=== PATIENT | male | born 1960 | race Caucasian/White ===

== ENCOUNTER → 2016-06-24 | Outpatient (CLI) | payer BC | LOC: MW.CHIM 09:55 | PROVIDERS: ATTEND Internal Medicine | DX: E10.9 Type 1 diabetes mellitus without complications (principal); I10 Essential (primary) hypertension; E78.00 Pure hypercholesterolemia, unspecified | CPT/HCPCS: 36415; 84439; 84443 ==

== ENCOUNTER 2017-06-14 04:27 | Emergency (ER) | payer BC ==
[2017-06-14] MEDS ORDERED: Sodium Chloride 0.9% 1,000 ML IV ONE (05:00)
[2017-06-14] MEDS ORDERED: Ondansetron 4 MG/2 ML SDV IVPUSH ONE (05:00)
--- NOTE | 2017-06-14 05:08 | EDM.PDOC ---
ED HPI GENERAL MEDICAL PROBLEM - General Chief Complaint: Gastrointestinal Problem Stated Complaint: FEELING SICK Time Seen by Provider: 06/14/17 04:59 - History of Present Illness INITIAL COMMENTS - FREE TEXT/NARRATIVE: HISTORY AND PHYSICAL: History of present illness: Patient 57-year-old white male who presents with a concern of nausea and vomiting this occurred last week resolved significantly over the weekend and then has recurred he denies chest pain abdominal pain shortness of breath diarrhea or other concern Review of systems: As per history of present illness and below otherwise all systems reviewed and negative. Past medical history: As per history of present illness and as reviewed below otherwise noncontributory. Surgical history: As per history of present illness and as reviewed below otherwise noncontributory. Social history: No reported history of drug or alcohol abuse. Family history: As per history of present illness and as reviewed below otherwise noncontributory. Physical exam: HEENT: Atraumatic, normocephalic, pupils reactive, negative for conjunctival pallor or scleral icterus, mucous membranes dry, throat clear, neck supple, nontender, trachea midline. Lungs: Clear to auscultation, breath sounds equal bilaterally, chest nontender. Heart: S1S2, regular, negative for clicks, rubs, or JVD. Abdomen: Soft, nondistended, nontender. Negative for masses or hepatosplenomegaly. Negative for costovertebral tenderness. Pelvis: Stable nontender. Genitourinary: Deferred. Rectal: Deferred. Extremities: Atraumatic, negative for cords or calf pain. Neurovascular unremarkable. Neuro: Awake, alert, oriented. Cranial nerves II through XII unremarkable. Cerebellum unremarkable. Motor and sensory unremarkable throughout. Exam nonfocal. Diagnostics: CBC CMP troponin lipase chest x-ray EKG influenza screen Therapeutics: Saline 1 L bolus Zofran 4 mg IV Impression: #1 vomiting with dehydration #2 history diabetes Definitive disposition and diagnosis as appropriate pending reevaluation and review of above. Head Pain Score (Numeric/FACES): 7 Upper back Pain Score (Numeric/FACES): 7 - Related Data Allergies Allergy/AdvReac Type Severity Reaction Status Date / Time aspirin Allergy Hives Verified 06/14/17 04:40 ibuprofen Allergy Hives Verified 06/14/17 04:40 pioglitazone HCl [From Actos] Allergy Hives Verified 06/14/17 04:40 prasugrel HCl [From Effient] Allergy Rash Verified 06/14/17 04:40 Aihljpk-Xbu-Goj Reductase Allergy Body Aches Verified 06/14/17 04:40 Inhibitor Home Meds: Home Meds Insulin Glarg,Human.Rec.Analog [Lantus] 18 units SQ BID 04/20/14 [History] Multivitamin [Multi-Day Vitamins] 1 tab PO DAILY 12/25/14 [History] Ticagrelor [Brilinta] 90 mg PO BID 12/25/14 [History] traMADol [Ultram] 100 mg PO BEDTIME PRN 12/25/14 [History] Nitroglycerin [IJP: Nitroglycerin] 0.4 mg SL Q5M PRN #30 tablet, sublingual 06/09 [Rx] DULoxetine [Cymbalta] 30 mg PO DAILY 05/16/16 [History] Losartan/Hydrochlorothiazide [Losartan-HCTZ 100-25 MG] 1 tab PO DAILY 05/16/16 [ History] Pantoprazole [ProTONIX] 40 mg PO BIDAC PRN 05/16/16 [History] Doxazosin [Cardura] 8 mg PO BEDTIME tablet 05/17/16 [Rx] Metaxalone [Skelaxin] 0 mg PO Q8H PRN 06/14/17 [History] Past Medical History - Past Health History Medical/Surgical History: Denies Medical/Surgical History HEENT History: Reports: Macular Degeneration, Otitis Media Other HEENT History: Constant ringing in ears, affects my hearing Cardiovascular History: Reports: Angina, Hypertension, [place], SOB on Exertion, Stents, Syncope Other Cardiovascular History: Diastolic dysfunction Respiratory History: Reports: None Gastrointestinal History: Reports: GERD Other Gastrointestinal History: Abdominal pain post meals, Water dark, smelling stools Genitourinary History: Reports: None Musculoskeletal History: Reports: Back Pain, Chronic, Neck Pain, Chronic Other Musculoskeletal History: Upper back pain history Neurological History: Reports: None Other Neuro History: 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 Psychiatric History: Reports: Anxiety, Depression Other Psychiatric History: "Not sure I would know if I were depressed 'how would I know?" Endocrine/Metabolic History: Reports: Diabetes, Type I Hematologic History: Reports: None Other Hematologic History: Chronic anti-coagulant therapy Immunologic History: Reports: None Oncologic (Cancer) History: Reports: None Dermatologic History: Reports: None - Infectious Disease History Infectious Disease History: Reports: Chicken Pox, Hepatitis A - Past Surgical History Head Surgeries/Procedures: Reports: None Cardiovascular Surgical History: Reports: Coronary Artery Stent Musculoskeletal Surgical History: Reports: Other (See Below) Social & Family History - Family History Family Medical History: Noncontributory Cardiac: Reports: Angina, [place] Other Cardiac Family History: states both parents young from cardiac disease, also extensive cardiac HX with uncles, cousins, nephews - Tobacco Use Smoking Status *Q: Never Smoker Second Hand Smoke Exposure: No - Caffeine Use Caffeine Use: Reports: Coffee - Alcohol Use Days Per Week of Alcohol Use: 1 Number of Drinks Per Day: 1 Total Drinks Per Week: 1 - Recreational Drug Use Recreational Drug Use: No Drug Use in Last 12 Months: No Recreational Drug Type: Reports: Marijuana/Hashish ED ROS GENERAL - Review of Systems Review Of Systems: ROS reveals no pertinent complaints other than HPI. ED EXAM, GENERAL - Physical Exam Exam: See Below (See dictation) Course - Vital Signs Last Recorded V/S: Last Vital Signs Temp 36.5 C 06/14/17 04:27 Pulse 71 06/14/17 05:41 Resp 18 06/14/17 05:41 BP 143/80 H 06/14/17 05:41 Pulse Ox 96 06/14/17 05:41 - Orders/Labs/Meds Orders: Active Orders 24 hr Category Date Time Status EKG Documentation Completion [RC] STAT Care 06/14/17 05:06 Active Chest 1V Frontal [CR] Stat Exams 06/14/17 05:07 Taken Labs: Laboratory Tests 06/14/17 06/14/17 06/14/17 Range/Units 04:37 04:40 04:40 WBC 4.97 (4.0-11.0) K/uL RBC 4.30 L (4.50-5.90) M/uL Hgb 14.2 (13.0-17.0) g/dL Hct 38.4 (38.0-50.0) % MCV 89.3 (80.0-98.0) fL MCH 33.0 H (27.0-32.0) pg MCHC 37.0 (31.0-37.0) g/dL RDW Std Deviation 39.8 (28.0-62.0) fl RDW Coeff of Ji 13 (11.0-15.0) % Plt Count 220 (150-400) K/uL MPV 10.50 (7.40-12.00) fL Neut % (Auto) 56.1 (48.0-80.0) % Lymph % (Auto) 32.2 (16.0-40.0) % Spencer % (Auto) 8.5 (0.0-15.0) % Eos % (Auto) 2.6 (0.0-7.0) % Baso % (Auto) 0.6 (0.0-1.5) % Neut # (Auto) 2.8 (1.4-5.7) K/uL Lymph # (Auto) 1.6 (0.6-2.4) K/uL Spencer # (Auto) 0.4 (0.0-0.8) K/uL Eos # (Auto) 0.1 (0.0-0.7) K/uL Baso # (Auto) 0.0 (0.0-0.1) K/uL Nucleated RBC % 0.0 /100WBC Nucleated RBCs # 0 K/uL Sodium 139 (136-148) mmol/L Potassium 3.3 L (3.5-5.1) mmol/L Chloride 100 (98-107) mmol/L Carbon Dioxide 32.7 H (21.0-32.0) mmol/L BUN 9 (7.0-18.0) mg/dL Creatinine 0.9 (0.8-1.3) mg/dL Est Cr Clr Drug Dosing 81.72 mL/min Estimated GFR (MDRD) > 60.0 ml/min Glucose 261 H (74-106) mg/dL POC Glucose 250 H (60-110) mg/dL Calcium 9.0 (8.5-10.1) mg/dL Total Bilirubin 0.6 (0.2-1.0) mg/dL AST 19 (15-37) IU/L ALT 29 (14-63) IU/L Alkaline Phosphatase 69 (46-116) U/L Troponin I < 0.050 (0.000-0.056) ng/mL Total Protein 6.8 (6.4-8.2) g/dL Albumin 3.6 (3.4-5.0) g/dL Globulin 3.2 (2.0-3.5) g/dL Albumin/Globulin Ratio 1.1 L (1.3-2.8) Lipase (73-393) U/L Urine Color Urine Appearance Urine pH (5.0-8.0) Ur Specific Redby (1.001-1.035) Urine Protein (NEGATIVE) mg/dL Urine Glucose (UA) (NEGATIVE) mg/dL Urine Ketones (NEGATIVE) mg/dL Urine Occult Blood (NEGATIVE) Urine Nitrite (NEGATIVE) Urine Bilirubin (NEGATIVE) Urine Urobilinogen (<2.0) EU/dL Ur Leukocyte Esterase (NEGATIVE) Urine RBC (0-2/HPF) Urine WBC (0-5/HPF) Ur Epithelial Cells (NONE-FEW) Urine Bacteria (NEGATIVE) Urine Mucus (NONE-MOD) 06/14/17 06/14/17 Range/Units 04:40 05:40 WBC (4.0-11.0) K/uL RBC (4.50-5.90) M/uL Hgb (13.0-17.0) g/dL Hct (38.0-50.0) % MCV (80.0-98.0) fL MCH (27.0-32.0) pg MCHC (31.0-37.0) g/dL RDW Std Deviation (28.0-62.0) fl RDW Coeff of Ji (11.0-15.0) % Plt Count (150-400) K/uL MPV (7.40-12.00) fL Neut % (Auto) (48.0-80.0) % Lymph % (Auto) (16.0-40.0) % Spencer % (Auto) (0.0-15.0) % Eos % (Auto) (0.0-7.0) % Baso % (Auto) (0.0-1.5) % Neut # (Auto) (1.4-5.7) K/uL Lymph # (Auto) (0.6-2.4) K/uL Spencer # (Auto) (0.0-0.8) K/uL Eos # (Auto) (0.0-0.7) K/uL Baso # (Auto) (0.0-0.1) K/uL Nucleated RBC % /100WBC Nucleated RBCs # K/uL Sodium (136-148) mmol/L Potassium (3.5-5.1) mmol/L Chloride (98-107) mmol/L Carbon Dioxide (21.0-32.0) mmol/L BUN (7.0-18.0) mg/dL Creatinine (0.8-1.3) mg/dL Est Cr Clr Drug Dosing mL/min Estimated GFR (MDRD) ml/min Glucose (74-106) mg/dL POC Glucose (60-110) mg/dL Calcium (8.5-10.1) mg/dL Total Bilirubin (0.2-1.0) mg/dL AST (15-37) IU/L ALT (14-63) IU/L Alkaline Phosphatase (46-116) U/L Troponin I (0.000-0.056) ng/mL Total Protein (6.4-8.2) g/dL Albumin (3.4-5.0) g/dL Globulin (2.0-3.5) g/dL Albumin/Globulin Ratio (1.3-2.8) Lipase 107 (73-393) U/L Urine Color YELLOW Urine Appearance CLEAR Urine pH 7.0 (5.0-8.0) Ur Specific Redby 1.015 (1.001-1.035) Urine Protein TRACE (NEGATIVE) mg/dL Urine Glucose (UA) 500 H (NEGATIVE) mg/dL Urine Ketones TRACE H (NEGATIVE) mg/dL Urine Occult Blood NEGATIVE (NEGATIVE) Urine Nitrite NEGATIVE (NEGATIVE) Urine Bilirubin NEGATIVE (NEGATIVE) Urine Urobilinogen 2.0 H (<2.0) EU/dL Ur Leukocyte Esterase NEGATIVE (NEGATIVE) Urine RBC 1-2 (0-2/HPF) Urine WBC 0-2 (0-5/HPF) Ur Epithelial Cells RARE (NONE-FEW) Urine Bacteria FEW (NEGATIVE) Urine Mucus LIGHT (NONE-MOD) Meds: Medications Discontinued Medications Generic Name Dose Route Start Last Admin Trade Name Freq PRN Reason Stop Dose Admin Sodium Chloride 1,000 mls @ 999 mls/hr 06/14/17 05:00 06/14/17 05:00 Normal Saline IV 06/14/17 06:00 999 mls/hr STAT ONE Administration Ondansetron HCl 4 mg 06/14/17 05:00 06/14/17 05:05 Zofran IVPUSH 06/14/17 05:01 4 mg ONETIME ONE Administration Departure - Departure Time of Disposition: 06:24 Disposition: Home, Self-Care 01 Condition: Good Clinical Impression: Vomiting, Dehydration - Discharge Information Referrals: Jay Butcher MD [Primary Care Provider] - Forms: ED Department Discharge Additional Instructions: The following information is given to patients seen in the emergency department who are being discharged to home. This information is to outline your options for follow-up care. We provide all patients seen in our emergency department with a follow-up referral. The need for follow-up, as well as the timing and circumstances, are variable depending upon the specifics of your emergency department visit. If you don't have a primary care physician on staff, we will provide you with a referral. We always advise you to contact your personal physician following an emergency department visit to inform them of the circumstance of the visit and for follow-up with them and/or the need for any referrals to a consulting specialist. The emergency department will also refer you to a specialist when appropriate. This referral assures that you have the opportunity for followup care with a specialist. All of these measure are taken in an effort to provide you with optimal care, which includes your followup. Under all circumstances we always encourage you to contact your private physician who remains a resource for coordinating your care. When calling for followup care, please make the office aware that this follow-up is from your recent emergency room visit. If for any reason you are refused follow-up, please contact the [facility] emergency department at and asked to speak to the emergency department charge nurse. Push fluids clear liquids as directed avoid dairy products for 72 hours Zofran as prescribed follow-up primary medical doctor call to schedule appointment return as needed as discussed - My Orders Last 24 Hours: My Active Orders 06/14/17 05:06 EKG Documentation Completion [RC] STAT 06/14/17 05:07 Chest 1V Frontal [CR] Stat - Assessment/Plan Last 24 Hours: My Active Orders 06/14/17 05:06 EKG Documentation Completion [RC] STAT 06/14/17 05:07 Chest 1V Frontal [CR] Stat
[2017-06-14 06:03] LABS: CHLORIDE,CL 100 mmol/L (98-107); SODIUM,NA 139 mmol/L (136-148)
[2017-06-14 06:31] VITALS: BP 139/103
--- NOTE | 2017-06-14 10:53 | CR ---
EXAM DATE: 06/14/17 PATIENT'S AGE: 57 Patient: ALEXA COOPER Facility: [place], [place] Site . Site : 1960 Study: XRay Chest [id number]/21/2018 5:42:19 AM Ordering Physician: Donavan Oswald Final Report: INDICATION: Chest pain, shortness of breath history of several heart surgeries, stents TECHNIQUE: Chest radiograph 1 view COMPARISON: 05/16/16 FINDINGS: Mediastinum: The heart silhouette is normal in size and morphology. The mediastinum is normal in appearance. Lungs: Both lungs are unremarkable in appearance. No sign of pleural effusion seen. No pneumothorax is identified. Bones and soft tissue: Unremarkable for age. IMPRESSION: 1. No acute cardiopulmonary disease is seen. Dictated by: Alonzo Canchola MD @ 06/14/2017 05:43:49 (Electronic Signature) Report Signed by Proxy. [facility]
== END 2017-06-14 06:33 | disposition home or self-care (01) ==
LOC: MW.ED 04:27
DX: E86.0 Dehydration (principal); R11.2 Nausea with vomiting, unspecified; I10 Essential (primary) hypertension; I25.2 Old myocardial infarction; E10.9 Type 1 diabetes mellitus without complications; Z88.6 Allergy status to analgesic agent; Z79.899 Other long term (current) drug therapy
CPT/HCPCS: 71045; 80053; 81001; 82962; 83690; 84484; 85025; 87804; 93005; 96361; 96374; 99284; J2405; J7040; 99283

== ENCOUNTER 2017-12-24 13:14 | Emergency (ER) | payer BC ==
[2017-12-24] MEDS ORDERED: Sodium Chloride 0.9% 1,000 ML IV ONE (13:28)
--- NOTE | 2017-12-24 13:41 | EDM.PDOC ---
ED HPI GENERAL MEDICAL PROBLEM - General Chief Complaint: Cardiovascular Problem Stated Complaint: HEART ISSUES Time Seen by Provider: 12/24/17 13:37 Source of Information: Reports: Patient History Limitations: Reports: No Limitations - History of Present Illness INITIAL COMMENTS - FREE TEXT/NARRATIVE: HISTORY AND PHYSICAL: History of present illness: Patient is a 57-year-old male here with complaint of left hand tingling. He states that it started this morning. He reports last night around 2am he was feeling jittery, chest pain, and nauseous. He states he took a nitro and this resolved. He currently denies any chest pain/pressure, shortness of breath, diaphoresis, nausea, left arm or jaw pain, fevers, chills, cough. He has a history of ACS with stents. Patient also complains of left eye blurriness. Head CT shows bilateral ethmoidal and sphenoid sinusitis, patient does not that he has had pain in his forehead and nasal congestion. Troponin negative, no chest pain for 12 hours prior to arrival to the ED. Review of systems: As per history of present illness and below otherwise all systems reviewed and negative. Past medical history: As per history of present illness and as reviewed below otherwise noncontributory. Surgical history: As per history of present illness and as reviewed below otherwise noncontributory. Social history: No reported history of drug or alcohol abuse. Family history: As per history of present illness and as reviewed below otherwise noncontributory. Physical exam: General: Patient sitting comfortably in no acute distress and nontoxic appearing HEENT: Atraumatic, normocephalic, pupils reactive, negative for conjunctival pallor or scleral icterus, mucous membranes moist, throat clear, neck supple, nontender, trachea midline. No meningeal signs. Lungs: Clear to auscultation, breath sounds equal bilaterally, chest nontender. Heart: S1S2, regular, negative for clicks, rubs, or overt murmur. Abdomen: Soft, nondistended, nontender. Negative for masses or hepatosplenomegaly. Negative for costovertebral tenderness. Pelvis: Stable nontender. Genitourinary: Deferred. Rectal: Deferred. Extremities: Positive tinels sign at the ulnar tunnel. Craft Worker strength is 4/5 on the left. No lower extremity weakness noted. Atraumatic, negative for cords or calf pain. Neurovascular unremarkable. Neuro: Awake, alert, oriented. Cranial nerves II through XII unremarkable. Cerebellum unremarkable. Motor and sensory unremarkable throughout. Exam nonfocal. Notes: Diagnostics: CBC, CMP, Troponin, PT/INR, EKG, CXR, Head CT Therapeutics: None Prescriptions: Augmentin Impression: Left arm parasthesias, acute sinusitis Plan: 1. Take antibiotic as directed. 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 2. Follow up with primary care provider 3. Return to ED as needed as discussed Definitive disposition and diagnosis as appropriate pending reevaluation and review of above. Chest Pain Score (Numeric/FACES): 2 - Related Data Allergies Allergy/AdvReac Type Severity Reaction Status Date / Time aspirin Allergy Hives Verified 12/24/17 13:24 ibuprofen Allergy Hives Verified 12/24/17 13:24 pioglitazone HCl [From Actos] Allergy Hives Verified 12/24/17 13:24 prasugrel HCl [From Effient] Allergy Rash Verified 12/24/17 13:24 [id number]-[id number] Reductase Allergy Body Aches Verified 12/24/17 13:24 Inhibitor Home Meds: Home Meds RX: Insulin Glarg,Human.Rec.Analog [Lantus] 23 units SQ BID 04/20/14 [History] RX: Multivitamin [Multi-Day Vitamins] 1 tab PO DAILY 12/25/14 [History] RX: Ticagrelor [Brilinta] 90 mg PO BID 12/25/14 [History] RX: traMADol [Ultram] 50 - 100 mg PO BEDTIME PRN 12/25/14 [History] Gabapentin [Neurontin] 300 mg PO BEDTIME 11/01/17 [History] Insulin Aspart [Novolog] 6 unit SQ TIDMEALS 11/01/17 [History] RX: Carvedilol 25 mg PO BID 11/01/17 [History] RX: Doxazosin [Cardura] 4 mg PO BEDTIME 11/01/17 [History] RX: Omeprazole 20 mg PO ACBREAKFAST 11/01/17 [History] amLODIPine Besylate [Amlodipine Besylate] 10 mg PO DAILY 11/01/17 [History] Amoxicillin/Potassium Clav [Augmentin 875-125 Tablet] 1 each PO BID 7 Days #14 tablet 12/24/17 [Rx] RX: Losartan [Cozaar] 100 mg PO DAILY 12/24/17 [History] Past Medical History - Past Health History Medical/Surgical History: Denies Medical/Surgical History HEENT History: Reports: Otitis Media, Other (See Below) Other HEENT History: Constant ringing in ears, affects my hearing, macular edema Cardiovascular History: Reports: Angina, High Cholesterol, Hypertension, SD, SOB on Exertion, Stents, Syncope, Other (See Below) Other Cardiovascular History: Diastolic dysfunction Respiratory History: Reports: None Gastrointestinal History: Reports: GERD Other Gastrointestinal History: Abdominal pain post meals, Water dark, smelling stools Genitourinary History: Reports: None Musculoskeletal History: Reports: Back Pain, Chronic, Neck Pain, Chronic Other Musculoskeletal History: Upper back pain history Neurological History: Reports: None Other Neuro History: 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 Psychiatric History: Reports: Anxiety, Depression Other Psychiatric History: "Not sure I would know if I were depressed 'how would I know?" Endocrine/Metabolic History: Reports: Diabetes, Type I Hematologic History: Reports: None Other Hematologic History: Chronic anti-coagulant therapy Immunologic History: Reports: None Oncologic (Cancer) History: Reports: None Dermatologic History: Reports: None - Infectious Disease History Infectious Disease History: Reports: Chicken Pox, Hepatitis A - Past Surgical History Head Surgeries/Procedures: Reports: None Cardiovascular Surgical History: Reports: Coronary Artery Stent Musculoskeletal Surgical History: Reports: Other (See Below) Social & Family History - Family History Family Medical History: Noncontributory Cardiac: Reports: Angina, SD Other Cardiac Family History: states both parents young from cardiac disease, also extensive cardiac HX with uncles, cousins, nephews - Tobacco Use Smoking Status *Q: Never Smoker - Caffeine Use Caffeine Use: Reports: Coffee - Recreational Drug Use Recreational Drug Use: No ED ROS GENERAL - Review of Systems Review Of Systems: ROS reveals no pertinent complaints other than HPI. ED EXAM, GENERAL - Physical Exam Exam: See Below (see dictation) Course - Vital Signs Last Recorded V/S: Last Vital Signs Temp 36.3 C 12/24/17 13:21 Pulse 73 12/24/17 14:19 Resp 18 12/24/17 13:21 BP 143/96 H 12/24/17 14:19 Pulse Ox 98 12/24/17 14:19 - Orders/Labs/Meds Orders: Active Orders 24 hr Category Date Time Status EKG Documentation Completion [RC] STAT Care 12/24/17 13:28 Active Chest 1V Frontal [CR] Stat Exams 12/24/17 13:28 Taken Head wo Cont [CT] Stat Exams 12/24/17 14:20 Taken Labs: Laboratory Tests 12/24/17 12/24/17 12/24/17 Range/Units 13:28 13:49 13:49 WBC 4.50 (4.0-11.0) K/uL RBC 4.51 (4.50-5.90) M/uL Hgb 15.0 (13.0-17.0) g/dL Hct 40.4 (38.0-50.0) % MCV 89.6 (80.0-98.0) fL MCH 33.3 H (27.0-32.0) pg MCHC 37.1 H (31.0-37.0) g/dL RDW Std Deviation 40.9 (28.0-62.0) fl RDW Coeff of Ji 13 (11.0-15.0) % Plt Count 156 (150-400) K/uL MPV 10.10 (7.40-12.00) fL Neut % (Auto) 63.8 (48.0-80.0) % Lymph % (Auto) 22.7 (16.0-40.0) % Bell % (Auto) 8.9 (0.0-15.0) % Eos % (Auto) 4.2 (0.0-7.0) % Baso % (Auto) 0.4 (0.0-1.5) % Neut # (Auto) 2.9 (1.4-5.7) K/uL Lymph # (Auto) 1.0 (0.6-2.4) K/uL Bell # (Auto) 0.4 (0.0-0.8) K/uL Eos # (Auto) 0.2 (0.0-0.7) K/uL Baso # (Auto) 0.0 (0.0-0.1) K/uL Nucleated RBC % 0.0 /100WBC Nucleated RBCs # 0 K/uL Sodium 136 (136-148) mmol/L Potassium 3.8 (3.5-5.1) mmol/L Chloride 102 (98-107) mmol/L Carbon Dioxide 28.7 (21.0-32.0) mmol/L BUN 22 H (7.0-18.0) mg/dL Creatinine 1.1 (0.8-1.3) mg/dL Est Cr Clr Drug Dosing 76.50 mL/min Estimated GFR (MDRD) > 60.0 ml/min Glucose 346 H (74-106) mg/dL Calcium 9.0 (8.5-10.1) mg/dL Total Bilirubin 0.8 (0.2-1.0) mg/dL AST 16 (15-37) IU/L ALT 27 (14-63) IU/L Alkaline Phosphatase 82 (46-116) U/L Troponin I < 0.050 (0.000-0.056) ng/mL Total Protein 7.1 (6.4-8.2) g/dL Albumin 3.6 (3.4-5.0) g/dL Globulin 3.5 (2.0-3.5) g/dL Albumin/Globulin Ratio 1.0 L (1.3-2.8) Urine Color YELLOW Urine Appearance CLEAR Urine pH 5.5 (5.0-8.0) Ur Specific [place] 1.025 (1.001-1.035) Urine Protein NEGATIVE (NEGATIVE) mg/dL Urine Glucose (UA) >=1000 (NEGATIVE) mg/dL Urine Ketones NEGATIVE (NEGATIVE) mg/dL Urine Occult Blood NEGATIVE (NEGATIVE) Urine Nitrite NEGATIVE (NEGATIVE) Urine Bilirubin NEGATIVE (NEGATIVE) Urine Urobilinogen 0.2 (<2.0) EU/dL Ur Leukocyte Esterase NEGATIVE (NEGATIVE) Urine RBC 0-1 (0-2/HPF) Urine WBC 0-1 (0-5/HPF) Ur Epithelial Cells RARE (NONE-FEW) Urine Bacteria RARE (NEGATIVE) Urine Mucus LIGHT (NONE-MOD) Meds: Medications Discontinued Medications Generic Name Dose Route Start Last Admin Trade Name Freq PRN Reason Stop Dose Admin Sodium Chloride 1,000 mls @ 999 mls/hr 12/24/17 13:28 12/24/17 13:49 Normal Saline IV 12/24/17 14:28 999 mls/hr STAT ONE Administration Departure - Departure Time of Disposition: 15:30 Disposition: Home, Self-Care 01 Condition: Good Clinical Impression: Arm paresthesia, left, Acute sinusitis Prescriptions: Amoxicillin/Potassium Clav [Augmentin 875-125 Tablet] 1 each PO BID 7 Days #14 tablet Referrals: PCP,None [Primary Care Provider] - Forms: ED Department Discharge Additional Instructions: The following information is given to patients seen in the emergency department who are being discharged to home. This information is to outline your options for follow-up care. We provide all patients seen in our emergency department with a follow-up referral. The need for follow-up, as well as the timing and circumstances, are variable depending upon the specifics of your emergency department visit. If you don't have a primary care physician on staff, we will provide you with a referral. We always advise you to contact your personal physician following an emergency department visit to inform them of the circumstance of the visit and for follow-up with them and/or the need for any referrals to a consulting specialist. The emergency department will also refer you to a specialist when appropriate. This referral assures that you have the opportunity for follow-up care with a specialist. All of these measure are taken in an effort to provide you with optimal care, which includes your follow-up. Under all circumstances we always encourage you to contact your private physician who remains a resource for coordinating your care. When calling for follow-up care, please make the office aware that this follow-up is from your recent emergency room visit. If for any reason you are refused follow-up, please contact the [facility] at and asked to speak to the emergency department charge nurse. [facility] [address] [place] [id number] 1. Take antibiotic as directed. 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 2. Follow up with primary care provider 3. Return to ED as needed as discussed - My Orders Last 24 Hours: My Active Orders 12/24/17 14:20 Head wo Cont [CT] Stat - Assessment/Plan Last 24 Hours: My Active Orders 12/24/17 14:20 Head wo Cont [CT] Stat
[2017-12-24 14:24] LABS: CHLORIDE,CL 102 mmol/L (98-107); SODIUM,NA 136 mmol/L (136-148)
[2017-12-24 15:51] VITALS: BP 131/89
--- NOTE | 2017-12-25 18:57 | CR ---
EXAM DATE: 12/24/17 PATIENT'S AGE: 57 Patient: ALEXA COOPER Facility: [place], [place] Site . Site : 1960 Study: XRay Chest [id number] 2:15:55 PM Ordering Physician: Doctor Washington Final Report: HISTORY: Chest pain. FINDINGS: Single AP view of the chest is provided. There is elevation of the right hemidiaphragm. The lungs are clear and there is no evidence for pleural effusion or pneumothorax. Cardiac silhouette size is mildly enlarged but this could be due to AP portable technique. Mild aortic ectasia is noted. IMPRESSION: Clear lungs. Dictated by Niles Mann MD @ Dec 24 2017 2:38PM (Electronic Signature) Report Signed by Proxy. DONTA
--- NOTE | 2017-12-25 18:59 | CT ---
EXAM DATE: 12/24/17 PATIENT'S AGE: 57 Patient: ALEXA COOPER Facility: [place], [place] Site . Site : 1960 Study: CT Head WO CONT [id number] 2:49:33 PM Ordering Physician: Doctor Washington Final Report: INDICATION: Pain. Left-sided hand numbness and left eye blurriness. TECHNIQUE: CT head without IV contrast. COMPARISON: CT head 11/01/2017. FINDINGS: Moderate amount of fluid in the sphenoid sinus with mucosal thickening similar to prior exam. Small to moderate amounts of fluid and mucosal thickening in the ethmoidal sinuses more prominent. Findings consistent with sinusitis. No intracranial hemorrhage, edema, or mass-effect. Minimal cerebral atrophy. Tiny old lacunar infarcts in the left basal ganglia. Remainder negative. IMPRESSION: 1. No acute intracranial disease. 2. Bilateral ethmoidal and sphenoid sinusitis. Please note that all CT scans at this facility use dose modulation, iterative reconstruction, and/or weight-based dosing when appropriate to reduce radiation dose to as low as reasonably achievable. Dictated by Paulino Gutierrez MD @ Dec 24 2017 3:00PM (Electronic Signature) Report Signed by Proxy. DONTA
== END 2017-12-24 15:50 | disposition home or self-care (01) ==
LOC: MW.ED 13:14
DX: J01.80 Other acute sinusitis (principal); R20.2 Paresthesia of skin; E10.9 Type 1 diabetes mellitus without complications; I10 Essential (primary) hypertension; E78.00 Pure hypercholesterolemia, unspecified; Z88.6 Allergy status to analgesic agent; Z88.8 Allergy status to other drugs, medicaments and biological substances
CPT/HCPCS: 36415; 70450; 71045; 80053; 81001; 84484; 85025; 93005; 96360; 99285; J7040; 99284

== ENCOUNTER 2018-07-23 07:48 | Emergency (ER) | payer BC ==
[2018-07-23] MEDS ORDERED: Sodium Chloride 0.9% 2.5 ML Syringe FLUSH PRN (08:01)
[2018-07-23] MEDS ORDERED: Nitroglycerin 2% Oint 1 GM UD Packet TOP ONE (08:01)
[2018-07-23] MEDS ORDERED: Sodium Chloride 0.9% 10 ML Syringe FLUSH PRN (08:01)
[2018-07-23] MEDS ORDERED: Sodium Chloride 0.9% 10 ML SDV IV PRN (08:01)
[2018-07-23] MEDS ORDERED: LORazepam 2 MG/ML SDV IVPUSH ONE (08:03)
[2018-07-23] MEDS ORDERED: Sodium Chloride 0.9% 1,000 ML IV ONE (08:03)
[2018-07-23] MEDS ORDERED: Morphine 2 MG/ML Syringe IVPUSH ONE (08:06)
[2018-07-23] MEDS ORDERED: Ondansetron 4 MG/2 ML SDV IVPUSH ONE (08:06)
--- NOTE | 2018-07-23 08:08 | EDM.PDOC ---
ED HPI GENERAL MEDICAL PROBLEM - General Chief Complaint: Chest Pain Stated Complaint: CHEST PAIN Time Seen by Provider: 07/23/18 07:57 - History of Present Illness INITIAL COMMENTS - FREE TEXT/NARRATIVE: HISTORY AND PHYSICAL: History of present illness: Patient is 58-year-old white male who presents with concern of left-sided chest pain he describes as sharp and intermittent with associated nausea and emesis 1 yesterday he denies diaphoresis palpitations or shortness of breath he is quite anxious. He's been seen by cardiology both at [facility] as well as locally with Dr. Boyer Review of systems: As per history of present illness and below otherwise all systems reviewed and negative. Past medical history: As per history of present illness and as reviewed below otherwise noncontributory. Surgical history: As per history of present illness and as reviewed below otherwise noncontributory. Social history: No reported history of drug or alcohol abuse. Family history: As per history of present illness and as reviewed below otherwise noncontributory. Physical exam: HEENT: Atraumatic, normocephalic, pupils reactive, negative for conjunctival pallor or scleral icterus, mucous membranes moist, throat clear, neck supple, nontender, trachea midline. Lungs: Clear to auscultation, breath sounds equal bilaterally, chest nontender. Heart: S1S2, regular, negative for clicks, rubs, or JVD. Abdomen: Soft, nondistended, nontender. Negative for masses or hepatosplenomegaly. Negative for costovertebral tenderness. Pelvis: Stable nontender. Genitourinary: Deferred. Rectal: Deferred. Extremities: Atraumatic, negative for cords or calf pain. Neurovascular unremarkable. Neuro: Awake, alert, oriented. Cranial nerves II through XII unremarkable. Cerebellum unremarkable. Motor and sensory unremarkable throughout. Exam nonfocal. Diagnostics: CBC CMP troponin PT/INR chest x-ray EKG Therapeutics: IV O2 monitor Nitropaste 1 inch to chest wall Ativan 1 mg IV morphine sulfate 2 mg IV Impression: #1 chest pain Definitive disposition and diagnosis as appropriate pending reevaluation and review of above. Chest Pain Score (Numeric/FACES): 7 - Related Data Allergies Allergy/AdvReac Type Severity Reaction Status Date / Time aspirin Allergy Hives Verified 07/23/18 07:57 ibuprofen Allergy Hives Verified 07/23/18 07:57 pioglitazone HCl [From Actos] Allergy Hives Verified 07/23/18 07:57 prasugrel HCl [From Effient] Allergy Rash Verified 07/23/18 07:57 [id number]-[id number] Reductase Allergy Body Aches Verified 07/23/18 07:57 Inhibitor Home Meds: Home Meds Insulin Glarg,Human.Rec.Analog [Lantus] 23 units SQ BID 04/20/14 [History] Multivitamin [Multi-Day Vitamins] 1 tab PO DAILY 12/25/14 [History] Ticagrelor [Brilinta] 90 mg PO BID 12/25/14 [History] traMADol [Ultram] 50 - 100 mg PO BEDTIME PRN 12/25/14 [History] Carvedilol 25 mg PO BID 11/01/17 [History] Doxazosin [Cardura] 4 mg PO BEDTIME 11/01/17 [History] Insulin Aspart [Novolog Flexpen] 6 unit SQ TIDMEALS 11/01/17 [History] Omeprazole 20 mg PO ACBREAKFAST 11/01/17 [History] amLODIPine Besylate [Amlodipine Besylate] 10 mg PO DAILY 11/01/17 [History] Losartan [Cozaar] 100 mg PO DAILY 12/24/17 [History] Ezetimibe [Zetia] 10 mg PO DAILY 02/07/18 [History] Isosorbide Dinitrate 10 mg PO BID 30 Days #60 tablet 02/08/18 [Rx] Past Medical History - Past Health History Medical/Surgical History: Denies Medical/Surgical History HEENT History: Reports: Otitis Media, Other (See Below) Other HEENT History: Constant ringing in ears, affects my hearing, macular edema Cardiovascular History: Reports: Angina, High Cholesterol, Hypertension, CT, SOB on Exertion, Stents, Syncope, Other (See Below) Other Cardiovascular History: Diastolic dysfunction Respiratory History: Reports: None Gastrointestinal History: Reports: GERD Other Gastrointestinal History: Abdominal pain post meals, Water dark, smelling stools Genitourinary History: Reports: None Musculoskeletal History: Reports: Back Pain, Chronic, Neck Pain, Chronic Other Musculoskeletal History: Upper back pain history Neurological History: Reports: None Other Neuro History: 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 Psychiatric History: Reports: Anxiety, Depression Other Psychiatric History: "Not sure I would know if I were depressed 'how would I know?" Endocrine/Metabolic History: Reports: Diabetes, Type I Hematologic History: Reports: None Other Hematologic History: Chronic anti-coagulant therapy Immunologic History: Reports: None Oncologic (Cancer) History: Reports: None Dermatologic History: Reports: None - Infectious Disease History Infectious Disease History: Reports: Hepatitis A - Past Surgical History Head Surgeries/Procedures: Reports: None Cardiovascular Surgical History: Reports: Coronary Artery Stent Musculoskeletal Surgical History: Reports: Other (See Below) Social & Family History - Family History Family Medical History: Noncontributory Cardiac: Reports: Angina, [place] Other Cardiac Family History: states both parents young from cardiac disease, also extensive cardiac HX with uncles, cousins, nephews - Tobacco Use Smoking Status *Q: Never Smoker - Caffeine Use Caffeine Use: Reports: Coffee Caffeine Use Comment: diet soda - Recreational Drug Use Recreational Drug Use: No ED ROS GENERAL - Review of Systems Review Of Systems: ROS reveals no pertinent complaints other than HPI. ED EXAM, GENERAL - Physical Exam Exam: See Below (See dictation) Course - Vital Signs Text/Narrative:: I discussed diagnostics with patient and I did also discuss admission for observation and further diagnostics at this time they both declined and requested discharge with expedited outpatient follow-up he was recently seen by his condenser setter and will revisit this episode with him he is pain-free at this time with no other complaints I did discuss with him risk and benefits he understands. Last Recorded V/S: Last Vital Signs Temp 36.6 C 07/23/18 09:18 Pulse 71 07/23/18 09:18 Resp 18 07/23/18 09:18 BP 167/102 H 07/23/18 09:18 Pulse Ox 98 07/23/18 09:18 - Orders/Labs/Meds Orders: Active Orders 24 hr Category Date Time Status Cardiac Monitoring [RC] . DIRECTED Care 07/23/18 08:01 Active EKG Documentation Completion [RC] STAT Care 07/23/18 08:01 Active UA RFX SARY AND CULT IF INDIC [URIN] Stat Lab 07/23/18 09:15 Received Sodium Chloride 0.9% [Normal Saline] Med 07/23/18 08:01 Active 10 ml IV ASDIRECTED PRN Sodium Chloride 0.9% [Saline Flush] Med 07/23/18 08:01 Active 10 ml FLUSH ASDIRECTED PRN Sodium Chloride 0.9% [Saline Flush] Med 07/23/18 08:01 Active 2.5 ml FLUSH ASDIRECTED PRN Peripheral IV Insertion Adult [OM.PC] Stat Oth 07/23/18 08:01 Ordered Medication Orders Sodium Chloride (Saline Flush) 10 ml FLUSH ASDIRECTED PRN PRN Reason: Keep Vein Open Last Admin: 07/23/18 08:14 Dose: 10 ml Sodium Chloride (Saline Flush) 2.5 ml FLUSH ASDIRECTED PRN PRN Reason: Keep Vein Open Last Admin: 07/23/18 08:14 Dose: 2.5 ml Sodium Chloride (Normal Saline) 10 ml IV ASDIRECTED PRN PRN Reason: IV Use Last Admin: 07/23/18 08:15 Dose: 10 ml Labs: Laboratory Tests 07/23/18 07/23/18 07/23/18 Range/Units 07:55 07:55 07:55 WBC 5.99 (4.0-11.0) K/uL RBC 4.55 (4.50-5.90) M/uL Hgb 14.9 (13.0-17.0) g/dL Hct 42.0 (38.0-50.0) % MCV 92.3 (80.0-98.0) fL MCH 32.7 H (27.0-32.0) pg MCHC 35.5 (31.0-37.0) g/dL RDW Std Deviation 42.9 (28.0-62.0) fl RDW Coeff of Ji 13 (11.0-15.0) % Plt Count 154 (150-400) K/uL MPV 10.80 (7.40-12.00) fL Neut % (Auto) 70.0 (48.0-80.0) % Lymph % (Auto) 19.9 (16.0-40.0) % [place] % (Auto) 6.5 (0.0-15.0) % Eos % (Auto) 3.3 (0.0-7.0) % Baso % (Auto) 0.3 (0.0-1.5) % Neut # (Auto) 4.2 (1.4-5.7) K/uL Lymph # (Auto) 1.2 (0.6-2.4) K/uL [place] # (Auto) 0.4 (0.0-0.8) K/uL Eos # (Auto) 0.2 (0.0-0.7) K/uL Baso # (Auto) 0.0 (0.0-0.1) K/uL Nucleated RBC % 0.0 /100WBC Nucleated RBCs # 0 K/uL INR 0.90 Sodium 137 (136-148) mmol/L Potassium 4.2 (3.5-5.1) mmol/L Chloride 102 (98-107) mmol/L Carbon Dioxide 28.1 (21.0-32.0) mmol/L BUN 19 H (7.0-18.0) mg/dL Creatinine 1.1 (0.8-1.3) mg/dL Est Cr Clr Drug Dosing 75.58 mL/min Estimated GFR (MDRD) > 60.0 ml/min Glucose 425 H (74-106) mg/dL Calcium 9.3 (8.5-10.1) mg/dL Total Bilirubin 0.7 (0.2-1.0) mg/dL AST 17 (15-37) IU/L ALT 19 (14-63) IU/L Alkaline Phosphatase 81 (46-116) U/L Creatine Kinase 76 (26-308) U/L Troponin I < 0.050 (0.000-0.056) ng/mL Total Protein 7.1 (6.4-8.2) g/dL Albumin 3.8 (3.4-5.0) g/dL Globulin 3.3 (2.6-4.0) g/dL Albumin/Globulin Ratio 1.2 (0.9-1.6) Amylase 32 (25-115) U/L Lipase 79 (73-393) U/L Meds: Medications Generic Name Dose Route Start Last Admin Trade Name Freq PRN Reason Stop Dose Admin Sodium Chloride 10 ml 07/23/18 08:01 07/23/18 08:14 Saline Flush FLUSH 10 ml ASDIRECTED PRN Administration Keep Vein Open Sodium Chloride 2.5 ml 07/23/18 08:01 07/23/18 08:14 Saline Flush FLUSH 2.5 ml ASDIRECTED PRN Administration Keep Vein Open Sodium Chloride 10 ml 07/23/18 08:01 07/23/18 08:15 Normal Saline IV 10 ml ASDIRECTED PRN Administration IV Use Discontinued Medications Generic Name Dose Route Start Last Admin Trade Name You PRN Reason Stop Dose Admin Sodium Chloride 1,000 mls @ 999 mls/hr 07/23/18 08:03 07/23/18 08:15 Normal Saline IV 07/23/18 09:03 999 mls/hr STAT ONE Administration Lorazepam 1 mg 07/23/18 08:03 07/23/18 08:14 Ativan IVPUSH 07/23/18 08:04 1 mg ONETIME ONE Administration Morphine Sulfate 2 mg 07/23/18 08:06 07/23/18 08:14 Morphine IVPUSH 07/23/18 08:07 2 mg ONETIME ONE Administration Nitroglycerin 0 gm 07/23/18 08:01 07/23/18 08:13 Nitro-Bid 2% TOP 07/23/18 08:02 1 gm ONETIME ONE Administration Ondansetron HCl 4 mg 07/23/18 08:06 07/23/18 08:14 Zofran IVPUSH 07/23/18 08:07 4 mg ONETIME ONE Administration Departure - Departure Time of Disposition: 09:37 Disposition: Home, Self-Care 01 Condition: Good Clinical Impression: Chest pain Qualifiers: Chest pain type: unspecified Qualified Code(s): R07.9 - Chest pain, unspecified - Discharge Information Referrals: PCP,None [Primary Care Provider] - Forms: ED Department Discharge Additional Instructions: The following information is given to patients seen in the emergency department who are being discharged to home. This information is to outline your options for follow-up care. We provide all patients seen in our emergency department with a follow-up referral. The need for follow-up, as well as the timing and circumstances, are variable depending upon the specifics of your emergency department visit. If you don't have a primary care physician on staff, we will provide you with a referral. We always advise you to contact your personal physician following an emergency department visit to inform them of the circumstance of the visit and for follow-up with them and/or the need for any referrals to a consulting specialist. The emergency department will also refer you to a specialist when appropriate. This referral assures that you have the opportunity for followup care with a specialist. All of these measure are taken in an effort to provide you with optimal care, which includes your followup. Under all circumstances we always encourage you to contact your private physician who remains a resource for coordinating your care. When calling for followup care, please make the office aware that this follow-up is from your recent emergency room visit. If for any reason you are refused follow-up, please contact the [facility] emergency department at and asked to speak to the emergency department charge nurse. Follow-up primary medical doctor/condenser setter as discussed continue current medications return as needed as discussed[] - My Orders Last 24 Hours: My Active Orders 07/23/18 08:01 Cardiac Monitoring [RC] . DIRECTED EKG Documentation Completion [RC] STAT Sodium Chloride 0.9% [Normal Saline] 10 ml IV ASDIRECTED PRN Sodium Chloride 0.9% [Saline Flush] 10 ml FLUSH ASDIRECTED PRN Sodium Chloride 0.9% [Saline Flush] 2.5 ml FLUSH ASDIRECTED PRN Peripheral IV Insertion Adult [OM.PC] Stat 07/23/18 09:15 UA RFX SARY AND CULT IF INDIC [URIN] Stat - Assessment/Plan Last 24 Hours: My Active Orders 07/23/18 08:01 Cardiac Monitoring [RC] . DIRECTED EKG Documentation Completion [RC] STAT Sodium Chloride 0.9% [Normal Saline] 10 ml IV ASDIRECTED PRN Sodium Chloride 0.9% [Saline Flush] 10 ml FLUSH ASDIRECTED PRN Sodium Chloride 0.9% [Saline Flush] 2.5 ml FLUSH ASDIRECTED PRN Peripheral IV Insertion Adult [OM.PC] Stat 07/23/18 09:15 UA RFX SARY AND CULT IF INDIC [URIN] Stat
[2018-07-23 08:47] LABS: CHLORIDE,CL 102 mmol/L (98-107); SODIUM,NA 137 mmol/L (136-148)
--- NOTE | 2018-07-23 09:24 | CR ---
INDICATION: Chest pain. Shortness of breath. FINDINGS: A single portable chest x-ray shows a normal cardiac silhouette. Mildly tortuous aorta. The lungs show minimal left basilar atelectasis. No other focal pulmonary opacities. Sharp pleural margins. No pneumothorax. IMPRESSION: Minimal left basilar atelectasis. No other focal pulmonary opacities. Dictated by Greg Freitas MD @ 07/23/2018 9:21:50 AM Dictated by: Greg Freitas MD @ 07/23/2018 09:22:04 (Electronically Signed)
[2018-07-23 09:54] VITALS: BP 167/105
== END 2018-07-23 09:51 | disposition home or self-care (01) ==
LOC: MW.ED 07:48
DX: R07.9 Chest pain, unspecified (principal); E10.9 Type 1 diabetes mellitus without complications; I10 Essential (primary) hypertension; Z88.8 Allergy status to other drugs, medicaments and biological substances
CPT/HCPCS: 36415; 71045; 80053; 81003; 82150; 82550; 83690; 84484; 85025; 85610; 93005; 96360; 96374; 96375; 99285; A9270; J2060; J2270; J2405; J7040; J7050; 99283

== ENCOUNTER 2018-10-19 08:30 | Observation (INO) | payer BC ==
[2018-10-19] MEDS ORDERED: Sodium Chloride 0.9% 2.5 ML Syringe FLUSH PRN (08:32)
[2018-10-19] MEDS ORDERED: Sodium Chloride 0.9% 10 ML Syringe FLUSH PRN (08:32)
--- NOTE | 2018-10-19 08:43 | EDM.PDOC ---
ED HPI GENERAL MEDICAL PROBLEM - General Stated Complaint: CHEST PAIN AND BLACKING OUT Time Seen by Provider: 10/19/18 09:00 - History of Present Illness INITIAL COMMENTS - FREE TEXT/NARRATIVE: 58 y/o male with history of CAD s/p stent placements, type 1 diabetes, dyslipidemia who presented to the ER after feeling lightheaded and complaining of chest pain. States he has been having on and off chest pain for the past 1 week. States his blood pressure has been elevated and took isosorbide this morning. States he started feeling dizzy, lightheaded afterwards. Rechecked BP and it was 80'/50's. No radiation to neck or left arm. Has chronic neck pain. In the ER, complaining of chest pain. BP in 130's/80's. allergic to aspirin, statins. Left Chest Pain Score (Numeric/FACES): 8 - Related Data Allergies Allergy/AdvReac Type Severity Reaction Status Date / Time aspirin Allergy Hives Verified 10/19/18 08:46 ibuprofen Allergy Hives Verified 10/19/18 08:46 pioglitazone HCl [From Actos] Allergy Hives Verified 10/19/18 08:46 prasugrel HCl [From Effient] Allergy Rash Verified 10/19/18 08:46 Irrxixz-Qkj-Fiz Reductase Allergy Body Aches Verified 10/19/18 08:46 Inhibitor Home Meds: Home Meds Insulin Glarg,Human.Rec.Analog [Lantus] 23 units SQ BID 04/20/14 [History] Multivitamin [Multi-Day Vitamins] 1 tab PO DAILY 12/25/14 [History] Ticagrelor [Brilinta] 90 mg PO BID 12/25/14 [History] traMADol [Ultram] 50 - 100 mg PO BEDTIME PRN 12/25/14 [History] Carvedilol 25 mg PO BID 11/01/17 [History] Doxazosin [Cardura] 4 mg PO BEDTIME 11/01/17 [History] Insulin Aspart [Novolog Flexpen] 6 unit SQ TIDMEALS 11/01/17 [History] Omeprazole 20 mg PO ACBREAKFAST 11/01/17 [History] amLODIPine Besylate [Amlodipine Besylate] 10 mg PO DAILY 11/01/17 [History] Losartan [Cozaar] 100 mg PO DAILY 12/24/17 [History] Ezetimibe [Zetia] 10 mg PO DAILY 02/07/18 [History] Isosorbide Dinitrate 10 mg PO BID 30 Days #60 tablet 02/08/18 [Rx] Past Medical History - Past Health History Medical/Surgical History: Denies Medical/Surgical History HEENT History: Reports: Otitis Media, Other (See Below) Other HEENT History: Constant ringing in ears, affects my hearing, macular edema Cardiovascular History: Reports: Angina, High Cholesterol, Hypertension, [place], SOB on Exertion, Stents, Syncope, Other (See Below) Other Cardiovascular History: Diastolic dysfunction Respiratory History: Reports: None Gastrointestinal History: Reports: GERD Other Gastrointestinal History: Abdominal pain post meals, Water dark, smelling stools Genitourinary History: Reports: None Musculoskeletal History: Reports: Back Pain, Chronic, Neck Pain, Chronic Other Musculoskeletal History: Upper back pain history Neurological History: Reports: None Other Neuro History: 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 Psychiatric History: Reports: Anxiety, Depression Other Psychiatric History: "Not sure I would know if I were depressed 'how would I know?" Endocrine/Metabolic History: Reports: Diabetes, Type I Hematologic History: Reports: None Other Hematologic History: Chronic anti-coagulant therapy Immunologic History: Reports: None Oncologic (Cancer) History: Reports: None Dermatologic History: Reports: None - Infectious Disease History Infectious Disease History: Reports: Hepatitis A - Past Surgical History Head Surgeries/Procedures: Reports: None Cardiovascular Surgical History: Reports: Coronary Artery Stent Musculoskeletal Surgical History: Reports: Other (See Below) Social & Family History - Family History Family Medical History: Noncontributory Cardiac: Reports: Angina, [place] Other Cardiac Family History: states both parents young from cardiac disease, also extensive cardiac HX with uncles, cousins, nephews - Caffeine Use Caffeine Use: Reports: Coffee Caffeine Use Comment: diet soda ED ROS GENERAL - Review of Systems Review Of Systems: ROS reveals no pertinent complaints other than HPI. ED EXAM, GENERAL - Physical Exam Exam: See Below Neck: Normal Inspection Respiratory/Chest: No Respiratory Distress, Lungs Clear Cardiovascular: Regular Rate, Rhythm, No Edema, No JVD, No Murmur GI/Abdominal: Normal Bowel Sounds, Soft, Non-Tender, No Distention Extremities: Normal Inspection, No Pedal Edema Neurological: Alert, Oriented Course - Vital Signs Text/Narrative:: troponin, CBC, CMP, TSH, chest xray, EKG. No aspirin since patient states he is allergic to aspirin and statins. Troponin negative. Discussed case with Dr. Urbano who has accepted the patient as observation. Last Recorded V/S: Last Vital Signs Temp 36.1 C 10/19/18 08:42 Pulse 78 10/19/18 08:42 Resp 18 10/19/18 08:42 BP 131/95 H 10/19/18 08:42 Pulse Ox 99 10/19/18 08:42 - Orders/Labs/Meds Orders: Active Orders 24 hr Category Date Time Status Admission Status [Patient Status] [ADT] Stat ADT 10/19/18 09:46 Active Cardiac Monitoring [RC] . DIRECTED Care 10/19/18 09:46 Active EKG Documentation Completion [RC] STAT Care 10/19/18 08:32 Active Sodium Chloride 0.9% [Saline Flush] Med 10/19/18 08:32 Active 10 ml FLUSH ASDIRECTED PRN Sodium Chloride 0.9% [Saline Flush] Med 10/19/18 08:32 Active 2.5 ml FLUSH ASDIRECTED PRN Saline Lock Insert [OM.PC] Stat Oth 10/19/18 08:32 Ordered Medication Orders Sodium Chloride (Saline Flush) 10 ml FLUSH ASDIRECTED PRN PRN Reason: Keep Vein Open Sodium Chloride (Saline Flush) 2.5 ml FLUSH ASDIRECTED PRN PRN Reason: Keep Vein Open Labs: Laboratory Tests 10/19/18 10/19/18 10/19/18 Range/Units 08:36 08:36 08:36 WBC 6.23 (4.0-11.0) K/uL RBC 4.69 (4.50-5.90) M/uL Hgb 15.4 (13.0-17.0) g/dL Hct 42.0 (38.0-50.0) % MCV 89.6 (80.0-98.0) fL MCH 32.8 H (27.0-32.0) pg MCHC 36.7 (31.0-37.0) g/dL RDW Std Deviation 40.3 (28.0-62.0) fl RDW Coeff of Ji 13 (11.0-15.0) % Plt Count 164 (150-400) K/uL MPV 10.00 (7.40-12.00) fL Neut % (Auto) 61.5 (48.0-80.0) % Lymph % (Auto) 24.4 (16.0-40.0) % [place] % (Auto) 10.6 (0.0-15.0) % Eos % (Auto) 3.0 (0.0-7.0) % Baso % (Auto) 0.5 (0.0-1.5) % Neut # (Auto) 3.8 (1.4-5.7) K/uL Lymph # (Auto) 1.5 (0.6-2.4) K/uL [place] # (Auto) 0.7 (0.0-0.8) K/uL Eos # (Auto) 0.2 (0.0-0.7) K/uL Baso # (Auto) 0.0 (0.0-0.1) K/uL Nucleated RBC % 0.0 /100WBC Nucleated RBCs # 0 K/uL Sodium 138 (136-148) mmol/L Potassium 3.7 (3.5-5.1) mmol/L Chloride 100 (98-107) mmol/L Carbon Dioxide 30.7 (21.0-32.0) mmol/L BUN 19 H (7.0-18.0) mg/dL Creatinine 1.2 (0.8-1.3) mg/dL Est Cr Clr Drug Dosing 69.28 mL/min Estimated GFR (MDRD) > 60.0 ml/min Glucose 229 H (74-106) mg/dL Hemoglobin A1c 9.3 H (4.5-6.2) % Calcium 9.6 (8.5-10.1) mg/dL Total Bilirubin 1.2 H (0.2-1.0) mg/dL AST 15 (15-37) IU/L ALT 22 (14-63) IU/L Alkaline Phosphatase 99 (46-116) U/L Troponin I < 0.050 (0.000-0.056) ng/mL Total Protein 7.5 (6.4-8.2) g/dL Albumin 3.9 (3.4-5.0) g/dL Globulin 3.6 (2.6-4.0) g/dL Albumin/Globulin Ratio 1.1 (0.9-1.6) [facility] 3rd Generation 1.59 (0.36-3.74) uIU/mL Meds: Medications Generic Name Dose Route Start Last Admin Trade Name You PRN Reason Stop Dose Admin Sodium Chloride 10 ml 10/19/18 08:32 Saline Flush FLUSH ASDIRECTED PRN Keep Vein Open Sodium Chloride 2.5 ml 10/19/18 08:32 Saline Flush FLUSH ASDIRECTED PRN Keep Vein Open Discontinued Medications Generic Name Dose Route Start Last Admin Trade Name You PRN Reason Stop Dose Admin Al Hydroxide/Mg Hydroxide 15 0 ml 10/19/18 09:41 10/19/18 09:47 ml/ Metoclopramide HCl 5 mg/ PO 10/19/18 09:42 1 each Lidocaine HCl 5 ml ONETIME ONE Administration Nitroglycerin 1 gm 10/19/18 08:47 10/19/18 08:57 Nitro-Bid 2% TOP 10/19/18 08:48 1 gm ONETIME ONE Administration Departure - Departure Time of Disposition: 09:50 Disposition: Refer to Observation Clinical Impression: Chest pain Qualifiers: Chest pain type: unspecified Qualified Code(s): R07.9 - Chest pain, unspecified Referrals: PCP,None [Primary Care Provider] - - My Orders Last 24 Hours: My Active Orders 10/19/18 08:32 EKG Documentation Completion [RC] STAT Sodium Chloride 0.9% [Saline Flush] 10 ml FLUSH ASDIRECTED PRN Sodium Chloride 0.9% [Saline Flush] 2.5 ml FLUSH ASDIRECTED PRN Saline Lock Insert [OM.PC] Stat 10/19/18 09:46 Admission Status [Patient Status] [ADT] Stat Cardiac Monitoring [RC] . DIRECTED - Assessment/Plan Last 24 Hours: My Active Orders 10/19/18 08:32 EKG Documentation Completion [RC] STAT Sodium Chloride 0.9% [Saline Flush] 10 ml FLUSH ASDIRECTED PRN Sodium Chloride 0.9% [Saline Flush] 2.5 ml FLUSH ASDIRECTED PRN Saline Lock Insert [OM.PC] Stat 10/19/18 09:46 Admission Status [Patient Status] [ADT] Stat Cardiac Monitoring [RC] . DIRECTED
[2018-10-19] MEDS ORDERED: Nitroglycerin 2% Oint 1 GM UD Packet TOP ONE (08:47)
[2018-10-19 09:15] LABS: HEMOGLOBIN A1C 9.3 % (4.5-6.2)
[2018-10-19 09:26] LABS: CHLORIDE,CL 100 mmol/L (98-107); SODIUM,NA 138 mmol/L (136-148)
--- NOTE | 2018-10-19 09:40 | CR ---
INDICATION: Chest pain and shortness of breath TECHNIQUE: Chest 1 views COMPARISON: 07/23/2018 FINDINGS: Cardiovascular and mediastinum: Heart size and vasculature are normal in caliber and appearance. Lungs and pleural spaces: Lungs are clear. No sign of infiltrate or mass. No sign of pleural effusion. No pneumothorax. Bones and soft tissues: No significant findings. IMPRESSION: No acute findings and no significant changes from the prior exam. Dictated by Dionicio Blake MD @ Oct 19 2018 9:37AM Signed by Dr. Dionicio Blake @ Oct 19 2018 9:38AM
[2018-10-19] MEDS ORDERED: Alum Hydrox/Mag Hydrox/Simeth 15 ML, Metoclopramide 5 MG, Lidocaine 2% 5 ML PO ONE ×3 (09:41)
[2018-10-19] MEDS ORDERED: oxyCODONE 5 MG Tab PO PRN (10:28)
[2018-10-19] MEDS ORDERED: Non-Formulary Medication 1 Each (Evolocumab [Repatha Sureclick] 140 MG) SQ SCH (10:30)
--- NOTE | 2018-10-19 11:18 | PCM.HP ---
H&P History of Present Illness - General Date of Service: 10/19/18 Admit Problem/Dx: Admission Diagnosis/Problem Admission Diagnosis/Problem Chest pain Source of Information: Patient History Limitations: Reports: No Limitations - History of Present Illness Initial Comments - Free Text/Narative: The patient is a 58-year-old gentleman with a history of coronary artery disease with stent placements, type 1 diabetes had presented to the emergency department after taking his blood pressure medication feeling dizzy, near syncope and started to develop chest pain after his blood pressure drop. Patient has noted that his blood pressure will plummet after taking isosorbide at the lowest possible dose. Initially the patient's blood pressure was 80/50 mmHg. He did not have any radiation of the pain. The patient does have chronic neck pain though. The patient says he has some dizziness and lightheadedness associated with this. This is been somewhat chronic for him. The patient also has been compliant with his medications and he has been taking anticoagulants secondary to his stenting. Onset of Symptoms: Reports: Gradual Duration of Symptoms: Reports: Day(s):, Getting Worse Location: Reports: Generalized Quality: Reports: Ache, Stabbing Severity: Moderate Improves with: Reports: Rest Worsens with: Reports: Medication Context: Reports: Other (Coronary artery disease) Associated Symptoms: Reports: Diaphoresis, Headaches, Syncope Left Chest Pain Score (Numeric/FACES): 8 - Related Data Allergies/Adverse Reactions: Allergies Allergy/AdvReac Type Severity Reaction Status Date / Time aspirin Allergy Hives Verified 10/19/18 10:26 ibuprofen Allergy Hives Verified 10/19/18 10:26 pioglitazone HCl [From Actos] Allergy Hives Verified 10/19/18 10:26 prasugrel HCl [From Effient] Allergy Rash Verified 10/19/18 10:26 [id number]-[id number] Reductase Allergy Body Aches Verified 10/19/18 10:26 Inhibitor Home Medications: Home Meds Insulin Glarg,Human.Rec.Analog [Lantus] 23 units SQ BID 04/20/14 [History] Multivitamin [Multi-Day Vitamins] 1 tab PO DAILY 12/25/14 [History] Ticagrelor [Brilinta] 90 mg PO BID 12/25/14 [History] traMADol [Ultram] 50 mg PO BEDTIME PRN 12/25/14 [History] Carvedilol 25 mg PO BID 11/01/17 [History] Doxazosin [Cardura] 4 mg PO DAILY 11/01/17 [History] Insulin Aspart [Novolog Flexpen] 6 unit SQ TIDMEALS 11/01/17 [History] Omeprazole 20 mg PO ACBREAKFAST 11/01/17 [History] Losartan [Cozaar] 100 mg PO DAILY 12/24/17 [History] Ezetimibe [Zetia] 10 mg PO DAILY 02/07/18 [History] Isosorbide Dinitrate 10 mg PO BID 30 Days #60 tablet 02/08/18 [Rx] DULoxetine [Cymbalta] 60 mg PO DAILY 10/19/18 [History] Evolocumab [Repatha Sureclick] 140 mg SQ .EVERY 2 WEEKS 10/19/18 [History] Gabapentin [Neurontin] 300 mg PO BEDTIME 10/19/18 [History] Insulin Degludec [Tresiba] 30 - 36 unit SQ BEDTIME 10/19/18 [History] Nitroglycerin 0.4 mg SL .EVERY 5 MINUTES PRN MDD 3 tablets 10/19/18 [History] Past Medical History - Past Health History Medical/Surgical History: Denies Medical/Surgical History HEENT History: Reports: Otitis Media, Other (See Below) Other HEENT History: Constant ringing in ears, affects my hearing, macular edema Cardiovascular History: Reports: Angina, High Cholesterol, Hypertension, ND, SOB on Exertion, Stents, Syncope, Other (See Below) Other Cardiovascular History: Diastolic dysfunction Respiratory History: Reports: None Gastrointestinal History: Reports: GERD Other Gastrointestinal History: Abdominal pain post meals, Water dark, smelling stools Genitourinary History: Reports: None Musculoskeletal History: Reports: Back Pain, Chronic, Neck Pain, Chronic Other Musculoskeletal History: Upper back pain history Neurological History: Reports: Neuropathy, Peripheral Other Neuro History: 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 Psychiatric History: Reports: Anxiety, Depression Other Psychiatric History: "Not sure I would know if I were depressed 'how would I know?" Endocrine/Metabolic History: Reports: Diabetes, Type I Hematologic History: Reports: None Other Hematologic History: Chronic anti-coagulant therapy Immunologic History: Reports: None Oncologic (Cancer) History: Reports: None Dermatologic History: Reports: None - Infectious Disease History Infectious Disease History: Reports: Chicken Pox, Hepatitis A - Past Surgical History Head Surgeries/Procedures: Reports: None Cardiovascular Surgical History: Reports: Coronary Artery Stent Musculoskeletal Surgical History: Reports: Other (See Below) Social & Family History - Family History Family Medical History: Noncontributory Cardiac: Reports: Angina, ND Other Cardiac Family History: states both parents young from cardiac disease, also extensive cardiac HX with uncles, cousins, nephews - Tobacco Use Smoking Status *Q: Never Smoker Second Hand Smoke Exposure: Yes - Caffeine Use Caffeine Use: Reports: Coffee, Soda Caffeine Use Comment: diet soda - Recreational Drug Use Recreational Drug Use: No - Living Situation & Occupation Living situation: Reports: , with Family Occupation: Employed H&P Review of Systems - Review of Systems: Review Of Systems: See Below General: Reports: Weakness, Diaphoresis HEENT: Reports: No Symptoms Pulmonary: Reports: Shortness of Breath Cardiovascular: Reports: Chest Pain, Lightheadedness, Blood Pressure Problem Gastrointestinal: Reports: No Symptoms Genitourinary: Reports: No Symptoms Musculoskeletal: Reports: No Symptoms Skin: Reports: No Symptoms Psychiatric: Reports: No Symptoms Neurological: Reports: No Symptoms Hematologic/Lymphatic: Reports: No Symptoms Immunologic: Reports: No Symptoms Exam - Exam Exam: See Below - Vital Signs Vital Signs: Last Vital Signs Temp 36.4 C 10/19/18 10:23 Pulse 69 10/19/18 10:23 Resp 16 10/19/18 10:23 BP 138/86 10/19/18 10:23 Pulse Ox 94 L 10/19/18 10:23 Weight: 90.718 kg - Exam Quality Assessment: No: Supplemental Oxygen General: Alert, Oriented, Cooperative HEENT: Conjunctiva Clear, EACs Clear, EOMI, Mucosa Moist & [place], Nares Patent, Pupils Equal, PERRLA Neck: Supple, Trachea Midline Lungs: Clear to Auscultation, Normal Respiratory Effort Cardiovascular: Regular Rate, Regular Rhythm GI/Abdominal Exam: Normal Bowel Sounds, Soft, Non-Tender, No Distention Back Exam: Normal Inspection, Full Range of Motion Extremities: Normal Inspection, No Pedal Edema Skin: Warm, Dry, Intact Neurological: Cranial Nerves Intact Psychiatric: Alert, Normal Affect, Normal Mood - Patient Data Lab Results Last 24 hrs: Laboratory Results - last 24 hr 10/19/18 10/19/18 10/19/18 Range/Units 08:36 08:36 08:36 WBC 6.23 (4.0-11.0) K/uL RBC 4.69 (4.50-5.90) M/uL Hgb 15.4 (13.0-17.0) g/dL Hct 42.0 (38.0-50.0) % MCV 89.6 (80.0-98.0) fL MCH 32.8 H (27.0-32.0) pg MCHC 36.7 (31.0-37.0) g/dL RDW Std Deviation 40.3 (28.0-62.0) fl RDW Coeff of Ji 13 (11.0-15.0) % Plt Count 164 (150-400) K/uL MPV 10.00 (7.40-12.00) fL Neut % (Auto) 61.5 (48.0-80.0) % Lymph % (Auto) 24.4 (16.0-40.0) % [place] % (Auto) 10.6 (0.0-15.0) % Eos % (Auto) 3.0 (0.0-7.0) % Baso % (Auto) 0.5 (0.0-1.5) % Neut # (Auto) 3.8 (1.4-5.7) K/uL Lymph # (Auto) 1.5 (0.6-2.4) K/uL [place] # (Auto) 0.7 (0.0-0.8) K/uL Eos # (Auto) 0.2 (0.0-0.7) K/uL Baso # (Auto) 0.0 (0.0-0.1) K/uL Nucleated RBC % 0.0 /100WBC Nucleated RBCs # 0 K/uL Sodium 138 (136-148) mmol/L Potassium 3.7 (3.5-5.1) mmol/L Chloride 100 (98-107) mmol/L Carbon Dioxide 30.7 (21.0-32.0) mmol/L BUN 19 H (7.0-18.0) mg/dL Creatinine 1.2 (0.8-1.3) mg/dL Est Cr Clr Drug Dosing 69.28 mL/min Estimated GFR (MDRD) > 60.0 ml/min Glucose 229 H (74-106) mg/dL Hemoglobin A1c 9.3 H (4.5-6.2) % Calcium 9.6 (8.5-10.1) mg/dL Magnesium (1.8-2.4) mg/dL Total Bilirubin 1.2 H (0.2-1.0) mg/dL AST 15 (15-37) IU/L ALT 22 (14-63) IU/L Alkaline Phosphatase 99 (46-116) U/L Troponin I < 0.050 (0.000-0.056) ng/mL Total Protein 7.5 (6.4-8.2) g/dL Albumin 3.9 (3.4-5.0) g/dL Globulin 3.6 (2.6-4.0) g/dL Albumin/Globulin Ratio 1.1 (0.9-1.6) TSH 3rd Generation 1.59 (0.36-3.74) uIU/mL 10/19/18 10/19/18 Range/Units 08:36 08:36 WBC (4.0-11.0) K/uL RBC (4.50-5.90) M/uL Hgb (13.0-17.0) g/dL Hct (38.0-50.0) % MCV (80.0-98.0) fL MCH (27.0-32.0) pg MCHC (31.0-37.0) g/dL RDW Std Deviation (28.0-62.0) fl RDW Coeff of Ji (11.0-15.0) % Plt Count (150-400) K/uL MPV (7.40-12.00) fL Neut % (Auto) (48.0-80.0) % Lymph % (Auto) (16.0-40.0) % [place] % (Auto) (0.0-15.0) % Eos % (Auto) (0.0-7.0) % Baso % (Auto) (0.0-1.5) % Neut # (Auto) (1.4-5.7) K/uL Lymph # (Auto) (0.6-2.4) K/uL [place] # (Auto) (0.0-0.8) K/uL Eos # (Auto) (0.0-0.7) K/uL Baso # (Auto) (0.0-0.1) K/uL Nucleated RBC % /100WBC Nucleated RBCs # K/uL Sodium (136-148) mmol/L Potassium (3.5-5.1) mmol/L Chloride (98-107) mmol/L Carbon Dioxide (21.0-32.0) mmol/L BUN (7.0-18.0) mg/dL Creatinine (0.8-1.3) mg/dL Est Cr Clr Drug Dosing mL/min Estimated GFR (MDRD) ml/min Glucose (74-106) mg/dL Hemoglobin A1c 9.0 H (4.5-6.2) % Calcium (8.5-10.1) mg/dL Magnesium 2.0 (1.8-2.4) mg/dL Total Bilirubin (0.2-1.0) mg/dL AST (15-37) IU/L ALT (14-63) IU/L Alkaline Phosphatase (46-116) U/L Troponin I (0.000-0.056) ng/mL Total Protein (6.4-8.2) g/dL Albumin (3.4-5.0) g/dL Globulin (2.6-4.0) g/dL Albumin/Globulin Ratio (0.9-1.6) TSH 3rd Generation (0.36-3.74) uIU/mL Result Diagrams: 10/19/18 08:36 10/19/18 08:36 - Problem List (1) Chest pain SNOMED Code(s): 68899591 ICD Code: R07.9 - CHEST PAIN, UNSPECIFIED Status: Acute Priority: High Current Visit: Yes Qualifiers: Chest pain type: unspecified Qualified Code(s): R07.9 - Chest pain, unspecified (2) Hypotension due to medication Status: Acute Priority: High Current Visit: Yes (3) Coronary artery disease SNOMED Code(s): 67443962 ICD Code: I25.10 - ATHSCL HEART DISEASE OF [place] CORONARY ARTERY W/O ANG PCTRS Status: Chronic Priority: High Current Visit: Yes Qualifiers: Coronary Disease-Associated Artery/Lesion type: unspecified vessel or lesion type [place] vs. transplanted heart: [place] heart Associated angina: with other forms of angina Qualified Code(s): I25.118 - Atherosclerotic heart disease of [place] coronary artery with other forms of angina pectoris (4) Near syncope SNOMED Code(s): 275039618 ICD Code: R55 - SYNCOPE AND COLLAPSE Status: Acute Priority: High Current Visit: Yes (5) Recurrent syncope SNOMED Code(s): 266293512, 832313574, 030854353 ICD Code: R55 - SYNCOPE AND COLLAPSE Status: Acute Priority: High Current Visit: Yes Problem List Initiated/Reviewed/Updated: No Orders Last 24hrs: Active Orders 24 hr Category Date Time Status Admission Status [Patient Status] [ADT] Stat ADT 10/19/18 09:46 Active Antiembolic Devices [RC] PER UNIT ROUTINE Care 10/19/18 10:29 Active Cardiac Monitoring [RC] . DIRECTED Care 10/19/18 09:46 Active Cardiac Monitoring [RC] CONTINUOUS Care 10/19/18 10:29 Active EKG Documentation Completion [RC] AM Care 10/20/18 08:00 Active EKG Documentation Completion [RC] STAT Care 10/19/18 08:32 Active Oxygen Therapy [RC] PRN Care 10/19/18 10:28 Active Telemetry Monitoring [Cardiac Monitoring] [RC] . Care 10/19/18 10:17 Active DIRECTED Up ad [place]lyn [RC] ASDIRECTED Care 10/19/18 10:28 Active VTE/DVT Education [RC] PER UNIT ROUTINE Care 10/19/18 10:28 Active Vital Signs [RC] Q4H Care 10/19/18 10:28 Active Heart Healthy Diet [DIET] Diet 10/19/18 Lunch Active CBC WITH AUTO DIFF [HEME] AM Lab 10/20/18 05:11 Ordered COMPREHENSIVE METABOLIC PN,CMP [CHEM] AM Lab 10/20/18 05:11 Ordered TROPONIN I [CHEM] Q6H Lab 10/19/18 15:00 Ordered TROPONIN I [CHEM] Q6H Lab 10/19/18 21:00 Ordered Carvedilol [Coreg] Med 10/19/18 21:00 Active 25 mg PO BID DULoxetine [Cymbalta] Med 10/20/18 09:00 Active 60 mg PO DAILY Doxazosin [Cardura] Med 10/20/18 09:00 Active 4 mg PO DAILY Evolocumab [Repatha Sureclick] Med 10/19/18 10:30 Pending 140 mg SQ .EVERY 2 WEEKS Ezetimibe [Zetia] Med 10/20/18 09:00 Active 10 mg PO DAILY Gabapentin [Neurontin] Med 10/19/18 21:00 Active 300 mg PO BEDTIME Isosorbide Dinitrate [Isordil] Med 10/19/18 16:00 Active 10 mg PO 0800,1600 Losartan [Cozaar] Med 10/20/18 09:00 Active 100 mg PO DAILY Omeprazole Med 10/20/18 07:30 Active 20 mg PO ACBREAKFAST Patient's Own Medication [Ptom] Med 10/19/18 21:00 Active 1 each PO BID Sodium Chloride 0.9% [Saline Flush] Med 10/19/18 08:32 Active 10 ml FLUSH ASDIRECTED PRN Sodium Chloride 0.9% [Saline Flush] Med 10/19/18 08:32 Active 2.5 ml FLUSH ASDIRECTED PRN oxyCODONE Med 10/19/18 10:28 Active 5 mg PO Q4H PRN Saline Lock Insert [OM.PC] Stat Oth 10/19/18 08:32 Ordered Sequential Compression Device [OM.PC] Per Unit Routine Oth 10/19/18 10:29 Ordered Resuscitation Status Routine Resus Stat 10/19/18 10:28 Ordered Medication Orders Carvedilol (Coreg) 25 mg PO BID NILA Doxazosin Mesylate (Cardura) 4 mg PO DAILY NILA Duloxetine HCl (Cymbalta) 60 mg PO DAILY NILA Ezetimibe (Zetia) 10 mg PO DAILY NILA Gabapentin (Neurontin) 300 mg PO BEDTIME NILA Isosorbide Dinitrate (Isordil) 10 mg PO 0800,1600 NILA Losartan Potassium (Cozaar) 100 mg PO DAILY NILA Non-Formulary Medication (Evolocumab [Repatha Sureclick]) 140 mg SQ .EVERY 2 WEEKS NILA Omeprazole (Omeprazole) 20 mg PO ACBREAKFAST NILA Oxycodone HCl (Oxycodone) 5 mg PO Q4H PRN PRN Reason: Pain (moderate 4-6) Non-Formulary Medication 1 Each ( Ticagrelor 90 Mg) 1 each PO BID NILA Sodium Chloride (Saline Flush) 10 ml FLUSH ASDIRECTED PRN PRN Reason: Keep Vein Open Sodium Chloride (Saline Flush) 2.5 ml FLUSH ASDIRECTED PRN PRN Reason: Keep Vein Open Assessment/Plan Comment:: The patient is a 58-year-old gentleman with significant history of coronary artery disease to include myocardial infarction and stenting was admitted secondary to chest pain. The patient reports that he has had multiple episodes although he cannot predict of syncope after taking isosorbide. The patient says that he has had near-syncope today. The patient will be tested for elevations in his troponins 2 and I have advised the patient that if he has elevations in troponins he will likely be sent out to tertiary care center. The patient will be kept on telemetry secondary to his heart disease. He also has been anticoagulated with the use of SCDs as he has been taking Brilinta and is at risk of bleeding. EKG is also been ordered for the morning. If the patient does have no abnormalities he will be appropriate for discharge in the morning. Repeat laboratory studies been ordered.
[2018-10-19] MEDS ORDERED: Acetaminophen 325 MG Tab PO PRN (12:38)
[2018-10-19] MEDS: Isosorbide Dinitrate 10 MG Tab PO SCH (15:34)
[2018-10-19] MEDS: Carvedilol 25 MG Tab PO SCH (20:59)
[2018-10-19] MEDS ORDERED: Gabapentin 300 MG Cap PO SCH (21:00)
[2018-10-19] MEDS ORDERED: DULoxetine 60 MG Cap PO SCH (21:30)
[2018-10-19] MEDS ORDERED: Doxazosin 4 MG Tab PO SCH (21:30)
[2018-10-19] MEDS: Insulin Aspart 100 Units/ML 3 ML Pen SUBCUT SCH (21:59)
--- NOTE | 2018-10-20 05:48 | PCM.DCSUM1 ---
Discharge Summary - Hospital Course HPI Initial Comments: Admitted for hypotension, syncope and chest pain. Diagnosis: Stroke: No - Discharge Data Discharge Date: 10/20/18 Discharge Disposition: Home, Self-Care 01 Condition: Fair - Discharge Diagnosis/Problem(s) (1) Chest pain SNOMED Code(s): 17408874 ICD Code: R07.9 - CHEST PAIN, UNSPECIFIED Status: Chronic Priority: High Qualifiers: Chest pain type: unspecified Qualified Code(s): R07.9 - Chest pain, unspecified (2) Hypotension due to medication Status: Chronic Priority: High (3) Coronary artery disease SNOMED Code(s): 82680810 ICD Code: I25.10 - ATHSCL HEART DISEASE OF [place] CORONARY ARTERY W/O ANG PCTRS Status: Chronic Priority: High Qualifiers: Coronary Disease-Associated Artery/Lesion type: unspecified vessel or lesion type [place] vs. transplanted heart: [place] heart Associated angina: with other forms of angina Qualified Code(s): I25.118 - Atherosclerotic heart disease of [place] coronary artery with other forms of angina pectoris (4) Near syncope SNOMED Code(s): 612357609 ICD Code: R55 - SYNCOPE AND COLLAPSE Status: Chronic Priority: High (5) Recurrent syncope SNOMED Code(s): 753480288, 714230596, 135042729 ICD Code: R55 - SYNCOPE AND COLLAPSE Status: Acute Priority: High - Patient Summary/Data Hospital Course: The patient is a 58-year-old gentleman with a history of coronary artery disease with stent placements. He had presented to the emergency department after taking his blood pressure medication that had made him feel dizzy and had a near syncopal episode. Interestingly he had also developed chest pain after his blood pressure drop. The patient was admitted for the chest pain as well as near-syncope. Patient reported that he will have syncopal episodes after seemingly random times after taking his isosorbide. The patient has been taking his blood pressure home and it's ranging in the 80s/50s millimeters of mercury. As a part of the chest pain workup the patient had troponins taken 3 which were all essentially undetectable. He does have type 1 diabetes which complicates his overall cardiac picture and he was noted to have a hemoglobin A1c of 9%. The patient had been on telemetry overnight without any significant events. EKG was unchanged. The patient's short hospital course was uneventful. At time of discharge the patient's blood pressure had been elevated but he was tolerating it well at 160/91 mmHg. The patient has been recommended to continue with his medications as prescribed. He is to follow-up with his primary care physician. Patient is also to continue with his appropriate heart healthy/ADA diet as tolerated. The patient is also to have activity as tolerated. He has been hemodynamically stable and he feels well enough to go home and he has been discharged from acute hospitalization with the recommendations listed above. - Patient Instructions Diet: Heart Healthy Diet, Diabetic Diet Activity: As Tolerated - Discharge Plan *PRESCRIPTION DRUG MONITORING PROGRAM REVIEWED*: No *COPY OF PRESCRIPTION DRUG MONITORING REPORT IN PATIENT PREETI: No Home Medications: Home Meds Multivitamin [Multi-Day Vitamins] 1 tab PO DAILY 12/25/14 [History] Ticagrelor [Brilinta] 90 mg PO BID 12/25/14 [History] traMADol [Ultram] 50 mg PO BEDTIME PRN 12/25/14 [History] Carvedilol 25 mg PO BID 11/01/17 [History] Doxazosin [Cardura] 4 mg PO DAILY 11/01/17 [History] Insulin Aspart [Novolog Flexpen] 6 unit SQ TIDMEALS 11/01/17 [History] Omeprazole 20 mg PO BID 11/01/17 [History] Losartan [Cozaar] 100 mg PO DAILY 12/24/17 [History] Isosorbide Dinitrate 10 mg PO BID 30 Days #60 tablet 02/08/18 [Rx] DULoxetine [Cymbalta] 60 mg PO DAILY 10/19/18 [History] Insulin Degludec [Tresiba] 23 - 28 unit SQ BID 10/19/18 [History] Nitroglycerin 0.4 mg SL .EVERY 5 MINUTES PRN MDD 3 tablets 10/19/18 [History] Evolocumab [Repatha Sureclick] 140 mg SQ .EVERY 2 WEEKS 10/20/18 [Rx] Ezetimibe [Zetia] 10 mg PO DAILY tablet 10/20/18 [Rx] Gabapentin [Neurontin] 300 mg PO BEDTIME cap 10/20/18 [Rx] Insulin Aspart [NovoLOG] 6 unit SUBCUT TIDAC pen 10/20/18 [Rx] Oxygen Therapy Mode: Room Air Patient Handouts: Coronary Artery Disease, Male, Near-Syncope, [id number], Nonspecific Chest Pain, [id number], Angina Pectoris - Discharge Summary/Plan Comment DC Time >30 min.: Yes - General Info Date of Service: 10/20/18 Admission Dx/Problem (Free Text: Admission Diagnosis/Problem Admission Diagnosis/Problem Chest pain, medication mediated syncope Subjective Update: The patient originally was admitted for chest pain. He feels better today. The patient says that he is problem is resolved and he feels like he can go home. Functional Status: Reports: Pain Controlled - Review of Systems General: Reports: No Symptoms HEENT: Reports: No Symptoms Pulmonary: Reports: No Symptoms Cardiovascular: Reports: No Symptoms Gastrointestinal: Reports: No Symptoms Genitourinary: Reports: No Symptoms Musculoskeletal: Reports: No Symptoms Skin: Reports: No Symptoms Neurological: Reports: No Symptoms Psychiatric: Reports: No Symptoms - Patient Data Vitals - Most Recent: Last Vital Signs Temp 36.4 C 10/20/18 04:00 Pulse 68 10/20/18 04:00 Resp 16 10/20/18 04:00 BP 122/75 10/20/18 04:00 Pulse Ox 95 10/20/18 04:00 Weight - Most Recent: 90.718 kg I&O - Last 24 hours: Intake & Output 10/19/18 10/19/18 10/20/18 14:59 22:59 06:59 Intake Total 480 240 Output Total 500 300 Balance -20 -60 Lab Results - Last 24 hrs: Laboratory Results - last 24 hr 10/19/18 10/19/18 10/19/18 Range/Units 08:36 08:36 08:36 WBC 6.23 (4.0-11.0) K/uL RBC 4.69 (4.50-5.90) M/uL Hgb 15.4 (13.0-17.0) g/dL Hct 42.0 (38.0-50.0) % MCV 89.6 (80.0-98.0) fL MCH 32.8 H (27.0-32.0) pg MCHC 36.7 (31.0-37.0) g/dL RDW Std Deviation 40.3 (28.0-62.0) fl RDW Coeff of Ji 13 (11.0-15.0) % Plt Count 164 (150-400) K/uL MPV 10.00 (7.40-12.00) fL Neut % (Auto) 61.5 (48.0-80.0) % Lymph % (Auto) 24.4 (16.0-40.0) % Bartholomew % (Auto) 10.6 (0.0-15.0) % Eos % (Auto) 3.0 (0.0-7.0) % Baso % (Auto) 0.5 (0.0-1.5) % Neut # (Auto) 3.8 (1.4-5.7) K/uL Lymph # (Auto) 1.5 (0.6-2.4) K/uL Bartholomew # (Auto) 0.7 (0.0-0.8) K/uL Eos # (Auto) 0.2 (0.0-0.7) K/uL Baso # (Auto) 0.0 (0.0-0.1) K/uL Nucleated RBC % 0.0 /100WBC Nucleated RBCs # 0 K/uL Sodium 138 (136-148) mmol/L Potassium 3.7 (3.5-5.1) mmol/L Chloride 100 (98-107) mmol/L Carbon Dioxide 30.7 (21.0-32.0) mmol/L BUN 19 H (7.0-18.0) mg/dL Creatinine 1.2 (0.8-1.3) mg/dL Est Cr Clr Drug Dosing 69.28 mL/min Estimated GFR (MDRD) > 60.0 ml/min Glucose 229 H (74-106) mg/dL POC Glucose (60-110) mg/dL Hemoglobin A1c 9.3 H (4.5-6.2) % Calcium 9.6 (8.5-10.1) mg/dL Magnesium (1.8-2.4) mg/dL Total Bilirubin 1.2 H (0.2-1.0) mg/dL AST 15 (15-37) IU/L ALT 22 (14-63) IU/L Alkaline Phosphatase 99 (46-116) U/L Troponin I < 0.050 (0.000-0.056) ng/mL Total Protein 7.5 (6.4-8.2) g/dL Albumin 3.9 (3.4-5.0) g/dL Globulin 3.6 (2.6-4.0) g/dL Albumin/Globulin Ratio 1.1 (0.9-1.6) TSH 3rd Generation 1.59 (0.36-3.74) uIU/mL 10/19/18 10/19/18 10/19/18 Range/Units 08:36 08:36 12:06 WBC (4.0-11.0) K/uL RBC (4.50-5.90) M/uL Hgb (13.0-17.0) g/dL Hct (38.0-50.0) % MCV (80.0-98.0) fL MCH (27.0-32.0) pg MCHC (31.0-37.0) g/dL RDW Std Deviation (28.0-62.0) fl RDW Coeff of Ji (11.0-15.0) % Plt Count (150-400) K/uL MPV (7.40-12.00) fL Neut % (Auto) (48.0-80.0) % Lymph % (Auto) (16.0-40.0) % Bartholomew % (Auto) (0.0-15.0) % Eos % (Auto) (0.0-7.0) % Baso % (Auto) (0.0-1.5) % Neut # (Auto) (1.4-5.7) K/uL Lymph # (Auto) (0.6-2.4) K/uL Bartholomew # (Auto) (0.0-0.8) K/uL Eos # (Auto) (0.0-0.7) K/uL Baso # (Auto) (0.0-0.1) K/uL Nucleated RBC % /100WBC Nucleated RBCs # K/uL Sodium (136-148) mmol/L Potassium (3.5-5.1) mmol/L Chloride (98-107) mmol/L Carbon Dioxide (21.0-32.0) mmol/L BUN (7.0-18.0) mg/dL Creatinine (0.8-1.3) mg/dL Est Cr Clr Drug Dosing mL/min Estimated GFR (MDRD) ml/min Glucose (74-106) mg/dL POC Glucose 485 H (60-110) mg/dL Hemoglobin A1c 9.0 H (4.5-6.2) % Calcium (8.5-10.1) mg/dL Magnesium 2.0 (1.8-2.4) mg/dL Total Bilirubin (0.2-1.0) mg/dL AST (15-37) IU/L ALT (14-63) IU/L Alkaline Phosphatase (46-116) U/L Troponin I (0.000-0.056) ng/mL Total Protein (6.4-8.2) g/dL Albumin (3.4-5.0) g/dL Globulin (2.6-4.0) g/dL Albumin/Globulin Ratio (0.9-1.6) TSH 3rd Generation (0.36-3.74) uIU/mL 10/19/18 10/19/18 10/19/18 Range/Units 15:20 21:07 21:41 WBC (4.0-11.0) K/uL RBC (4.50-5.90) M/uL Hgb (13.0-17.0) g/dL Hct (38.0-50.0) % MCV (80.0-98.0) fL MCH (27.0-32.0) pg MCHC (31.0-37.0) g/dL RDW Std Deviation (28.0-62.0) fl RDW Coeff of Ji (11.0-15.0) % Plt Count (150-400) K/uL MPV (7.40-12.00) fL Neut % (Auto) (48.0-80.0) % Lymph % (Auto) (16.0-40.0) % [place]th[place]omew % (Auto) (0.0-15.0) % Eos % (Auto) (0.0-7.0) % Baso % (Auto) (0.0-1.5) % Neut # (Auto) (1.4-5.7) K/uL Lymph # (Auto) (0.6-2.4) K/uL [place]th[place]omew # (Auto) (0.0-0.8) K/uL Eos # (Auto) (0.0-0.7) K/uL Baso # (Auto) (0.0-0.1) K/uL Nucleated RBC % /100WBC Nucleated RBCs # K/uL Sodium (136-148) mmol/L Potassium (3.5-5.1) mmol/L Chloride (98-107) mmol/L Carbon Dioxide (21.0-32.0) mmol/L BUN (7.0-18.0) mg/dL Creatinine (0.8-1.3) mg/dL Est Cr Clr Drug Dosing mL/min Estimated GFR (MDRD) ml/min Glucose (74-106) mg/dL POC Glucose 451 H (60-110) mg/dL Hemoglobin A1c (4.5-6.2) % Calcium (8.5-10.1) mg/dL Magnesium (1.8-2.4) mg/dL Total Bilirubin (0.2-1.0) mg/dL AST (15-37) IU/L ALT (14-63) IU/L Alkaline Phosphatase (46-116) U/L Troponin I < 0.050 < 0.050 (0.000-0.056) ng/mL Total Protein (6.4-8.2) g/dL Albumin (3.4-5.0) g/dL Globulin (2.6-4.0) g/dL Albumin/Globulin Ratio (0.9-1.6) TSH 3rd Generation (0.36-3.74) uIU/mL Med Orders - Current: Current Medications Acetaminophen (Tylenol) 650 mg PO Q6H PRN PRN Reason: Pain Last Admin: 10/19/18 15:50 Dose: 650 mg Carvedilol (Coreg) 25 mg PO BID [facility] Last Admin: 10/19/18 20:59 Dose: 25 mg Doxazosin Mesylate (Cardura) 4 mg PO BEDTIME [facility] Last Admin: 10/19/18 21:30 Dose: 4 mg Duloxetine HCl (Cymbalta) 60 mg PO BEDTIME [facility] Last Admin: 10/19/18 21:30 Dose: 60 mg Ezetimibe (Zetia) 10 mg PO DAILY [facility] Gabapentin (Neurontin) 300 mg PO BEDTIME [facility] Last Admin: 10/19/18 21:01 Dose: Not Given Insulin Aspart (Novolog) 6 unit SUBCUT TIDAC [facility] Last Admin: 10/19/18 21:59 Dose: 6 units Isosorbide Dinitrate (Isordil) 10 mg PO 0800,1600 [facility] Last Admin: 10/19/18 15:34 Dose: 10 mg Losartan Potassium (Cozaar) 100 mg PO DAILY [facility] Non-Formulary Medication (Evolocumab [Repatha Sureclick]) 140 mg SQ .EVERY 2 WEEKS [facility] Non-Formulary Medication (Insulin Degludec [Tresiba]) 23 - 28 unit SQ BID [facility] Omeprazole (Omeprazole) 20 mg PO BID [facility] Oxycodone HCl (Oxycodone) 5 mg PO Q4H PRN PRN Reason: Pain (moderate 4-6) Non-Formulary Medication 1 Each ( Ticagrelor 90 Mg) 1 each PO BID [facility] Last Admin: 10/19/18 21:30 Dose: 1 each Sodium Chloride (Saline Flush) 10 ml FLUSH ASDIRECTED PRN PRN Reason: Keep Vein Open Sodium Chloride (Saline Flush) 2.5 ml FLUSH ASDIRECTED PRN PRN Reason: Keep Vein Open Discontinued Medications Al Hydroxide/Mg Hydroxide 15 ml/ Metoclopramide HCl 5 mg/Lidocaine HCl 5 ml 0 ml PO ONETIME ONE Stop: 10/19/18 09:42 Last Admin: 10/19/18 09:47 Dose: 1 each Doxazosin Mesylate (Cardura) 4 mg PO DAILY [facility] Duloxetine HCl (Cymbalta) 60 mg PO DAILY [facility] Nitroglycerin (Nitro-Bid 2%) 1 gm TOP ONETIME ONE Stop: 10/19/18 08:48 Last Admin: 10/19/18 08:57 Dose: 1 gm Omeprazole (Omeprazole) 20 mg PO ACBREAKFAST [facility] - Exam Quality Assessment: Reports: Supplemental Oxygen General: Reports: Alert, Oriented, Cooperative, No Acute Distress HEENT: Reports: Pupils Equal, Pupils Reactive, EOMI, Mucous Membr. Moist/[place] Neck: Reports: Supple, Trachea Midline Lungs: Reports: Clear to Auscultation, Normal Respiratory Effort Cardiovascular: Reports: Regular Rate, Regular Rhythm GI/Abdominal Exam: Normal Bowel Sounds, Soft, Non-Tender, No Distention Back Exam: Reports: Normal Inspection, Full Range of Motion Extremities: Normal Inspection, No Pedal Edema Skin: Reports: Warm, Dry, Intact Neurological: Reports: No New Focal Deficit Psy/Mental Status: Reports: Alert, Normal Affect, Normal Mood
[2018-10-20 06:49] LABS: CHLORIDE,CL 104 mmol/L (98-107); SODIUM,NA 143 mmol/L (136-148)
[2018-10-20] MEDS: Insulin Aspart 100 Units/ML 3 ML Pen SUBCUT SCH (07:05)
[2018-10-20] MEDS ORDERED: Omeprazole 20 MG Cap.CR PO SCH ×2 (07:30→09:00)
[2018-10-20 07:31] VITALS: BP 160/91
[2018-10-20] MEDS: Isosorbide Dinitrate 10 MG Tab PO SCH (07:34)
[2018-10-20] MEDS: Carvedilol 25 MG Tab PO SCH (08:18)
[2018-10-20] MEDS ORDERED: Losartan 50 MG Tab PO SCH (09:00)
[2018-10-20] MEDS ORDERED: DULoxetine 60 MG Cap PO SCH (09:00)
[2018-10-20] MEDS ORDERED: Doxazosin 4 MG Tab PO SCH (09:00)
[2018-10-20] MEDS ORDERED: Ezetimibe 10 MG Tab PO SCH (09:00)
== END 2018-10-20 10:05 | disposition home or self-care (01) ==
LOC: MW.ED 08:30 → MW.MS 10:01
PROVIDERS: ADMIT Internal Medicine; ATTEND Internal Medicine
DX: R07.9 Chest pain, unspecified (principal); I95.2 Hypotension due to drugs; T46.3X5A Adverse effect of coronary vasodilators, initial encounter; I25.118 Atherosclerotic heart disease of native coronary artery with other forms of angina pectoris; I10 Essential (primary) hypertension; I25.2 Old myocardial infarction; E10.9 Type 1 diabetes mellitus without complications; E78.00 Pure hypercholesterolemia, unspecified; Z88.6 Allergy status to analgesic agent; Z88.8 Allergy status to other drugs, medicaments and biological substances; Z95.5 Presence of coronary angioplasty implant and graft; Z82.49 Family history of ischemic heart disease and other diseases of the circulatory system; Z79.899 Other long term (current) drug therapy
CPT/HCPCS: 36415; 71045; 80053; 82962; 83036; 83735; 84443; 84484; 85025; 93005; 93306; 99285; A9270; J1815; G0378

== ENCOUNTER 2019-02-11 19:04 | Emergency (ER) | payer BC ==
[2019-02-11 19:09] VITALS: BP 106/73; PULSE 73
[2019-02-11] MEDS ORDERED: Sodium Chloride 0.9% 10 ML Syringe FLUSH PRN (19:15)
[2019-02-11] MEDS ORDERED: Sodium Chloride 0.9% 2.5 ML Syringe FLUSH PRN (19:15)
[2019-02-11] MEDS ORDERED: Sodium Chloride 0.9% 1,000 ML IV ONE (19:16)
[2019-02-11] MEDS ORDERED: Ondansetron 4 MG/2 ML SDV IVPUSH ONE (19:16)
[2019-02-11] MEDS ORDERED: Aspirin 81 MG Tab.Chew PO ONE (19:16)
--- NOTE | 2019-02-11 19:19 | EDM.PDOC ---
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 He has never had a fever nor cough and has no focal weakness but it's an overall feeling of weakness and feeling like he might pass out. This all started on Monday, 2 days ago, and seems to have progressed. According to family and patient he was started on amlodipine by the welding machine operator resistance on Monday but they did not fill the prescription and start the medication until Monday and they're not sure if that is triggering some of these symptoms. He has been out in the past and it caused him to have low blood pressure but it was restarted at a much lower dose. The patient is very vague about all of his symptomatology and it initially started as generalized weakness and lightheadedness and feeling like he might pass out and has progressed all of the other symptoms. He has not connected with his provider about these complaints. His chest pain is very vagueand he points to his entire chest wall as the area of discomfort as well as the right side of his abdomen. He says he does have some acid reflux history. He's also had a history of a cholecystectomy but no bowel issues or appendectomy.the patient says almost all of these symptoms have been ongoing since Monday. He is on Brillinta Review of systems: As per history of present illness and below otherwise all systems reviewed and negative. Past medical history: As per history of present illness and as reviewed below otherwise noncontributory. Surgical history: As per history of present illness and as reviewed below otherwise noncontributory. Social history: No reported history of drug or alcohol abuse. Family history: As per history of present illness and as reviewed below otherwise noncontributory. Physical exam: general: Well-developed well-nourished man who is nontoxic and vital signs are noted by me. He speaking clearly in the ED without breathlessness HEENT: Atraumatic, normocephalic, pupils reactive, negative for conjunctival pallor or scleral icterus, mucous membranes moist, throat clear, neck supple, nontender, trachea midline. Lungs: Clear to auscultation, breath sounds equal bilaterally, chest nontender.poor effort and diminished breath sounds in the bases but no wheezing or stridor Heart: S1S2, regular, negative for clicks, rubs, or JVD. Abdomen: Soft, nondistended, bowel sounds are slightly hypoactive and there is no tympany on percussion. There is tenderness in the right upper and right mid abdomen on palpation without rebound or guarding Negative for masses or hepatosplenomegaly. Negative for costovertebral tenderness. Pelvis: Stable nontender. Genitourinary: Deferred. Rectal: Deferred. Extremities: Atraumatic, negative for cords or calf pain. Neurovascular unremarkable. no pedal edema Neuro: Awake, alert, oriented. Cranial nerves II through XII unremarkable. Cerebellum unremarkable. Motoris 4/5 throughout with a very poor effort on my exam and sensory unremarkable throughout. Exam nonfocal. Diagnostics: EKG orthostatic vitals CBC CMP amylase lipase lactic acid INR troponin UA with reflex chest x-ray CT scan of the head abdomen and pelvis serum ketones Therapeutics: IV O2 monitor IV fluids Protonix and aspirinZofran patient refused ASA and protonix patient says he is feeling much improved after the hydration and he and family at bedside are aware of all testing results.He is agreeable to do a treatment for the sinusitis and he says he has had some pressure and congestion along with this lightheaded feeling. I stressed the need to follow-up with his provider in the clinic and reasons to return Impression: generalized weakness and lightheadedness, sinusitis, multiple medical problems and start new medication Definitive disposition and diagnosis as appropriate pending reevaluation and review of above. chest Pain Score (Numeric/FACES): 3 - Related Data Allergies Allergy/AdvReac Type Severity Reaction Status Date / Time aspirin Allergy Hives Verified 02/11/19 19:21 ibuprofen Allergy Hives Verified 02/11/19 19:21 pioglitazone HCl [From Actos] Allergy Hives Verified 02/11/19 19:21 prasugrel HCl [From Effient] Allergy Rash Verified 02/11/19 19:21 [id number] Reductase Allergy Body Aches Verified 02/11/19 19:21 Inhibitor Home Meds: Home Meds Multivitamin [Multi-Day Vitamins] 1 tab PO DAILY 12/25/14 [History] Ticagrelor [Brilinta] 90 mg PO BID 12/25/14 [History] traMADol [Ultram] 50 mg PO BEDTIME PRN 12/25/14 [History] Carvedilol 25 mg PO BID 11/01/17 [History] Doxazosin [Cardura] 4 mg PO DAILY 11/01/17 [History] Insulin Aspart [Novolog Flexpen] 6 unit SQ TIDMEALS 11/01/17 [History] Omeprazole 20 mg PO BID 11/01/17 [History] Losartan [Cozaar] 100 mg PO DAILY 12/24/17 [History] Isosorbide Dinitrate 10 mg PO BID 30 Days #60 tablet 02/08/18 [Rx] DULoxetine [Cymbalta] 60 mg PO DAILY 10/19/18 [History] Insulin Degludec [Tresiba] 23 - 28 unit SQ BID 10/19/18 [History] Nitroglycerin 0.4 mg SL .EVERY 5 MINUTES PRN MDD 3 tablets 10/19/18 [History] Evolocumab [Repatha Sureclick] 140 mg SQ .EVERY 2 WEEKS 10/20/18 [Rx] Insulin Aspart [NovoLOG] 6 unit SUBCUT TIDAC pen 10/20/18 [Rx] Past Medical History - Past Health History Medical/Surgical History: Denies Medical/Surgical History HEENT History: Reports: Otitis Media, Other (See Below) Other HEENT History: Constant ringing in ears, affects my hearing, macular edema Cardiovascular History: Reports: Angina, High Cholesterol, Hypertension, VA, SOB on Exertion, Stents, Syncope, Other (See Below) Other Cardiovascular History: Diastolic dysfunction Respiratory History: Reports: None Gastrointestinal History: Reports: GERD Other Gastrointestinal History: Abdominal pain post meals, Water dark, smelling stools Genitourinary History: Reports: None Musculoskeletal History: Reports: Back Pain, Chronic, Neck Pain, Chronic Other Musculoskeletal History: Upper back pain history Neurological History: Reports: Neuropathy, Peripheral Other Neuro History: 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 Psychiatric History: Reports: Anxiety, Depression Other Psychiatric History: "Not sure I would know if I were depressed 'how would I know?" Endocrine/Metabolic History: Reports: Diabetes, Type I Hematologic History: Reports: None Other Hematologic History: Chronic anti-coagulant therapy Immunologic History: Reports: None Oncologic (Cancer) History: Reports: None Dermatologic History: Reports: None - Infectious Disease History Infectious Disease History: Reports: Chicken Pox, Hepatitis A, MRSA - Past Surgical History Head Surgeries/Procedures: Reports: None Cardiovascular Surgical History: Reports: Coronary Artery Stent Musculoskeletal Surgical History: Reports: Other (See Below) Social & Family History - Family History Family Medical History: Noncontributory Cardiac: Reports: Angina, VA Other Cardiac Family History: states both parents young from cardiac disease, also extensive cardiac HX with uncles, cousins, nephews - Caffeine Use Caffeine Use: Reports: Coffee, Soda Caffeine Use Comment: diet soda - Recreational Drug Use Recreational Drug Use: No - Living Situation & Occupation Living situation: Reports: , with Family Occupation: Employed ED ROS GENERAL - Review of Systems Review Of Systems: Comprehensive ROS is negative, except as noted in HPI. ED EXAM, GENERAL - Physical Exam Exam: See Below (see dictation) Course - Vital Signs Last Recorded V/S: Last Vital Signs Temp 35.8 C 02/11/19 19:06 Pulse 73 02/11/19 19:06 Resp 18 02/11/19 19:06 BP 106/73 02/11/19 19:06 Pulse Ox 98 02/11/19 19:06 Orthostatic Blood Pressure [ 130/82 Standing] Orthostatic Blood Pressure [ 133/87 Sitting] Orthostatic Blood Pressure [ 132/80 Supine] - Orders/Labs/Meds Orders: Active Orders 24 hr Category Date Time Status Cardiac Monitoring [RC] . DIRECTED Care 02/11/19 19:15 Active EKG Documentation Completion [RC] STAT Care 02/11/19 19:11 Active Orthostatic Vital Signs [RC] ASDIRECTED Care 02/11/19 19:15 Active Oxygen Therapy, ED [RC] ASDIRECTED Care 02/11/19 19:15 Active Pulse Oximetry [RC] ASDIRECTED Care 02/11/19 19:15 Active UA RFX SARY AND CULT IF INDIC [URIN] Stat Lab 02/11/19 19:15 Ordered Sodium Chloride 0.9% [Saline Flush] Med 02/11/19 19:15 Active 10 ml FLUSH ASDIRECTED PRN Sodium Chloride 0.9% [Saline Flush] Med 02/11/19 19:15 Active 2.5 ml FLUSH ASDIRECTED PRN Saline Lock Insert [OM.PC] Stat Oth 02/11/19 19:14 Ordered Medication Orders Sodium Chloride (Saline Flush) 10 ml FLUSH ASDIRECTED PRN PRN Reason: Keep Vein Open Last Admin: 02/11/19 19:34 Dose: 10 ml Sodium Chloride (Saline Flush) 2.5 ml FLUSH ASDIRECTED PRN PRN Reason: Keep Vein Open Last Admin: 02/11/19 19:34 Dose: 2.5 ml Labs: Laboratory Tests 02/11/19 02/11/19 02/11/19 Range/Units 19:30 19:30 19:30 WBC 5.59 (4.0-11.0) K/uL RBC 4.43 L (4.50-5.90) M/uL Hgb 14.8 (13.0-17.0) g/dL Hct 40.4 (38.0-50.0) % MCV 91.2 (80.0-98.0) fL MCH 33.4 H (27.0-32.0) pg MCHC 36.6 (31.0-37.0) g/dL RDW Std Deviation 42.3 (28.0-62.0) fl RDW Coeff of Ji 13 (11.0-15.0) % Plt Count 184 (150-400) K/uL MPV 10.50 (7.40-12.00) fL Neut % (Auto) 63.5 (48.0-80.0) % Lymph % (Auto) 24.5 (16.0-40.0) % [place] % (Auto) 8.4 (0.0-15.0) % Eos % (Auto) 2.9 (0.0-7.0) % Baso % (Auto) 0.7 (0.0-1.5) % Neut # (Auto) 3.6 (1.4-5.7) K/uL Lymph # (Auto) 1.4 (0.6-2.4) K/uL [place] # (Auto) 0.5 (0.0-0.8) K/uL Eos # (Auto) 0.2 (0.0-0.7) K/uL Baso # (Auto) 0.0 (0.0-0.1) K/uL Nucleated RBC % 0.0 /100WBC Nucleated RBCs # 0 K/uL INR 0.96 Lactate 1.4 (0.20-2.00) mmol/L Sodium (136-148) mmol/L Potassium (3.5-5.1) mmol/L Chloride (98-107) mmol/L Carbon Dioxide (21.0-32.0) mmol/L BUN (7.0-18.0) mg/dL Creatinine (0.8-1.3) mg/dL Est Cr Clr Drug Dosing mL/min Estimated GFR (MDRD) ml/min Glucose (74-106) mg/dL Calcium (8.5-10.1) mg/dL Total Bilirubin (0.2-1.0) mg/dL AST (15-37) IU/L ALT (14-63) IU/L Alkaline Phosphatase (46-116) U/L Troponin I (0.000-0.056) ng/mL Total Protein (6.4-8.2) g/dL Albumin (3.4-5.0) g/dL Globulin (2.6-4.0) g/dL Albumin/Globulin Ratio (0.9-1.6) Amylase (25-115) U/L Lipase (73-393) U/L Ketones (NEG) 02/11/19 02/11/19 Range/Units 19:30 19:30 WBC (4.0-11.0) K/uL RBC (4.50-5.90) M/uL Hgb (13.0-17.0) g/dL Hct (38.0-50.0) % MCV (80.0-98.0) fL MCH (27.0-32.0) pg MCHC (31.0-37.0) g/dL RDW Std Deviation (28.0-62.0) fl RDW Coeff of Ji (11.0-15.0) % Plt Count (150-400) K/uL MPV (7.40-12.00) fL Neut % (Auto) (48.0-80.0) % Lymph % (Auto) (16.0-40.0) % [place] % (Auto) (0.0-15.0) % Eos % (Auto) (0.0-7.0) % Baso % (Auto) (0.0-1.5) % Neut # (Auto) (1.4-5.7) K/uL Lymph # (Auto) (0.6-2.4) K/uL [place] # (Auto) (0.0-0.8) K/uL Eos # (Auto) (0.0-0.7) K/uL Baso # (Auto) (0.0-0.1) K/uL Nucleated RBC % /100WBC Nucleated RBCs # K/uL INR Lactate (0.20-2.00) mmol/L Sodium 143 (136-148) mmol/L Potassium 3.9 (3.5-5.1) mmol/L Chloride 106 (98-107) mmol/L Carbon Dioxide 28.4 (21.0-32.0) mmol/L BUN 17 (7.0-18.0) mg/dL Creatinine 1.2 (0.8-1.3) mg/dL Est Cr Clr Drug Dosing 69.28 mL/min Estimated GFR (MDRD) > 60.0 ml/min Glucose 118 H (74-106) mg/dL Calcium 8.7 (8.5-10.1) mg/dL Total Bilirubin 0.6 (0.2-1.0) mg/dL AST 16 (15-37) IU/L ALT 25 (14-63) IU/L Alkaline Phosphatase 73 (46-116) U/L Troponin I < 0.050 (0.000-0.056) ng/mL Total Protein 7.0 (6.4-8.2) g/dL Albumin 3.6 (3.4-5.0) g/dL Globulin 3.4 (2.6-4.0) g/dL Albumin/Globulin Ratio 1.1 (0.9-1.6) Amylase 30 (25-115) U/L Lipase 61 L (73-393) U/L Ketones NEGATIVE (NEG) Meds: Medications Generic Name Dose Route Start Last Admin Trade Name Freq PRN Reason Stop Dose Admin Sodium Chloride 10 ml 02/11/19 19:15 02/11/19 19:34 Saline Flush FLUSH 10 ml ASDIRECTED PRN Administration Keep Vein Open Sodium Chloride 2.5 ml 02/11/19 19:15 02/11/19 19:34 Saline Flush FLUSH 2.5 ml ASDIRECTED PRN Administration Keep Vein Open Discontinued Medications Generic Name Dose Route Start Last Admin Trade Name You PRN Reason Stop Dose Admin Aspirin 324 mg 02/11/19 19:16 02/11/19 19:32 Aspirin PO 02/11/19 19:17 Not Given ONETIME ONE Sodium Chloride 1,000 mls @ 999 mls/hr 02/11/19 19:16 02/11/19 19:32 Normal Saline IV 02/11/19 20:16 999 mls/hr STAT ONE Administration Sodium Chloride Confirm 02/11/19 19:24 02/11/19 19:40 Normal Saline Administered 02/11/19 19:25 Not Given Dose 20 mls @ as directed .ROUTE .STK-MED ONE Ondansetron HCl 4 mg 02/11/19 19:16 02/11/19 19:35 Zofran IVPUSH 02/11/19 19:17 4 mg ONETIME ONE Administration Pantoprazole Sodium 80 mg 02/11/19 19:16 02/11/19 19:40 Protonix Iv IVPUSH 02/11/19 19:17 Not Given .BOLUS ONE Departure - Departure Time of Disposition: 21:39 Disposition: Home, Self-Care 01 Condition: Good Clinical Impression: Generalized weakness, Lightheadedness Sinusitis Qualifiers: Sinusitis location: unspecified location Chronicity: unspecified Qualified Code (s): J32.9 - Chronic sinusitis, unspecified - Discharge Information Referrals: PCP,Unobtain [Primary Care Provider] - Forms: ED Department Discharge Additional Instructions: The following information is given to patients seen in the emergency department who are being discharged to home. This information is to outline your options for follow-up care. We provide all patients seen in our emergency department with a follow-up referral. The need for follow-up, as well as the timing and circumstances, are variable depending upon the specifics of your emergency department visit. If you don't have a primary care physician on staff, we will provide you with a referral. We always advise you to contact your personal physician following an emergency department visit to inform them of the circumstance of the visit and for follow-up with them and/or the need for any referrals to a consulting specialist. The emergency department will also refer you to a specialist when appropriate. This referral assures that you have the opportunity for followup care with a specialist. All of these measure are taken in an effort to provide you with optimal care, which includes your followup. Under all circumstances we always encourage you to contact your private physician who remains a resource for coordinating your care. When calling for followup care, please make the office aware that this follow-up is from your recent emergency room visit. If for any reason you are refused follow-up, please contact the [facility] emergency department at and ask to speak to the emergency department charge nurse. [facility] Primary care- [place] [address] Please connect with your providers regarding your new medications and tonight's visit. Push hydration and add antibiotics as prescribed to you for the sinusitis. Return to ER as needed and as discussed - My Orders Last 24 Hours: My Active Orders 02/11/19 19:11 EKG Documentation Completion [RC] STAT 02/11/19 19:14 Saline Lock Insert [OM.PC] Stat 02/11/19 19:15 Cardiac Monitoring [RC] . DIRECTED Orthostatic Vital Signs [RC] ASDIRECTED Oxygen Therapy, ED [RC] ASDIRECTED Pulse Oximetry [RC] ASDIRECTED UA RFX SARY AND CULT IF INDIC [URIN] Stat Sodium Chloride 0.9% [Saline Flush] 10 ml FLUSH ASDIRECTED PRN Sodium Chloride 0.9% [Saline Flush] 2.5 ml FLUSH ASDIRECTED PRN - Assessment/Plan Last 24 Hours: My Active Orders 02/11/19 19:11 EKG Documentation Completion [RC] STAT 02/11/19 19:14 Saline Lock Insert [OM.PC] Stat 02/11/19 19:15 Cardiac Monitoring [RC] . DIRECTED Orthostatic Vital Signs [RC] ASDIRECTED Oxygen Therapy, ED [RC] ASDIRECTED Pulse Oximetry [RC] ASDIRECTED UA RFX SARY AND CULT IF INDIC [URIN] Stat Sodium Chloride 0.9% [Saline Flush] 10 ml FLUSH ASDIRECTED PRN Sodium Chloride 0.9% [Saline Flush] 2.5 ml FLUSH ASDIRECTED PRN
[2019-02-11] MEDS ORDERED: Sodium Chloride 0.9% 20 ML ONE (19:24)
[2019-02-11] MEDS: Pantoprazole 40 MG Vial IVPUSH ONE ×2 (19:38→19:40)
[2019-02-11 20:01] LABS: BLOOD UREA NITROGEN,BUN 17 mg/dL (7.0-18.0); CARBON DIOXIDE,CO2 28.4 mmol/L (21.0-32.0); CHLORIDE,CL 106 mmol/L (98-107); GLUCOSE RANDOM 118 mg/dL (74-106); LIPASE 61 U/L (73-393); POTASSIUM,K 3.9 mmol/L (3.5-5.1); SODIUM,NA 143 mmol/L (136-148)
--- NOTE | 2019-02-11 20:13 | CR ---
Indication: Pain. Shortness of breath. Weakness. Technique: Single AP portable view of the chest was obtained. Comparison: October 19, 2018. Findings: The heart is normal in size. The lungs are clear. No infiltrate, pleural effusion, or pneumothorax is identified. Impression: No acute cardiopulmonary process. Dictated by Gilma Diaz MD @ Feb 11 2019 8:10PM Signed by Dr. Gilma Diaz @ Feb 11 2019 8:11PM
--- NOTE | 2019-02-11 21:05 | CT ---
INDICATION: pain CT HEAD WITHOUT CONTRAST TECHNIQUE: Multiple axial CT images were performed through the head without intravenous contrast administration. COMPARISON: No previous studies are currently available for comparison. FINDINGS: No acute intracranial hemorrhage is identified. No extra-axial collections are evident and there is no mass effect or midline shift. Ventricles are normal in size and configuration. Brain parenchyma appears normal with unremarkable perez-white differentiation. Osseous structures are within normal limits and no fractures are seen. Included portions of the paranasal sinuses and mastoid air cells are normally aerated all except for opacification of the sphenoid sinus and mucosal thickening in several ethmoid air cells, consistent with sinusitis. IMPRESSION: 1. No intracranial abnormality identified. 2. Ethmoid and sphenoid sinusitis. NO MICHELLE MD [employer] Dictated by Carlos Michelle MD @ 02/11/2019 9:02:28 PM Dictated by: Carlos Michelle MD @ 02/11/2019 21:02:38 (Electronically Signed)
--- NOTE | 2019-02-11 21:30 | CT ---
INDICATION: pain CT ABDOMEN AND PELVIS WITH CONTRAST TECHNIQUE: Multidetector CT imaging was performed through the abdomen and pelvis following intravenous contrast administration using 100 mL Isovue 370. Coronal and sagittal reconstructions were generated. COMPARISON: None. FINDINGS: Lower chest: Mild bibasilar lung atelectasis or scarring, greatest in the left lower lobe. Liver: Within normal limits. Gallbladder and bile ducts: Status post cholecystectomy. No biliary dilation identified. Pancreas: Unremarkable. Spleen: Normal. Adrenals: No nodules or masses. Kidneys, ureters, and urinary bladder: No renal masses or hydronephrosis. Diffuse bladder wall prominence likely due to nondistention. Gastrointestinal tract: Normal caliber bowel without wall thickening or obstruction. Mildly prominent appendix without periappendiceal fat stranding to indicate appendicitis. Vascular structures: Aortoiliac atherosclerotic changes. Peritoneum: No free air, abscess, or significant free fluid. Lymph nodes: No pathologically enlarged nodes identified. Reproductive organs: Mild prostatomegaly. Bones: Mild spinal degenerative changes. A few scattered small sclerotic foci in the spine are favored to represent bone islands. IMPRESSION: 1. No acute abnormality identified. No specific cause for the patient`s symptoms is demonstrated. 2. Nonacute findings as detailed above. NO MICHELLE MD [employer] Dictated by Carlos Michelle MD @ 02/11/2019 9:22:57 PM Dictated by: Carlos Michelle MD @ 02/11/2019 21:27:19 (Electronically Signed)
== END 2019-02-11 22:01 | disposition home or self-care (01) ==
LOC: MW.ED 19:04
DX: R53.1 Weakness (principal); R42 Dizziness and giddiness; J32.9 Chronic sinusitis, unspecified; I10 Essential (primary) hypertension; I25.2 Old myocardial infarction; E10.9 Type 1 diabetes mellitus without complications; K21.9 Gastro-esophageal reflux disease without esophagitis; Z79.4 Long term (current) use of insulin; Z88.6 Allergy status to analgesic agent; Z88.8 Allergy status to other drugs, medicaments and biological substances; Z79.899 Other long term (current) drug therapy; Z95.5 Presence of coronary angioplasty implant and graft
CPT/HCPCS: 36415; 70450; 71045; 74177; 80053; 82009; 82150; 83605; 83690; 84484; 85025; 85610; 93005; 96361; 96374; 99285; J2405; J7040; 99284; C9113

== ENCOUNTER 2019-03-13 08:47 | Emergency (ER) | payer BC ==
[2019-03-13] MEDS ORDERED: Insulin Regular, Human 100 Units/ML 10 ML Vial SUBCUT STA (08:59)
[2019-03-13] MEDS ORDERED: Sodium Chloride 0.9% 1,000 ML IV ONE (08:59)
--- NOTE | 2019-03-13 09:01 | EDM.PDOC ---
ED HPI GENERAL MEDICAL PROBLEM - General Chief Complaint: Abdominal Pain Stated Complaint: STOMACH PROBLEMS Time Seen by Provider: 03/13/19 09:01 Source of Information: Reports: Patient - History of Present Illness INITIAL COMMENTS - FREE TEXT/NARRATIVE: HISTORY AND PHYSICAL: History of present illness: [Patient was sent over by cardiology for evaluation and treatment of a glucose over 400 Patient flatly refuses treatment or work-up and does not desire to be here at this time all risks and benefits discussed patient voiced understanding, patient refused treatment and work up and desires to leave AMA Diagnostics: [refused ] Therapeutics: [refused] Impression: [glucose over 400 reported by provider] Definitive disposition and diagnosis as appropriate pending reevaluation and review of above. Abdominal Pain Pain Score (Numeric/FACES): 7 - Related Data Allergies Allergy/AdvReac Type Severity Reaction Status Date / Time aspirin Allergy Hives Verified 03/13/19 09:04 ibuprofen Allergy Hives Verified 03/13/19 09:04 pioglitazone HCl [From Actos] Allergy Hives Verified 03/13/19 09:04 prasugrel HCl [From Effient] Allergy Rash Verified 03/13/19 09:04 Gmvbwki-Xto-Wki Reductase Allergy Body Aches Verified 03/13/19 09:04 Inhibitor Home Meds: Home Meds Multivitamin [Multi-Day Vitamins] 1 tab PO DAILY 12/25/14 [History] Ticagrelor [Brilinta] 90 mg PO BID 12/25/14 [History] traMADol [Ultram] 50 mg PO BEDTIME PRN 12/25/14 [History] Doxazosin [Cardura] 4 mg PO DAILY 11/01/17 [History] Insulin Aspart [Novolog Flexpen] 6 unit SQ TIDMEALS 11/01/17 [History] Omeprazole 20 mg PO BID 11/01/17 [History] carvediloL [Carvedilol] 25 mg PO BID 11/01/17 [History] Losartan [Cozaar] 100 mg PO DAILY 12/24/17 [History] Isosorbide Dinitrate 10 mg PO BID 30 Days #60 tablet 02/08/18 [Rx] DULoxetine [Cymbalta] 60 mg PO DAILY 10/19/18 [History] Insulin Degludec [Tresiba] 23 - 28 unit SQ BID 10/19/18 [History] Nitroglycerin 0.4 mg SL .EVERY 5 MINUTES PRN MDD 3 tablets 10/19/18 [History] Evolocumab [Repatha Sureclick] 140 mg SQ .EVERY 2 WEEKS 10/20/18 [Rx] Insulin Aspart [NovoLOG] 6 unit SUBCUT TIDAC pen 10/20/18 [Rx] Past Medical History - Past Health History Medical/Surgical History: Denies Medical/Surgical History HEENT History: Reports: Otitis Media, Other (See Below) Other HEENT History: Constant ringing in ears, affects my hearing, macular edema Cardiovascular History: Reports: Angina, High Cholesterol, Hypertension, [place], SOB on Exertion, Stents, Syncope, Other (See Below) Other Cardiovascular History: Diastolic dysfunction Respiratory History: Reports: None Gastrointestinal History: Reports: GERD Other Gastrointestinal History: Abdominal pain post meals, Water dark, smelling stools Genitourinary History: Reports: None Musculoskeletal History: Reports: Back Pain, Chronic, Neck Pain, Chronic Other Musculoskeletal History: Upper back pain history Neurological History: Reports: Neuropathy, Peripheral Other Neuro History: 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 Psychiatric History: Reports: Anxiety, Depression Other Psychiatric History: "Not sure I would know if I were depressed 'how would I know?" Endocrine/Metabolic History: Reports: Diabetes, Type I Hematologic History: Reports: None Other Hematologic History: Chronic anti-coagulant therapy Immunologic History: Reports: None Oncologic (Cancer) History: Reports: None Dermatologic History: Reports: None - Infectious Disease History Infectious Disease History: Reports: Chicken Pox, Hepatitis A, MRSA - Past Surgical History Head Surgeries/Procedures: Reports: None Cardiovascular Surgical History: Reports: Coronary Artery Stent Musculoskeletal Surgical History: Reports: Other (See Below) Social & Family History - Family History Family Medical History: Noncontributory Cardiac: Reports: Angina, [place] Other Cardiac Family History: states both parents young from cardiac disease, also extensive cardiac HX with uncles, cousins, nephews - Caffeine Use Caffeine Use: Reports: Coffee, Soda Caffeine Use Comment: diet soda - Living Situation & Occupation Living situation: Reports: , with Family Occupation: Employed ED ROS GENERAL - Review of Systems Review Of Systems: See Below ED EXAM, GENERAL - Physical Exam Exam: See Below Course - Vital Signs Last Recorded V/S: Last Vital Signs Temp 97.3 F 03/13/19 09:05 Pulse 74 03/13/19 09:05 Resp 18 12/18/19 09:05 BP 164/88 H 03/13/19 09:05 Pulse Ox 97 03/13/19 09:05 - Orders/Labs/Meds Orders: Active Orders 24 hr Category Date Time Status CBC WITH AUTO DIFF [HEME] Stat Lab 03/13/19 08:59 Ordered COMPREHENSIVE METABOLIC PN,CMP [CHEM] Stat Lab 03/13/19 08:59 Ordered LIPASE [CHEM] Stat Lab 03/13/19 08:59 Ordered UA RFX SARY AND CULT IF INDIC [URIN] Stat Lab 03/13/19 08:59 Ordered Sodium Chloride 0.9% [Normal Saline] 1,000 ml Med 03/13/19 08:59 Active IV STAT Medication Orders Sodium Chloride (Normal Saline) 1,000 mls @ 999 mls/hr IV STAT ONE Stop: 03/13/19 09:59 Meds: Medications Generic Name Dose Route Start Last Admin Trade Name Freq PRN Reason Stop Dose Admin Sodium Chloride 1,000 mls @ 999 mls/hr 03/13/19 08:59 Normal Saline IV 03/13/19 09:59 STAT ONE Discontinued Medications Generic Name Dose Route Start Last Admin Trade Name Freq PRN Reason Stop Dose Admin Insulin Human Regular 10 unit 03/13/19 08:59 Novolin R SUBCUT 03/13/19 09:00 NOW RUST Protocol Departure - Departure Time of Disposition: 09:11 Disposition: Against Medical Advice 07 Condition: Fair Clinical Impression: Abdominal pain, Diabetes - Discharge Information Referrals: Ishaan Marcial MD [Primary Care Provider] - Forms: ED Department Discharge Additional Instructions: The following information is given to patients seen in the emergency department who are being discharged to home. This information is to outline your options for follow-up care. We provide all patients seen in our emergency department with a follow-up referral. The need for follow-up, as well as the timing and circumstances, are variable depending upon the specifics of your emergency department visit. If you don't have a primary care physician on staff, we will provide you with a referral. We always advise you to contact your personal physician following an emergency department visit to inform them of the circumstance of the visit and for follow-up with them and/or the need for any referrals to a consulting specialist. The emergency department will also refer you to a specialist when appropriate. This referral assures that you have the opportunity for follow-up care with a specialist. All of these measure are taken in an effort to provide you with optimal care, which includes your follow-up. Under all circumstances we always encourage you to contact your private physician who remains a resource for coordinating your care. When calling for follow-up care, please make the office aware that this follow-up is from your recent emergency room visit. If for any reason you are refused follow-up, please contact the [facility] emergency department at and asked to speak to the emergency department charge nurse. Sepsis Event Note - Focused Exam Vital Signs: Vital Signs Temp Pulse Resp BP Pulse Ox 03/13/19 09:05 97.3 F 74 18 164/88 H 97 Date Exam was Performed: 03/13/19 Time Exam was Performed: 09:09 - My Orders Last 24 Hours: My Active Orders 03/13/19 08:59 CBC WITH AUTO DIFF [HEME] Stat COMPREHENSIVE METABOLIC PN,CMP [CHEM] Stat LIPASE [CHEM] Stat UA RFX SARY AND CULT IF INDIC [URIN] Stat Sodium Chloride 0.9% [Normal Saline] 1,000 ml IV STAT - Assessment/Plan Last 24 Hours: My Active Orders 03/13/19 08:59 CBC WITH AUTO DIFF [HEME] Stat COMPREHENSIVE METABOLIC PN,CMP [CHEM] Stat LIPASE [CHEM] Stat UA RFX SARY AND CULT IF INDIC [URIN] Stat Sodium Chloride 0.9% [Normal Saline] 1,000 ml IV STAT
[2019-03-13 09:08] VITALS: BP 164/88; PULSE 74
== END 2019-03-13 09:12 | disposition left against medical advice (07) ==
LOC: MW.ED 08:47
DX: E10.42 Type 1 diabetes mellitus with diabetic polyneuropathy (principal); R10.9 Unspecified abdominal pain; I10 Essential (primary) hypertension; I25.2 Old myocardial infarction; K21.9 Gastro-esophageal reflux disease without esophagitis; F41.9 Anxiety disorder, unspecified; F32.9 Major depressive disorder, single episode, unspecified; Z88.6 Allergy status to analgesic agent; Z88.8 Allergy status to other drugs, medicaments and biological substances; Z79.4 Long term (current) use of insulin; Z79.899 Other long term (current) drug therapy
CPT/HCPCS: 99284

== ENCOUNTER 2020-01-03 06:30 | Emergency (ER) | payer BC ==
--- NOTE | 2020-01-03 06:39 | EDM.PDOC ---
<Jorge Lopes - Last Filed: 01/03/20 10:55> ED HPI GENERAL MEDICAL PROBLEM - General Stated Complaint: CHEST PAIN Time Seen by Provider: 01/03/20 06:35 mid chest Pain Score (Numeric/FACES): 6 - Related Data Allergies Allergy/AdvReac Type Severity Reaction Status Date / Time aspirin Allergy Hives Verified 01/03/20 06:54 ibuprofen Allergy Hives Verified 01/03/20 06:54 pioglitazone HCl [From Actos] Allergy Hives Verified 01/03/20 06:54 prasugrel HCl [From Effient] Allergy Rash Verified 01/03/20 06:54 Ikyucdr-Hdb-Evr Reductase Allergy Body Aches Verified 01/03/20 06:54 Inhibitor Home Meds: Home Meds Multivitamin [Multi-Day Vitamins] 1 tab PO DAILY 12/25/14 [History] Ticagrelor [Brilinta] 90 mg PO BID 12/25/14 [History] traMADol [Ultram] 50 mg PO BEDTIME PRN 12/25/14 [History] Doxazosin [Cardura] 4 mg PO DAILY 11/01/17 [History] Insulin Aspart [Novolog Flexpen] 6 unit SQ TIDMEALS 11/01/17 [History] Omeprazole 20 mg PO BID 11/01/17 [History] carvediloL [Carvedilol] 25 mg PO BID 11/01/17 [History] Losartan [Cozaar] 100 mg PO DAILY 12/24/17 [History] Isosorbide Dinitrate 10 mg PO BID 30 Days #60 tablet 02/08/18 [Rx] DULoxetine [Cymbalta] 60 mg PO DAILY 10/19/18 [History] Insulin Degludec [Tresiba] 23 - 28 unit SQ BID 10/19/18 [History] Nitroglycerin 0.4 mg SL .EVERY 5 MINUTES PRN MDD 3 tablets 10/19/18 [History] Evolocumab [Repatha Sureclick] 140 mg SQ .EVERY 2 WEEKS 10/20/18 [Rx] Insulin Aspart [NovoLOG] 6 unit SUBCUT TIDAC pen 10/20/18 [Rx] Departure - Departure Time of Disposition: 10:58 Disposition: Home, Self-Care 01 Condition: Good Clinical Impression: Hypertension Chest pain Qualifiers: Chest pain type: unspecified Qualified Code(s): R07.9 - Chest pain, unspecified - Discharge Information *PRESCRIPTION DRUG MONITORING PROGRAM REVIEWED*: Not Applicable *COPY OF PRESCRIPTION DRUG MONITORING REPORT IN PATIENT PREETI: Not Applicable Instructions: Nonspecific Chest Pain, Adult, Mjer-al-Cojp, Hypertension, Adult, [id number] Referrals: Ishaan Marcial MD [Physician] - Forms: ED Department Discharge Additional Instructions: You should receive a phone call from Dr. Garces regarding the scheduling of your outpatient stress test. If you develop severe chest pain again it is important that you return for another assessment even if it is later today or tonight. The following information is given to patients seen in the emergency department who are being discharged to home. This information is to outline your options for follow-up care. We provide all patients seen in our emergency department with a follow-up referral. The need for follow-up, as well as the timing and circumstances, are variable depending upon the specifics of your emergency department visit. If you don't have a primary care physician on staff, we will provide you with a referral. We always advise you to contact your personal physician following an emergency department visit to inform them of the circumstance of the visit and for follow-up with them and/or the need for any referrals to a consulting specialist. The emergency department will also refer you to a specialist when appropriate. This referral assures that you have the opportunity for follow-up care with a specialist. All of these measure are taken in an effort to provide you with optimal care, which includes your follow-up. Under all circumstances we always encourage you to contact your private physician who remains a resource for coordinating your care. When calling for follow-up care, please make the office aware that this follow-up is from your recent emergency room visit. If for any reason you are refused follow-up, please contact the [facility] Emergency Department at and asked to speak to the emergency department charge nurse. - Assessment/Plan Assessment:: Patient was received in signout at [address] Pereira. Patient's labs are normal his chest x-ray is without acute finding on my preliminary interpretation. On my reassessment the patient's pressure has improved to 160s over 90s. He reports some continued mild 3 out of 10 substernal chest pain. He states to me that he had severe pain that radiated through to his back. He has a long history of uncontrolled hypertension given the severity of his pain which he feels is atypical for him as well as its radiation to the back we must consider aortic dissection and CT angiogram is been ordered to further assess for this. Patient does have known coronary artery disease. This intermittent chest pain does appear to be a chronic process going on for at least the last month or so. 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 0750: Pt reports lightheadedness and diaphoresis and sensation of low BG. Pt's BG is 50 and 1 amp D50 given. Pt NPO pending CTA result but as soon as it returns will have the patient eat. Patient took all his AM meds and has not eaten likely explaining his low BG. 0820: Pt is now chest pain free s/p morphine. CTA pending. 0952: Patient continues to be asymptomatic. CT angiogram is without concerning finding. Patient discussed in full with Dr. Boyer Given his high risk admission was considered. However the patient strongly desires discharge and given this second troponin will be ordered if this is negative patient will go home. Dr. Garces will schedule the patient for an outpatient stress test and this was discussed with the patient. The patient agrees to return immediately if his chest pain returns. 1055: Pt has remained asymptomatic for the last hour. Repeat trop is normal. Pt has tolerated PO and BG is stable. Pt discharged as above. Return precautions discussed and understood. <PereiraCole ordonez - Last Filed: 01/03/20 18:57> ED HPI GENERAL MEDICAL PROBLEM - History of Present Illness INITIAL COMMENTS - FREE TEXT/NARRATIVE: History of present illness: [] She was awakened at 3:30 AM with chest pain like somebody punched him in the chest. This persisted for the early part of the night. He was associated with slight diaphoresis slight nausea and slight shortness of breath. At one time he felt presyncopal type weakness. Activity made it worse. During that time he was intermittently partially relieved with nitroglycerin. He took a total of 4 before he came here. It is still happening with some brief episodes of pressure in his chest. He has had multiple stents and has coronary vessel disease that persist. He is on blood pressure medicines as well as long-acting nitrates. He often takes 1 or 2 nitro during the day but it never persists along cause him to take for in the recent past. Is not a smoker but is a diabetic with neuropathy who is a blood pressure patient. Review of systems: As per history of present illness and below otherwise all systems reviewed and negative. Past medical history: As per history of present illness and as reviewed below otherwise noncontributory. Surgical history: As per history of present illness and as reviewed below otherwise noncontributory. Social history: No reported history of drug or alcohol abuse. Family history: As per history of present illness and as reviewed below otherwise noncontributory. Physical exam: Constitutional - well developed, well-nourished and in no acute distress HEENT - normocephalic, no evidence of trauma - external nose and mouth normal - no mass in neck and no JVD - mucosae moist EYES - full EOM, PERRL, no icterus - no evidence of inflammation, injection, or drainage Respiratory - no respiratory distress, equal bilateral expansion, lungs clear to auscultation and no abnormal lung sounds Cardiovascular - Regular Rhythm with S1 and S2 appreciated and no murmur, gallop or rub. GI - abdomen soft without distension or organomegaly - normal bowel sounds - no guard or rebound Musculoskeletal no gross deformity of long bones or joints - no tenderness, swelling or edema Neurologic - Alert and oriented times four - CN II-XII grossly intact - motor sensory and coordination symmetrically normal Psychiatric - appropriate mood and affect with normal thought content Hematologic - No petechiae or purpura - mucosa appropriate color and sclera not pale - normal nail bed color and refill Integument - no rash or evidence of trauma - normal turgor Diagnostics: [] Therapeutics: [] Impression: [] Plan: [] Definitive disposition and diagnosis as appropriate pending reevaluation and review of above. Past Medical History - Past Health History Medical/Surgical History: Denies Medical/Surgical History HEENT History: Reports: Otitis Media, Other (See Below) Other HEENT History: Constant ringing in ears, affects my hearing, macular edema Cardiovascular History: Reports: Angina, High Cholesterol, Hypertension, [place], SOB on Exertion, Stents, Syncope, Other (See Below) Other Cardiovascular History: Diastolic dysfunction Respiratory History: Reports: None Gastrointestinal History: Reports: GERD Other Gastrointestinal History: Abdominal pain post meals, Water dark, smelling stools Genitourinary History: Reports: None Musculoskeletal History: Reports: Back Pain, Chronic, Neck Pain, Chronic Other Musculoskeletal History: Upper back pain history Neurological History: Reports: Neuropathy, Peripheral Other Neuro History: 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 Psychiatric History: Reports: Anxiety, Depression Other Psychiatric History: "Not sure I would know if I were depressed 'how would I know?" Endocrine/Metabolic History: Reports: Diabetes, Type I Hematologic History: Reports: None Other Hematologic History: Chronic anti-coagulant therapy Immunologic History: Reports: None Oncologic (Cancer) History: Reports: None Dermatologic History: Reports: None - Infectious Disease History Infectious Disease History: Reports: Chicken Pox, Hepatitis A, MRSA - Past Surgical History Head Surgeries/Procedures: Reports: None Cardiovascular Surgical History: Reports: Coronary Artery Stent Musculoskeletal Surgical History: Reports: Other (See Below) Social & Family History - Family History Family Medical History: Noncontributory Cardiac: Reports: Angina, [place] Other Cardiac Family History: states both parents young from cardiac disease, also extensive cardiac HX with uncles, cousins, nephews - Caffeine Use Caffeine Use: Reports: None Caffeine Use Comment: diet soda - Living Situation & Occupation Living situation: Reports: , with Family Occupation: Employed ED ROS GENERAL - Review of Systems Review Of Systems: Comprehensive ROS is negative, except as noted in HPI. ED EXAM, GENERAL - Physical Exam Exam: See Below Free Text/Narrative:: My physical exam is in the HPI EKG INTERPRETATION EKG Interpretation Comments: D EKG done 01/03/2020 at 632 and read at 639. Sinus rhythm with heart rate 77 SC interval 169 the axis is -28. QT is 441 there is somewhat abnormal R wave progression shown with inferior Q waves. TMT are normal. It is compared to 02/12/2019. There is no significant change. Impression no obvious injury Course - Vital Signs Text/Narrative:: At the end of my shift I turned the patient over to my partner. The further exam and follow-up is clearly dictated in the remainder of this document. I had no further input after the end of my shift. Last Recorded V/S: Last Vital Signs Temp 97.2 F 01/03/20 11:18 Pulse 67 01/03/20 11:18 Resp 16 01/03/20 11:18 BP 139/89 01/03/20 11:18 Pulse Ox 97 01/03/20 11:18 - Orders/Labs/Meds Orders: Active Orders 24 hr Category Date Time Status Saline Lock Insert [OM.PC] Stat Oth 01/03/20 06:46 Ordered Labs: Laboratory Tests 01/03/20 01/03/20 01/03/20 Range/Units 06:37 06:37 07:50 WBC 6.02 (4.0-11.0) K/uL RBC 4.32 L (4.50-5.90) M/uL Hgb 14.2 (13.0-17.0) g/dL Hct 40.2 (38.0-50.0) % MCV 93.1 (80.0-98.0) fL MCH 32.9 H (27.0-32.0) pg MCHC 35.3 (31.0-37.0) g/dL RDW Std Deviation 42.5 (28.0-62.0) fl RDW Coeff of Ji 13 (11.0-15.0) % Plt Count 164 (150-400) K/uL MPV 10.50 (7.40-12.00) fL Neut % (Auto) 64.6 (48.0-80.0) % Lymph % (Auto) 22.6 (16.0-40.0) % [place] % (Auto) 8.0 (0.0-15.0) % Eos % (Auto) 4.5 (0.0-7.0) % Baso % (Auto) 0.3 (0.0-1.5) % Neut # (Auto) 3.9 (1.4-5.7) K/uL Lymph # (Auto) 1.4 (0.6-2.4) K/uL [place] # (Auto) 0.5 (0.0-0.8) K/uL Eos # (Auto) 0.3 (0.0-0.7) K/uL Baso # (Auto) 0.0 (0.0-0.1) K/uL Nucleated RBC % 0.0 /100WBC Nucleated RBCs # 0 K/uL Sodium 140 (136-148) mmol/L Potassium 3.7 (3.5-5.1) mmol/L Chloride 103 (98-107) mmol/L Carbon Dioxide 28.2 (21.0-32.0) mmol/L BUN 20 H (7.0-18.0) mg/dL Creatinine 1.1 (0.8-1.3) mg/dL Est Cr Clr Drug Dosing TNP Estimated GFR (MDRD) > 60.0 ml/min Glucose 104 (74-106) mg/dL POC Glucose 50 L (60-110) mg/dL Calcium 8.9 (8.5-10.1) mg/dL Magnesium 1.8 (1.8-2.4) mg/dL Total Bilirubin 0.8 (0.2-1.0) mg/dL AST 14 L (15-37) IU/L ALT 25 (14-63) IU/L Alkaline Phosphatase 81 (46-116) U/L Troponin I < 0.050 (0.000-0.056) ng/mL Total Protein 7.0 (6.4-8.2) g/dL Albumin 3.7 (3.4-5.0) g/dL Globulin 3.3 (2.6-4.0) g/dL Albumin/Globulin Ratio 1.1 (0.9-1.6) 01/03/20 01/03/20 01/03/20 Range/Units 08:13 08:56 09:29 WBC (4.0-11.0) K/uL RBC (4.50-5.90) M/uL Hgb (13.0-17.0) g/dL Hct (38.0-50.0) % MCV (80.0-98.0) fL MCH (27.0-32.0) pg MCHC (31.0-37.0) g/dL RDW Std Deviation (28.0-62.0) fl RDW Coeff of Ji (11.0-15.0) % Plt Count (150-400) K/uL MPV (7.40-12.00) fL Neut % (Auto) (48.0-80.0) % Lymph % (Auto) (16.0-40.0) % [place] % (Auto) (0.0-15.0) % Eos % (Auto) (0.0-7.0) % Baso % (Auto) (0.0-1.5) % Neut # (Auto) (1.4-5.7) K/uL Lymph # (Auto) (0.6-2.4) K/uL [place]y # (Auto) (0.0-0.8) K/uL Eos # (Auto) (0.0-0.7) K/uL Baso # (Auto) (0.0-0.1) K/uL Nucleated RBC % /100WBC Nucleated RBCs # K/uL Sodium (136-148) mmol/L Potassium (3.5-5.1) mmol/L Chloride (98-107) mmol/L Carbon Dioxide (21.0-32.0) mmol/L BUN (7.0-18.0) mg/dL Creatinine (0.8-1.3) mg/dL Est Cr Clr Drug Dosing Estimated GFR (MDRD) ml/min Glucose (74-106) mg/dL POC Glucose 119 H 46 L 108 (60-110) mg/dL Calcium (8.5-10.1) mg/dL Magnesium (1.8-2.4) mg/dL Total Bilirubin (0.2-1.0) mg/dL AST (15-37) IU/L ALT (14-63) IU/L Alkaline Phosphatase (46-116) U/L Troponin I (0.000-0.056) ng/mL Total Protein (6.4-8.2) g/dL Albumin (3.4-5.0) g/dL Globulin (2.6-4.0) g/dL Albumin/Globulin Ratio (0.9-1.6) 01/03/20 01/03/20 Range/Units 10:02 10:58 WBC (4.0-11.0) K/uL RBC (4.50-5.90) M/uL Hgb (13.0-17.0) g/dL Hct (38.0-50.0) % MCV (80.0-98.0) fL MCH (27.0-32.0) pg MCHC (31.0-37.0) g/dL RDW Std Deviation (28.0-62.0) fl RDW Coeff of Ji (11.0-15.0) % Plt Count (150-400) K/uL MPV (7.40-12.00) fL Neut % (Auto) (48.0-80.0) % Lymph % (Auto) (16.0-40.0) % [place] % (Auto) (0.0-15.0) % Eos % (Auto) (0.0-7.0) % Baso % (Auto) (0.0-1.5) % Neut # (Auto) (1.4-5.7) K/uL Lymph # (Auto) (0.6-2.4) K/uL [place] # (Auto) (0.0-0.8) K/uL Eos # (Auto) (0.0-0.7) K/uL Baso # (Auto) (0.0-0.1) K/uL Nucleated RBC % /100WBC Nucleated RBCs # K/uL Sodium (136-148) mmol/L Potassium (3.5-5.1) mmol/L Chloride (98-107) mmol/L Carbon Dioxide (21.0-32.0) mmol/L BUN (7.0-18.0) mg/dL Creatinine (0.8-1.3) mg/dL Est Cr Clr Drug Dosing Estimated GFR (MDRD) ml/min Glucose (74-106) mg/dL POC Glucose 77 (60-110) mg/dL Calcium (8.5-10.1) mg/dL Magnesium (1.8-2.4) mg/dL Total Bilirubin (0.2-1.0) mg/dL AST (15-37) IU/L ALT (14-63) IU/L Alkaline Phosphatase (46-116) U/L Troponin I < 0.050 (0.000-0.056) ng/mL Total Protein (6.4-8.2) g/dL Albumin (3.4-5.0) g/dL Globulin (2.6-4.0) g/dL Albumin/Globulin Ratio (0.9-1.6) Meds: Medications Discontinued Medications Generic Name Dose Route Start Last Admin Trade Name Andrewq PRN Reason Stop Dose Admin Dextrose/Water 50 ml 01/03/20 07:50 01/03/20 07:55 Dextrose 50% In Water IVPUSH 01/03/20 07:51 50 ml ONETIME ONE Administration Dextrose/Water 50 ml 01/03/20 08:57 01/03/20 09:01 Dextrose 50% In Water IVPUSH 01/03/20 08:58 50 ml ONETIME ONE Administration Iopamidol 100 ml 01/03/20 08:17 01/03/20 08:18 Isovue-370 (76%) IVPUSH 01/03/20 08:18 100 ml ONETIME ONE Administration Morphine Sulfate 4 mg 01/03/20 07:30 01/03/20 07:38 Morphine IVPUSH 01/03/20 07:31 4 mg ONETIME ONE Administration Nitroglycerin 1 gm 01/03/20 06:47 01/03/20 06:53 Nitro-Bid 2% TOP 01/03/20 06:48 1 gm ONETIME ONE Administration Sodium Chloride 10 ml 01/03/20 06:46 01/03/20 07:19 Saline Flush FLUSH 10 ml ASDIRECTED PRN Administration Keep Vein Open Sodium Chloride 2.5 ml 01/03/20 06:46 01/03/20 07:19 Saline Flush FLUSH 2.5 ml ASDIRECTED PRN Administration Keep Vein Open Sepsis Event Note (ED) - Focused Exam Vital Signs: Vital Signs Temp Pulse Resp BP Pulse Ox 01/03/20 11:18 97.2 F 67 16 139/89 97 01/03/20 11:02 67 176/104 H 98 01/03/20 10:33 68 169/101 H 96 01/03/20 09:44 60 159/91 H 95 01/03/20 08:44 67 184/111 H 96 01/03/20 07:44 72 189/117 H 95 01/03/20 07:29 75 176/105 H 94 L - My Orders Last 24 Hours: My Active Orders 01/03/20 06:46 Saline Lock Insert [OM.PC] Stat - Assessment/Plan Last 24 Hours: My Active Orders 01/03/20 06:46 Saline Lock Insert [OM.PC] Stat
[2020-01-03] MEDS ORDERED: Sodium Chloride 0.9% 2.5 ML Syringe FLUSH PRN (06:46)
[2020-01-03] MEDS ORDERED: Sodium Chloride 0.9% 10 ML Syringe FLUSH PRN (06:46)
[2020-01-03] MEDS ORDERED: Nitroglycerin 2% Oint 1 GM UD Packet TOP ONE (06:47)
[2020-01-03 07:10] LABS: BLOOD UREA NITROGEN,BUN 20 mg/dL (7.0-18.0); CARBON DIOXIDE,CO2 28.2 mmol/L (21.0-32.0); CHLORIDE,CL 103 mmol/L (98-107); GLUCOSE RANDOM 104 mg/dL (74-106); POTASSIUM,K 3.7 mmol/L (3.5-5.1); SODIUM,NA 140 mmol/L (136-148)
--- NOTE | 2020-01-03 07:17 | CR ---
INDICATION: Chest pain TECHNIQUE: Chest 1 views COMPARISON: 02/11/2019 FINDINGS: Cardiovascular and mediastinum: Heart size and vasculature are normal in caliber and appearance. Lungs and pleural spaces: Lungs are clear. No sign of infiltrate or mass. No sign of pleural effusion. No pneumothorax. Bones and soft tissues: No significant findings. IMPRESSION: No acute findings and no significant changes from the prior exam. Dictated by Dionicio Blake MD @ Jan 03 2020 7:13AM Signed by Dr. Dionicio Blake @ Jan 03 2020 7:15AM
[2020-01-03] MEDS ORDERED: Morphine 4 MG/ML Syringe IVPUSH ONE (07:30)
[2020-01-03] MEDS ORDERED: 50% Dextrose in Water 50 ML Syringe IVPUSH ONE ×2 (07:50→08:57)
[2020-01-03] MEDS ORDERED: Iopamidol 755 Mg/ML 100 ML Bottle IVPUSH ONE (08:17)
--- NOTE | 2020-01-03 09:31 | CT ---
CLINICAL INFORMATION: 59-year-old with chest pain. TECHNIQUE: Arterial phase CT angiogram of the chest, abdomen and pelvis were obtained. No enteric contrast was administered and therefore the study has decreased sensitivity for detection of bowel pathology. 3D and/or MIP angiographic reconstructions were performed on a separate independent workstation with concurrent supervision of the image post processing in order to further delineate the angiographic anatomy for accurate interpretation. Contrast: 100 mL of Isovue 370 intravenous contrast was injected uneventfully prior to image acquisition. COMPARISON: CT abdomen and pelvis 02/01/2018. FINDINGS: CT Angiography Findings: Thoracic Aorta: Scattered atherosclerotic disease. No aneurysm or dissection. Great Vessels: Patent. Abdominal aorta: Scattered atherosclerotic disease. No aneurysm or dissection. Celiac axis: Patent. Superior mesenteric artery: Patent paired replaced right hepatic artery arising from the SMA. Inferior mesenteric artery: Patent. LEFT Renal: Patent. RIGHT Renal: Patent. RIGHT lower extremity: : Common iliac artery: Patent. Internal iliac artery: Patent. External iliac artery: Patent. LEFT lower extremity: : Common iliac artery: Patent. Internal iliac artery: Patent. External iliac artery: Patent. Visceral Findings: Chest: Thyroid: Unremarkable Lungs: Mild bibasilar dependent atelectatic changes. No focal airspace opacities or pleural effusions. Heart/Pericardium: Heart normal in size. No pericardial effusion. Lymph Nodes: No significant axillary, mediastinal, or hilar lymphadenopathy. Abdomen/Pelvis: Liver: Unremarkable. Gallbladder: Surgically absent. Spleen: Unremarkable. Adrenal glands: Unremarkable. Kidneys: Unremarkable. Pancreas: Unremarkable. Lymph nodes: No retroperitoneal, mesenteric, inguinal, or pelvic adenopathy by CT criteria. Bowel: Evaluation is limited without enteric contrast. Grossly unremarkable. No abdominal free air or focal fluid collection. Musculoskeletal: : Visualized osseous structures demonstrate diffuse degenerative changes. IMPRESSION: 1. No acute aortic pathology. No evidence for aortic aneurysm or dissection. 2. No acute pathology in the chest, abdomen, and pelvis. Please note that all CT scans at this facility use dose modulation, iterative reconstruction, and/or weight-based dosing when appropriate to reduce radiation dose to as low as reasonably achievable. Dictated by Michael Olivera MD @ Jan 03 2020 9:24AM Signed by Dr. Michael Olivera @ Jan 03 2020 9:30AM
[2020-01-03 11:09] VITALS: PULSE 67
[2020-01-03 11:24] VITALS: BP 139/89
== END 2020-01-03 11:21 | disposition home or self-care (01) ==
LOC: MW.ED 06:30
DX: R07.89 Other chest pain (principal); I10 Essential (primary) hypertension; E78.00 Pure hypercholesterolemia, unspecified; R61 Generalized hyperhidrosis; R11.0 Nausea; I25.2 Old myocardial infarction; K21.9 Gastro-esophageal reflux disease without esophagitis; E10.42 Type 1 diabetes mellitus with diabetic polyneuropathy; F41.9 Anxiety disorder, unspecified; F32.9 Major depressive disorder, single episode, unspecified; Z88.6 Allergy status to analgesic agent; Z88.8 Allergy status to other drugs, medicaments and biological substances; Z79.899 Other long term (current) drug therapy
CPT/HCPCS: 36415; 71045; 71275; 74175; 80053; 82962; 83735; 84484; 85025; 93005; 96374; 96375; 96376; 99285; A9270; J2270; Q9967; 93010; 99283

== ENCOUNTER 2020-01-14 22:41 | Emergency (ER) | payer BC ==
[2020-01-14] MEDS ORDERED: Nitroglycerin 0.4 MG Tab.SL SL ONE (22:52)
[2020-01-14] MEDS ORDERED: Sodium Chloride 0.9% 2.5 ML Syringe FLUSH PRN (22:52)
[2020-01-14] MEDS ORDERED: Sodium Chloride 0.9% 10 ML Syringe FLUSH PRN (22:52)
--- NOTE | 2020-01-14 23:14 | CR ---
INDICATION: Chest pain, shortness of breath TECHNIQUE: Chest radiograph 1 view COMPARISON: None FINDINGS: Mediastinum: The mediastinum is normal in appearance. The heart silhouette is normal in size and morphology. Lung: Both lungs are unremarkable in appearance with small lung volumes. No sign of pleural effusion seen. No pneumothorax is identified. Bone and Soft tissue: Unremarkable for age. IMPRESSION: 1. No acute cardiopulmonary disease is seen. Dictated by: Alonzo Canchola MD @ 01/14/2020 23:12:45 (Electronically Signed)
[2020-01-14] MEDS: Nitroglycerin 0.4 MG Tab.SL SL PRN ×2 (23:27→23:33)
[2020-01-14 23:35] LABS: BLOOD UREA NITROGEN,BUN 20 mg/dL (7.0-18.0); CARBON DIOXIDE,CO2 28.9 mmol/L (21.0-32.0); CHLORIDE,CL 97 mmol/L (98-107); GLUCOSE RANDOM 367 mg/dL (74-106); POTASSIUM,K 3.9 mmol/L (3.5-5.1); SODIUM,NA 130 mmol/L (136-148)
[2020-01-14] MEDS ORDERED: Nitroglycerin 2% Oint 1 GM UD Packet ONE (23:36)
[2020-01-14] MEDS ORDERED: Nitroglycerin 2% Oint 1 GM UD Packet TOP ONE (23:39)
--- NOTE | 2020-01-14 23:39 | EDM.PDOC ---
ED [facility] GENERAL MEDICAL PROBLEM - General Chief Complaint: Chest Pain Stated Complaint: CHEST PAIN Time Seen by Provider: 01/14/20 23:00 - History of Present Illness INITIAL COMMENTS - FREE TEXT/NARRATIVE: HISTORY AND PHYSICAL: History of present illness: 59-year-old male with past medical history of type 1 diabetes mellitus, hypertension, coronary artery disease with stenting and neck fracture when he was age 5 requiring repair and subsequent repeat repair at age 49. Patient states he has sudden onset of chest pain this morning that radiated to his left neck and shoulder and he allover feels bad. He reports that he recently had a stress test where he developed chest pain, vomited 1 time, however I guess the test was equivocal per his report. I do not have access to this test. Today symptoms got worse with exertion and better with rest. Sometimes he gets a headache. He has had some on and off pain over the last year and it is confusing to him given his chronic pain from his neck versus chest pain. Today's chest pain is on the left anterior chest and radiates to the shoulder and arm which is unusual for his chronic pain. He states that he cannot take gabapentin because it caused some type of issue for him. He is also allergic to aspirin. He has refused to take aspirin today given his allergy. He denies any other signs or symptoms. No other modifying, aggravating or alleviating factors. Review of systems: A 10-point review of systems, other than pertinent positives and negatives as stated per HPI, is otherwise negative. Past medical history: As per history of present illness and as reviewed below otherwise noncontributory. Surgical history: As per history of present illness and as reviewed below otherwise noncontributory. Social history: No reported history of drug or alcohol abuse. Family history: As per history of present illness and as reviewed below otherwise noncontributory. Physical exam: VITAL SIGNS: Reviewed. GENERAL: Appears concerned about his condition but not toxic. Mild distress. HEAD: No signs of head trauma. EYES: Pupils are equal. Extraocular motions intact. EARS: Hearing grossly intact. MOUTH: Oropharynx is normal. NECK: No adenopathy, no JVD. CHEST: Chest with clear breath sounds bilaterally. No wheezes, rales, or rhonchi. CARDIAC: Regular rate and rhythm. Normal S1 and S2, without murmurs, gallops, or rubs. VASCULAR: Peripheral pulses normal and equal in all extremities. ABDOMEN: Soft, without detectable tenderness. No sign of distention. No rebound or guarding, and no masses palpated. MUSCULOSKELETAL: Good range of motion of all major joints. Extremities without clubbing, cyanosis or edema. NEUROLOGIC EXAM: Alert and oriented x 3. No focal sensory or motor deficits. Speech normal. Follows commands. PSYCHIATRIC: Mood normal. SKIN: No rash or lesions. Initial Differential Diagnosis & Plan: Cervical radiculopathy, ischemic chest pain, unstable angina, PE, pneumonia, aortic dissection, chronic pain syndrome We will obtain chest x-ray, EKG, comprehensive laboratory work-up, and consider further evaluation of the neck issues. I will start him on some Lyrica. He cannot take aspirin. If his troponin is elevated or he has new EKG changes we will start heparinization. Definitive disposition and diagnosis as appropriate pending reevaluation and review of above. chest Pain Score (Numeric/FACES): 6 - Related Data Allergies Allergy/AdvReac Type Severity Reaction Status Date / Time aspirin Allergy Hives Verified 01/14/20 22:55 ibuprofen Allergy Hives Verified 01/14/20 22:55 pioglitazone HCl [From Actos] Allergy Hives Verified 01/14/20 22:55 prasugrel HCl [From Effient] Allergy Rash Verified 01/14/20 22:55 Sapneug-Occ-Snb Reductase Allergy Body Aches Verified 01/14/20 22:55 Inhibitor Home Meds: Home Meds Multivitamin [Multi-Day Vitamins] 1 tab PO DAILY 12/25/14 [History] Ticagrelor [Brilinta] 90 mg PO BID 12/25/14 [History] traMADol [Ultram] 50 mg PO BEDTIME PRN 12/25/14 [History] Doxazosin [Cardura] 4 mg PO DAILY 11/01/17 [History] Insulin Aspart [Novolog Flexpen] 6 unit SQ TIDMEALS 11/01/17 [History] Omeprazole 20 mg PO BID 11/01/17 [History] carvediloL [Carvedilol] 25 mg PO BID 11/01/17 [History] Losartan [Cozaar] 100 mg PO DAILY 12/24/17 [History] Isosorbide Dinitrate 10 mg PO BID 30 Days #60 tablet 02/08/18 [Rx] Insulin Degludec [Tresiba] 23 - 28 unit SQ BID 10/19/18 [History] Nitroglycerin 0.4 mg SL .EVERY 5 MINUTES PRN MDD 3 tablets 10/19/18 [History] Evolocumab [Repatha Sureclick] 140 mg SQ .EVERY 2 WEEKS 10/20/18 [Rx] Insulin Aspart [NovoLOG] 6 unit SUBCUT TIDAC pen 10/20/18 [Rx] Pregabalin [Lyrica] 50 mg PO BEDTIME 30 Days #30 cap 01/15/20 [Rx] tiZANidine [Zanaflex] 2 mg PO Q6H #30 tab 01/15/20 [Rx] Past Medical History - Past Health History Medical/Surgical History: Denies Medical/Surgical History HEENT History: Reports: Otitis Media, Other (See Below) Other HEENT History: Constant ringing in ears, affects my hearing, macular edema Cardiovascular History: Reports: Angina, High Cholesterol, Hypertension, [place], SOB on Exertion, Stents, Syncope, Other (See Below) Other Cardiovascular History: Diastolic dysfunction Respiratory History: Reports: None Gastrointestinal History: Reports: GERD Other Gastrointestinal History: Abdominal pain post meals, Water dark, smelling stools Genitourinary History: Reports: None Musculoskeletal History: Reports: Back Pain, Chronic, Neck Pain, Chronic Other Musculoskeletal History: Upper back pain history Neurological History: Reports: Neuropathy, Peripheral Other Neuro History: 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 Psychiatric History: Reports: Anxiety, Depression Other Psychiatric History: "Not sure I would know if I were depressed 'how would I know?" Endocrine/Metabolic History: Reports: Diabetes, Type I Hematologic History: Reports: None Other Hematologic History: Chronic anti-coagulant therapy Immunologic History: Reports: None Oncologic (Cancer) History: Reports: None Dermatologic History: Reports: None - Infectious Disease History Infectious Disease History: Reports: None - Past Surgical History Head Surgeries/Procedures: Reports: None Cardiovascular Surgical History: Reports: Coronary Artery Stent Musculoskeletal Surgical History: Reports: Other (See Below) Social & Family History - Family History Family Medical History: Noncontributory Cardiac: Reports: Angina, [place] Other Cardiac Family History: states both parents young from cardiac disease, also extensive cardiac HX with uncles, cousins, nephews - Tobacco Use Tobacco Use Status *Q: Never Tobacco User - Caffeine Use Caffeine Use: Reports: None Caffeine Use Comment: diet soda - Recreational Drug Use Recreational Drug Use: No - Living Situation & Occupation Living situation: Reports: , with Family Occupation: Employed ED ROS GENERAL - Review of Systems Review Of Systems: See Below (noted) ED EXAM, GENERAL - Physical Exam Exam: See Below (noted) ED CARDIOLOGY PROCEDURES - Additional/Other Procedure(s) Other (Free Text) Procedure(s): Procedure Note: Cervical or Paracervical Block for Regional Anesthesia Indication: Tension headache and pain After informed consent the area was cleansed and prepped in a normal fashion. The patient was injected at the level of C7/T1; 1 cm lateral to the midline and injected with 5 mL's of 0.5% Marcaine. Pain Pre: 7 Pain Post: 0 Tolerated - Well Procedure note: Trigger point injection 3 points/muscles Informed consent The area is cleansed and prepped in normal fashion and injected with 1 mL of bupivacaine. This was repeated in 3 distinct areas where I was able to recreate the pain along the left trapezius. Pain was 7 initial. 0 after. Tolerated well. #1 Interpretation EKG Interpretation Comments: 12 lead EKG interpretation Obtained: January 14 2020 at 10:51 PM Rhythm: Sinus Rate: 66 [place]: Normal Intervals: Normal ST/T Segments: No acute ST-T changes or acute ischemic changes. The patient does have Q waves in leads III and aVF. There is a wandering baseline which does impair fine interpretation. There are some R wave progression changes which may be secondary to lead placement as V3 through V6 were all placed on the same line at the fifth intercostal space. Interpretation: Sinus Rhythm Course - Vital Signs Last Recorded V/S: Last Vital Signs Temp 95.9 F L 01/14/20 22:49 Pulse 67 01/15/20 02:15 Resp 18 01/15/20 02:15 BP 160/92 H 01/15/20 02:15 Pulse Ox 97 01/15/20 02:15 - Orders/Labs/Meds Orders: Active Orders 24 hr Category Date Time Status Cardiac Monitoring [RC] . DIRECTED Care 01/14/20 22:52 Active EKG 12 Lead [EKG Documentation Completion] [RC] STAT Care 01/14/20 22:51 Active EKG 12 Lead [EKG Documentation Completion] [RC] STAT Care 01/14/20 23:39 Active Pulse Oximetry [RC] ASDIRECTED Care 01/14/20 22:52 Active Nitroglycerin [Nitrostat] Med 01/14/20 23:25 Active 0.4 mg SL Q5M PRN Sodium Chloride 0.9% [Saline Flush] Med 01/14/20 22:52 Active 10 ml FLUSH ASDIRECTED PRN Sodium Chloride 0.9% [Saline Flush] Med 01/14/20 22:52 Active 2.5 ml FLUSH ASDIRECTED PRN Saline Lock Insert [OM.PC] Stat Oth 01/14/20 22:52 Ordered Medication Orders Nitroglycerin (Nitrostat) 0.4 mg SL Q5M PRN PRN Reason: Chest Pain Last Admin: 01/14/20 23:33 Dose: 0.4 mg Documented by: Admin: 01/14/20 23:27 Dose: 0.4 mg Documented by: SHE Sodium Chloride (Saline Flush) 10 ml FLUSH ASDIRECTED PRN PRN Reason: Keep Vein Open Sodium Chloride (Saline Flush) 2.5 ml FLUSH ASDIRECTED PRN PRN Reason: Keep Vein Open Labs: Laboratory Tests 01/14/20 01/14/20 01/14/20 Range/Units 22:50 22:50 22:50 WBC 6.05 (4.0-11.0) K/uL RBC 4.41 L (4.50-5.90) M/uL Hgb 14.8 (13.0-17.0) g/dL Hct 40.9 (38.0-50.0) % MCV 92.7 (80.0-98.0) fL MCH 33.6 H (27.0-32.0) pg MCHC 36.2 (31.0-37.0) g/dL RDW Std Deviation 42.5 (28.0-62.0) fl RDW Coeff of Ji 13 (11.0-15.0) % Plt Count 170 (150-400) K/uL MPV 10.50 (7.40-12.00) fL Neut % (Auto) 64.4 (48.0-80.0) % Lymph % (Auto) 22.6 (16.0-40.0) % [place] % (Auto) 8.9 (0.0-15.0) % Eos % (Auto) 3.6 (0.0-7.0) % Baso % (Auto) 0.5 (0.0-1.5) % Neut # (Auto) 3.9 (1.4-5.7) K/uL Lymph # (Auto) 1.4 (0.6-2.4) K/uL [place] # (Auto) 0.5 (0.0-0.8) K/uL Eos # (Auto) 0.2 (0.0-0.7) K/uL Baso # (Auto) 0.0 (0.0-0.1) K/uL Nucleated RBC % 0.0 /100WBC Nucleated RBCs # 0 K/uL D-Dimer, Quantitative 0.41 (0.0-0.50) mg/L FEU Sodium 130 L (136-148) mmol/L Potassium 3.9 (3.5-5.1) mmol/L Chloride 97 L (98-107) mmol/L Carbon Dioxide 28.9 (21.0-32.0) mmol/L BUN 20 H (7.0-18.0) mg/dL Creatinine 1.3 (0.8-1.3) mg/dL Est Cr Clr Drug Dosing 63.17 mL/min Estimated GFR (MDRD) 56.5 ml/min Glucose 367 H (74-106) mg/dL Calcium 9.0 (8.5-10.1) mg/dL Total Bilirubin 0.8 (0.2-1.0) mg/dL AST 18 (15-37) IU/L ALT 31 (14-63) IU/L Alkaline Phosphatase 92 (46-116) U/L Troponin I < 0.050 (0.000-0.056) ng/mL Total Protein 7.7 (6.4-8.2) g/dL Albumin 4.3 (3.4-5.0) g/dL Globulin 3.4 (2.6-4.0) g/dL Albumin/Globulin Ratio 1.3 (0.9-1.6) 01/15/20 Range/Units 01:18 WBC (4.0-11.0) K/uL RBC (4.50-5.90) M/uL Hgb (13.0-17.0) g/dL Hct (38.0-50.0) % MCV (80.0-98.0) fL MCH (27.0-32.0) pg MCHC (31.0-37.0) g/dL RDW Std Deviation (28.0-62.0) fl RDW Coeff of Ji (11.0-15.0) % Plt Count (150-400) K/uL MPV (7.40-12.00) fL Neut % (Auto) (48.0-80.0) % Lymph % (Auto) (16.0-40.0) % [place] % (Auto) (0.0-15.0) % Eos % (Auto) (0.0-7.0) % Baso % (Auto) (0.0-1.5) % Neut # (Auto) (1.4-5.7) K/uL Lymph # (Auto) (0.6-2.4) K/uL [place] # (Auto) (0.0-0.8) K/uL Eos # (Auto) (0.0-0.7) K/uL Baso # (Auto) (0.0-0.1) K/uL Nucleated RBC % /100WBC Nucleated RBCs # K/uL D-Dimer, Quantitative (0.0-0.50) mg/L FEU Sodium (136-148) mmol/L Potassium (3.5-5.1) mmol/L Chloride (98-107) mmol/L Carbon Dioxide (21.0-32.0) mmol/L BUN (7.0-18.0) mg/dL Creatinine (0.8-1.3) mg/dL Est Cr Clr Drug Dosing mL/min Estimated GFR (MDRD) ml/min Glucose (74-106) mg/dL Calcium (8.5-10.1) mg/dL Total Bilirubin (0.2-1.0) mg/dL AST (15-37) IU/L ALT (14-63) IU/L Alkaline Phosphatase (46-116) U/L Troponin I < 0.050 (0.000-0.056) ng/mL Total Protein (6.4-8.2) g/dL Albumin (3.4-5.0) g/dL Globulin (2.6-4.0) g/dL Albumin/Globulin Ratio (0.9-1.6) Meds: Medications Generic Name Dose Route Start Last Admin Trade Name Andrewq PRN Reason Stop Dose Admin Nitroglycerin 0.4 mg 01/14/20 23:25 01/14/20 23:33 Nitrostat SL 0.4 mg Q5M PRN Administration Chest Pain Sodium Chloride 10 ml 01/14/20 22:52 Saline Flush FLUSH ASDIRECTED PRN Keep Vein Open Sodium Chloride 2.5 ml 01/14/20 22:52 Saline Flush FLUSH ASDIRECTED PRN Keep Vein Open Discontinued Medications Generic Name Dose Route Start Last Admin Trade Name Andrewq PRN Reason Stop Dose Admin Bupivacaine HCl 10 ml 01/15/20 01:06 01/15/20 02:19 Sensorcaine-Mpf 0.5% INJECT 01/15/20 01:07 10 ml ONETIME ONE Administration Nitroglycerin 0.4 mg 01/14/20 22:52 01/14/20 23:14 Nitrostat SL 01/14/20 22:53 0.4 mg ONETIME ONE Administration Nitroglycerin Confirm 01/14/20 23:36 01/14/20 23:40 Nitro-Bid 2% Administered 01/14/20 23:37 Not Given Dose 1 gm .ROUTE .STK-MED ONE Nitroglycerin 1 gm 01/14/20 23:39 01/14/20 23:40 Nitro-Bid 2% TOP 01/14/20 23:40 1 gm ONETIME ONE Administration Pregabalin 50 mg 01/15/20 01:06 01/15/20 01:26 Lyrica PO 01/15/20 01:07 50 mg ONETIME ONE Administration Departure - Departure Time of Disposition: 02:23 Disposition: Home, Self-Care 01 Clinical Impression: Cervical radiculopathy Chest pain Qualifiers: Chest pain type: unspecified Qualified Code(s): R07.9 - Chest pain, unspecified Prescriptions: Pregabalin [Lyrica] 50 mg PO BEDTIME 30 Days #30 cap tiZANidine [Zanaflex] 2 mg PO Q6H #30 tab Instructions: Chest Wall Pain, [id number], Cervical Radiculopathy, [id number] Referrals: PCP,None [Primary Care Provider] - Forms: ED Department Discharge Additional Instructions: The following information is given to patients seen in the emergency department who are being discharged to home. This information is to outline your options for follow-up care. We provide all patients seen in our emergency department with a follow-up referral. The need for follow-up, as well as the timing and circumstances, are variable depending upon the specifics of your emergency department visit. If you don't have a primary care physician on staff, we will provide you with a referral. We always advise you to contact your personal physician following an emergency department visit to inform them of the circumstance of the visit and for follow-up with them and/or the need for any referrals to a consulting specialist. The emergency department will also refer you to a specialist when appropriate. This referral assures that you have the opportunity for follow-up care with a specialist. All of these measure are taken in an effort to provide you with optimal care, which includes your follow-up. Thank you for coming to the [facility] urgency department for your care today. It was Dr. Mcmillan's pleasure to take care of you. 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 You have chest pain and underlying disease. I feel that any provocation testing or an angiogram but follow-up with your doctor who just recently gave you a stress test. Your chest pain today shows no evidence of EKG changes and your troponins are normal. Given your recent normal stress test as you reported, I do not feel that you need admission to the hospital at this point. You do have signs of cervical radiculopathy whic h is a narrowing of the spine can cause pressure on the nerves causing your pain. We did give you a trigger point injection today which we hope will help your symptoms. You received a cervical block and trigger point injection. These completely relieved your headache and radicular symptoms. I recommend that you follow-up with neurology as these injections usually mean that you can have other i njections that will resolve your symptoms for much longer than the short acting bupivacaine we gave today. Your symptoms are likely return in the next 12 to 24 hours. Please take the medications as we have prescribed. We are always happy to see you. Under all circumstances we always encourage you to contact your private physician who remains a resource for coordinating your care. When calling for follow-up care, please make the office aware that this follow-up is from your recent emergency room visit. If for any reason you are refused follow-up, please contact the [facility] Emergency Department at and asked to speak to the emergency department charge nurse. Sepsis Event Note (ED) - Evaluation Sepsis Screening Result: No Definite Risk - Focused Exam Vital Signs: Vital Signs Temp Pulse Resp BP BP Pulse Ox 01/15/20 02:15 67 18 160/92 H 97 01/14/20 23:33 150/99 H 01/14/20 23:27 174/107 H 01/14/20 23:24 73 18 174/107 H 96 01/14/20 23:14 202/109 H 01/14/20 22:49 95.9 F L 68 16 247/137 H 98 - My Orders Last 24 Hours: My Active Orders 01/14/20 22:51 EKG 12 Lead [EKG Documentation Completion] [RC] STAT 01/14/20 22:52 Cardiac Monitoring [RC] . DIRECTED Pulse Oximetry [RC] ASDIRECTED Sodium Chloride 0.9% [Saline Flush] 10 ml FLUSH ASDIRECTED PRN Sodium Chloride 0.9% [Saline Flush] 2.5 ml FLUSH ASDIRECTED PRN Saline Lock Insert [OM.PC] Stat 01/14/20 23:25 Nitroglycerin [Nitrostat] 0.4 mg SL Q5M PRN 01/14/20 23:39 EKG 12 Lead [EKG Documentation Completion] [RC] STAT - Assessment/Plan Last 24 Hours: My Active Orders 01/14/20 22:51 EKG 12 Lead [EKG Documentation Completion] [RC] STAT 01/14/20 22:52 Cardiac Monitoring [RC] . DIRECTED Pulse Oximetry [RC] ASDIRECTED Sodium Chloride 0.9% [Saline Flush] 10 ml FLUSH ASDIRECTED PRN Sodium Chloride 0.9% [Saline Flush] 2.5 ml FLUSH ASDIRECTED PRN Saline Lock Insert [OM.PC] Stat 01/14/20 23:25 Nitroglycerin [Nitrostat] 0.4 mg SL Q5M PRN 01/14/20 23:39 EKG 12 Lead [EKG Documentation Completion] [RC] STAT
[2020-01-15] MEDS ORDERED: Bupivacaine 0.5% 10 ML SDV INJECT ONE (01:06)
[2020-01-15] MEDS ORDERED: Pregabalin 50 MG Cap PO ONE (01:06)
[2020-01-15 02:20] VITALS: BP 160/92; PULSE 67
== END 2020-01-15 03:00 | disposition home or self-care (01) ==
LOC: MW.ED 22:41
DX: R07.9 Chest pain, unspecified (principal); M54.12 Radiculopathy, cervical region; I10 Essential (primary) hypertension; I25.2 Old myocardial infarction; K21.9 Gastro-esophageal reflux disease without esophagitis; E10.42 Type 1 diabetes mellitus with diabetic polyneuropathy; I25.10 Atherosclerotic heart disease of native coronary artery without angina pectoris; Z88.8 Allergy status to other drugs, medicaments and biological substances; Z88.6 Allergy status to analgesic agent; Z79.899 Other long term (current) drug therapy
CPT/HCPCS: 20553; 36415; 71045; 80053; 84484; 85025; 85379; 93005; 99285; A9270; J3490; 64400; 93010; 99284

== ENCOUNTER 2020-01-24 09:41 | Emergency (ER) | payer BC ==
--- NOTE | 2020-01-24 09:50 | EDM.PDOC ---
ED HPI GENERAL MEDICAL PROBLEM - General Chief Complaint: Respiratory Problem Stated Complaint: WEAK COUGHING CHEST PAIN Time Seen by Provider: 01/24/20 09:46 Source of Information: Reports: Patient History Limitations: Reports: No Limitations - History of Present Illness INITIAL COMMENTS - FREE TEXT/NARRATIVE: 59-year-old male past medical history IDDM, CAD, [place], hypertension presents for cough, generalized weakness. Patient notes that symptoms started about 3 days ago, he notes a productive cough, chest pressure, shortness of breath, pain with deep inspiration, body aches, subjective fever, chills, nausea, vomiting, diarrhea, abdominal cramping. He notes positive exposure to COVID-19. chest and back Pain Score (Numeric/FACES): 8 - Related Data Allergies Allergy/AdvReac Type Severity Reaction Status Date / Time aspirin Allergy Hives Verified 01/24/20 11:13 ibuprofen Allergy Hives Verified 01/24/20 11:13 pioglitazone HCl [From Actos] Allergy Hives Verified 01/24/20 11:13 prasugrel HCl [From Effient] Allergy Rash Verified 01/24/20 11:13 Fmpwvaz-Qpo-Sxy Reductase Allergy Body Aches Verified 01/24/20 11:13 Inhibitor Home Meds: Home Meds Multivitamin [Multi-Day Vitamins] 1 tab PO DAILY 12/25/14 [History] Ticagrelor [Brilinta] 90 mg PO BID 12/25/14 [History] traMADol [Ultram] 50 mg PO BEDTIME PRN 12/25/14 [History] Doxazosin [Cardura] 4 mg PO DAILY 11/01/17 [History] Insulin Aspart [Novolog Flexpen] 6 unit SQ TIDMEALS 11/01/17 [History] Omeprazole 20 mg PO BID 11/01/17 [History] carvediloL [Carvedilol] 25 mg PO BID 11/01/17 [History] Losartan [Cozaar] 100 mg PO DAILY 12/24/17 [History] Isosorbide Dinitrate 10 mg PO BID 30 Days #60 tablet 02/08/18 [Rx] Insulin Degludec [Tresiba] 23 - 28 unit SQ BID 10/19/18 [History] Nitroglycerin 0.4 mg SL .EVERY 5 MINUTES PRN MDD 3 tablets 10/19/18 [History] Evolocumab [Repatha Sureclick] 140 mg SQ .EVERY 2 WEEKS 10/20/18 [Rx] Insulin Aspart [NovoLOG] 6 unit SUBCUT TIDAC pen 10/20/18 [Rx] Pregabalin [Lyrica] 50 mg PO BEDTIME 30 Days #30 cap 01/15/20 [Rx] tiZANidine [Zanaflex] 2 mg PO Q6H #30 tab 01/15/20 [Rx] Past Medical History - Past Health History Medical/Surgical History: Denies Medical/Surgical History HEENT History: Reports: Otitis Media, Other (See Below) Other HEENT History: Constant ringing in ears, affects my hearing, macular edema Cardiovascular History: Reports: Angina, High Cholesterol, Hypertension, [place], SOB on Exertion, Stents, Syncope, Other (See Below) Other Cardiovascular History: Diastolic dysfunction Respiratory History: Reports: None Gastrointestinal History: Reports: GERD Other Gastrointestinal History: Abdominal pain post meals, Water dark, smelling stools Genitourinary History: Reports: None Musculoskeletal History: Reports: Back Pain, Chronic, Neck Pain, Chronic Other Musculoskeletal History: Upper back pain history Neurological History: Reports: Neuropathy, Peripheral Other Neuro History: 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 Psychiatric History: Reports: Anxiety, Depression Other Psychiatric History: "Not sure I would know if I were depressed 'how would I know?" Endocrine/Metabolic History: Reports: Diabetes, Type I Hematologic History: Reports: None Other Hematologic History: Chronic anti-coagulant therapy Immunologic History: Reports: None Oncologic (Cancer) History: Reports: None Dermatologic History: Reports: None - Infectious Disease History Infectious Disease History: Reports: None - Past Surgical History Head Surgeries/Procedures: Reports: None Cardiovascular Surgical History: Reports: Coronary Artery Stent Musculoskeletal Surgical History: Reports: Other (See Below) Social & Family History - Family History Family Medical History: Noncontributory Cardiac: Reports: Angina, [place] Other Cardiac Family History: states both parents young from cardiac disease, also extensive cardiac HX with uncles, cousins, nephews - Caffeine Use Caffeine Use: Reports: None Caffeine Use Comment: diet soda - Living Situation & Occupation Living situation: Reports: , with Family Occupation: Employed ED ROS GENERAL - Review of Systems Review Of Systems: Comprehensive ROS is negative, except as noted in HPI. ED EXAM, GENERAL - Physical Exam Exam: See Below Exam Limited By: No Limitations General Appearance: Alert, WD/WN, No Apparent Distress Ears: Normal External Exam Nose: Normal Inspection Throat/Mouth: Normal Inspection, Normal Voice, No Airway Compromise Head: Atraumatic, Normocephalic Neck: Normal Inspection Respiratory/Chest: No Respiratory Distress, Lungs Clear, Normal Breath Sounds, No Accessory Muscle Use Cardiovascular: Normal Peripheral Pulses GI/Abdominal: Soft, Non-Tender Extremities: Normal Inspection Neurological: Alert, Oriented Psychiatric: Normal Affect, Normal Mood Skin Exam: Warm, Dry, Intact #1 Interpretation EKG Date: 01/24/20 Time: 10:18 Rhythm: NSR Rate (Beats/Min): 72 Robbins: Normal P-Wave: Present QRS: Normal ST-T: Normal QT: Normal MN/PQ Interval: 162 Comparison: NA - No Prior EKG EKG Interpretation Comments: No evidence of ischemic changes Course - Vital Signs Last Recorded V/S: Last Vital Signs Temp 99 F 01/24/20 09:44 Pulse 75 01/24/20 09:44 Resp 20 01/24/20 09:44 BP 167/96 H 01/24/20 09:44 Pulse Ox 91 L 01/24/20 09:44 - Orders/Labs/Meds Orders: Active Orders 24 hr Category Date Time Status Cardiac Monitoring [RC] . DIRECTED Care 01/24/20 10:01 Active EKG Documentation Completion [RC] STAT Care 01/24/20 10:00 Active Pulse Oximetry [RC] ASDIRECTED Care 01/24/20 10:01 Active PROCALCITONIN [REF] Stat Lab 01/24/20 10:20 Received Sodium Chloride 0.9% [Saline Flush] Med 01/24/20 10:00 Active 10 ml FLUSH ASDIRECTED PRN Sodium Chloride 0.9% [Saline Flush] Med 01/24/20 10:00 Active 2.5 ml FLUSH ASDIRECTED PRN Saline Lock Insert [OM.PC] Stat Oth 01/24/20 10:01 Ordered Medication Orders Sodium Chloride (Saline Flush) 10 ml FLUSH ASDIRECTED PRN PRN Reason: Keep Vein Open Last Admin: 01/24/20 10:25 Dose: 10 ml Documented by: NEYDA Sodium Chloride (Saline Flush) 2.5 ml FLUSH ASDIRECTED PRN PRN Reason: Keep Vein Open Last Admin: 10/30/20 10:25 Dose: 2.5 ml Documented by: NEYDA Labs: Laboratory Tests 01/24/20 01/24/20 01/24/20 Range/Units 10:20 10:20 10:20 WBC 2.98 L (4.0-11.0) K/uL RBC 3.92 L (4.50-5.90) M/uL Hgb 12.9 L (13.0-17.0) g/dL Hct 35.6 L (38.0-50.0) % MCV 90.8 (80.0-98.0) fL MCH 32.9 H (27.0-32.0) pg MCHC 36.2 (31.0-37.0) g/dL RDW Std Deviation 40.8 (28.0-62.0) fl RDW Coeff of Ji 12 (11.0-15.0) % Plt Count 114 L (150-400) K/uL MPV 9.60 (7.40-12.00) fL Neut % (Auto) 73.9 (48.0-80.0) % Lymph % (Auto) 15.4 L (16.0-40.0) % Borden % (Auto) 10.7 (0.0-15.0) % Eos % (Auto) 0.0 (0.0-7.0) % Baso % (Auto) 0.0 (0.0-1.5) % Neut # (Auto) 2.2 (1.4-5.7) K/uL Lymph # (Auto) 0.5 L (0.6-2.4) K/uL Borden # (Auto) 0.3 (0.0-0.8) K/uL Eos # (Auto) 0.0 (0.0-0.7) K/uL Baso # (Auto) 0.0 (0.0-0.1) K/uL Nucleated RBC % 0.0 /100WBC Nucleated RBCs # 0 K/uL INR 0.96 APTT 27.9 (18.6-31.3) SEC D-Dimer, Quantitative 0.38 (0.0-0.50) mg/L FEU Lactate 1.1 (0.20-2.00) mmol/L Sodium (136-148) mmol/L Potassium (3.5-5.1) mmol/L Chloride (98-107) mmol/L Carbon Dioxide (21.0-32.0) mmol/L BUN (7.0-18.0) mg/dL Creatinine (0.8-1.3) mg/dL Est Cr Clr Drug Dosing mL/min Estimated GFR (MDRD) ml/min Glucose (74-106) mg/dL Calcium (8.5-10.1) mg/dL Magnesium (1.8-2.4) mg/dL Total Bilirubin (0.2-1.0) mg/dL AST (15-37) IU/L ALT (14-63) IU/L Alkaline Phosphatase (46-116) U/L Troponin I (0.000-0.056) ng/mL C-Reactive Protein (0.00-0.90) mg/dL B-Natriuretic Peptide (<100) PG/ML Total Protein (6.4-8.2) g/dL Albumin (3.4-5.0) g/dL Globulin (2.6-4.0) g/dL Albumin/Globulin Ratio (0.9-1.6) SARS-CoV-2 RNA (JENN) (NEGATIVE) 01/24/20 01/24/20 01/24/20 Range/Units 10:20 10:20 10:47 WBC (4.0-11.0) K/uL RBC (4.50-5.90) M/uL Hgb (13.0-17.0) g/dL Hct (38.0-50.0) % MCV (80.0-98.0) fL MCH (27.0-32.0) pg MCHC (31.0-37.0) g/dL RDW Std Deviation (28.0-62.0) fl RDW Coeff of Ji (11.0-15.0) % Plt Count (150-400) K/uL MPV (7.40-12.00) fL Neut % (Auto) (48.0-80.0) % Lymph % (Auto) (16.0-40.0) % Borden % (Auto) (0.0-15.0) % Eos % (Auto) (0.0-7.0) % Baso % (Auto) (0.0-1.5) % Neut # (Auto) (1.4-5.7) K/uL Lymph # (Auto) (0.6-2.4) K/uL Borden # (Auto) (0.0-0.8) K/uL Eos # (Auto) (0.0-0.7) K/uL Baso # (Auto) (0.0-0.1) K/uL Nucleated RBC % /100WBC Nucleated RBCs # K/uL INR APTT (18.6-31.3) SEC D-Dimer, Quantitative (0.0-0.50) mg/L FEU Lactate (0.20-2.00) mmol/L Sodium 134 L (136-148) mmol/L Potassium 4.0 (3.5-5.1) mmol/L Chloride 97 L (98-107) mmol/L Carbon Dioxide 26.7 (21.0-32.0) mmol/L BUN 17 (7.0-18.0) mg/dL Creatinine 1.0 (0.8-1.3) mg/dL Est Cr Clr Drug Dosing 82.13 mL/min Estimated GFR (MDRD) > 60.0 ml/min Glucose 300 H (74-106) mg/dL Calcium 8.0 L (8.5-10.1) mg/dL Magnesium 1.8 (1.8-2.4) mg/dL Total Bilirubin 0.9 (0.2-1.0) mg/dL AST 30 (15-37) IU/L ALT 28 (14-63) IU/L Alkaline Phosphatase 83 (46-116) U/L Troponin I < 0.050 (0.000-0.056) ng/mL C-Reactive Protein 15.90 H (0.00-0.90) mg/dL B-Natriuretic Peptide 192 H (<100) PG/ML Total Protein 5.9 L (6.4-8.2) g/dL Albumin 3.1 L (3.4-5.0) g/dL Globulin 2.8 (2.6-4.0) g/dL Albumin/Globulin Ratio 1.1 (0.9-1.6) SARS-CoV-2 RNA (JENN) POSITIVE H (NEGATIVE) Meds: Medications Generic Name Dose Route Start Last Admin Trade Name Freq PRN Reason Stop Dose Admin Sodium Chloride 10 ml 01/24/20 10:00 01/24/20 10:25 Saline Flush FLUSH 10 ml ASDIRECTED PRN Administration Keep Vein Open Sodium Chloride 2.5 ml 01/24/20 10:00 01/24/20 10:25 Saline Flush FLUSH 2.5 ml ASDIRECTED PRN Administration Keep Vein Open Discontinued Medications Generic Name Dose Route Start Last Admin Trade Name Freq PRN Reason Stop Dose Admin Acetaminophen 1,000 mg 01/24/20 10:00 01/24/20 10:25 Tylenol Extra Strength PO 01/24/20 10:01 1,000 mg ONETIME ONE Administration Sodium Chloride 1,000 mls @ 999 mls/hr 01/24/20 10:00 01/24/20 10:24 Normal Saline IV 01/24/20 11:00 999 mls/hr .Bolus ONE Administration Ondansetron HCl 4 mg 01/24/20 10:22 01/24/20 10:25 Zofran IVPUSH 01/24/20 10:23 4 mg ONETIME ONE Administration Oxycodone/Acetaminophen 1 tab 01/24/20 12:27 01/24/20 12:43 Percocet 325-5 Mg PO 01/24/20 12:28 1 tab ONETIME ONE Administration - Re-Assessments/Exams Free Text/Narrative Re-Assessment/Exam: 01/24/20 10:04 We will get labs, chest x-ray, EKG. Will get COVID-19 swab. Will give Tylenol, IV fluid bolus for symptomatic relief. We will follow up results and disposition accordingly 01/24/20 11:53 Labs consistent with COVID; COVID PCR testing is positive. Will f/u D-dimer to determine need for CTA chest. 01/24/20 12:15 D-dimer is negative. Chest x-ray does not show infiltrates. Patient is feeling much better after tylenol and IVFB. I had placed nasal canula O2 for O2 sat of 92%; will d/c the nc O2 and reassess patient's oxygenation for dispo. 01/24/20 12:47 Patient's oxygen saturations remained above 92% off of the nasal cannula. 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 Return precautions discussed Departure - Departure Time of Disposition: 12:47 Disposition: Home, Self-Care 01 Condition: Good Clinical Impression: COVID-19 - Discharge Information Instructions: COVID-19 Frequently Asked Questions, COVID-19: How to Protect Yourself and Others - CDC, Prevent the Spread of COVID-19 if You Are Sick - CDC, COVID-19 Referrals: Dru Kirkland MD [Primary Care Provider] - Forms: ED Department Discharge Additional Instructions: The following information is given to patients seen in the emergency department who are being discharged to home. This information is to outline your options for follow-up care. We provide all patients seen in our emergency department with a follow-up referral. The need for follow-up, as well as the timing and circumstances, are variable depending upon the specifics of your emergency department visit. If you don't have a primary care physician on staff, we will provide you with a referral. We always advise you to contact your personal physician following an emergency department visit to inform them of the circumstance of the visit and for follow-up with them and/or the need for any referrals to a consulting specialist. The emergency department will also refer you to a specialist when appropriate. This referral assures that you have the opportunity for follow-up care with a specialist. All of these measure are taken in an effort to provide you with optimal care, which includes your follow-up. Under all circumstances we always encourage you to contact your private physician who remains a resource for coordinating your care. When calling for follow-up care, please make the office aware that this follow-up is from your recent emergency room visit. If for any reason you are refused follow-up, please contact the Emergency Department at and asked to speak to the emergency department charge nurse. Please follow up with your primary care physician. If you do not have a primary care physician, see below: [facility] [address] [place] [id number] [facility] [address] [place] [id number] Sepsis Event Note (ED) - Focused Exam Vital Signs: Vital Signs Temp Pulse Resp BP Pulse Ox 01/24/20 09:44 99 F 75 20 167/96 H 91 L - My Orders Last 24 Hours: My Active Orders 01/24/20 10:00 EKG Documentation Completion [RC] STAT Sodium Chloride 0.9% [Saline Flush] 10 ml FLUSH ASDIRECTED PRN Sodium Chloride 0.9% [Saline Flush] 2.5 ml FLUSH ASDIRECTED PRN 01/24/20 10:01 Cardiac Monitoring [RC] . DIRECTED Pulse Oximetry [RC] ASDIRECTED Saline Lock Insert [OM.PC] Stat 01/24/20 10:20 PROCALCITONIN [REF] Stat - Assessment/Plan Last 24 Hours: My Active Orders 01/24/20 10:00 EKG Documentation Completion [RC] STAT Sodium Chloride 0.9% [Saline Flush] 10 ml FLUSH ASDIRECTED PRN Sodium Chloride 0.9% [Saline Flush] 2.5 ml FLUSH ASDIRECTED PRN 01/24/20 10:01 Cardiac Monitoring [RC] . DIRECTED Pulse Oximetry [RC] ASDIRECTED Saline Lock Insert [OM.PC] Stat 01/24/20 10:20 PROCALCITONIN [REF] Stat
[2020-01-24] MEDS ORDERED: Acetaminophen 500 MG Tab PO ONE (10:00)
[2020-01-24] MEDS ORDERED: Sodium Chloride 0.9% 2.5 ML Syringe FLUSH PRN (10:00)
[2020-01-24] MEDS ORDERED: Sodium Chloride 0.9% 1,000 ML IV ONE (10:00)
[2020-01-24] MEDS ORDERED: Sodium Chloride 0.9% 10 ML Syringe FLUSH PRN (10:00)
[2020-01-24] MEDS ORDERED: Ondansetron 4 MG/2 ML SDV IVPUSH ONE (10:22)
[2020-01-24 10:55] VITALS: BP 167/96; PULSE 75
[2020-01-24 11:07] LABS: BLOOD UREA NITROGEN,BUN 17 mg/dL (7.0-18.0); CARBON DIOXIDE,CO2 26.7 mmol/L (21.0-32.0); CHLORIDE,CL 97 mmol/L (98-107); GLUCOSE RANDOM 300 mg/dL (74-106); SODIUM,NA 134 mmol/L (136-148)
--- NOTE | 2020-01-24 11:48 | CR ---
HISTORY: Shortness of breath. TECHNIQUE: One view of the chest. COMPARISON: 01/14/2020. FINDINGS: Cardiac size is within normal limits. No change in small area of scarring within the left lateral costophrenic angle. No focal lung infiltrate. No pneumothorax or pleural effusion. Cardiac size and pulmonary vasculature within normal limits. Prior cervical fusion. IMPRESSION: 1. No change in small area of scarring in the left lateral costophrenic angle. 2. No focal lung infiltrate. Dictated by Bala Yoo MD @ 01/24/2020 11:46:39 AM Dictated by: Bala Yoo MD @ 01/24/2020 11:46:45 (Electronically Signed)
[2020-01-24] MEDS ORDERED: Acetaminophen/oxyCODONE 325-5 MG Tab PO ONE (12:27)
== END 2020-01-24 13:25 | disposition home or self-care (01) ==
LOC: MW.ED 09:41
DX: U07.1 COVID-19 (principal); I10 Essential (primary) hypertension; I25.2 Old myocardial infarction; K21.9 Gastro-esophageal reflux disease without esophagitis; E10.42 Type 1 diabetes mellitus with diabetic polyneuropathy; Z88.6 Allergy status to analgesic agent; Z88.1 Allergy status to other antibiotic agents; Z88.8 Allergy status to other drugs, medicaments and biological substances; Z79.899 Other long term (current) drug therapy
CPT/HCPCS: 36415; 71045; 80053; 83605; 83735; 83880; 84145; 84484; 85025; 85379; 85610; 85730; 86140; 87635; 93005; 96374; 99285; A9270; J2405; J7030; 93010; 99283; U0002

== ENCOUNTER 2020-01-27 12:22 | Inpatient (IN) | payer BC ==
--- NOTE | 2020-01-27 12:25 | EDM.PDOC ---
ED HPI GENERAL MEDICAL PROBLEM - General Chief Complaint: Respiratory Problem Stated Complaint: SOB COVID Time Seen by Provider: 01/27/20 12:24 Source of Information: Reports: Patient History Limitations: Reports: No Limitations - History of Present Illness INITIAL COMMENTS - FREE TEXT/NARRATIVE: 59-year-old male past medical history insulin-dependent diabetes, hypertension presents for shortness of breath with known COVID-19 diagnosis. Seen in the emergency department 3 days ago. Notes that since discharge home he has felt worsening shortness of breath, chest tightness, back pain, headache, nausea, lack of appetite. He has had fevers at home as well. - Related Data Allergies Allergy/AdvReac Type Severity Reaction Status Date / Time aspirin Allergy Hives Verified 01/27/20 12:31 ibuprofen Allergy Hives Verified 01/27/20 12:31 pioglitazone HCl [From Actos] Allergy Hives Verified 01/27/20 12:31 prasugrel HCl [From Effient] Allergy Rash Verified 01/27/20 12:31 [id number] Reductase Allergy Body Aches Verified 01/27/20 12:31 Inhibitor Home Meds: Home Meds Multivitamin [Multi-Day Vitamins] 1 tab PO DAILY 12/25/14 [History] Ticagrelor [Brilinta] 90 mg PO BID 12/25/14 [History] traMADol [Ultram] 50 mg PO BEDTIME PRN 12/25/14 [History] Doxazosin [Cardura] 4 mg PO DAILY 11/01/17 [History] Insulin Aspart [Novolog Flexpen] 6 unit SQ TIDMEALS 11/01/17 [History] Omeprazole 20 mg PO DAILY 11/01/17 [History] carvediloL [Carvedilol] 25 mg PO BIDMEALS 11/01/17 [History] Losartan [Cozaar] 100 mg PO DAILY 12/24/17 [History] Insulin Degludec [Tresiba] 30 - 36 unit SQ BEDTIME 10/19/18 [History] Nitroglycerin 0.4 mg SL .EVERY 5 MINUTES PRN MDD 3 tablets 10/19/18 [History] Insulin Aspart [NovoLOG] 6 unit SUBCUT TIDAC pen 10/20/18 [Rx] Ondansetron [Zofran ODT] 4 mg PO Q6H PRN #18 tab.dis 01/24/20 [Rx] DULoxetine [Cymbalta] 30 mg PO DAILY 01/27/20 [History] Evolocumab [Repatha Sureclick] 140 mg SQ .EVERY 2 WEEKS 01/27/20 [History] Isosorbide Dinitrate 20 mg PO BID 01/27/20 [History] Pregabalin [Lyrica] 50 mg PO BEDTIME 01/27/20 [History] Ranolazine [Ranexa] 1,000 mg PO Q12H 01/27/20 [History] Sertraline HCl 50 mg PO DAILY 01/27/20 [History] tiZANidine [Zanaflex] 2 mg PO Q6H PRN 01/27/20 [History] Past Medical History - Past Health History Medical/Surgical History: Denies Medical/Surgical History HEENT History: Reports: Otitis Media, Other (See Below) Other HEENT History: Constant ringing in ears, affects my hearing, macular edema Cardiovascular History: Reports: Angina, High Cholesterol, Hypertension, RI, SOB on Exertion, Stents, Syncope, Other (See Below) Other Cardiovascular History: Diastolic dysfunction Respiratory History: Reports: None Gastrointestinal History: Reports: GERD Other Gastrointestinal History: Abdominal pain post meals, Water dark, smelling stools Genitourinary History: Reports: None Musculoskeletal History: Reports: Back Pain, Chronic, Neck Pain, Chronic Other Musculoskeletal History: Upper back pain history Neurological History: Reports: Neuropathy, Peripheral Other Neuro History: 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 Psychiatric History: Reports: Anxiety, Depression Other Psychiatric History: "Not sure I would know if I were depressed 'how would I know?" Endocrine/Metabolic History: Reports: Diabetes, Type I Hematologic History: Reports: None Other Hematologic History: Chronic anti-coagulant therapy Immunologic History: Reports: None Oncologic (Cancer) History: Reports: None Dermatologic History: Reports: None - Infectious Disease History Infectious Disease History: Reports: None - Past Surgical History Head Surgeries/Procedures: Reports: None Cardiovascular Surgical History: Reports: Coronary Artery Stent Musculoskeletal Surgical History: Reports: Other (See Below) Social & Family History - Family History Family Medical History: Noncontributory Cardiac: Reports: Angina, RI Other Cardiac Family History: states both parents young from cardiac disease, also extensive cardiac HX with uncles, cousins, nephews - Caffeine Use Caffeine Use: Reports: None Caffeine Use Comment: diet soda - Living Situation & Occupation Living situation: Reports: , with Family Occupation: Employed ED ROS GENERAL - Review of Systems Review Of Systems: Comprehensive ROS is negative, except as noted in HPI. ED EXAM, GENERAL - Physical Exam Exam: See Below Exam Limited By: No Limitations General Appearance: Alert, WD/WN, Mild Distress Ears: Normal External Exam Throat/Mouth: Normal Voice, No Airway Compromise Head: Atraumatic, Normocephalic Neck: Normal Inspection Respiratory/Chest: Lungs Clear, Normal Breath Sounds, No Accessory Muscle Use, Other (Tachypneic) Cardiovascular: Normal Peripheral Pulses, Regular Rate, Rhythm Extremities: Normal Inspection Neurological: Alert Psychiatric: Normal Affect, Normal Mood Skin Exam: Warm, Dry, Intact, Normal Color #1 Interpretation EKG Date: 01/27/20 Time: 13:01 Rhythm: NSR Rate (Beats/Min): 73 [place]: Normal P-Wave: Present QRS: Normal ST-T: Normal QT: Normal MN/PQ Interval: 164 Comparison: NA - No Prior EKG Course - Vital Signs Last Recorded V/S: Last Vital Signs Temp 98.6 F 01/27/20 12:31 Pulse 74 01/27/20 16:41 Resp 18 01/27/20 14:41 BP 160/92 H 01/27/20 16:41 Pulse Ox 95 01/27/20 16:41 - Orders/Labs/Meds Orders: Active Orders 24 hr Category Date Time Status EKG Documentation Completion [RC] STAT Care 01/27/20 12:38 Active Pulse Oximetry [RC] ASDIRECTED Care 01/27/20 12:38 Active B-TYPE NATRIURETIC PEPTIDE,BNP [CHEM] Stat Lab 01/27/20 12:35 Received CULTURE BLOOD [BC] Stat Lab 01/27/20 13:48 Received CULTURE BLOOD [BC] Stat Lab 01/27/20 13:59 Results Remdesivir (Eua) [Remdesivir (EUA)] 200 mg Med 01/27/20 17:46 Ordered Sodium Chloride 0.9% [Normal Saline] 250 ml IV ONETIME Sodium Chloride 0.9% [Saline Flush] Med 01/27/20 12:38 Active 10 ml FLUSH ASDIRECTED PRN Sodium Chloride 0.9% [Saline Flush] Med 01/27/20 12:38 Active 2.5 ml FLUSH ASDIRECTED PRN Blood Culture x2 Reflex Set [OM.PC] Stat Oth 01/27/20 12:48 Ordered Saline Lock Insert [OM.PC] Stat Oth 01/27/20 12:38 Ordered Medication Orders Sodium Chloride (Saline Flush) 10 ml FLUSH ASDIRECTED PRN PRN Reason: Keep Vein Open Last Admin: 01/27/20 15:52 Dose: 10 ml Documented by: KARSTEN Sodium Chloride (Saline Flush) 2.5 ml FLUSH ASDIRECTED PRN PRN Reason: Keep Vein Open Last Admin: 01/27/20 15:52 Dose: 2.5 ml Documented by: KARSTEN Labs: Laboratory Tests 01/27/20 01/27/20 01/27/20 Range/Units 12:35 12:35 12:35 WBC 8.92 (4.0-11.0) K/uL RBC 3.82 L (4.50-5.90) M/uL Hgb 12.5 L (13.0-17.0) g/dL Hct 34.8 L (38.0-50.0) % MCV 91.1 (80.0-98.0) fL MCH 32.7 H (27.0-32.0) pg MCHC 35.9 (31.0-37.0) g/dL RDW Std Deviation 41.8 (28.0-62.0) fl RDW Coeff of Ji 13 (11.0-15.0) % Plt Count 137 L (150-400) K/uL MPV 10.00 (7.40-12.00) fL Neut % (Auto) 92.5 H (48.0-80.0) % Lymph % (Auto) 4.9 L (16.0-40.0) % Loup % (Auto) 2.5 (0.0-15.0) % Eos % (Auto) 0.0 (0.0-7.0) % Baso % (Auto) 0.1 (0.0-1.5) % Neut # (Auto) 8.3 H (1.4-5.7) K/uL Lymph # (Auto) 0.4 L (0.6-2.4) K/uL Loup # (Auto) 0.2 (0.0-0.8) K/uL Eos # (Auto) 0.0 (0.0-0.7) K/uL Baso # (Auto) 0.0 (0.0-0.1) K/uL Nucleated RBC % 0.0 /100WBC Nucleated RBCs # 0 K/uL INR 1.01 APTT 30.8 (18.6-31.3) SEC D-Dimer, Quantitative 1.28 H (0.0-0.50) mg/L FEU ABG pH 7.516 H (7.35-7.45) ABG pCO2 41 (35-45) mmHG ABG pO2 88 (75-100) mmHG ABG HCO3 33 H (22-26) mEq/L ABG Total CO2 29.4 ABG Base Excess 9.5 H (-2.0-2.0) Lactate (0.20-2.00) mmol/L Sodium (136-148) mmol/L Potassium (3.5-5.1) mmol/L Chloride (98-107) mmol/L Carbon Dioxide (21.0-32.0) mmol/L BUN (7.0-18.0) mg/dL Creatinine (0.8-1.3) mg/dL Est Cr Clr Drug Dosing mL/min Estimated GFR (MDRD) ml/min Glucose (74-106) mg/dL Calcium (8.5-10.1) mg/dL Magnesium (1.8-2.4) mg/dL Total Bilirubin (0.2-1.0) mg/dL AST (15-37) IU/L ALT (14-63) IU/L Alkaline Phosphatase (46-116) U/L Troponin I (0.000-0.056) ng/mL C-Reactive Protein (0.00-0.90) mg/dL Total Protein (6.4-8.2) g/dL Albumin (3.4-5.0) g/dL Globulin (2.6-4.0) g/dL Albumin/Globulin Ratio (0.9-1.6) 01/27/20 01/27/20 Range/Units 12:35 12:35 WBC (4.0-11.0) K/uL RBC (4.50-5.90) M/uL Hgb (13.0-17.0) g/dL Hct (38.0-50.0) % MCV (80.0-98.0) fL MCH (27.0-32.0) pg MCHC (31.0-37.0) g/dL RDW Std Deviation (28.0-62.0) fl RDW Coeff of Ji (11.0-15.0) % Plt Count (150-400) K/uL MPV (7.40-12.00) fL Neut % (Auto) (48.0-80.0) % Lymph % (Auto) (16.0-40.0) % Loup % (Auto) (0.0-15.0) % Eos % (Auto) (0.0-7.0) % Baso % (Auto) (0.0-1.5) % Neut # (Auto) (1.4-5.7) K/uL Lymph # (Auto) (0.6-2.4) K/uL [place]oup # (Auto) (0.0-0.8) K/uL Eos # (Auto) (0.0-0.7) K/uL Baso # (Auto) (0.0-0.1) K/uL Nucleated RBC % /100WBC Nucleated RBCs # K/uL INR APTT (18.6-31.3) SEC D-Dimer, Quantitative (0.0-0.50) mg/L FEU ABG pH (7.35-7.45) ABG pCO2 (35-45) mmHG ABG pO2 (75-100) mmHG ABG HCO3 (22-26) mEq/L ABG Total CO2 ABG Base Excess (-2.0-2.0) Lactate 1.5 (0.20-2.00) mmol/L Sodium 135 L (136-148) mmol/L Potassium 3.0 L (3.5-5.1) mmol/L Chloride 94 L (98-107) mmol/L Carbon Dioxide 33.0 H (21.0-32.0) mmol/L BUN 23 H (7.0-18.0) mg/dL Creatinine 1.6 H (0.8-1.3) mg/dL Est Cr Clr Drug Dosing 51.33 mL/min Estimated GFR (MDRD) 44.5 ml/min Glucose 195 H (74-106) mg/dL Calcium 8.3 L (8.5-10.1) mg/dL Magnesium 1.6 L (1.8-2.4) mg/dL Total Bilirubin 0.9 (0.2-1.0) mg/dL AST 62 H (15-37) IU/L ALT 29 (14-63) IU/L Alkaline Phosphatase 75 (46-116) U/L Troponin I < 0.050 (0.000-0.056) ng/mL C-Reactive Protein >12.00 (0.00-0.90) mg/dL Total Protein 6.1 L (6.4-8.2) g/dL Albumin 2.4 L (3.4-5.0) g/dL Globulin 3.7 (2.6-4.0) g/dL Albumin/Globulin Ratio 0.7 L (0.9-1.6) Meds: Medications Generic Name Dose Route Start Last Admin Trade Name You PRN Reason Stop Dose Admin Sodium Chloride 10 ml 01/27/20 12:38 01/27/20 15:52 Saline Flush FLUSH 10 ml ASDIRECTED PRN Administration Keep Vein Open Sodium Chloride 2.5 ml 01/27/20 12:38 01/27/20 15:52 Saline Flush FLUSH 2.5 ml ASDIRECTED PRN Administration Keep Vein Open Discontinued Medications Generic Name Dose Route Start Last Admin Trade Name Freadonis PRN Reason Stop Dose Admin Acetaminophen 1,000 mg 01/27/20 12:38 01/27/20 13:12 Tylenol Extra Strength PO 01/27/20 12:39 1,000 mg ONETIME ONE Administration Dexamethasone 10 mg 01/27/20 12:38 01/27/20 13:13 Dexamethasone IV 01/27/20 12:39 10 mg ONETIME ONE Administration Sodium Chloride 1,000 mls @ 999 mls/hr 01/27/20 12:38 01/27/20 13:13 Normal Saline IV 01/27/20 13:38 999 mls/hr .Bolus ONE Administration Iopamidol 100 ml 01/27/20 16:53 01/27/20 16:54 Isovue Multipack-370 (76%) IVPUSH 01/27/20 16:54 100 ml ONETIME ONE Administration Ketorolac Tromethamine 15 mg 01/27/20 12:38 01/27/20 13:12 Toradol IVPUSH 01/27/20 12:39 15 mg ONETIME ONE Administration Ondansetron HCl 4 mg 01/27/20 14:09 01/27/20 15:52 Zofran IVPUSH 01/27/20 14:10 4 mg ONETIME ONE Administration Potassium Chloride 40 meq 01/27/20 14:09 01/27/20 15:52 Potassium Chloride PO 01/27/20 14:10 40 meq ONETIME ONE Administration - Re-Assessments/Exams Free Text/Narrative Re-Assessment/Exam: 01/27/20 13:03 Patient presents for shortness of breath with known COVID-19 diagnosis. Oxygen saturations were low at 81% on room air. Oxygen saturations improved to mid 90s on 4 L nasal cannula. Will get labs, chest x-ray, EKG. Will give Decadron. Will give IV fluid bolus and Tylenol for symptomatic relief. Will require admission for hypoxia. 01/27/20 13:32 Labs not transmitting appropriately. Sodium 135, potassium 3.0, chloride 94, CO2 33, glucose 195, BUN 23, creatinine 1.2, GFR 45, calcium 8.3, normal LFTs, magnesium 1.6, negative troponin, elevated CRP 01/27/20 13:46 White blood cell count 8.9, hemoglobin 12.5, on ABG pH is 7.516, PCO2 41, PO2 88, bicarb 33, lactate is 1.5. 01/27/20 14:14 D-dimer is positive, will get CTA to rule out pulmonary embolism complicating Covid infection. Patient to be admitted. 01/27/20 17:46 CT imaging is unremarkable. Dr. Wade agrees to admit patient. Remdesivir ordered Departure - Departure Time of Disposition: 17:47 Disposition: Admitted As Inpatient 66 Condition: Fair Clinical Impression: COVID-19 - Discharge Information Referrals: PCP,None [Primary Care Provider] - Forms: ED Department Discharge Sepsis Event Note (ED) - Focused Exam Vital Signs: Vital Signs Temp Pulse Resp BP Pulse Ox 01/27/20 16:41 74 160/92 H 95 01/27/20 16:11 75 151/82 H 95 01/27/20 15:41 73 146/75 H 96 01/27/20 15:11 73 139/77 97 01/27/20 14:41 75 18 146/81 H 95 01/27/20 12:31 98.6 F 87 24 H 128/76 81 L - My Orders Last 24 Hours: My Active Orders 01/27/20 12:35 B-TYPE NATRIURETIC PEPTIDE,BNP [CHEM] Stat 01/27/20 12:38 EKG Documentation Completion [RC] STAT Pulse Oximetry [RC] ASDIRECTED Sodium Chloride 0.9% [Saline Flush] 10 ml FLUSH ASDIRECTED PRN Sodium Chloride 0.9% [Saline Flush] 2.5 ml FLUSH ASDIRECTED PRN Saline Lock Insert [OM.PC] Stat 01/27/20 12:48 Blood Culture x2 Reflex Set [OM.PC] Stat 01/27/20 13:48 CULTURE BLOOD [BC] Stat 01/27/20 13:59 CULTURE BLOOD [BC] Stat 01/27/20 17:46 Remdesivir (Eua) [Remdesivir (EUA)] 200 mg Sodium Chloride 0.9% [Normal Saline] 250 ml IV ONETIME - Assessment/Plan Last 24 Hours: My Active Orders 01/27/20 12:35 B-TYPE NATRIURETIC PEPTIDE,BNP [CHEM] Stat 01/27/20 12:38 EKG Documentation Completion [RC] STAT Pulse Oximetry [RC] ASDIRECTED Sodium Chloride 0.9% [Saline Flush] 10 ml FLUSH ASDIRECTED PRN Sodium Chloride 0.9% [Saline Flush] 2.5 ml FLUSH ASDIRECTED PRN Saline Lock Insert [OM.PC] Stat 01/27/20 12:48 Blood Culture x2 Reflex Set [OM.PC] Stat 01/27/20 13:48 CULTURE BLOOD [BC] Stat 01/27/20 13:59 CULTURE BLOOD [BC] Stat 01/27/20 17:46 Remdesivir (Eua) [Remdesivir (EUA)] 200 mg Sodium Chloride 0.9% [Normal Saline] 250 ml IV ONETIME
[2020-01-27] MEDS ORDERED: Sodium Chloride 0.9% 10 ML Syringe FLUSH PRN (12:38)
[2020-01-27] MEDS ORDERED: Ketorolac 15 MG/ML SDV IVPUSH ONE (12:38)
[2020-01-27] MEDS ORDERED: Dexamethasone 10 MG/ML SDV IV ONE (12:38)
[2020-01-27] MEDS ORDERED: Sodium Chloride 0.9% 1,000 ML IV ONE (12:38)
[2020-01-27] MEDS ORDERED: Acetaminophen 500 MG Tab PO ONE (12:38)
[2020-01-27] MEDS ORDERED: Sodium Chloride 0.9% 2.5 ML Syringe FLUSH PRN (12:38)
[2020-01-27 13:15] LABS: BLOOD UREA NITROGEN,BUN 23 mg/dL (7.0-18.0); CHLORIDE,CL 94 mmol/L (98-107); GLUCOSE RANDOM 195 mg/dL (74-106); SODIUM,NA 135 mmol/L (136-148)
--- NOTE | 2020-01-27 13:36 | CR ---
INDICATION: Shortness of breath. COVID positive. TECHNIQUE: Chest 1 views COMPARISON: 01/24/2020. FINDINGS: Cardiovascular and mediastinum: Heart size and vasculature are normal in caliber and appearance. Lungs and pleural spaces: Bilateral ill-defined infiltrates are in the periphery of both lungs. No effusions and no pneumothorax. Bones and soft tissues: No significant findings. IMPRESSION: Bilateral peripheral ill-defined pneumonia consistent with COVID infection. Dictated by Dionicio Blake MD @ Jan 27 2020 1:33PM Signed by Dr. Dionicio Blake @ Jan 27 2020 1:35PM
[2020-01-27] MEDS ORDERED: Potassium Chloride 10% 20 MEQ/15 ML Soln 30 ML UD Cup PO ONE (14:09)
[2020-01-27] MEDS ORDERED: Ondansetron 4 MG/2 ML SDV IVPUSH ONE (14:09)
[2020-01-27] MEDS ORDERED: Iopamidol 755 MG/ML 500 ML Multipack Bottle IVPUSH ONE (16:53)
--- NOTE | 2020-01-27 17:34 | CT ---
Indication: Dyspnea, rule out pulmonary embolus. Alarcon virus positive Technique: Volumetric multidetector CT images of the chest were obtained after the administration of IV contrast. 100 cc Isovue 370 low smaller intravenous contrast Comparison: CT angiography January 03, 2020 Findings: The thoracic inlet and thyroid gland are unremarkable. The thoracic aorta is nonaneurysmal. There is no central filling defect to suggest pulmonary embolism. There are enlarged mediastinal and hilar lymph nodes. There is central bronchial thickening seen throughout the bilateral hemithoraces There extensive interstitial and airspace opacities seen throughout the bilateral hemithoraces consistent with atypical viral infiltrate. There is no evidence of pulmonary mass or suspicious pulmonary nodule. The partially visualized upper abdominal viscera demonstrates mild hepatomegaly. There is prior cholecystectomy. The thoracic vertebral body heights are grossly maintained without evidence of significant spondylolisthesis or displaced fracture. Impression: Interval progression of known alarcon virus infectious changes with diffuse bronchial thickening and extensive ground-glass and consolidative airspace opacities throughout the bilateral hemithoraces representing multifocal areas of inflammatory change. Interval development of reactive mediastinal adenopathy. No evidence of pulmonary embolus. Please note that all CT scans at this facility use dose modulation, iterative reconstruction, and/or weight-based dosing when appropriate to reduce radiation dose to as low as reasonably achievable. Dictated by Alexy Walton MD @ Jan 27 2020 5:27PM Signed by Dr. Alexy Walton @ Jan 27 2020 5:33PM
[2020-01-27] MEDS ORDERED: REMDESIVIR 200 MG in Sodium Chloride 0.9% 250 ML IV ONE (17:46)
--- NOTE | 2020-01-27 18:40 | PCM.HP.2 ---
H&P History of Present Illness - General Date of Service: 01/27/20 Admit Problem/Dx: Admission Diagnosis/Problem Admission Diagnosis/Problem Shortness of breath Source of Information: Patient History Limitations: Reports: No Limitations - History of Present Illness Initial Comments - Free Text/Narative: 59-year-old male presents complaining of SOB for the past 3-4 days. He tested positive for COVID-19 approximately 3 days ago. He has a PMH of DM type II, NE s/p stents, HTN and HLD. Patient reports that he has had worsening shortness of breath, chest tightness and fevers. He also reports having nausea, vomiting, productive cough and diarrhea. In the ER, CBC unremarkable, potassium level 3.0, creatinine 1.6, d-dimer 1.28, troponin negative, CXR showed bilateral pneumonia and CT angio was negative for PE but showed b/l ground glass opacities. EKG was unremarkable. Patient given 1 L IV NS bolus, dexamethasone 10 mg, KCl 40 mEq x 1, Iv toradol, tylenol and zofran. Patient admitted for further evaluation and treatment. - Related Data Allergies/Adverse Reactions: Allergies Allergy/AdvReac Type Severity Reaction Status Date / Time aspirin Allergy Hives Verified 01/27/20 12:31 ibuprofen Allergy Hives Verified 01/27/20 12:31 pioglitazone HCl [From Actos] Allergy Hives Verified 01/27/20 12:31 prasugrel HCl [From Effient] Allergy Rash Verified 01/27/20 12:31 [id number]-Leh-Fyz Reductase Allergy Body Aches Verified 01/27/20 12:31 Inhibitor Home Medications: Home Meds Multivitamin [Multi-Day Vitamins] 1 tab PO DAILY 12/25/14 [History] Ticagrelor [Brilinta] 90 mg PO BID 12/25/14 [History] traMADol [Ultram] 50 mg PO BEDTIME PRN 12/25/14 [History] Doxazosin [Cardura] 4 mg PO DAILY 11/01/17 [History] Insulin Aspart [Novolog Flexpen] 6 unit SQ TIDMEALS 11/01/17 [History] Omeprazole 20 mg PO DAILY 11/01/17 [History] carvediloL [Carvedilol] 25 mg PO BIDMEALS 11/01/17 [History] Losartan [Cozaar] 100 mg PO DAILY 12/24/17 [History] Insulin Degludec [Tresiba] 30 - 36 unit SQ BEDTIME 10/19/18 [History] Nitroglycerin 0.4 mg SL .EVERY 5 MINUTES PRN MDD 3 tablets 10/19/18 [History] Insulin Aspart [NovoLOG] 6 unit SUBCUT TIDAC pen 10/20/18 [Rx] Ondansetron [Zofran ODT] 4 mg PO Q6H PRN #18 tab.dis 01/24/20 [Rx] DULoxetine [Cymbalta] 30 mg PO DAILY 01/27/20 [History] Evolocumab [Repatha Sureclick] 140 mg SQ .EVERY 2 WEEKS 01/27/20 [History] Isosorbide Dinitrate 20 mg PO BID 01/27/20 [History] Pregabalin [Lyrica] 50 mg PO BEDTIME 01/27/20 [History] Ranolazine [Ranexa] 1,000 mg PO Q12H 01/27/20 [History] Sertraline HCl 50 mg PO DAILY 01/27/20 [History] tiZANidine [Zanaflex] 2 mg PO Q6H PRN 01/27/20 [History] Past Medical History - Past Health History Medical/Surgical History: Denies Medical/Surgical History HEENT History: Reports: Otitis Media, Other (See Below) Other HEENT History: Constant ringing in ears, affects my hearing, macular edema Cardiovascular History: Reports: Angina, High Cholesterol, Hypertension, NE, SOB on Exertion, Stents, Syncope, Other (See Below) Other Cardiovascular History: Diastolic dysfunction Respiratory History: Reports: None Gastrointestinal History: Reports: GERD Other Gastrointestinal History: Abdominal pain post meals, Water dark, smelling stools Genitourinary History: Reports: None Musculoskeletal History: Reports: Back Pain, Chronic, Neck Pain, Chronic Other Musculoskeletal History: Upper back pain history Neurological History: Reports: Neuropathy, Peripheral Other Neuro History: 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 Psychiatric History: Reports: Anxiety, Depression Other Psychiatric History: "Not sure I would know if I were depressed 'how would I know?" Endocrine/Metabolic History: Reports: Diabetes, Type I Hematologic History: Reports: None Other Hematologic History: Chronic anti-coagulant therapy Immunologic History: Reports: None Oncologic (Cancer) History: Reports: None Dermatologic History: Reports: None - Infectious Disease History Infectious Disease History: Reports: None - Past Surgical History Head Surgeries/Procedures: Reports: None Cardiovascular Surgical History: Reports: Coronary Artery Stent Musculoskeletal Surgical History: Reports: Other (See Below) Social & Family History - Family History Family Medical History: Noncontributory Cardiac: Reports: Angina, NE Other Cardiac Family History: states both parents young from cardiac disease, also extensive cardiac HX with uncles, cousins, nephews - Tobacco Use Tobacco Use Status *Q: Never Tobacco User - Caffeine Use Caffeine Use: Reports: None Caffeine Use Comment: diet soda - Recreational Drug Use Recreational Drug Use: No - Living Situation & Occupation Living situation: Reports: , with Family Occupation: Employed H&P Review of Systems - Review of Systems: Review Of Systems: Comprehensive ROS is negative, except as noted in HPI. Exam - Exam Exam: See Below - Vital Signs Vital Signs: Last Vital Signs Temp 37.0 C 01/27/20 12:31 Pulse 74 01/27/20 16:41 Resp 18 01/27/20 14:41 BP 160/92 H 01/27/20 16:41 Pulse Ox 95 01/27/20 16:41 Weight: 90.718 kg - Exam General: Alert, Oriented, Cooperative, Other (NAD) HEENT: Conjunctiva Clear, EOMI, Hearing Intact, Pupils Equal, Pupils Reactive Neck: Supple, Trachea Midline Lungs: Normal Respiratory Effort, Other (mild crackles in bases b/l) Cardiovascular: Regular Rate, Regular Rhythm GI/Abdominal Exam: Normal Bowel Sounds, Soft, Non-Tender, No Distention Extremities: Normal Inspection, No Pedal Edema Peripheral Pulses: 2+: Radial (L), Radial (R) Skin: Warm, Dry, Intact Neurological: Cranial Nerves Intact, Strength Equal Bilateral, Normal Speech, Normal Tone Neuro Extensive - Mental Status: Alert, Oriented x3, Normal Mood/Affect Psychiatric: Alert, Normal Affect, Normal Mood - Patient Data Lab Results Last 24 hrs: Laboratory Results - last 24 hr 01/27/20 01/27/20 01/27/20 Range/Units 12:35 12:35 12:35 WBC 8.92 (4.0-11.0) K/uL RBC 3.82 L (4.50-5.90) M/uL Hgb 12.5 L (13.0-17.0) g/dL Hct 34.8 L (38.0-50.0) % MCV 91.1 (80.0-98.0) fL MCH 32.7 H (27.0-32.0) pg MCHC 35.9 (31.0-37.0) g/dL RDW Std Deviation 41.8 (28.0-62.0) fl RDW Coeff of Ji 13 (11.0-15.0) % Plt Count 137 L (150-400) K/uL MPV 10.00 (7.40-12.00) fL Neut % (Auto) 92.5 H (48.0-80.0) % Lymph % (Auto) 4.9 L (16.0-40.0) % [place] % (Auto) 2.5 (0.0-15.0) % Eos % (Auto) 0.0 (0.0-7.0) % Baso % (Auto) 0.1 (0.0-1.5) % Neut # (Auto) 8.3 H (1.4-5.7) K/uL Lymph # (Auto) 0.4 L (0.6-2.4) K/uL [place] # (Auto) 0.2 (0.0-0.8) K/uL Eos # (Auto) 0.0 (0.0-0.7) K/uL Baso # (Auto) 0.0 (0.0-0.1) K/uL Nucleated RBC % 0.0 /100WBC Nucleated RBCs # 0 K/uL INR 1.01 APTT 30.8 (18.6-31.3) SEC D-Dimer, Quantitative 1.28 H (0.0-0.50) mg/L FEU ABG pH 7.516 H (7.35-7.45) ABG pCO2 41 (35-45) mmHG ABG pO2 88 (75-100) mmHG ABG HCO3 33 H (22-26) mEq/L ABG Total CO2 29.4 ABG Base Excess 9.5 H (-2.0-2.0) Lactate (0.20-2.00) mmol/L Sodium (136-148) mmol/L Potassium (3.5-5.1) mmol/L Chloride (98-107) mmol/L Carbon Dioxide (21.0-32.0) mmol/L BUN (7.0-18.0) mg/dL Creatinine (0.8-1.3) mg/dL Est Cr Clr Drug Dosing mL/min Estimated GFR (MDRD) ml/min Glucose (74-106) mg/dL Calcium (8.5-10.1) mg/dL Magnesium (1.8-2.4) mg/dL Total Bilirubin (0.2-1.0) mg/dL AST (15-37) IU/L ALT (14-63) IU/L Alkaline Phosphatase (46-116) U/L Troponin I (0.000-0.056) ng/mL C-Reactive Protein (0.00-0.90) mg/dL Total Protein (6.4-8.2) g/dL Albumin (3.4-5.0) g/dL Globulin (2.6-4.0) g/dL Albumin/Globulin Ratio (0.9-1.6) 01/27/20 01/27/20 Range/Units 12:35 12:35 WBC (4.0-11.0) K/uL RBC (4.50-5.90) M/uL Hgb (13.0-17.0) g/dL Hct (38.0-50.0) % MCV (80.0-98.0) fL MCH (27.0-32.0) pg MCHC (31.0-37.0) g/dL RDW Std Deviation (28.0-62.0) fl RDW Coeff of Ji (11.0-15.0) % Plt Count (150-400) K/uL MPV (7.40-12.00) fL Neut % (Auto) (48.0-80.0) % Lymph % (Auto) (16.0-40.0) % [place] % (Auto) (0.0-15.0) % Eos % (Auto) (0.0-7.0) % Baso % (Auto) (0.0-1.5) % Neut # (Auto) (1.4-5.7) K/uL Lymph # (Auto) (0.6-2.4) K/uL [place] # (Auto) (0.0-0.8) K/uL Eos # (Auto) (0.0-0.7) K/uL Baso # (Auto) (0.0-0.1) K/uL Nucleated RBC % /100WBC Nucleated RBCs # K/uL INR APTT (18.6-31.3) SEC D-Dimer, Quantitative (0.0-0.50) mg/L FEU ABG pH (7.35-7.45) ABG pCO2 (35-45) mmHG ABG pO2 (75-100) mmHG ABG HCO3 (22-26) mEq/L ABG Total CO2 ABG Base Excess (-2.0-2.0) Lactate 1.5 (0.20-2.00) mmol/L Sodium 135 L (136-148) mmol/L Potassium 3.0 L (3.5-5.1) mmol/L Chloride 94 L (98-107) mmol/L Carbon Dioxide 33.0 H (21.0-32.0) mmol/L BUN 23 H (7.0-18.0) mg/dL Creatinine 1.6 H (0.8-1.3) mg/dL Est Cr Clr Drug Dosing 51.33 mL/min Estimated GFR (MDRD) 44.5 ml/min Glucose 195 H (74-106) mg/dL Calcium 8.3 L (8.5-10.1) mg/dL Magnesium 1.6 L (1.8-2.4) mg/dL Total Bilirubin 0.9 (0.2-1.0) mg/dL AST 62 H (15-37) IU/L ALT 29 (14-63) IU/L Alkaline Phosphatase 75 (46-116) U/L Troponin I < 0.050 (0.000-0.056) ng/mL C-Reactive Protein >12.00 (0.00-0.90) mg/dL Total Protein 6.1 L (6.4-8.2) g/dL Albumin 2.4 L (3.4-5.0) g/dL Globulin 3.7 (2.6-4.0) g/dL Albumin/Globulin Ratio 0.7 L (0.9-1.6) Result Diagrams: 01/27/20 12:35 01/27/20 12:35 Waldo Results Last 24 hrs: Microbiology 01/27/20 13:59 Anaerobic Blood Culture - Final Blood - Venous - Lab Draw Sepsis Event Note - Evaluation Sepsis Screening Result: No Definite Risk - Focused Exam Vital Signs: Vital Signs Temp Pulse Resp BP Pulse Ox 01/27/20 16:41 74 160/92 H 95 01/27/20 16:11 75 151/82 H 95 01/27/20 15:41 73 146/75 H 96 01/27/20 15:11 73 139/77 97 01/27/20 14:41 75 18 146/81 H 95 01/27/20 12:31 37.0 C 87 24 H 128/76 81 L - Problem List (1) Hypoxia SNOMED Code(s): 409232026 ICD Code: R09.02 - HYPOXEMIA Status: Acute Current Visit: Yes (2) Diabetes SNOMED Code(s): 04239212 ICD Code: E11.9 - TYPE 2 DIABETES MELLITUS WITHOUT COMPLICATIONS Status: Acute Current Visit: No (3) Coronary artery disease SNOMED Code(s): 31260690 ICD Code: I25.10 - ATHSCL HEART DISEASE OF [place] CORONARY ARTERY W/O ANG PCTRS Status: Chronic Priority: High Current Visit: No Qualifiers: Coronary Disease-Associated Artery/Lesion type: unspecified vessel or lesion type [place] vs. transplanted heart: [place] heart Associated angina: with other forms of angina Qualified Code(s): I25.118 - Atherosclerotic heart disease of [place] coronary artery with other forms of angina pectoris (4) Hypertension SNOMED Code(s): 09338633 ICD Code: I10 - ESSENTIAL (PRIMARY) HYPERTENSION Status: Acute Current Visit: No (5) COVID-19 SNOMED Code(s): 089935105 ICD Code: U07.1 - COVID-19 Status: Acute Current Visit: Yes Problem List Initiated/Reviewed/Updated: Yes Orders Last 24hrs: Active Orders 24 hr Category Date Time Status Patient Status [ADT] Routine ADT 01/27/20 18:00 Active EKG Documentation Completion [RC] STAT Care 01/27/20 12:38 Active Oxygen Therapy [RC] PRN Care 01/27/20 18:37 Ordered Pulse Oximetry [RC] ASDIRECTED Care 01/27/20 12:38 Active Up ad Sherlyn [RC] ASDIRECTED Care 01/27/20 18:37 Ordered VTE/DVT Education [RC] PER UNIT ROUTINE Care 01/27/20 18:37 Ordered Vital Signs [RC] Q4H Care 01/27/20 18:37 Ordered [place] [employer] Diet [DIET] Diet 01/27/20 Lunch Ordered B-TYPE NATRIURETIC PEPTIDE,BNP [CHEM] Stat Lab 01/27/20 12:35 Received CBC WITH AUTO DIFF [HEME] AM Lab 01/28/20 05:11 Ordered COMPREHENSIVE METABOLIC PN,CMP [CHEM] AM Lab 01/28/20 05:11 Ordered CULTURE BLOOD [BC] Stat Lab 01/27/20 13:48 Received CULTURE BLOOD [BC] Stat Lab 01/27/20 13:59 Results Acetaminophen [TylenoL] Med 01/27/20 18:37 Ordered 650 mg PO Q4H PRN Heparin Sodium Med 01/27/20 18:45 Ordered 5,000 units SUBCUT Q8H Ondansetron [Zofran] Med 01/27/20 18:37 Ordered 4 mg IVPUSH Q4H PRN Sodium Chloride 0.9% [Saline Flush] Med 01/27/20 12:38 Active 10 ml FLUSH ASDIRECTED PRN Sodium Chloride 0.9% [Saline Flush] Med 01/27/20 12:38 Active 2.5 ml FLUSH ASDIRECTED PRN Blood Culture x2 Reflex Set [OM.PC] Stat Oth 01/27/20 12:48 Ordered Saline Lock Insert [OM.PC] Stat Oth 01/27/20 12:38 Ordered Resuscitation Status Routine Resus Stat 01/27/20 18:37 Ordered Medication Orders Sodium Chloride (Saline Flush) 10 ml FLUSH ASDIRECTED PRN PRN Reason: Keep Vein Open Last Admin: 01/27/20 15:52 Dose: 10 ml Documented by: KARSTEN Sodium Chloride (Saline Flush) 2.5 ml FLUSH ASDIRECTED PRN PRN Reason: Keep Vein Open Last Admin: 01/27/20 15:52 Dose: 2.5 ml Documented by: KARSTEN Assessment/Plan Comment:: Assessment and Plan: 1. Acute hypoxic respiratory failure secondary to COVID19: - Admit to med/surg. Patient on telemetry. Supplemental oxygen prn to maintain O2 sat > 92%, Combivent q6 prn, dexamethasone 6 mg qd, PPI, Remdesivir and Levaquin. - Patient given fact sheet for EAU use for convalescent plasma, explained risks and consents to treatment. - Patient given fact sheet for Remdesivir, explained risks and consents to treatment. - CT angio was negative for PE. CXR showed bilateral pneumonia. 2. DUTCH: - Patient received 1 L IV NS bolus in ER. Will monitor with AM labs. - Will hold ACEI for now. 3. Hypokalemia: - Patient given KCl 40 mEq x 1 in ER. Will recheck with AM labs. 4. Hypomagnesemia: - Will replete with IV mag sulfate 2 g. Will recheck with AM labs. 5. Diabetes mellitus type 2: - Will resume home dose of long acting insulin, ADA diet, Novolog SSI and accuchecks TIDAC. 6. DVT prophylaxis: - Heparin 5000 units subcut q8h. 7. Past medical history of NE s/p stents, HTN and HLD. - Resume home medications with the exception of losartan secondary to #2.
[2020-01-27] MEDS ORDERED: Glucagon,Human Recombinant 1 MG Vial IM PRN (18:41)
[2020-01-27] MEDS ORDERED: Magnesium Sulfate/Water 2 GM/50 ML Premix Bag IV ONE (18:44)
[2020-01-27] MEDS ORDERED: Non-Formulary Medication 1 Each (Evolocumab [Repatha Sureclick] 140 MG) SQ SCH (19:00)
[2020-01-27] MEDS ORDERED: Magnesium Sulfate/Water 2 GM/50 ML BAG IV ONE (19:00)
[2020-01-27] MEDS ORDERED: TIZANIDINE 2 MG PO PRN (19:00)
[2020-01-27] MEDS: Heparin Sodium 5,000 Units/ML Vial SUBCUT SCH (19:36)
[2020-01-27] MEDS: Pantoprazole 40 MG in Sodium Chloride 0.9% 10 ML IV SCH (19:37)
[2020-01-27] MEDS ORDERED: Levofloxacin/Dextrose 5%-Water 750 MG in Premix Bag 1 BAG IV SCH (20:00)
[2020-01-27] MEDS: Isosorbide Dinitrate 10 MG Tab PO SCH (20:20)
[2020-01-27] MEDS ORDERED: Insulin Detemir 100 Units/ML 3 ML Pen SUBCUT SCH (21:00)
[2020-01-27] MEDS ORDERED: Non-Formulary Medication 1 Each (Ticagrelor 90 MG) PO SCH (21:00)
[2020-01-28] MEDS: Heparin Sodium 5,000 Units/ML Vial SUBCUT SCH (02:50)
[2020-01-28] MEDS: Insulin Aspart 100 Units/ML 3 ML Pen SUBCUT SCH ×3 (06:58→19:21)
[2020-01-28 07:02] LABS: CARBON DIOXIDE,CO2 27.9 mmol/L (21.0-32.0); POTASSIUM,K 3.8 mmol/L (3.5-5.1)
[2020-01-28] MEDS ORDERED: tiZANidine 4 MG Tab PO PRN ×2 (07:06→11:14)
[2020-01-28] MEDS: Carvedilol 25 MG Tab PO SCH ×2 (08:23→17:36)
--- NOTE | 2020-01-28 08:44 | PCM.PN ---
- General Info Date of Service: 01/28/20 Subjective Update: Currently on 10 L supp oxygen. Reports breathing and cough feels better today. Denies any fevers, chills, nausea or vomiting. He has been urinating and having bowel movements. - Patient Data Vitals - Most Recent: Last Vital Signs Temp 36.8 C 01/28/20 03:15 Pulse 77 01/28/20 08:23 Resp 20 01/28/20 03:15 BP 128/72 01/28/20 08:23 Pulse Ox 93 L 01/28/20 03:15 Weight - Most Recent: 97.3 kg I&O - Last 24 Hours: Intake & Output 01/27/20 01/28/20 01/28/20 22:59 06:59 14:59 Intake Total 500 Output Total 250 Balance 250 Lab Results Last 24 Hours: Laboratory Results - last 24 hr 01/27/20 01/27/20 01/27/20 Range/Units 12:35 12:35 12:35 WBC 8.92 (4.0-11.0) K/uL RBC 3.82 L (4.50-5.90) M/uL Hgb 12.5 L (13.0-17.0) g/dL Hct 34.8 L (38.0-50.0) % MCV 91.1 (80.0-98.0) fL MCH 32.7 H (27.0-32.0) pg MCHC 35.9 (31.0-37.0) g/dL RDW Std Deviation 41.8 (28.0-62.0) fl RDW Coeff of Ji 13 (11.0-15.0) % Plt Count 137 L (150-400) K/uL MPV 10.00 (7.40-12.00) fL Neut % (Auto) 92.5 H (48.0-80.0) % Lymph % (Auto) 4.9 L (16.0-40.0) % Quay % (Auto) 2.5 (0.0-15.0) % Eos % (Auto) 0.0 (0.0-7.0) % Baso % (Auto) 0.1 (0.0-1.5) % Neut # (Auto) 8.3 H (1.4-5.7) K/uL Lymph # (Auto) 0.4 L (0.6-2.4) K/uL Quay # (Auto) 0.2 (0.0-0.8) K/uL Eos # (Auto) 0.0 (0.0-0.7) K/uL Baso # (Auto) 0.0 (0.0-0.1) K/uL Nucleated RBC % 0.0 /100WBC Nucleated RBCs # 0 K/uL INR 1.01 APTT 30.8 (18.6-31.3) SEC D-Dimer, Quantitative 1.28 H (0.0-0.50) mg/L FEU ABG pH 7.516 H (7.35-7.45) ABG pCO2 41 (35-45) mmHG ABG pO2 88 (75-100) mmHG ABG HCO3 33 H (22-26) mEq/L ABG Total CO2 29.4 ABG Base Excess 9.5 H (-2.0-2.0) Lactate (0.20-2.00) mmol/L Sodium (136-148) mmol/L Potassium (3.5-5.1) mmol/L Chloride (98-107) mmol/L Carbon Dioxide (21.0-32.0) mmol/L BUN (7.0-18.0) mg/dL Creatinine (0.8-1.3) mg/dL Est Cr Clr Drug Dosing mL/min Estimated GFR (MDRD) ml/min Glucose (74-106) mg/dL POC Glucose (60-110) mg/dL Calcium (8.5-10.1) mg/dL Phosphorus (2.6-4.7) mg/dL Magnesium (1.8-2.4) mg/dL Total Bilirubin (0.2-1.0) mg/dL AST (15-37) IU/L ALT (14-63) IU/L Alkaline Phosphatase (46-116) U/L Troponin I (0.000-0.056) ng/mL C-Reactive Protein (0.00-0.90) mg/dL B-Natriuretic Peptide (<100) PG/ML Total Protein (6.4-8.2) g/dL Albumin (3.4-5.0) g/dL Globulin (2.6-4.0) g/dL Albumin/Globulin Ratio (0.9-1.6) Blood Type Antibody Screen Cold Antibody Screen 01/27/20 01/27/20 01/27/20 Range/Units 12:35 12:35 12:35 WBC (4.0-11.0) K/uL RBC (4.50-5.90) M/uL Hgb (13.0-17.0) g/dL Hct (38.0-50.0) % MCV (80.0-98.0) fL MCH (27.0-32.0) pg MCHC (31.0-37.0) g/dL RDW Std Deviation (28.0-62.0) fl RDW Coeff of Ji (11.0-15.0) % Plt Count (150-400) K/uL MPV (7.40-12.00) fL Neut % (Auto) (48.0-80.0) % Lymph % (Auto) (16.0-40.0) % Quay % (Auto) (0.0-15.0) % Eos % (Auto) (0.0-7.0) % Baso % (Auto) (0.0-1.5) % Neut # (Auto) (1.4-5.7) K/uL Lymph # (Auto) (0.6-2.4) K/uL Quay # (Auto) (0.0-0.8) K/uL Eos # (Auto) (0.0-0.7) K/uL Baso # (Auto) (0.0-0.1) K/uL Nucleated RBC % /100WBC Nucleated RBCs # K/uL INR APTT (18.6-31.3) SEC D-Dimer, Quantitative (0.0-0.50) mg/L FEU ABG pH (7.35-7.45) ABG pCO2 (35-45) mmHG ABG pO2 (75-100) mmHG ABG HCO3 (22-26) mEq/L ABG Total CO2 ABG Base Excess (-2.0-2.0) Lactate 1.5 (0.20-2.00) mmol/L Sodium 135 L (136-148) mmol/L Potassium 3.0 L (3.5-5.1) mmol/L Chloride 94 L (98-107) mmol/L Carbon Dioxide 33.0 H (21.0-32.0) mmol/L BUN 23 H (7.0-18.0) mg/dL Creatinine 1.6 H (0.8-1.3) mg/dL Est Cr Clr Drug Dosing 51.33 mL/min Estimated GFR (MDRD) 44.5 ml/min Glucose 195 H (74-106) mg/dL POC Glucose (60-110) mg/dL Calcium 8.3 L (8.5-10.1) mg/dL Phosphorus (2.6-4.7) mg/dL Magnesium 1.6 L (1.8-2.4) mg/dL Total Bilirubin 0.9 (0.2-1.0) mg/dL AST 62 H (15-37) IU/L ALT 29 (14-63) IU/L Alkaline Phosphatase 75 (46-116) U/L Troponin I < 0.050 (0.000-0.056) ng/mL C-Reactive Protein >12.00 (0.00-0.90) mg/dL B-Natriuretic Peptide 279 H (<100) PG/ML Total Protein 6.1 L (6.4-8.2) g/dL Albumin 2.4 L (3.4-5.0) g/dL Globulin 3.7 (2.6-4.0) g/dL Albumin/Globulin Ratio 0.7 L (0.9-1.6) Blood Type Antibody Screen Cold Antibody Screen 01/27/20 01/27/20 01/28/20 Range/Units 19:10 20:17 06:04 WBC (4.0-11.0) K/uL RBC (4.50-5.90) M/uL Hgb (13.0-17.0) g/dL Hct (38.0-50.0) % MCV (80.0-98.0) fL MCH (27.0-32.0) pg MCHC (31.0-37.0) g/dL RDW Std Deviation (28.0-62.0) fl RDW Coeff of Ji (11.0-15.0) % Plt Count (150-400) K/uL MPV (7.40-12.00) fL Neut % (Auto) (48.0-80.0) % Lymph % (Auto) (16.0-40.0) % Quay % (Auto) (0.0-15.0) % Eos % (Auto) (0.0-7.0) % Baso % (Auto) (0.0-1.5) % Neut # (Auto) (1.4-5.7) K/uL Lymph # (Auto) (0.6-2.4) K/uL Quay # (Auto) (0.0-0.8) K/uL Eos # (Auto) (0.0-0.7) K/uL Baso # (Auto) (0.0-0.1) K/uL Nucleated RBC % /100WBC Nucleated RBCs # K/uL INR APTT (18.6-31.3) SEC D-Dimer, Quantitative (0.0-0.50) mg/L FEU ABG pH (7.35-7.45) ABG pCO2 (35-45) mmHG ABG pO2 (75-100) mmHG ABG HCO3 (22-26) mEq/L ABG Total CO2 ABG Base Excess (-2.0-2.0) Lactate (0.20-2.00) mmol/L Sodium (136-148) mmol/L Potassium (3.5-5.1) mmol/L Chloride (98-107) mmol/L Carbon Dioxide (21.0-32.0) mmol/L BUN (7.0-18.0) mg/dL Creatinine (0.8-1.3) mg/dL Est Cr Clr Drug Dosing mL/min Estimated GFR (MDRD) ml/min Glucose (74-106) mg/dL POC Glucose 287 H 336 H (60-110) mg/dL Calcium (8.5-10.1) mg/dL Phosphorus (2.6-4.7) mg/dL Magnesium (1.8-2.4) mg/dL Total Bilirubin (0.2-1.0) mg/dL AST (15-37) IU/L ALT (14-63) IU/L Alkaline Phosphatase (46-116) U/L Troponin I (0.000-0.056) ng/mL C-Reactive Protein (0.00-0.90) mg/dL B-Natriuretic Peptide (<100) PG/ML Total Protein (6.4-8.2) g/dL Albumin (3.4-5.0) g/dL Globulin (2.6-4.0) g/dL Albumin/Globulin Ratio (0.9-1.6) Blood Type AB POSITIVE Antibody Screen NEGATIVE Cold Antibody Screen POSITIVE 01/28/20 01/28/20 Range/Units 06:07 06:07 WBC 6.43 (4.0-11.0) K/uL RBC 3.65 L (4.50-5.90) M/uL Hgb 11.7 L (13.0-17.0) g/dL Hct 34.0 L (38.0-50.0) % MCV 93.2 (80.0-98.0) fL MCH 32.1 H (27.0-32.0) pg MCHC 34.4 (31.0-37.0) g/dL RDW Std Deviation 43.0 (28.0-62.0) fl RDW Coeff of Ji 13 (11.0-15.0) % Plt Count 177 (150-400) K/uL MPV 10.40 (7.40-12.00) fL Neut % (Auto) 91.5 H (48.0-80.0) % Lymph % (Auto) 4.4 L (16.0-40.0) % Quay % (Auto) 3.9 (0.0-15.0) % Eos % (Auto) 0.0 (0.0-7.0) % Baso % (Auto) 0.2 (0.0-1.5) % Neut # (Auto) 5.9 H (1.4-5.7) K/uL Lymph # (Auto) 0.3 L (0.6-2.4) K/uL Quay # (Auto) 0.3 (0.0-0.8) K/uL Eos # (Auto) 0.0 (0.0-0.7) K/uL Baso # (Auto) 0.0 (0.0-0.1) K/uL Nucleated RBC % 0.0 /100WBC Nucleated RBCs # 0 K/uL INR APTT (18.6-31.3) SEC D-Dimer, Quantitative (0.0-0.50) mg/L FEU ABG pH (7.35-7.45) ABG pCO2 (35-45) mmHG ABG pO2 (75-100) mmHG ABG HCO3 (22-26) mEq/L ABG Total CO2 ABG Base Excess (-2.0-2.0) Lactate (0.20-2.00) mmol/L Sodium 135 L (136-148) mmol/L Potassium 3.8 (3.5-5.1) mmol/L Chloride 95 L (98-107) mmol/L Carbon Dioxide 27.9 (21.0-32.0) mmol/L BUN 32 H (7.0-18.0) mg/dL Creatinine 1.7 H (0.8-1.3) mg/dL Est Cr Clr Drug Dosing 48.31 mL/min Estimated GFR (MDRD) 41.5 ml/min Glucose 357 H (74-106) mg/dL POC Glucose (60-110) mg/dL Calcium 8.1 L (8.5-10.1) mg/dL Phosphorus 3.9 (2.6-4.7) mg/dL Magnesium 2.2 (1.8-2.4) mg/dL Total Bilirubin 0.7 (0.2-1.0) mg/dL AST 64 H (15-37) IU/L ALT 38 (14-63) IU/L Alkaline Phosphatase 74 (46-116) U/L Troponin I (0.000-0.056) ng/mL C-Reactive Protein (0.00-0.90) mg/dL B-Natriuretic Peptide (<100) PG/ML Total Protein 6.3 L (6.4-8.2) g/dL Albumin 2.2 L (3.4-5.0) g/dL Globulin 4.1 H (2.6-4.0) g/dL Albumin/Globulin Ratio 0.5 L (0.9-1.6) Blood Type Antibody Screen Cold Antibody Screen Waldo Results Last 24 Hours: Microbiology 01/27/20 13:59 Anaerobic Blood Culture - Final Blood - Venous - Lab Draw Med Orders - Current: Current Medications Acetaminophen (Tylenol) 650 mg PO Q4H PRN PRN Reason: Pain (Mild 1-3)/fever Albuterol/Ipratropium (Combivent Respimat) 0 gm INH Q6H PRN PRN Reason: Dyspnea Carvedilol (Coreg) 25 mg PO BIDMEALS COUNTS INCLUDE 234 BEDS AT THE [facility] Last Admin: 01/28/20 08:23 Dose: 25 mg Documented by: Dexamethasone (Dexamethasone) 6 mg PO DAILY COUNTS INCLUDE 234 BEDS AT THE [facility] Dextrose/Water (Dextrose 50% In Water) 50 ml IV ASDIRECTED PRN PRN Reason: Hypoglycemia Doxazosin Mesylate (Cardura) 4 mg PO DAILY COUNTS INCLUDE 234 BEDS AT THE [facility] Enoxaparin Sodium (Lovenox) 40 mg SUBCUT Q24H COUNTS INCLUDE 234 BEDS AT THE [facility] Glucagon (Glucagen) 1 mg IM ASDIRECTED PRN PRN Reason: Hypoglycemia Remdesivir 100 mg/ Sodium (Chloride) 100 mls @ 100 mls/hr IV Q24H COUNTS INCLUDE 234 BEDS AT THE [facility] Stop: 01/31/20 19:44 Pantoprazole Sodium 40 mg/ (Sodium Chloride) 10 mls @ 300 mls/hr IV DAILY COUNTS INCLUDE 234 BEDS AT THE [facility] Last Admin: 01/27/20 19:37 Dose: 300 mls/hr Documented by: Levofloxacin/Dextrose 750 mg/ (Premix) 150 mls @ 100 mls/hr IV Q24H COUNTS INCLUDE 234 BEDS AT THE [facility] Last Admin: 01/27/20 20:21 Dose: 100 mls/hr Documented by: Insulin Aspart (Novolog) 0 unit SUBCUT TIDAC COUNTS INCLUDE 234 BEDS AT THE [facility]; Protocol Last Admin: 01/28/20 06:58 Dose: 8 units Documented by: Insulin Detemir (Levemir) 30 unit SUBCUT BEDTIME COUNTS INCLUDE 234 BEDS AT THE [facility] Last Admin: 01/27/20 20:21 Dose: 30 units Documented by: Isosorbide Dinitrate (Isordil) 20 mg PO BID COUNTS INCLUDE 234 BEDS AT THE [facility] Last Admin: 01/27/20 20:20 Dose: 20 mg Documented by: Non-Formulary Medication (Evolocumab [Repatha Sureclick]) 140 mg SQ .EVERY 2 WEEKS COUNTS INCLUDE 234 BEDS AT THE [facility] Ondansetron HCl (Zofran) 4 mg IVPUSH Q4H PRN PRN Reason: Nausea Ticagrelor 90 Mg 1 each PO BID COUNTS INCLUDE 234 BEDS AT THE [facility] Ranolazine (Ranexa) 1,000 mg PO Q12H COUNTS INCLUDE 234 BEDS AT THE [facility] Last Admin: 01/28/20 06:08 Dose: 1,000 mg Documented by: Sertraline HCl (Zoloft) 50 mg PO DAILY COUNTS INCLUDE 234 BEDS AT THE [facility] Sodium Chloride (Saline Flush) 10 ml FLUSH ASDIRECTED PRN PRN Reason: Keep Vein Open Last Admin: 01/27/20 15:52 Dose: 10 ml Documented by: Sodium Chloride (Saline Flush) 2.5 ml FLUSH ASDIRECTED PRN PRN Reason: Keep Vein Open Last Admin: 01/27/20 15:52 Dose: 2.5 ml Documented by: Tizanidine HCl (Zanaflex) 2 mg PO Q6H PRN PRN Reason: muscle spasms Tramadol HCl (Ultram) 50 mg PO BEDTIME PRN PRN Reason: Pain Discontinued Medications Acetaminophen (Tylenol Extra Strength) 1,000 mg PO ONETIME ONE Stop: 01/27/20 12:39 Last Admin: 01/27/20 13:12 Dose: 1,000 mg Documented by: Dexamethasone (Dexamethasone) 10 mg IV ONETIME ONE Stop: 01/27/20 12:39 Last Admin: 01/27/20 13:13 Dose: 10 mg Documented by: Heparin Sodium (Porcine) (Heparin Sodium) 5,000 units SUBCUT Q8H NILA Last Admin: 01/28/20 02:50 Dose: 5,000 units Documented by: Sodium Chloride (Normal Saline) 1,000 mls @ 999 mls/hr IV .Bolus ONE Stop: 01/27/20 13:38 Last Admin: 01/27/20 13:13 Dose: 999 mls/hr Documented by: Remdesivir 200 mg/ Sodium (Chloride) 250 mls @ 250 mls/hr IV ONETIME ONE Stop: 01/27/20 17:47 Last Admin: 01/27/20 18:47 Dose: 250 mls/hr Documented by: Magnesium Sulfate (Magnesium Sulfate In Water Premix) 2 gm in 50 mls @ 50 mls/h r IV ONETIME ONE Stop: 01/27/20 19:59 Last Admin: 01/27/20 19:36 Dose: 50 mls/hr Documented by: Iopamidol (Isovue Multipack-370 (76%)) 100 ml IVPUSH ONETIME ONE Stop: 01/27/20 16:54 Last Admin: 01/27/20 16:54 Dose: 100 ml Documented by: Ketorolac Tromethamine (Toradol) 15 mg IVPUSH ONETIME ONE Stop: 01/27/20 12:39 Last Admin: 01/27/20 13:12 Dose: 15 mg Documented by: Magnesium Sulfate (Magnesium Sulfate In Water Premix) 2 gm IV ONETIME ONE Stop: 01/27/20 18:45 Non-Formulary Medication (Ticagrelor) 90 mg PO BID NILA Last Admin: 01/27/20 21:40 Dose: Not Given Documented by: Non-Formulary Medication (Tizanidine) 2 mg PO Q6H PRN PRN Reason: muscle spasms Ondansetron HCl (Zofran) 4 mg IVPUSH ONETIME ONE Stop: 01/27/20 14:10 Last Admin: 01/27/20 15:52 Dose: 4 mg Documented by: Potassium Chloride (Potassium Chloride) 40 meq PO ONETIME ONE Stop: 01/27/20 14:10 Last Admin: 01/27/20 15:52 Dose: 40 meq Documented by: - Exam General: Alert, Oriented, Cooperative, No Acute Distress Lungs: Normal Respiratory Effort, Other (crackles in bases b/l) Cardiovascular: Regular Rate, Regular Rhythm GI/Abdominal Exam: Normal Bowel Sounds, Soft, Non-Tender, No Distention Extremities: Normal Inspection, No Pedal Edema Sepsis Event Note - Evaluation Sepsis Screening Result: No Definite Risk - Focused Exam Vital Signs: Vital Signs Temp Pulse Pulse Resp BP BP Pulse Ox 01/28/20 08:23 77 128/72 01/28/20 03:15 36.8 C 78 20 123/86 93 L 01/27/20 23:28 36.6 C 77 20 164/89 H 92 L - Problem List & Annotations (1) Hypoxia SNOMED Code(s): 593847485 Code(s): R09.02 - HYPOXEMIA Status: Acute Current Visit: Yes (2) Diabetes SNOMED Code(s): 19687795 Code(s): E11.9 - TYPE 2 DIABETES MELLITUS WITHOUT COMPLICATIONS Status: Acute Current Visit: No (3) Coronary artery disease SNOMED Code(s): 65763190 Code(s): I25.10 - ATHSCL HEART DISEASE OF [place] CORONARY ARTERY W/O ANG PCTRS Status: Chronic Priority: High Current Visit: No Qualifiers: Coronary Disease-Associated Artery/Lesion type: unspecified vessel or lesion type [place] vs. transplanted heart: ute heart Associated angina: with other forms of angina Qualified Code(s): I25.118 - Atherosclerotic heart disease of [place] coronary artery with other forms of angina pectoris (4) Hypertension SNOMED Code(s): 70578900 Code(s): I10 - ESSENTIAL (PRIMARY) HYPERTENSION Status: Acute Current Visit: No (5) COVID-19 SNOMED Code(s): 182591724 Code(s): U07.1 - COVID-19 Status: Acute Current Visit: Yes - Problem List Review Problem List Initiated/Reviewed/Updated: Yes - My Orders Last 24 Hours: My Active Orders 01/27/20 Lunch [employer] Diet [DIET] 01/27/20 18:00 Albuterol/Ipratropium [Combivent Respimat] See Dose Instructions INH Q6H PRN 01/27/20 18:37 Oxygen Therapy [RC] PRN Up ad Sherlyn [RC] ASDIRECTED VTE/DVT Education [RC] PER UNIT ROUTINE Vital Signs [RC] Q4H Acetaminophen [TylenoL] 650 mg PO Q4H PRN Ondansetron [Zofran] 4 mg IVPUSH Q4H PRN Resuscitation Status Routine 01/27/20 18:41 Blood Glucose Check, Bedside [RC] TIDAC Dextrose 50% in Water 50 ml IV ASDIRECTED PRN Glucagon,Human Recombinant [GlucaGen] 1 mg IM ASDIRECTED PRN 01/27/20 18:43 RT Incentive Spirometry [RC] ASDIRECTED RT Post Treatment Assessment [RC] Click to Edit RT Pre-Treatment Assessment [RC] Click to Edit 01/27/20 18:45 Pantoprazole [ProTONIX IV] 40 mg Sodium Chloride 0.9% [Normal Saline] 10 ml IV DAILY 01/27/20 18:48 Telemetry Monitoring [Cardiac Monitoring] [RC] . DIRECTED 01/27/20 19:00 Evolocumab [Repatha Sureclick] 140 mg SQ .EVERY 2 WEEKS Ranolazine [Ranexa] 1,000 mg PO Q12H traMADol [Ultram] 50 mg PO BEDTIME PRN 01/27/20 19:10 COLD ABS [BBK] Routine FRESH FROZEN PLASMA [BBK] Stat TYPE AND SCREEN [BBK] Routine 01/27/20 19:30 Transfuse Fresh Frozen Plasma [COMM] Urgent 01/27/20 20:00 Levofloxacin/Dextrose 5%-Water [Levaquin in D5W 750 MG/150 ML] 750 mg Premix Bag 1 bag IV Q24H 01/27/20 21:00 Insulin Detemir [Levemir] 30 unit SUBCUT BEDTIME Isosorbide Dinitrate [Isordil] 20 mg PO BID 01/28/20 07:06 tiZANidine [Zanaflex] 2 mg PO Q6H PRN 01/28/20 07:30 Insulin Aspart [NovoLOG] See Protocol SUBCUT TIDAC 01/28/20 08:00 carvediloL [Coreg] 25 mg PO BIDMEALS 01/28/20 09:00 Doxazosin [Cardura] 4 mg PO DAILY Patient's Own Medication [Ptom] 1 each PO BID Sertraline [Zoloft] 50 mg PO DAILY dexAMETHasone 6 mg PO DAILY 01/28/20 18:45 Remdesivir (Eua) [Remdesivir (EUA)] 100 mg Sodium Chloride 0.9% [Normal Saline] 100 ml IV Q24H - Plan Plan:: Assessment and Plan: 1. Acute hypoxic respiratory failure secondary to COVID19: - Continue supplemental oxygen prn to maintain O2 sat > 92%, Combivent q6 prn, dexamethasone 6 mg qd, PPI and Remdesivir. Will discontinue levaquin and start ceftriaxone and doxycycline. Will transfuse 1 unit of convalescent plasma today when available. Encouraged to prone as much as possible. - Patient given fact sheet for EAU use for convalescent plasma, explained risks and consents to treatment. - Patient given fact sheet for Remdesivir, explained risks and consents to treatment. - CT angio was negative for PE. CXR showed bilateral pneumonia. 2. DUTCH: - Will hold losartan for now. Will give IV NS 500 cc bolus today. 3. Diabetes mellitus type 2: - Will continue long acting insulin, ADA diet, Novolog SSI and accuchecks TIDAC. 4. DVT prophylaxis: - Lovenox 40 mg subcut qd. 5. Past medical history of [place] s/p stents, HTN and HLD. - Resume home medications with the exception of losartan secondary to #2.
[2020-01-28] MEDS: Sertraline 50 MG Tab PO SCH (09:45)
[2020-01-28] MEDS: Dexamethasone 4 MG Tab PO SCH (09:45)
[2020-01-28] MEDS: Doxazosin 4 MG Tab PO SCH (09:45)
[2020-01-28] MEDS: Isosorbide Dinitrate 10 MG Tab PO SCH ×2 (09:45→20:21)
[2020-01-28] MEDS: Enoxaparin 40 MG/0.4 ML Syringe SUBCUT SCH (09:46)
[2020-01-28] MEDS: Pantoprazole 40 MG in Sodium Chloride 0.9% 10 ML IV SCH (09:46)
[2020-01-28] MEDS ORDERED: Sodium Chloride 0.9% 500 ML IV SCH (10:00)
[2020-01-28] MEDS: cefTRIAXone 1 GM in Premix Bag 1 BAG IV SCH (10:57)
[2020-01-28] MEDS: REMDESIVIR 100 MG in Sodium Chloride 0.9% 100 ML IV SCH (18:13)
[2020-01-28] MEDS: Albuterol/Ipratropium 4 GM Inhalation Spray INH PRN (19:53)
[2020-01-28] MEDS: traMADol 50 MG Tab PO PRN (20:22)
[2020-01-28] MEDS: Doxycycline 100 MG Cap PO SCH (20:22)
[2020-01-28] MEDS: Insulin Detemir 100 Units/ML 3 ML Pen SUBCUT SCH (20:55)
[2020-01-29] MEDS: Albuterol/Ipratropium 4 GM Inhalation Spray INH PRN (01:47)
[2020-01-29] MEDS: Sodium Chloride 0.65% Nasal Spray 45 ML Bottle NAS PRN ×2 (02:18→08:20)
[2020-01-29] MEDS: Benzonatate 100 MG Cap PO PRN ×2 (02:18→21:30)
[2020-01-29] MEDS: Acetaminophen 325 MG Tab PO PRN (02:23)
--- NOTE | 2020-01-29 04:18 | PN ---
THC Physician - Brief Progress [id number]/04/2020 04:13[facility] Sharonda Eric, NEFTALI - FLEXN [facility] - MWN ICUBANNERMINGERAALEXA CHRISTIANDate of Service 01/29/2020 04:13HPI/E vents of Note Case discussed with RN. 59 year old M admitted with COVID. Treated with high leanna NC a nd remdesivir/plasma/decadron/abx.73 191/104 95%Recs include: hemodynamic monitoring, high leanna NC /BiPAP PRN, repeat ABG, encourage self proning, remdesivir/plasma/decadron per protocol, GI and DVT p rophylaxis, abx, follow cultures, trend LA, replace lytes as needed, glycemic monitoring, pain contro l, neuro checks.Interventions Minor-Communication with other healthcare providers and/or familyElectr onically Signed by: KORY LANE () on 01/29/2020 04:17
[2020-01-29 07:06] LABS: CARBON DIOXIDE,CO2 29.3 mmol/L (21.0-32.0); POTASSIUM,K 3.6 mmol/L (3.5-5.1)
[2020-01-29] MEDS: Insulin Aspart 100 Units/ML 3 ML Pen SUBCUT SCH ×3 (07:56→16:44)
--- NOTE | 2020-01-29 08:44 | PCM.PN ---
- General Info Date of Service: 01/29/20 Subjective Update: Patient noted to have oxygen desaturation overnight. Patient was started on BiPAP, however, refused saying he could not tolerate it and was then started on non-rebreather. Patient denies any fevers, chills, nausea, vomiting, chest pain or SOB at bedside this AM. - Patient Data Vitals - Most Recent: Last Vital Signs Temp 36.8 C 01/29/20 08:00 Pulse 77 01/29/20 06:30 Resp 14 01/29/20 08:00 BP 185/100 H 01/29/20 08:00 Pulse Ox 94 L 01/29/20 08:00 Weight - Most Recent: 84.64 kg I&O - Last 24 Hours: Intake & Output 01/28/20 01/29/20 01/29/20 22:59 06:59 14:59 Intake Total 751 600 Output Total 750 350 Balance 1 250 Lab Results Last 24 Hours: Laboratory Results - last 24 hr 01/27/20 01/28/20 01/28/20 Range/Units 19:10 12:07 16:42 WBC (4.0-11.0) K/uL RBC (4.50-5.90) M/uL Hgb (13.0-17.0) g/dL Hct (38.0-50.0) % MCV (80.0-98.0) fL MCH (27.0-32.0) pg MCHC (31.0-37.0) g/dL RDW Std Deviation (28.0-62.0) fl RDW Coeff of Ji (11.0-15.0) % Plt Count (150-400) K/uL MPV (7.40-12.00) fL Neut % (Auto) (48.0-80.0) % Lymph % (Auto) (16.0-40.0) % [place] % (Auto) (0.0-15.0) % Eos % (Auto) (0.0-7.0) % Baso % (Auto) (0.0-1.5) % Neut # (Auto) (1.4-5.7) K/uL Lymph # (Auto) (0.6-2.4) K/uL [place] # (Auto) (0.0-0.8) K/uL Eos # (Auto) (0.0-0.7) K/uL Baso # (Auto) (0.0-0.1) K/uL Nucleated RBC % /100WBC Nucleated RBCs # K/uL ABG pH (7.35-7.45) ABG pCO2 (35-45) mmHG ABG pO2 (75-100) mmHG ABG HCO3 (22-26) mEq/L ABG Total CO2 ABG Base Excess (-2.0-2.0) Sodium (136-148) mmol/L Potassium (3.5-5.1) mmol/L Chloride (98-107) mmol/L Carbon Dioxide (21.0-32.0) mmol/L BUN (7.0-18.0) mg/dL Creatinine (0.8-1.3) mg/dL Est Cr Clr Drug Dosing mL/min Estimated GFR (MDRD) ml/min Glucose (74-106) mg/dL POC Glucose 305 H 311 H (60-110) mg/dL Calcium (8.5-10.1) mg/dL Total Bilirubin (0.2-1.0) mg/dL AST (15-37) IU/L ALT (14-63) IU/L Alkaline Phosphatase (46-116) U/L Total Protein (6.4-8.2) g/dL Albumin (3.4-5.0) g/dL Globulin (2.6-4.0) g/dL Albumin/Globulin Ratio (0.9-1.6) Blood Type AB POSITIVE Antibody Screen NEGATIVE Cold Antibody Screen POSITIVE 01/28/20 01/29/20 01/29/20 Range/Units 20:54 01:46 02:10 WBC (4.0-11.0) K/uL RBC (4.50-5.90) M/uL Hgb (13.0-17.0) g/dL Hct (38.0-50.0) % MCV (80.0-98.0) fL MCH (27.0-32.0) pg MCHC (31.0-37.0) g/dL RDW Std Deviation (28.0-62.0) fl RDW Coeff of Ji (11.0-15.0) % Plt Count (150-400) K/uL MPV (7.40-12.00) fL Neut % (Auto) (48.0-80.0) % Lymph % (Auto) (16.0-40.0) % [place] % (Auto) (0.0-15.0) % Eos % (Auto) (0.0-7.0) % Baso % (Auto) (0.0-1.5) % Neut # (Auto) (1.4-5.7) K/uL Lymph # (Auto) (0.6-2.4) K/uL [place] # (Auto) (0.0-0.8) K/uL Eos # (Auto) (0.0-0.7) K/uL Baso # (Auto) (0.0-0.1) K/uL Nucleated RBC % /100WBC Nucleated RBCs # K/uL ABG pH 7.483 H (7.35-7.45) ABG pCO2 41 (35-45) mmHG ABG pO2 44 L (75-100) mmHG ABG HCO3 31 H (22-26) mEq/L ABG Total CO2 27.8 ABG Base Excess 6.6 H (-2.0-2.0) Sodium (136-148) mmol/L Potassium (3.5-5.1) mmol/L Chloride (98-107) mmol/L Carbon Dioxide (21.0-32.0) mmol/L BUN (7.0-18.0) mg/dL Creatinine (0.8-1.3) mg/dL Est Cr Clr Drug Dosing mL/min Estimated GFR (MDRD) ml/min Glucose (74-106) mg/dL POC Glucose 325 H 291 H (60-110) mg/dL Calcium (8.5-10.1) mg/dL Total Bilirubin (0.2-1.0) mg/dL AST (15-37) IU/L ALT (14-63) IU/L Alkaline Phosphatase (46-116) U/L Total Protein (6.4-8.2) g/dL Albumin (3.4-5.0) g/dL Globulin (2.6-4.0) g/dL Albumin/Globulin Ratio (0.9-1.6) Blood Type Antibody Screen Cold Antibody Screen 11/04/20 11/04/20 11/04/20 Range/Units 06:08 06:24 06:26 WBC 9.73 (4.0-11.0) K/uL RBC 3.70 L (4.50-5.90) M/uL Hgb 11.9 L (13.0-17.0) g/dL Hct 34.4 L (38.0-50.0) % MCV 93.0 (80.0-98.0) fL MCH 32.2 H (27.0-32.0) pg MCHC 34.6 (31.0-37.0) g/dL RDW Std Deviation 42.5 (28.0-62.0) fl RDW Coeff of Ji 13 (11.0-15.0) % Plt Count 227 (150-400) K/uL MPV 10.30 (7.40-12.00) fL Neut % (Auto) 90.6 H (48.0-80.0) % Lymph % (Auto) 3.0 L (16.0-40.0) % [place] % (Auto) 6.2 (0.0-15.0) % Eos % (Auto) 0.0 (0.0-7.0) % Baso % (Auto) 0.2 (0.0-1.5) % Neut # (Auto) 8.8 H (1.4-5.7) K/uL Lymph # (Auto) 0.3 L (0.6-2.4) K/uL [place] # (Auto) 0.6 (0.0-0.8) K/uL Eos # (Auto) 0.0 (0.0-0.7) K/uL Baso # (Auto) 0.0 (0.0-0.1) K/uL Nucleated RBC % 0.0 /100WBC Nucleated RBCs # 0 K/uL ABG pH 7.478 H (7.35-7.45) ABG pCO2 43 (35-45) mmHG ABG pO2 58 L (75-100) mmHG ABG HCO3 32 H (22-26) mEq/L ABG Total CO2 25.6 ABG Base Excess 7.0 H (-2.0-2.0) Sodium (136-148) mmol/L Potassium (3.5-5.1) mmol/L Chloride (98-107) mmol/L Carbon Dioxide (21.0-32.0) mmol/L BUN (7.0-18.0) mg/dL Creatinine (0.8-1.3) mg/dL Est Cr Clr Drug Dosing mL/min Estimated GFR (MDRD) ml/min Glucose (74-106) mg/dL POC Glucose 220 H (60-110) mg/dL Calcium (8.5-10.1) mg/dL Total Bilirubin (0.2-1.0) mg/dL AST (15-37) IU/L ALT (14-63) IU/L Alkaline Phosphatase (46-116) U/L Total Protein (6.4-8.2) g/dL Albumin (3.4-5.0) g/dL Globulin (2.6-4.0) g/dL Albumin/Globulin Ratio (0.9-1.6) Blood Type Antibody Screen Cold Antibody Screen 01/29/20 Range/Units 06:26 WBC (4.0-11.0) K/uL RBC (4.50-5.90) M/uL Hgb (13.0-17.0) g/dL Hct (38.0-50.0) % MCV (80.0-98.0) fL MCH (27.0-32.0) pg MCHC (31.0-37.0) g/dL RDW Std Deviation (28.0-62.0) fl RDW Coeff of Ji (11.0-15.0) % Plt Count (150-400) K/uL MPV (7.40-12.00) fL Neut % (Auto) (48.0-80.0) % Lymph % (Auto) (16.0-40.0) % [place] % (Auto) (0.0-15.0) % Eos % (Auto) (0.0-7.0) % Baso % (Auto) (0.0-1.5) % Neut # (Auto) (1.4-5.7) K/uL Lymph # (Auto) (0.6-2.4) K/uL [place] # (Auto) (0.0-0.8) K/uL Eos # (Auto) (0.0-0.7) K/uL Baso # (Auto) (0.0-0.1) K/uL Nucleated RBC % /100WBC Nucleated RBCs # K/uL ABG pH (7.35-7.45) ABG pCO2 (35-45) mmHG ABG pO2 (75-100) mmHG ABG HCO3 (22-26) mEq/L ABG Total CO2 ABG Base Excess (-2.0-2.0) Sodium 136 (136-148) mmol/L Potassium 3.6 (3.5-5.1) mmol/L Chloride 97 L (98-107) mmol/L Carbon Dioxide 29.3 (21.0-32.0) mmol/L BUN 35 H (7.0-18.0) mg/dL Creatinine 1.4 H (0.8-1.3) mg/dL Est Cr Clr Drug Dosing 58.66 mL/min Estimated GFR (MDRD) 51.9 ml/min Glucose 240 H (74-106) mg/dL POC Glucose (60-110) mg/dL Calcium 8.7 (8.5-10.1) mg/dL Total Bilirubin 0.6 (0.2-1.0) mg/dL AST 57 H (15-37) IU/L ALT 40 (14-63) IU/L Alkaline Phosphatase 89 (46-116) U/L Total Protein 6.6 (6.4-8.2) g/dL Albumin 2.3 L (3.4-5.0) g/dL Globulin 4.3 H (2.6-4.0) g/dL Albumin/Globulin Ratio 0.5 L (0.9-1.6) Blood Type Antibody Screen Cold Antibody Screen [place] Results Last 24 Hours: Microbiology 01/27/20 13:59 Aerobic Blood Culture - Preliminary Blood - Venous - Lab Draw NO GROWTH AFTER 1 DAY Anaerobic Blood Culture - Final 01/27/20 13:48 Aerobic Blood Culture - Preliminary Blood - Venous NO GROWTH AFTER 1 DAY Anaerobic Blood Culture - Preliminary NO GROWTH AFTER 1 DAY Med Orders - Current: Current Medications Acetaminophen (Tylenol) 650 mg PO Q4H PRN PRN Reason: Pain (Mild 1-3)/fever Last Admin: 01/29/20 02:23 Dose: 650 mg Documented by: Albuterol/Ipratropium (Combivent Respimat) 0 gm INH Q6H [facility] Benzonatate (Tessalon Perles) 100 mg PO Q6H PRN PRN Reason: Cough Last Admin: 01/29/20 02:18 Dose: 100 mg Documented by: Carvedilol (Coreg) 25 mg PO BIDMEALS [facility] Last Admin: 01/28/20 17:36 Dose: 25 mg Documented by: Dexamethasone (Dexamethasone) 6 mg PO DAILY [facility] Last Admin: 01/28/20 09:45 Dose: 6 mg Documented by: Dextrose/Water (Dextrose 50% In Water) 50 ml IV ASDIRECTED PRN PRN Reason: Hypoglycemia Doxazosin Mesylate (Cardura) 4 mg PO DAILY [facility] Last Admin: 01/28/20 09:45 Dose: 4 mg Documented by: Doxycycline Hyclate (Vibramycin) 100 mg PO Q12HR [facility] Last Admin: 01/28/20 20:22 Dose: 100 mg Documented by: Enoxaparin Sodium (Lovenox) 40 mg SUBCUT Q24H [facility] Last Admin: 01/28/20 09:46 Dose: 40 mg Documented by: Glucagon (Glucagen) 1 mg IM ASDIRECTED PRN PRN Reason: Hypoglycemia Remdesivir 100 mg/ Sodium (Chloride) 100 mls @ 100 mls/hr IV Q24H [facility] Stop: 01/31/20 19:44 Last Admin: 01/28/20 18:13 Dose: 100 mls/hr Documented by: Pantoprazole Sodium 40 mg/ (Sodium Chloride) 10 mls @ 300 mls/hr IV DAILY [facility] Last Admin: 01/28/20 09:46 Dose: 300 mls/hr Documented by: Ceftriaxone Sodium/Dextrose 1 (gm/ Premix) 50 mls @ 100 mls/hr IV Q24H [facility] Last Admin: 01/28/20 10:57 Dose: 100 mls/hr Documented by: Insulin Aspart (Novolog) 0 unit SUBCUT TIDAC [facility]; Protocol Last Admin: 01/29/20 07:56 Dose: 4 units Documented by: Insulin Detemir (Levemir) 32 unit SUBCUT BEDTIME [facility] Last Admin: 01/28/20 20:55 Dose: 32 units Documented by: Isosorbide Dinitrate (Isordil) 20 mg PO BID [facility] Last Admin: 01/28/20 20:21 Dose: 20 mg Documented by: Non-Formulary Medication (Evolocumab [Repatha Jeanna]) 140 mg SQ .EVERY 2 WEEKS [facility] Ondansetron HCl (Zofran) 4 mg IVPUSH Q4H PRN PRN Reason: Nausea Ticagrelor 90 Mg 1 each PO BID [facility] Last Admin: 01/28/20 20:22 Dose: 1 each Documented by: Ranolazine (Ranexa) 1,000 mg PO Q12H [facility] Last Admin: 01/29/20 06:22 Dose: 1,000 mg Documented by: Sertraline HCl (Zoloft) 50 mg PO DAILY [facility] Last Admin: 01/28/20 09:45 Dose: 50 mg Documented by: Sodium Chloride (Saline Flush) 10 ml FLUSH ASDIRECTED PRN PRN Reason: Keep Vein Open Last Admin: 01/27/20 15:52 Dose: 10 ml Documented by: Sodium Chloride (Saline Flush) 2.5 ml FLUSH ASDIRECTED PRN PRN Reason: Keep Vein Open Last Admin: 01/27/20 15:52 Dose: 2.5 ml Documented by: Sodium Chloride ([place] Nasal [place]) 0 ml CORNELIO Q6H PRN PRN Reason: Congestion Last Admin: 01/29/20 02:18 Dose: 1 spray Documented by: Tizanidine HCl (Zanaflex) 4 mg PO Q8H PRN PRN Reason: muscle spasms Last Admin: 01/28/20 11:29 Dose: 4 mg Documented by: Tramadol HCl (Ultram) 50 mg PO BEDTIME PRN PRN Reason: Pain Last Admin: 01/28/20 20:22 Dose: 50 mg Documented by: Discontinued Medications Acetaminophen (Tylenol Extra Strength) 1,000 mg PO ONETIME ONE Stop: 01/27/20 12:39 Last Admin: 01/27/20 13:12 Dose: 1,000 mg Documented by: Albuterol/Ipratropium (Combivent Respimat) 0 gm INH Q6H PRN PRN Reason: Dyspnea Last Admin: 01/29/20 01:47 Dose: 1 puff Documented by: Dexamethasone (Dexamethasone) 10 mg IV ONETIME ONE Stop: 01/27/20 12:39 Last Admin: 01/27/20 13:13 Dose: 10 mg Documented by: Heparin Sodium (Porcine) (Heparin Sodium) 5,000 units SUBCUT Q8H [facility] Last Admin: 01/28/20 02:50 Dose: 5,000 units Documented by: Sodium Chloride (Normal Saline) 1,000 mls @ 999 mls/hr IV .Bolus ONE Stop: 01/27/20 13:38 Last Admin: 01/27/20 13:13 Dose: 999 mls/hr Documented by: Remdesivir 200 mg/ Sodium (Chloride) 250 mls @ 250 mls/hr IV ONETIME ONE Stop: 01/27/20 17:47 Last Admin: 01/27/20 18:47 Dose: 250 mls/hr Documented by: Magnesium Sulfate (Magnesium Sulfate In Water Premix) 2 gm in 50 mls @ 50 mls/hr IV ONETIME ONE Stop: 01/27/20 19:59 Last Admin: 01/27/20 19:36 Dose: 50 mls/hr Documented by: Levofloxacin/Dextrose 750 mg/ (Premix) 150 mls @ 100 mls/hr IV Q24H [facility] Last Admin: 01/27/20 20:21 Dose: 100 mls/hr Documented by: Sodium Chloride (Normal Saline) 500 mls @ 999 mls/hr IV .BOLUS [facility] Last Admin: 01/28/20 10:55 Dose: 999 mls/hr Documented by: Insulin Detemir (Levemir) 30 unit SUBCUT BEDTIME [facility] Last Admin: 01/27/20 20:21 Dose: 30 units Documented by: Iopamidol (Isovue Multipack-370 (76%)) 100 ml IVPUSH ONETIME ONE Stop: 01/27/20 16:54 Last Admin: 01/27/20 16:54 Dose: 100 ml Documented by: Ketorolac Tromethamine (Toradol) 15 mg IVPUSH ONETIME ONE Stop: 01/27/20 12:39 Last Admin: 01/27/20 13:12 Dose: 15 mg Documented by: Magnesium Sulfate (Magnesium Sulfate In Water Premix) 2 gm IV ONETIME ONE Stop: 01/27/20 18:45 Non-Formulary Medication (Ticagrelor) 90 mg PO BID [facility] Last Admin: 01/27/20 21:40 Dose: Not Given Documented by: Non-Formulary Medication (Tizanidine) 2 mg PO Q6H PRN PRN Reason: muscle spasms Ondansetron HCl (Zofran) 4 mg IVPUSH ONETIME ONE Stop: 01/27/20 14:10 Last Admin: 01/27/20 15:52 Dose: 4 mg Documented by: Ticagrelor 90 Mg 1 each PO BID [facility] Last Admin: 01/28/20 12:16 Dose: Not Given Documented by: Potassium Chloride (Potassium Chloride) 40 meq PO ONETIME ONE Stop: 01/27/20 14:10 Last Admin: 01/27/20 15:52 Dose: 40 meq Documented by: Tizanidine HCl (Zanaflex) 2 mg PO Q6H PRN PRN Reason: muscle spasms - Exam General: Alert, Oriented, Cooperative, No Acute Distress Lungs: Normal Respiratory Effort, Other (crackles in bases b/l) Cardiovascular: Regular Rate, Regular Rhythm GI/Abdominal Exam: Normal Bowel Sounds, Soft, Non-Tender, No Distention Extremities: Normal Inspection, No Pedal Edema Sepsis Event Note - Evaluation Sepsis Screening Result: No Definite Risk - Focused Exam Vital Signs: Vital Signs Temp Pulse Resp BP Pulse Ox 01/29/20 08:00 36.8 C 14 185/100 H 94 L 01/29/20 06:30 77 17 188/97 H 91 L 01/29/20 04:40 36.6 C 79 21 H 164/95 H 91 L 01/29/20 03:00 75 14 173/104 H 92 L 01/28/20 23:04 36.6 C 72 18 163/93 H 92 L - Problem List & Annotations (1) Hypoxia SNOMED Code(s): 872911201 Code(s): R09.02 - HYPOXEMIA Status: Acute Current Visit: Yes (2) Diabetes SNOMED Code(s): 23753914 Code(s): E11.9 - TYPE 2 DIABETES MELLITUS WITHOUT COMPLICATIONS Status: Acute Current Visit: No (3) Coronary artery disease SNOMED Code(s): 17708701 Code(s): I25.10 - ATHSCL HEART DISEASE OF [place] CORONARY ARTERY W/O ANG PCTRS Status: Chronic Priority: High Current Visit: No Qualifiers: Coronary Disease-Associated Artery/Lesion type: unspecified vessel or lesion type [place] vs. transplanted heart: [place] heart Associated angina: with other forms of angina Qualified Code(s): I25.118 - Atherosclerotic heart disease of [place] coronary artery with other forms of angina pectoris (4) Hypertension SNOMED Code(s): 63008190 Code(s): I10 - ESSENTIAL (PRIMARY) HYPERTENSION Status: Acute Current Visit: No (5) COVID-19 SNOMED Code(s): 560575451 Code(s): U07.1 - COVID-19 Status: Acute Current Visit: Yes - Problem List Review Problem List Initiated/Reviewed/Updated: Yes - My Orders Last 24 Hours: My Active Orders 01/28/20 08:00 carvediloL [Coreg] 25 mg PO BIDMEALS 01/28/20 09:00 Doxazosin [Cardura] 4 mg PO DAILY Sertraline [Zoloft] 50 mg PO DAILY dexAMETHasone 6 mg PO DAILY 01/28/20 10:59 Communication Order [RC] ROUTINE 01/28/20 11:14 tiZANidine [Zanaflex] 4 mg PO Q8H PRN 01/28/20 12:00 Patient's Own Medication [Ptom] 1 each PO BID 01/28/20 18:45 Remdesivir (Eua) [Remdesivir (EUA)] 100 mg Sodium Chloride 0.9% [Normal Saline] 100 ml IV Q24H 01/29/20 07:58 Transfuse Fresh Frozen Plasma [COMM] Urgent Code Status [Resuscitation Status] Routine 01/29/20 12:00 Albuterol/Ipratropium [Combivent Respimat] See Dose Instructions INH Q6H - Plan Plan:: Assessment and Plan: 1. Acute hypoxic respiratory failure secondary to COVID19: - Continue supplemental oxygen prn to maintain O2 sat > 92%, Combivent q6 NILA, dexamethasone 6 mg qd, PPI and Remdesivir. Patient on ceftriaxone and doxycycline. He received 1 unit of convalescent plasma yesterday and will transfuse additional 1 unit today. Continue to prone as much as possible. - Discussed code status with patient today and he stated that he does not wish to be intubated but would like CPR. - Patient given fact sheet for EAU use for convalescent plasma, explained risks and consents to treatment. - Patient given fact sheet for Remdesivir, explained risks and consents to treatment. - CT angio was negative for PE. CXR showed bilateral pneumonia. 2. DUTCH, improving: - Will continue to hold losartan for now. 3. Diabetes mellitus type 2: - Will continue long acting insulin, ADA diet, Novolog SSI and accuchecks TIDAC. 4. DVT prophylaxis: - Lovenox 40 mg subcut qd. 5. Past medical history of CT s/p stents, HTN and HLD. - Resume home medications with the exception of losartan secondary to #2.
[2020-01-29] MEDS: Carvedilol 25 MG Tab PO SCH ×2 (09:39→17:34)
[2020-01-29] MEDS: Doxazosin 4 MG Tab PO SCH (09:43)
[2020-01-29] MEDS: Dexamethasone 4 MG Tab PO SCH (09:45)
[2020-01-29] MEDS: Isosorbide Dinitrate 10 MG Tab PO SCH ×2 (09:46→21:22)
[2020-01-29] MEDS: Doxycycline 100 MG Cap PO SCH ×2 (09:47→21:22)
[2020-01-29] MEDS: Sertraline 50 MG Tab PO SCH (09:48)
[2020-01-29] MEDS: Enoxaparin 40 MG/0.4 ML Syringe SUBCUT SCH (09:49)
[2020-01-29] MEDS: Pantoprazole 40 MG in Sodium Chloride 0.9% 10 ML IV SCH (09:52)
[2020-01-29] MEDS: cefTRIAXone 1 GM in Premix Bag 1 BAG IV SCH (09:57)
[2020-01-29] MEDS: Albuterol/Ipratropium 4 GM Inhalation Spray INH SCH ×2 (12:00→19:30)
[2020-01-29] MEDS: REMDESIVIR 100 MG in Sodium Chloride 0.9% 100 ML IV SCH (18:20)
[2020-01-29] MEDS: Insulin Detemir 100 Units/ML 3 ML Pen SUBCUT SCH (21:24)
[2020-01-29] MEDS: Ondansetron 4 MG/2 ML SDV IVPUSH PRN (22:17)
[2020-01-29] MEDS: traMADol 50 MG Tab PO PRN (22:26)
[2020-01-30] MEDS: Albuterol/Ipratropium 4 GM Inhalation Spray INH SCH ×4 (00:08→17:24)
[2020-01-30] MEDS: Acetaminophen 325 MG Tab PO PRN ×2 (01:19→08:21)
[2020-01-30] MEDS ORDERED: traMADol 50 MG Tab PO ONE (04:01)
[2020-01-30] MEDS: Sodium Chloride 0.65% Nasal Spray 45 ML Bottle NAS PRN ×3 (04:08→17:46)
[2020-01-30] MEDS: Ondansetron 4 MG/2 ML SDV IVPUSH PRN (04:19)
[2020-01-30] MEDS ORDERED: Haloperidol 5 MG Tab PO ONE (05:18)
[2020-01-30 06:41] LABS: BLOOD UREA NITROGEN,BUN 30 mg/dL (7.0-18.0); CHLORIDE,CL 100 mmol/L (98-107); GLUCOSE RANDOM 157 mg/dL (74-106); POTASSIUM,K 3.5 mmol/L (3.5-5.1); SODIUM,NA 139 mmol/L (136-148)
[2020-01-30] MEDS: Benzonatate 100 MG Cap PO PRN ×2 (07:04→18:21)
[2020-01-30] MEDS: Insulin Aspart 100 Units/ML 3 ML Pen SUBCUT SCH ×3 (08:15→17:43)
[2020-01-30] MEDS: Isosorbide Dinitrate 10 MG Tab PO SCH ×2 (08:16→22:06)
[2020-01-30] MEDS: Doxycycline 100 MG Cap PO SCH ×2 (08:18→22:06)
[2020-01-30] MEDS: Carvedilol 25 MG Tab PO SCH ×2 (08:19→17:44)
[2020-01-30] MEDS: Dexamethasone 4 MG Tab PO SCH (08:19)
[2020-01-30] MEDS: Sertraline 50 MG Tab PO SCH (08:19)
[2020-01-30] MEDS: Doxazosin 4 MG Tab PO SCH (08:20)
[2020-01-30] MEDS: Pantoprazole 40 MG in Sodium Chloride 0.9% 10 ML IV SCH (08:20)
[2020-01-30] MEDS: Enoxaparin 40 MG/0.4 ML Syringe SUBCUT SCH (08:22)
[2020-01-30] MEDS: cefTRIAXone 1 GM in Premix Bag 1 BAG IV SCH (11:00)
[2020-01-30] MEDS: Losartan 50 MG Tab PO SCH (11:26)
--- NOTE | 2020-01-30 11:58 | PCM.PN ---
- General Info Date of Service: 01/30/20 Subjective Update: Reports breathing and cough about the same as yesterday. Tolerating oral diet. Reports having bowel movements. - Patient Data Vitals - Most Recent: Last Vital Signs Temp 36.3 C 01/30/20 08:00 Pulse 86 01/30/20 08:19 Resp 19 01/30/20 09:00 BP 156/94 H 01/30/20 11:26 Pulse Ox 90 L 01/30/20 09:00 Weight - Most Recent: 85.265 kg I&O - Last 24 Hours: Intake & Output 01/29/20 01/30/20 01/30/20 22:59 06:59 14:59 Intake Total 696 640 Output Total 820 Balance 696 -180 Lab Results Last 24 Hours: Laboratory Results - last 24 hr 01/27/20 01/29/20 01/29/20 Range/Units 19:10 16:07 21:20 WBC (4.0-11.0) K/uL RBC (4.50-5.90) M/uL Hgb (13.0-17.0) g/dL Hct (38.0-50.0) % MCV (80.0-98.0) fL MCH (27.0-32.0) pg MCHC (31.0-37.0) g/dL RDW Std Deviation (28.0-62.0) fl RDW Coeff of Ji (11.0-15.0) % Plt Count (150-400) K/uL MPV (7.40-12.00) fL Add Manual Diff Neutrophils % (Manual) (48.0-80.0) % Band Neutrophils % % Lymphocytes % (Manual) (16.0-40.0) % Monocytes % (Manual) (0.0-15.0) % Metamyelocytes % % Nucleated RBC % /100WBC Absolute Seg Neuts (1.4-5.7) Band Neutrophils # Lymphocytes # (Manual) (0.6-2.4) Monocytes # (Manual) (0.0-0.8) Absolute Metamyelocyte Nucleated RBCs # K/uL Sodium (136-148) mmol/L Potassium (3.5-5.1) mmol/L Chloride (98-107) mmol/L Carbon Dioxide (21.0-32.0) mmol/L BUN (7.0-18.0) mg/dL Creatinine (0.8-1.3) mg/dL Est Cr Clr Drug Dosing mL/min Estimated GFR (MDRD) ml/min Glucose (74-106) mg/dL POC Glucose 152 H 188 H (60-110) mg/dL Calcium (8.5-10.1) mg/dL Total Bilirubin (0.2-1.0) mg/dL AST (15-37) IU/L ALT (14-63) IU/L Alkaline Phosphatase (46-116) U/L Total Protein (6.4-8.2) g/dL Albumin (3.4-5.0) g/dL Globulin (2.6-4.0) g/dL Albumin/Globulin Ratio (0.9-1.6) Blood Type AB POSITIVE Antibody Screen NEGATIVE Cold Antibody Screen POSITIVE 01/30/20 01/30/20 01/30/20 Range/Units 05:40 05:40 07:57 WBC 9.88 (4.0-11.0) K/uL RBC 3.74 L (4.50-5.90) M/uL Hgb 12.0 L (13.0-17.0) g/dL Hct 34.7 L (38.0-50.0) % MCV 92.8 (80.0-98.0) fL MCH 32.1 H (27.0-32.0) pg MCHC 34.6 (31.0-37.0) g/dL RDW Std Deviation 42.2 (28.0-62.0) fl RDW Coeff of Ji 12 (11.0-15.0) % Plt Count 230 (150-400) K/uL MPV 10.00 (7.40-12.00) fL Add Manual Diff YES Neutrophils % (Manual) 88 H (48.0-80.0) % Band Neutrophils % 4 % Lymphocytes % (Manual) 5 L (16.0-40.0) % Monocytes % (Manual) 1 (0.0-15.0) % Metamyelocytes % 2 % Nucleated RBC % 0.0 /100WBC Absolute Seg Neuts 8.7 H (1.4-5.7) Band Neutrophils # 0.4 Lymphocytes # (Manual) 0.5 L (0.6-2.4) Monocytes # (Manual) 0.1 (0.0-0.8) Absolute Metamyelocyte 0.2 Nucleated RBCs # 0 K/uL Sodium 139 (136-148) mmol/L Potassium 3.5 (3.5-5.1) mmol/L Chloride 100 (98-107) mmol/L Carbon Dioxide 30.0 (21.0-32.0) mmol/L BUN 30 H (7.0-18.0) mg/dL Creatinine 1.2 (0.8-1.3) mg/dL Est Cr Clr Drug Dosing 68.44 mL/min Estimated GFR (MDRD) > 60.0 ml/min Glucose 157 H (74-106) mg/dL POC Glucose 114 H (60-110) mg/dL Calcium 8.5 (8.5-10.1) mg/dL Total Bilirubin 0.7 (0.2-1.0) mg/dL AST 44 H (15-37) IU/L ALT 34 (14-63) IU/L Alkaline Phosphatase 125 H (46-116) U/L Total Protein 6.4 (6.4-8.2) g/dL Albumin 2.3 L (3.4-5.0) g/dL Globulin 4.1 H (2.6-4.0) g/dL Albumin/Globulin Ratio 0.6 L (0.9-1.6) Blood Type Antibody Screen Cold Antibody Screen [place] Results Last 24 Hours: Microbiology 01/27/20 13:59 Aerobic Blood Culture - Preliminary Blood - Venous - Lab Draw NO GROWTH AFTER 2 DAYS Anaerobic Blood Culture - Final 01/27/20 13:48 Aerobic Blood Culture - Preliminary Blood - Venous NO GROWTH AFTER 2 DAYS Anaerobic Blood Culture - Preliminary NO GROWTH AFTER 2 DAYS Med Orders - Current: Current Medications Acetaminophen (Tylenol) 650 mg PO Q4H PRN PRN Reason: Pain (Mild 1-3)/fever Last Admin: 01/30/20 08:21 Dose: 650 mg Documented by: Albuterol/Ipratropium (Combivent Respimat) 0 gm INH Q6H NILA Last Admin: 01/30/20 11:21 Dose: 1 puff Documented by: Benzonatate (Tessalon Perles) 100 mg PO Q6H PRN PRN Reason: Cough Last Admin: 11/05/20 07:04 Dose: 100 mg Documented by: Carvedilol (Coreg) 25 mg PO BIDMEALS [facility] Last Admin: 01/30/20 08:19 Dose: 25 mg Documented by: Dexamethasone (Dexamethasone) 6 mg PO DAILY [facility] [place] Last Admin: 01/30/20 08:19 Dose: 6 mg Documented by: Dextrose/Water (Dextrose 50% In Water) 50 ml IV ASDIRECTED PRN PRN Reason: Hypoglycemia Doxazosin Mesylate (Cardura) 4 mg PO DAILY [facility] [place] Last Admin: 01/30/20 08:20 Dose: 4 mg Documented by: Doxycycline Hyclate (Vibramycin) 100 mg PO Q12HR [facility] [place] Last Admin: 01/30/20 08:18 Dose: 100 mg Documented by: Enoxaparin Sodium (Lovenox) 40 mg SUBCUT Q24H [facility] [place] Last Admin: 01/30/20 08:22 Dose: 40 mg Documented by: Glucagon (Glucagen) 1 mg IM ASDIRECTED PRN PRN Reason: Hypoglycemia Remdesivir 100 mg/ Sodium (Chloride) 100 mls @ 100 mls/hr IV Q24H [facility] [place] Stop: 01/31/20 19:44 Last Admin: 01/29/20 18:20 Dose: 100 mls/hr Documented by: Pantoprazole Sodium 40 mg/ (Sodium Chloride) 10 mls @ 300 mls/hr IV DAILY [facility] [place] Last Admin: 01/30/20 08:20 Dose: 300 mls/hr Documented by: Ceftriaxone Sodium/Dextrose 1 (gm/ Premix) 50 mls @ 100 mls/hr IV Q24H [facility] [place] Last Admin: 01/30/20 11:00 Dose: 100 mls/hr Documented by: Insulin Aspart (Novolog) 0 unit SUBCUT TIDAC [facility]; Protocol Last Admin: 01/30/20 08:15 Dose: Not Given Documented by: Insulin Detemir (Levemir) 32 unit SUBCUT BEDTIME [facility] [place] Last Admin: 01/29/20 21:24 Dose: 32 units Documented by: Isosorbide Dinitrate (Isordil) 20 mg PO BID [facility] [place] Last Admin: 01/30/20 08:16 Dose: 20 mg Documented by: Losartan Potassium (Cozaar) 100 mg PO DAILY [facility] [place] Last Admin: 01/30/20 11:26 Dose: 100 mg Documented by: Melatonin (Melatonin) 3 mg PO BEDTIME PRN PRN Reason: Insomnia Non-Formulary Medication (Evolocumab [Repatha Sureclick]) 140 mg SQ .EVERY 2 WEEKS [facility] [place] Ondansetron HCl (Zofran) 4 mg IVPUSH Q4H PRN PRN Reason: Nausea Last Admin: 01/30/20 04:19 Dose: 4 mg Documented by: Ticagrelor 90 Mg 1 each PO BID [facility] [place] Last Admin: 01/30/20 08:24 Dose: 1 each Documented by: Ranolazine (Ranexa) 1,000 mg PO Q12H [facility] [place] Last Admin: 01/30/20 07:02 Dose: 1,000 mg Documented by: Sertraline HCl (Zoloft) 50 mg PO DAILY [facility] [place] Last Admin: 01/30/20 08:19 Dose: 50 mg Documented by: Sodium Chloride (Saline Flush) 10 ml FLUSH ASDIRECTED PRN PRN Reason: Keep Vein Open Last Admin: 01/27/20 15:52 Dose: 10 ml Documented by: Sodium Chloride (Saline Flush) 2.5 ml FLUSH ASDIRECTED PRN PRN Reason: Keep Vein Open Last Admin: 01/27/20 15:52 Dose: 2.5 ml Documented by: Sodium Chloride ([place] Nasal [place]) 0 ml CORNELIO Q6H PRN PRN Reason: Congestion Last Admin: 01/30/20 11:26 Dose: 1 spray Documented by: Tizanidine HCl (Zanaflex) 4 mg PO Q8H PRN PRN Reason: muscle spasms Last Admin: 01/28/20 11:29 Dose: 4 mg Documented by: Tramadol HCl (Ultram) 50 mg PO BEDTIME PRN PRN Reason: Pain Last Admin: 01/29/20 22:26 Dose: 50 mg Documented by: Discontinued Medications Acetaminophen (Tylenol Extra Strength) 1,000 mg PO ONETIME ONE Stop: 01/27/20 12:39 Last Admin: 01/27/20 13:12 Dose: 1,000 mg Documented by: Albuterol/Ipratropium (Combivent Respimat) 0 gm INH Q6H PRN PRN Reason: Dyspnea Last Admin: 01/29/20 01:47 Dose: 1 puff Documented by: Dexamethasone (Dexamethasone) 10 mg IV ONETIME ONE Stop: 01/27/20 12:39 Last Admin: 01/27/20 13:13 Dose: 10 mg Documented by: Haloperidol (Haldol) 2.5 mg PO ONETIME ONE Stop: 01/30/20 05:19 Last Admin: 01/30/20 05:32 Dose: 2.5 mg Documented by: Heparin Sodium (Porcine) (Heparin Sodium) 5,000 units SUBCUT Q8H [facility] [place] Last Admin: 01/28/20 02:50 Dose: 5,000 units Documented by: Sodium Chloride (Normal Saline) 1,000 mls @ 999 mls/hr IV .Bolus ONE Stop: 01/27/20 13:38 Last Admin: 01/27/20 13:13 Dose: 999 mls/hr Documented by: Remdesivir 200 mg/ Sodium (Chloride) 250 mls @ 250 mls/hr IV ONETIME ONE Stop: 01/27/20 17:47 Last Admin: 01/27/20 18:47 Dose: 250 mls/hr Documented by: Magnesium Sulfate (Magnesium Sulfate In Water Premix) 2 gm in 50 mls @ 50 mls/hr IV ONETIME ONE Stop: 01/27/20 19:59 Last Admin: 01/27/20 19:36 Dose: 50 mls/hr Documented by: Levofloxacin/Dextrose 750 mg/ (Premix) 150 mls @ 100 mls/hr IV Q24H [facility] [place] Last Admin: 01/27/20 20:21 Dose: 100 mls/hr Documented by: Sodium Chloride (Normal Saline) 500 mls @ 999 mls/hr IV .BOLUS [facility] [place] Last Admin: 01/28/20 10:55 Dose: 999 mls/hr Documented by: Insulin Detemir (Levemir) 30 unit SUBCUT BEDTIME [facility] [place] Last Admin: 01/27/20 20:21 Dose: 30 units Documented by: Iopamidol (Isovue Multipack-370 (76%)) 100 ml IVPUSH ONETIME ONE Stop: 01/27/20 16:54 Last Admin: 01/27/20 16:54 Dose: 100 ml Documented by: Ketorolac Tromethamine (Toradol) 15 mg IVPUSH ONETIME ONE Stop: 01/27/20 12:39 Last Admin: 01/27/20 13:12 Dose: 15 mg Documented by: Magnesium Sulfate (Magnesium Sulfate In Water Premix) 2 gm IV ONETIME ONE Stop: 01/27/20 18:45 Non-Formulary Medication (Ticagrelor) 90 mg PO BID [facility] [place] Last Admin: 01/27/20 21:40 Dose: Not Given Documented by: Non-Formulary Medication (Tizanidine) 2 mg PO Q6H PRN PRN Reason: muscle spasms Ondansetron HCl (Zofran) 4 mg IVPUSH ONETIME ONE Stop: 01/27/20 14:10 Last Admin: 01/27/20 15:52 Dose: 4 mg Documented by: Ticagrelor 90 Mg 1 each PO BID [facility] [place] Last Admin: 01/28/20 12:16 Dose: Not Given Documented by: Potassium Chloride (Potassium Chloride) 40 meq PO ONETIME ONE Stop: 01/27/20 14:10 Last Admin: 01/27/20 15:52 Dose: 40 meq Documented by: Tizanidine HCl (Zanaflex) 2 mg PO Q6H PRN PRN Reason: muscle spasms Tramadol HCl (Ultram) 50 mg PO ONETIME ONE Stop: 01/30/20 04:02 Last Admin: 01/30/20 04:23 Dose: 50 mg Documented by: - Exam General: Alert, Oriented, Cooperative, No Acute Distress Lungs: Normal Respiratory Effort, Crackles Cardiovascular: Regular Rate, Regular Rhythm GI/Abdominal Exam: Normal Bowel Sounds, Soft, Non-Tender, No Distention Extremities: Normal Inspection, No Pedal Edema Sepsis Event Note - Evaluation Sepsis Screening Result: No Definite Risk - Focused Exam Vital Signs: Vital Signs Temp Pulse Resp BP BP Pulse Ox Pulse Ox 01/30/20 11:26 156/94 H 01/30/20 09:00 19 155/80 H 90 L 01/30/20 08:47 15 93 L 01/30/20 08:20 189/105 H 01/30/20 08:19 86 189/105 H 01/30/20 08:16 189/105 H 01/30/20 08:00 36.3 C 22 H 189/105 H 85 L 01/30/20 07:00 13 175/95 H 92 L 01/30/20 06:00 16 185/83 H 91 L 91 L 01/30/20 05:00 16 158/86 H 90 L 01/30/20 04:00 36.3 C 15 91 L 01/30/20 03:00 15 167/87 H 91 L 01/30/20 02:00 19 91 L 01/30/20 01:00 20 158/95 H 93 L 01/30/20 00:00 36.5 C 19 93 L - Problem List & Annotations (1) Hypoxia SNOMED Code(s): 080660919 Code(s): R09.02 - HYPOXEMIA Status: Acute Current Visit: Yes (2) Diabetes SNOMED Code(s): 71889037 Code(s): E11.9 - TYPE 2 DIABETES MELLITUS WITHOUT COMPLICATIONS Status: Acute Current Visit: No (3) Coronary artery disease SNOMED Code(s): 74403497 Code(s): I25.10 - ATHSCL HEART DISEASE OF [place] CORONARY ARTERY W/O ANG PCTRS Status: Chronic Priority: High Current Visit: No Qualifiers: Coronary Disease-Associated Artery/Lesion type: unspecified vessel or lesion type [place] vs. transplanted heart: [place] heart Associated angina: with other forms of angina Qualified Code(s): I25.118 - Atherosclerotic heart disease of [place] coronary artery with other forms of angina pectoris (4) Hypertension SNOMED Code(s): 38375577 Code(s): I10 - ESSENTIAL (PRIMARY) HYPERTENSION Status: Acute Current Visit: No (5) COVID-19 SNOMED Code(s): 292309336 Code(s): U07.1 - COVID-19 Status: Acute Current Visit: Yes - Problem List Review Problem List Initiated/Reviewed/Updated: Yes - My Orders Last 24 Hours: My Active Orders 01/29/20 12:00 Albuterol/Ipratropium [Combivent Respimat] See Dose Instructions INH Q6H 01/31/20 05:11 CBC WITH AUTO DIFF [HEME] AM CMP [COMPREHENSIVE METABOLIC PN,CMP] [CHEM] AM - Plan Plan:: Assessment and Plan: 1. Acute hypoxic respiratory failure secondary to COVID19: - Continue supplemental oxygen, Combivent q6 NILA, dexamethasone 6 mg qd, PPI and Remdesivir. Continue ceftriaxone and doxycycline. Patient received 2 units of convalescent plasma. Continue to prone as much as possible. - Discussed code status with patient and he stated that he does not wish to be intubated but would like CPR. - Patient given fact sheet for EAU use for convalescent plasma, explained risks and consents to treatment. - Patient given fact sheet for Remdesivir, explained risks and consents to treatment. - CT angio was negative for PE. CXR showed bilateral pneumonia. 2. DUTCH, resolved. 3. Diabetes mellitus type 2: - Will continue long acting insulin, ADA diet, Novolog SSI and accuchecks TIDAC. 4. DVT prophylaxis: - Lovenox 40 mg subcut qd. 5. Past medical history of MA s/p stents, HTN and HLD. - Resume home medications.
[2020-01-30] MEDS ORDERED: LORazepam 0.5 MG Tab PO ONE (12:05)
[2020-01-30] MEDS: REMDESIVIR 100 MG in Sodium Chloride 0.9% 100 ML IV SCH (17:47)
[2020-01-30] MEDS: Insulin Detemir 100 Units/ML 3 ML Pen SUBCUT SCH (22:07)
[2020-01-30] MEDS: Melatonin 3 MG Tab PO PRN (22:09)
[2020-01-31] MEDS: Albuterol/Ipratropium 4 GM Inhalation Spray INH SCH ×5 (01:37→23:11)
[2020-01-31] MEDS: Benzonatate 100 MG Cap PO PRN ×2 (01:38→20:06)
[2020-01-31] MEDS ORDERED: traMADol 50 MG Tab PO ONE (06:20)
[2020-01-31 06:47] LABS: BLOOD UREA NITROGEN,BUN 29 mg/dL (7.0-18.0); CARBON DIOXIDE,CO2 33.8 mmol/L (21.0-32.0); CHLORIDE,CL 102 mmol/L (98-107); GLUCOSE RANDOM 54 mg/dL (74-106); POTASSIUM,K 3.4 mmol/L (3.5-5.1); SODIUM,NA 142 mmol/L (136-148)
[2020-01-31] MEDS ORDERED: Potassium Chloride 20 MEQ Tab.ER PO ONE (07:07)
[2020-01-31] MEDS ORDERED: 50% Dextrose in Water 50 ML Syringe IVPUSH ONE (07:13)
--- NOTE | 2020-01-31 08:01 | PCM.PN ---
- General Info Date of Service: 01/31/20 Subjective Update: Reports shortness of breath and cough unchanged from yesterday. Tolerating oral diet but per nursing he has been eating less. - Patient Data Vitals - Most Recent: Last Vital Signs Temp 36.6 C 01/31/20 04:00 Pulse 80 01/30/20 17:44 Resp 22 H 01/31/20 07:00 BP 169/88 H 01/30/20 23:00 Pulse Ox 80 L 01/31/20 07:00 Weight - Most Recent: 85.265 kg I&O - Last 24 Hours: Intake & Output 01/30/20 01/31/20 01/31/20 22:59 06:59 14:59 Intake Total 800 800 Balance 800 800 Lab Results Last 24 Hours: Laboratory Results - last 24 hr 01/30/20 01/30/20 01/30/20 Range/Units 07:57 12:29 17:36 WBC (4.0-11.0) K/uL RBC (4.50-5.90) M/uL Hgb (13.0-17.0) g/dL Hct (38.0-50.0) % MCV (80.0-98.0) fL MCH (27.0-32.0) pg MCHC (31.0-37.0) g/dL RDW Std Deviation (28.0-62.0) fl RDW Coeff of Ji (11.0-15.0) % Plt Count (150-400) K/uL MPV (7.40-12.00) fL Add Manual Diff Neutrophils % (Manual) (48.0-80.0) % Band Neutrophils % % Lymphocytes % (Manual) (16.0-40.0) % Monocytes % (Manual) (0.0-15.0) % Nucleated RBC % /100WBC Absolute Seg Neuts (1.4-5.7) Band Neutrophils # Lymphocytes # (Manual) (0.6-2.4) Monocytes # (Manual) (0.0-0.8) Nucleated RBCs # K/uL Sodium (136-148) mmol/L Potassium (3.5-5.1) mmol/L Chloride (98-107) mmol/L Carbon Dioxide (21.0-32.0) mmol/L BUN (7.0-18.0) mg/dL Creatinine (0.8-1.3) mg/dL Est Cr Clr Drug Dosing mL/min Estimated GFR (MDRD) ml/min Glucose (74-106) mg/dL POC Glucose 114 H 100 89 (60-110) mg/dL Calcium (8.5-10.1) mg/dL Total Bilirubin (0.2-1.0) mg/dL AST (15-37) IU/L ALT (14-63) IU/L Alkaline Phosphatase (46-116) U/L Total Protein (6.4-8.2) g/dL Albumin (3.4-5.0) g/dL Globulin (2.6-4.0) g/dL Albumin/Globulin Ratio (0.9-1.6) 01/30/20 01/31/20 01/31/20 Range/Units 21:59 05:56 05:56 WBC 11.12 H (4.0-11.0) K/uL RBC 3.69 L (4.50-5.90) M/uL Hgb 12.0 L (13.0-17.0) g/dL Hct 34.6 L (38.0-50.0) % MCV 93.8 (80.0-98.0) fL MCH 32.5 H (27.0-32.0) pg MCHC 34.7 (31.0-37.0) g/dL RDW Std Deviation 41.9 (28.0-62.0) fl RDW Coeff of Ji 12 (11.0-15.0) % Plt Count 217 (150-400) K/uL MPV 10.10 (7.40-12.00) fL Add Manual Diff YES Neutrophils % (Manual) 87 H (48.0-80.0) % Band Neutrophils % 3 % Lymphocytes % (Manual) 8 L (16.0-40.0) % Monocytes % (Manual) 2 (0.0-15.0) % Nucleated RBC % 0.0 /100WBC Absolute Seg Neuts 9.7 H (1.4-5.7) Band Neutrophils # 0.3 Lymphocytes # (Manual) 0.9 (0.6-2.4) Monocytes # (Manual) 0.2 (0.0-0.8) Nucleated RBCs # 0 K/uL Sodium 142 (136-148) mmol/L Potassium 3.4 L (3.5-5.1) mmol/L Chloride 102 (98-107) mmol/L Carbon Dioxide 33.8 H (21.0-32.0) mmol/L BUN 29 H (7.0-18.0) mg/dL Creatinine 1.2 (0.8-1.3) mg/dL Est Cr Clr Drug Dosing 68.44 mL/min Estimated GFR (MDRD) > 60.0 ml/min Glucose 54 L (74-106) mg/dL POC Glucose 190 H (60-110) mg/dL Calcium 8.7 (8.5-10.1) mg/dL Total Bilirubin 0.7 (0.2-1.0) mg/dL AST 62 H (15-37) IU/L ALT 47 (14-63) IU/L Alkaline Phosphatase 174 H (46-116) U/L Total Protein 6.4 (6.4-8.2) g/dL Albumin 2.4 L (3.4-5.0) g/dL Globulin 4.0 (2.6-4.0) g/dL Albumin/Globulin Ratio 0.6 L (0.9-1.6) 01/31/20 01/31/20 Range/Units 06:18 07:09 WBC (4.0-11.0) K/uL RBC (4.50-5.90) M/uL Hgb (13.0-17.0) g/dL Hct (38.0-50.0) % MCV (80.0-98.0) fL MCH (27.0-32.0) pg MCHC (31.0-37.0) g/dL RDW Std Deviation (28.0-62.0) fl RDW Coeff of Ji (11.0-15.0) % Plt Count (150-400) K/uL MPV (7.40-12.00) fL Add Manual Diff Neutrophils % (Manual) (48.0-80.0) % Band Neutrophils % % Lymphocytes % (Manual) (16.0-40.0) % Monocytes % (Manual) (0.0-15.0) % Nucleated RBC % /100WBC Absolute Seg Neuts (1.4-5.7) Band Neutrophils # Lymphocytes # (Manual) (0.6-2.4) Monocytes # (Manual) (0.0-0.8) Nucleated RBCs # K/uL Sodium (136-148) mmol/L Potassium (3.5-5.1) mmol/L Chloride (98-107) mmol/L Carbon Dioxide (21.0-32.0) mmol/L BUN (7.0-18.0) mg/dL Creatinine (0.8-1.3) mg/dL Est Cr Clr Drug Dosing mL/min Estimated GFR (MDRD) ml/min Glucose (74-106) mg/dL POC Glucose 46 L 69 (60-110) mg/dL Calcium (8.5-10.1) mg/dL Total Bilirubin (0.2-1.0) mg/dL AST (15-37) IU/L ALT (14-63) IU/L Alkaline Phosphatase (46-116) U/L Total Protein (6.4-8.2) g/dL Albumin (3.4-5.0) g/dL Globulin (2.6-4.0) g/dL Albumin/Globulin Ratio (0.9-1.6) Waldo Results Last 24 Hours: Microbiology 01/27/20 13:59 Aerobic Blood Culture - Preliminary Blood - Venous - Lab Draw NO GROWTH AFTER 3 DAYS Anaerobic Blood Culture - Final 01/27/20 13:48 Aerobic Blood Culture - Preliminary Blood - Venous NO GROWTH AFTER 3 DAYS Anaerobic Blood Culture - Preliminary NO GROWTH AFTER 3 DAYS Med Orders - Current: Current Medications Acetaminophen (Tylenol) 650 mg PO Q4H PRN PRN Reason: Pain (Mild 1-3)/fever Last Admin: 01/30/20 08:21 Dose: 650 mg Documented by: Albuterol/Ipratropium (Combivent Respimat) 0 gm INH Q6H [facility] Last Admin: 01/31/20 05:40 Dose: 1 puff Documented by: Benzonatate (Tessalon Perles) 100 mg PO Q6H PRN PRN Reason: Cough Last Admin: 01/31/20 01:38 Dose: 100 mg Documented by: Carvedilol (Coreg) 25 mg PO BIDMEALS [facility] Last Admin: 01/30/20 17:44 Dose: 25 mg Documented by: Dexamethasone (Dexamethasone) 6 mg PO DAILY [facility] Last Admin: 01/30/20 08:19 Dose: 6 mg Documented by: Dextrose/Water (Dextrose 50% In Water) 50 ml IV ASDIRECTED PRN PRN Reason: Hypoglycemia Doxazosin Mesylate (Cardura) 4 mg PO DAILY [facility] Last Admin: 01/30/20 08:20 Dose: 4 mg Documented by: Doxycycline Hyclate (Vibramycin) 100 mg PO Q12HR [facility] Last Admin: 01/30/20 22:06 Dose: 100 mg Documented by: Enoxaparin Sodium (Lovenox) 40 mg SUBCUT Q24H [facility] Last Admin: 01/30/20 08:22 Dose: 40 mg Documented by: Glucagon (Glucagen) 1 mg IM ASDIRECTED PRN PRN Reason: Hypoglycemia Remdesivir 100 mg/ Sodium (Chloride) 100 mls @ 100 mls/hr IV Q24H [facility] Stop: 01/31/20 19:44 Last Admin: 01/30/20 17:47 Dose: 100 mls/hr Documented by: Pantoprazole Sodium 40 mg/ (Sodium Chloride) 10 mls @ 300 mls/hr IV DAILY [facility] Last Admin: 01/30/20 08:20 Dose: 300 mls/hr Documented by: Ceftriaxone Sodium/Dextrose 1 (gm/ Premix) 50 mls @ 100 mls/hr IV Q24H [facility] Last Admin: 01/30/20 11:00 Dose: 100 mls/hr Documented by: Insulin Aspart (Novolog) 0 unit SUBCUT TIDAC [facility]; Protocol Last Admin: 01/30/20 17:43 Dose: Not Given Documented by: Insulin Detemir (Levemir) 32 unit SUBCUT BEDTIME [facility] Last Admin: 01/30/20 22:07 Dose: 32 units Documented by: Isosorbide Dinitrate (Isordil) 20 mg PO BID [facility] Last Admin: 01/30/20 22:06 Dose: 20 mg Documented by: Losartan Potassium (Cozaar) 100 mg PO DAILY [facility] Last Admin: 01/30/20 11:26 Dose: 100 mg Documented by: Melatonin (Melatonin) 3 mg PO BEDTIME PRN PRN Reason: Insomnia Last Admin: 01/30/20 22:09 Dose: 3 mg Documented by: Non-Formulary Medication (Evolocumab [Repatha Sureclick]) 140 mg SQ .EVERY 2 WEEKS [facility] Ondansetron HCl (Zofran) 4 mg IVPUSH Q4H PRN PRN Reason: Nausea Last Admin: 01/30/20 04:19 Dose: 4 mg Documented by: Ticagrelor 90 Mg 1 each PO BID [facility] Last Admin: 01/30/20 22:07 Dose: 1 each Documented by: Ranolazine (Ranexa) 1,000 mg PO Q12H [facility] Last Admin: 01/31/20 06:13 Dose: 1,000 mg Documented by: Sertraline HCl (Zoloft) 50 mg PO DAILY [facility] Last Admin: 01/30/20 08:19 Dose: 50 mg Documented by: Sodium Chloride (Saline Flush) 10 ml FLUSH ASDIRECTED PRN PRN Reason: Keep Vein Open Last Admin: 01/27/20 15:52 Dose: 10 ml Documented by: Sodium Chloride (Saline Flush) 2.5 ml FLUSH ASDIRECTED PRN PRN Reason: Keep Vein Open Last Admin: 01/27/20 15:52 Dose: 2.5 ml Documented by: Sodium Chloride ([place] Nasal [place]) 0 ml CORNELIO Q6H PRN PRN Reason: Congestion Last Admin: 01/30/20 17:46 Dose: 1 spray Documented by: Tizanidine HCl (Zanaflex) 4 mg PO Q8H PRN PRN Reason: muscle spasms Last Admin: 01/28/20 11:29 Dose: 4 mg Documented by: Tramadol HCl (Ultram) 50 mg PO BEDTIME PRN PRN Reason: Pain Last Admin: 01/29/20 22:26 Dose: 50 mg Documented by: Discontinued Medications Acetaminophen (Tylenol Extra Strength) 1,000 mg PO ONETIME ONE Stop: 01/27/20 12:39 Last Admin: 01/27/20 13:12 Dose: 1,000 mg Documented by: Albuterol/Ipratropium (Combivent Respimat) 0 gm INH Q6H PRN PRN Reason: Dyspnea Last Admin: 01/29/20 01:47 Dose: 1 puff Documented by: Dexamethasone (Dexamethasone) 10 mg IV ONETIME ONE Stop: 01/27/20 12:39 Last Admin: 01/27/20 13:13 Dose: 10 mg Documented by: Dextrose/Water (Dextrose 50% In Water) 50 ml IVPUSH ONETIME ONE Stop: 01/31/20 07:14 Last Admin: 01/31/20 07:34 Dose: 50 ml Documented by: Haloperidol (Haldol) 2.5 mg PO ONETIME ONE Stop: 01/30/20 05:19 Last Admin: 01/30/20 05:32 Dose: 2.5 mg Documented by: Heparin Sodium (Porcine) (Heparin Sodium) 5,000 units SUBCUT Q8H [facility] Last Admin: 01/28/20 02:50 Dose: 5,000 units Documented by: Sodium Chloride (Normal Saline) 1,000 mls @ 999 mls/hr IV .Bolus ONE Stop: 01/27/20 13:38 Last Admin: 01/27/20 13:13 Dose: 999 mls/hr Documented by: Remdesivir 200 mg/ Sodium (Chloride) 250 mls @ 250 mls/hr IV ONETIME ONE Stop: 01/27/20 17:47 Last Admin: 01/27/20 18:47 Dose: 250 mls/hr Documented by: Magnesium Sulfate (Magnesium Sulfate In Water Premix) 2 gm in 50 mls @ 50 mls/hr IV ONETIME ONE Stop: 01/27/20 19:59 Last Admin: 01/27/20 19:36 Dose: 50 mls/hr Documented by: Levofloxacin/Dextrose 750 mg/ (Premix) 150 mls @ 100 mls/hr IV Q24H [facility] Last Admin: 01/27/20 20:21 Dose: 100 mls/hr Documented by: Sodium Chloride (Normal Saline) 500 mls @ 999 mls/hr IV .BOLUS [facility] Last Admin: 01/28/20 10:55 Dose: 999 mls/hr Documented by: Insulin Detemir (Levemir) 30 unit SUBCUT BEDTIME [facility] Last Admin: 01/27/20 20:21 Dose: 30 units Documented by: Iopamidol (Isovue Multipack-370 (76%)) 100 ml IVPUSH ONETIME ONE Stop: 01/27/20 16:54 Last Admin: 01/27/20 16:54 Dose: 100 ml Documented by: Ketorolac Tromethamine (Toradol) 15 mg IVPUSH ONETIME ONE Stop: 01/27/20 12:39 Last Admin: 01/27/20 13:12 Dose: 15 mg Documented by: Lorazepam (Ativan) 0.5 mg PO ONETIME ONE Stop: 01/30/20 12:06 Last Admin: 01/30/20 12:26 Dose: 0.5 mg Documented by: Magnesium Sulfate (Magnesium Sulfate In Water Premix) 2 gm IV ONETIME ONE Stop: 01/27/20 18:45 Non-Formulary Medication (Ticagrelor) 90 mg PO BID [facility] Last Admin: 01/27/20 21:40 Dose: Not Given Documented by: Non-Formulary Medication (Tizanidine) 2 mg PO Q6H PRN PRN Reason: muscle spasms Ondansetron HCl (Zofran) 4 mg IVPUSH ONETIME ONE Stop: 01/27/20 14:10 Last Admin: 01/27/20 15:52 Dose: 4 mg Documented by: Ticagrelor 90 Mg 1 each PO BID [facility] Last Admin: 01/28/20 12:16 Dose: Not Given Documented by: Potassium Chloride (Potassium Chloride) 40 meq PO ONETIME ONE Stop: 01/27/20 14:10 Last Admin: 01/27/20 15:52 Dose: 40 meq Documented by: Potassium Chloride (Klor-Con M20) 40 meq PO ONETIME ONE Stop: 01/31/20 07:08 Tizanidine HCl (Zanaflex) 2 mg PO Q6H PRN PRN Reason: muscle spasms Tramadol HCl (Ultram) 50 mg PO ONETIME ONE Stop: 01/30/20 04:02 Last Admin: 01/30/20 04:23 Dose: 50 mg Documented by: Tramadol HCl (Ultram) 100 mg PO ONETIME ONE Stop: 01/31/20 06:21 Last Admin: 01/31/20 06:31 Dose: 100 mg Documented by: - Exam General: Alert, Oriented, Cooperative, No Acute Distress Lungs: Normal Respiratory Effort, Other (rales in bases b/l) Cardiovascular: Regular Rate, Regular Rhythm GI/Abdominal Exam: Normal Bowel Sounds, Soft, Non-Tender, No Distention Extremities: Normal Inspection, No Pedal Edema Sepsis Event Note - Evaluation Sepsis Screening Result: No Definite Risk - Focused Exam Vital Signs: Vital Signs Temp Resp BP BP Pulse Ox 01/31/20 07:00 22 H 80 L 01/31/20 06:00 24 H 86 L 01/31/20 05:00 23 H 83 L 01/31/20 04:00 36.6 C 21 H 90 L 01/31/20 03:00 13 77 L 01/31/20 02:00 21 H 90 L 01/31/20 01:00 19 78 L 01/31/20 00:00 26 H 90 L 01/30/20 23:00 20 169/88 H 84 L 01/30/20 22:06 169/88 H 01/30/20 22:00 22 H 169/88 H 91 L 01/30/20 21:00 21 H 151/87 H 90 L 01/30/20 20:00 36.9 C 28 H 162/94 H 83 L - Problem List & Annotations (1) Hypoxia SNOMED Code(s): 019286774 Code(s): R09.02 - HYPOXEMIA Status: Acute Current Visit: Yes (2) Diabetes SNOMED Code(s): 24828712 Code(s): E11.9 - TYPE 2 DIABETES MELLITUS WITHOUT COMPLICATIONS Status: Acute Current Visit: No (3) Coronary artery disease SNOMED Code(s): 22163115 Code(s): I25.10 - ATHSCL HEART DISEASE OF [place] CORONARY ARTERY W/O ANG PCTRS Status: Chronic Priority: High Current Visit: No Qualifiers: Coronary Disease-Associated Artery/Lesion type: unspecified vessel or lesion type [place] vs. transplanted heart: [place] heart Associated angina: with other forms of angina Qualified Code(s): I25.118 - Atherosclerotic heart disease of [place] coronary artery with other forms of angina pectoris (4) Hypertension SNOMED Code(s): 92046296 Code(s): I10 - ESSENTIAL (PRIMARY) HYPERTENSION Status: Acute Current Visit: No (5) COVID-19 SNOMED Code(s): 174213635 Code(s): U07.1 - COVID-19 Status: Acute Current Visit: Yes - Problem List Review Problem List Initiated/Reviewed/Updated: Yes - My Orders Last 24 Hours: My Active Orders 02/01/20 05:11 CBC WITH AUTO DIFF [HEME] AM CMP [COMPREHENSIVE METABOLIC PN,CMP] [CHEM] AM - Plan Plan:: Assessment and Plan: 1. Acute hypoxic respiratory failure secondary to COVID19: - Supplemental oxygen prn, Combivent q6 NILA, dexamethasone 6 mg qd, PPI, Remdesivir, ceftriaxone and doxycycline. Patient received 2 units of convalescent plasma. Continue to prone as much as possible. - Discussed code status with patient and he stated that he does not wish to be intubated but would like CPR. - Patient given fact sheet for EAU use for convalescent plasma, explained risks and consents to treatment. - Patient given fact sheet for Remdesivir, explained risks and consents to treatment. - CT angio was negative for PE. CXR showed bilateral pneumonia. 2. Anxiety: - Patient requesting medication for anxiety and muscle relaxer for his leg pain. Advised patient that we have to be very cautious with anxiolytic medication or muscle relaxers as they can cause respiratory depression. Will give Tramadol prn and Ativan prn. 3. Diabetes mellitus type 2: - Will continue long acting insulin, ADA diet, Novolog SSI and accuchecks TIDAC. 4. DVT prophylaxis: - Lovenox 40 mg subcut qd. 5. Past medical history of AR s/p stents, HTN and HLD. - Resume home medications.
[2020-01-31] MEDS: Insulin Aspart 100 Units/ML 3 ML Pen SUBCUT SCH ×3 (08:09→18:06)
[2020-01-31] MEDS: Pantoprazole 40 MG in Sodium Chloride 0.9% 10 ML IV SCH (09:03)
[2020-01-31] MEDS: Enoxaparin 40 MG/0.4 ML Syringe SUBCUT SCH (09:06)
[2020-01-31] MEDS: cefTRIAXone 1 GM in Premix Bag 1 BAG IV SCH (09:08)
[2020-01-31] MEDS: Dexamethasone 4 MG Tab PO SCH (09:09)
[2020-01-31] MEDS: Isosorbide Dinitrate 10 MG Tab PO SCH ×2 (09:09→20:04)
[2020-01-31] MEDS: Sertraline 50 MG Tab PO SCH (09:09)
[2020-01-31] MEDS: Losartan 50 MG Tab PO SCH (09:10)
[2020-01-31] MEDS: Doxazosin 4 MG Tab PO SCH (09:11)
[2020-01-31] MEDS: Doxycycline 100 MG Cap PO SCH ×2 (09:12→20:03)
[2020-01-31] MEDS: Carvedilol 25 MG Tab PO SCH ×2 (09:36→17:53)
[2020-01-31] MEDS ORDERED: traMADol 50 MG Tab PO PRN (10:34)
[2020-01-31] MEDS: LORazepam 0.5 MG Tab PO PRN ×2 (10:54→20:04)
--- NOTE | 2020-01-31 13:33 | PCM.SN.2 ---
- Free Text/Narrative Note: Patient noted to be have oxygen desaturation < 88% at times while on 15 L non- rebreather mask. Talked to patient about trying BiPAP, however, patient refused at this time. Also discussed code status again and patient reiterated that he does not wish to be intubated.
[2020-01-31] MEDS: traMADol 50 MG Tab PO PRN ×2 (14:15→22:50)
[2020-01-31] MEDS: REMDESIVIR 100 MG in Sodium Chloride 0.9% 100 ML IV SCH (18:33)
--- NOTE | 2020-01-31 19:17 | PCM.SN.2 ---
- Free Text/Narrative Note: Patient agreed to use BiPAP this afternoon and his oxygen saturations have improved. Spoke to patient again about his code status and patient now states that he wishes to be intubated if need be and would like to be FULL CODE. Spoke to patient's Eri and updated her on patient's wishes. All questions addressed.
[2020-01-31] MEDS ORDERED: Hydrocolloid Dressing 4x4 Bandage ONE (20:38)
[2020-01-31] MEDS ORDERED: Insulin Detemir 100 Units/ML 3 ML Pen SUBCUT SCH (21:00)
[2020-01-31] MEDS: Melatonin 3 MG Tab PO PRN (22:54)
[2020-02-01] MEDS: LORazepam 0.5 MG Tab PO PRN (04:10)
--- NOTE | 2020-02-01 06:40 | PN ---
THC Physician - Brief Progress [id number]/07/2020 06:38[facility]iam [place], [facility] - [facility], DION+Date of Service 02/01/2020 06 :38HPI/Events of Note Signed out by ERNESTO PRESLEY to followup- pt now on NIV and holding satsResting on vid eoD/w RN - no needs at this timeEICU available to assist Fluid balance positive- monitorInterventions Major-Respiratory failure - evaluation and management
[2020-02-01 06:51] LABS: BLOOD UREA NITROGEN,BUN 32 mg/dL (7.0-18.0); CARBON DIOXIDE,CO2 30.4 mmol/L (21.0-32.0); CHLORIDE,CL 103 mmol/L (98-107); GLUCOSE RANDOM 108 mg/dL (74-106); POTASSIUM,K 3.8 mmol/L (3.5-5.1); SODIUM,NA 140 mmol/L (136-148)
[2020-02-01] MEDS: Albuterol/Ipratropium 4 GM Inhalation Spray INH SCH ×2 (07:00→13:04)
[2020-02-01] MEDS: traMADol 50 MG Tab PO PRN (07:03)
[2020-02-01] MEDS: Benzonatate 100 MG Cap PO PRN (07:04)
[2020-02-01] MEDS: Insulin Aspart 100 Units/ML 3 ML Pen SUBCUT SCH ×3 (07:42→16:53)
[2020-02-01] MEDS: Carvedilol 25 MG Tab PO SCH (07:43)
[2020-02-01] MEDS: Pantoprazole 40 MG in Sodium Chloride 0.9% 10 ML IV SCH (08:48)
[2020-02-01] MEDS: Enoxaparin 40 MG/0.4 ML Syringe SUBCUT SCH (08:49)
[2020-02-01] MEDS: Losartan 50 MG Tab PO SCH (08:51)
[2020-02-01] MEDS: Doxycycline 100 MG Cap PO SCH (08:51)
[2020-02-01] MEDS: Isosorbide Dinitrate 10 MG Tab PO SCH (08:52)
[2020-02-01] MEDS: Dexamethasone 4 MG Tab PO SCH (08:52)
[2020-02-01] MEDS: Sertraline 50 MG Tab PO SCH (08:53)
[2020-02-01] MEDS: Doxazosin 4 MG Tab PO SCH (08:54)
--- NOTE | 2020-02-01 09:21 | PCM.PN ---
- General Info Date of Service: 02/01/20 Subjective Update: Tolerated BiPAP overnight. Denies any nausea, vomiting, fever or chills. Continues to have loose stools. - Patient Data Vitals - Most Recent: Last Vital Signs Temp 36.2 C 02/01/20 04:00 Pulse 83 02/01/20 07:43 Resp 32 H 02/01/20 07:30 BP 154/85 H 02/01/20 08:54 Pulse Ox 94 L 02/01/20 07:30 Weight - Most Recent: 85.265 kg I&O - Last 24 Hours: Intake & Output 01/31/20 02/01/20 02/01/20 22:59 06:59 14:59 Intake Total 600 650 Balance 600 650 Lab Results Last 24 Hours: Laboratory Results - last 24 hr 01/31/20 01/31/20 01/31/20 Range/Units 09:38 12:58 17:52 WBC (4.0-11.0) K/uL RBC (4.50-5.90) M/uL Hgb (13.0-17.0) g/dL Hct (38.0-50.0) % MCV (80.0-98.0) fL MCH (27.0-32.0) pg MCHC (31.0-37.0) g/dL RDW Std Deviation (28.0-62.0) fl RDW Coeff of Ji (11.0-15.0) % Plt Count (150-400) K/uL MPV (7.40-12.00) fL Neut % (Auto) (48.0-80.0) % Lymph % (Auto) (16.0-40.0) % [place] % (Auto) (0.0-15.0) % Eos % (Auto) (0.0-7.0) % Baso % (Auto) (0.0-1.5) % Neut # (Auto) (1.4-5.7) K/uL Lymph # (Auto) (0.6-2.4) K/uL [place] # (Auto) (0.0-0.8) K/uL Eos # (Auto) (0.0-0.7) K/uL Baso # (Auto) (0.0-0.1) K/uL Nucleated RBC % /100WBC Nucleated RBCs # K/uL Sodium (136-148) mmol/L Potassium (3.5-5.1) mmol/L Chloride (98-107) mmol/L Carbon Dioxide (21.0-32.0) mmol/L BUN (7.0-18.0) mg/dL Creatinine (0.8-1.3) mg/dL Est Cr Clr Drug Dosing mL/min Estimated GFR (MDRD) ml/min Glucose (74-106) mg/dL POC Glucose 171 H 87 145 H (60-110) mg/dL Calcium (8.5-10.1) mg/dL Total Bilirubin (0.2-1.0) mg/dL AST (15-37) IU/L ALT (14-63) IU/L Alkaline Phosphatase (46-116) U/L Total Protein (6.4-8.2) g/dL Albumin (3.4-5.0) g/dL Globulin (2.6-4.0) g/dL Albumin/Globulin Ratio (0.9-1.6) 01/31/20 01/31/20 02/01/20 Range/Units 20:15 23:40 05:20 WBC 9.58 (4.0-11.0) K/uL RBC 3.50 L (4.50-5.90) M/uL Hgb 11.2 L (13.0-17.0) g/dL Hct 32.6 L (38.0-50.0) % MCV 93.1 (80.0-98.0) fL MCH 32.0 (27.0-32.0) pg MCHC 34.4 (31.0-37.0) g/dL RDW Std Deviation 42.2 (28.0-62.0) fl RDW Coeff of Ji 13 (11.0-15.0) % Plt Count 153 (150-400) K/uL MPV 10.30 (7.40-12.00) fL Neut % (Auto) 89.1 H (48.0-80.0) % Lymph % (Auto) 5.9 L (16.0-40.0) % [place] % (Auto) 4.9 (0.0-15.0) % Eos % (Auto) 0.0 (0.0-7.0) % Baso % (Auto) 0.1 (0.0-1.5) % Neut # (Auto) 8.5 H (1.4-5.7) K/uL Lymph # (Auto) 0.6 (0.6-2.4) K/uL [place] # (Auto) 0.5 (0.0-0.8) K/uL Eos # (Auto) 0.0 (0.0-0.7) K/uL Baso # (Auto) 0.0 (0.0-0.1) K/uL Nucleated RBC % 0.0 /100WBC Nucleated RBCs # 0 K/uL Sodium (136-148) mmol/L Potassium (3.5-5.1) mmol/L Chloride (98-107) mmol/L Carbon Dioxide (21.0-32.0) mmol/L BUN (7.0-18.0) mg/dL Creatinine (0.8-1.3) mg/dL Est Cr Clr Drug Dosing mL/min Estimated GFR (MDRD) ml/min Glucose (74-106) mg/dL POC Glucose 242 H 226 H (60-110) mg/dL Calcium (8.5-10.1) mg/dL Total Bilirubin (0.2-1.0) mg/dL AST (15-37) IU/L ALT (14-63) IU/L Alkaline Phosphatase (46-116) U/L Total Protein (6.4-8.2) g/dL Albumin (3.4-5.0) g/dL Globulin (2.6-4.0) g/dL Albumin/Globulin Ratio (0.9-1.6) 02/01/20 02/01/20 Range/Units 05:20 06:59 WBC (4.0-11.0) K/uL RBC (4.50-5.90) M/uL Hgb (13.0-17.0) g/dL Hct (38.0-50.0) % MCV (80.0-98.0) fL MCH (27.0-32.0) pg MCHC (31.0-37.0) g/dL RDW Std Deviation (28.0-62.0) fl RDW Coeff of Ji (11.0-15.0) % Plt Count (150-400) K/uL MPV (7.40-12.00) fL Neut % (Auto) (48.0-80.0) % Lymph % (Auto) (16.0-40.0) % [place] % (Auto) (0.0-15.0) % Eos % (Auto) (0.0-7.0) % Baso % (Auto) (0.0-1.5) % Neut # (Auto) (1.4-5.7) K/uL Lymph # (Auto) (0.6-2.4) K/uL [place] # (Auto) (0.0-0.8) K/uL Eos # (Auto) (0.0-0.7) K/uL Baso # (Auto) (0.0-0.1) K/uL Nucleated RBC % /100WBC Nucleated RBCs # K/uL Sodium 140 (136-148) mmol/L Potassium 3.8 (3.5-5.1) mmol/L Chloride 103 (98-107) mmol/L Carbon Dioxide 30.4 (21.0-32.0) mmol/L BUN 32 H (7.0-18.0) mg/dL Creatinine 1.1 (0.8-1.3) mg/dL Est Cr Clr Drug Dosing 74.66 mL/min Estimated GFR (MDRD) > 60.0 ml/min Glucose 108 H (74-106) mg/dL POC Glucose 73 (60-110) mg/dL Calcium 8.4 L (8.5-10.1) mg/dL Total Bilirubin 1.0 (0.2-1.0) mg/dL AST 42 H (15-37) IU/L ALT 41 (14-63) IU/L Alkaline Phosphatase 188 H (46-116) U/L Total Protein 5.7 L (6.4-8.2) g/dL Albumin 2.1 L (3.4-5.0) g/dL Globulin 3.6 (2.6-4.0) g/dL Albumin/Globulin Ratio 0.6 L (0.9-1.6) [place] Results Last 24 Hours: Microbiology 01/31/20 13:45 C. difficile Antigen & Toxins A,B - Final Stool / Feces 01/27/20 13:59 Aerobic Blood Culture - Preliminary Blood - Venous - Lab Draw NO GROWTH AFTER 4 DAYS Anaerobic Blood Culture - Final 01/27/20 13:48 Aerobic Blood Culture - Preliminary Blood - Venous NO GROWTH AFTER 4 DAYS Anaerobic Blood Culture - Preliminary NO GROWTH AFTER 4 DAYS Med Orders - Current: Current Medications Acetaminophen (Tylenol) 650 mg PO Q4H PRN PRN Reason: Pain (Mild 1-3)/fever Last Admin: 01/30/20 08:21 Dose: 650 mg Documented by: Albuterol/Ipratropium (Combivent Respimat) 0 gm INH Q6H [facility] Last Admin: 02/01/20 07:00 Dose: 1 puff Documented by: Benzonatate (Tessalon Perles) 100 mg PO Q6H PRN PRN Reason: Cough Last Admin: 02/01/20 07:04 Dose: 100 mg Documented by: Carvedilol (Coreg) 25 mg PO BIDMEALS [facility] Last Admin: 02/01/20 07:43 Dose: 25 mg Documented by: Dexamethasone (Dexamethasone) 6 mg PO DAILY [facility] Last Admin: 02/01/20 08:52 Dose: 6 mg Documented by: Dextrose/Water (Dextrose 50% In Water) 50 ml IV ASDIRECTED PRN PRN Reason: Hypoglycemia Doxazosin Mesylate (Cardura) 4 mg PO DAILY [facility] Last Admin: 02/01/20 08:54 Dose: 4 mg Documented by: Doxycycline Hyclate (Vibramycin) 100 mg PO Q12HR [facility] Last Admin: 02/01/20 08:51 Dose: 100 mg Documented by: Enoxaparin Sodium (Lovenox) 40 mg SUBCUT Q24H [facility] Last Admin: 02/01/20 08:49 Dose: 40 mg Documented by: Glucagon (Glucagen) 1 mg IM ASDIRECTED PRN PRN Reason: Hypoglycemia Pantoprazole Sodium 40 mg/ (Sodium Chloride) 10 mls @ 300 mls/hr IV DAILY [facility] Last Admin: 02/01/20 08:48 Dose: 300 mls/hr Documented by: Ceftriaxone Sodium/Dextrose 1 (gm/ Premix) 50 mls @ 100 mls/hr IV Q24H [facility] Last Admin: 01/31/20 09:08 Dose: 100 mls/hr Documented by: Insulin Aspart (Novolog) 0 unit SUBCUT TIDAC [facility]; Protocol Last Admin: 02/01/20 07:42 Dose: Not Given Documented by: Insulin Detemir (Levemir) 29 unit SUBCUT BEDTIME [facility] Last Admin: 01/31/20 20:57 Dose: 29 units Documented by: Isosorbide Dinitrate (Isordil) 20 mg PO BID [facility] Last Admin: 02/01/20 08:52 Dose: 20 mg Documented by: Lorazepam (Ativan) 0.5 mg PO Q8H PRN PRN Reason: Anxiety Last Admin: 02/01/20 04:10 Dose: 0.5 mg Documented by: Losartan Potassium (Cozaar) 100 mg PO DAILY [facility] Last Admin: 02/01/20 08:51 Dose: 100 mg Documented by: Melatonin (Melatonin) 3 mg PO BEDTIME PRN PRN Reason: Insomnia Last Admin: 01/31/20 22:54 Dose: 3 mg Documented by: Non-Formulary Medication (Evolocumab [Repatha Sureclick]) 140 mg SQ .EVERY 2 WEEKS [facility] Ondansetron HCl (Zofran) 4 mg IVPUSH Q4H PRN PRN Reason: Nausea Last Admin: 01/30/20 04:19 Dose: 4 mg Documented by: Ticagrelor 90 Mg 1 each PO BID [facility] Last Admin: 02/01/20 09:01 Dose: 1 each Documented by: Ranolazine (Ranexa) 1,000 mg PO Q12H [facility] Last Admin: 02/01/20 07:05 Dose: 1,000 mg Documented by: Sertraline HCl (Zoloft) 50 mg PO DAILY [facility] Last Admin: 02/01/20 08:53 Dose: 50 mg Documented by: Sodium Chloride (Saline Flush) 10 ml FLUSH ASDIRECTED PRN PRN Reason: Keep Vein Open Last Admin: 01/27/20 15:52 Dose: 10 ml Documented by: Sodium Chloride (Saline Flush) 2.5 ml FLUSH ASDIRECTED PRN PRN Reason: Keep Vein Open Last Admin: 01/27/20 15:52 Dose: 2.5 ml Documented by: Sodium Chloride ([place] Nasal [place]) 0 ml CORNELIO Q6H PRN PRN Reason: Congestion Last Admin: 01/30/20 17:46 Dose: 1 spray Documented by: Tizanidine HCl (Zanaflex) 4 mg PO Q8H PRN PRN Reason: muscle spasms Last Admin: 01/28/20 11:29 Dose: 4 mg Documented by: Tramadol HCl (Ultram) 100 mg PO Q8H PRN PRN Reason: Pain Last Admin: 02/01/20 07:03 Dose: 100 mg Documented by: Discontinued Medications Acetaminophen (Tylenol Extra Strength) 1,000 mg PO ONETIME ONE Stop: 01/27/20 12:39 Last Admin: 01/27/20 13:12 Dose: 1,000 mg Documented by: Albuterol/Ipratropium (Combivent Respimat) 0 gm INH Q6H PRN PRN Reason: Dyspnea Last Admin: 01/29/20 01:47 Dose: 1 puff Documented by: Dexamethasone (Dexamethasone) 10 mg IV ONETIME ONE Stop: 01/27/20 12:39 Last Admin: 01/27/20 13:13 Dose: 10 mg Documented by: Dextrose/Water (Dextrose 50% In Water) 50 ml IVPUSH ONETIME ONE Stop: 01/31/20 07:14 Last Admin: 01/31/20 07:34 Dose: 50 ml Documented by: Haloperidol (Haldol) 2.5 mg PO ONETIME ONE Stop: 01/30/20 05:19 Last Admin: 01/30/20 05:32 Dose: 2.5 mg Documented by: Heparin Sodium (Porcine) (Heparin Sodium) 5,000 units SUBCUT Q8H [facility] Last Admin: 01/28/20 02:50 Dose: 5,000 units Documented by: Sodium Chloride (Normal Saline) 1,000 mls @ 999 mls/hr IV .Bolus ONE Stop: 01/27/20 13:38 Last Admin: 01/27/20 13:13 Dose: 999 mls/hr Documented by: Remdesivir 200 mg/ Sodium (Chloride) 250 mls @ 250 mls/hr IV ONETIME ONE Stop: 01/27/20 17:47 Last Admin: 01/27/20 18:47 Dose: 250 mls/hr Documented by: Remdesivir 100 mg/ Sodium (Chloride) 100 mls @ 100 mls/hr IV Q24H [facility] Stop: 01/31/20 19:44 Last Admin: 01/31/20 18:33 Dose: 100 mls/hr Documented by: Magnesium Sulfate (Magnesium Sulfate In Water Premix) 2 gm in 50 mls @ 50 mls/hr IV ONETIME ONE Stop: 01/27/20 19:59 Last Admin: 01/27/20 19:36 Dose: 50 mls/hr Documented by: Levofloxacin/Dextrose 750 mg/ (Premix) 150 mls @ 100 mls/hr IV Q24H [facility] Last Admin: 01/27/20 20:21 Dose: 100 mls/hr Documented by: Sodium Chloride (Normal Saline) 500 mls @ 999 mls/hr IV .BOLUS [facility] Last Admin: 01/28/20 10:55 Dose: 999 mls/hr Documented by: Insulin Detemir (Levemir) 30 unit SUBCUT BEDTIME [facility] Last Admin: 01/27/20 20:21 Dose: 30 units Documented by: Insulin Detemir (Levemir) 32 unit SUBCUT BEDTIME [facility] Last Admin: 01/30/20 22:07 Dose: 32 units Documented by: Iopamidol (Isovue Multipack-370 (76%)) 100 ml IVPUSH ONETIME ONE Stop: 01/27/20 16:54 Last Admin: 01/27/20 16:54 Dose: 100 ml Documented by: Ketorolac Tromethamine (Toradol) 15 mg IVPUSH ONETIME ONE Stop: 01/27/20 12:39 Last Admin: 01/27/20 13:12 Dose: 15 mg Documented by: Lorazepam (Ativan) 0.5 mg PO ONETIME ONE Stop: 01/30/20 12:06 Last Admin: 01/30/20 12:26 Dose: 0.5 mg Documented by: Magnesium Sulfate (Magnesium Sulfate In Water Premix) 2 gm IV ONETIME ONE Stop: 01/27/20 18:45 Non-Formulary Medication (Ticagrelor) 90 mg PO BID [facility] Last Admin: 01/27/20 21:40 Dose: Not Given Documented by: Non-Formulary Medication (Tizanidine) 2 mg PO Q6H PRN PRN Reason: muscle spasms Ondansetron HCl (Zofran) 4 mg IVPUSH ONETIME ONE Stop: 01/27/20 14:10 Last Admin: 01/27/20 15:52 Dose: 4 mg Documented by: Ticagrelor 90 Mg 1 each PO BID [facility] Last Admin: 01/28/20 12:16 Dose: Not Given Documented by: Potassium Chloride (Potassium Chloride) 40 meq PO ONETIME ONE Stop: 01/27/20 14:10 Last Admin: 01/27/20 15:52 Dose: 40 meq Documented by: Potassium Chloride (Klor-Con M20) 40 meq PO ONETIME ONE Stop: 01/31/20 07:08 Last Admin: 01/31/20 08:00 Dose: 40 meq Documented by: Tizanidine HCl (Zanaflex) 2 mg PO Q6H PRN PRN Reason: muscle spasms Tramadol HCl (Ultram) 50 mg PO BEDTIME PRN PRN Reason: Pain Last Admin: 01/29/20 22:26 Dose: 50 mg Documented by: Tramadol HCl (Ultram) 50 mg PO ONETIME ONE Stop: 01/30/20 04:02 Last Admin: 01/30/20 04:23 Dose: 50 mg Documented by: Tramadol HCl (Ultram) 100 mg PO ONETIME ONE Stop: 01/31/20 06:21 Last Admin: 01/31/20 06:31 Dose: 100 mg Documented by: Tramadol HCl (Ultram) 100 mg PO TID PRN PRN Reason: Pain Wound Care/Dressing Products (Duoderm Cgf) Confirm Administered Dose 1 each .ROUTE .STK-MED ONE Stop: 01/31/20 20:39 Last Admin: 01/31/20 21:00 Dose: 1 each Documented by: - Exam General: Alert, Oriented, Cooperative, No Acute Distress Lungs: Normal Respiratory Effort, Other (rales in lung bases b/l) Cardiovascular: Regular Rate, Regular Rhythm GI/Abdominal Exam: Normal Bowel Sounds, Soft, Non-Tender, No Distention Extremities: Normal Inspection, No Pedal Edema Sepsis Event Note - Evaluation Sepsis Screening Result: No Definite Risk - Focused Exam Vital Signs: Vital Signs Temp Pulse Resp BP BP BP Pulse Ox 02/01/20 08:54 154/85 H 02/01/20 08:52 154/85 H 02/01/20 08:51 154/85 H 02/01/20 07:43 83 160/90 H 02/01/20 07:30 32 H 94 L 02/01/20 07:00 22 H 181/101 H 85 L 02/01/20 06:00 20 161/96 H 89 L 02/01/20 05:00 24 H 158/87 H 91 L 02/01/20 04:00 36.2 C 25 H 183/99 H 90 L 02/01/20 03:00 24 H 198/105 H 92 L 02/01/20 02:00 24 H 92 L 02/01/20 01:00 20 91 L 02/01/20 00:30 24 H 87 L 02/01/20 00:00 36.1 C 27 H 168/95 H 89 L 01/31/20 23:00 26 H 170/94 H 85 L 01/31/20 22:00 19 92 L - Problem List & Annotations (1) Hypoxia SNOMED Code(s): 420105555 Code(s): R09.02 - HYPOXEMIA Status: Acute Current Visit: Yes (2) Diabetes SNOMED Code(s): 16965545 Code(s): E11.9 - TYPE 2 DIABETES MELLITUS WITHOUT COMPLICATIONS Status: Acute Current Visit: No (3) Coronary artery disease SNOMED Code(s): 97097211 Code(s): I25.10 - ATHSCL HEART DISEASE OF [place] CORONARY ARTERY W/O ANG PCTRS Status: Chronic Priority: High Current Visit: No Qualifiers: Coronary Disease-Associated Artery/Lesion type: unspecified vessel or lesion type [place] vs. transplanted heart: [place] heart Associated angina: with other forms of angina Qualified Code(s): I25.118 - Atherosclerotic heart disease of [place] coronary artery with other forms of angina pectoris (4) Hypertension SNOMED Code(s): 23954466 Code(s): I10 - ESSENTIAL (PRIMARY) HYPERTENSION Status: Acute Current Visit: No (5) COVID-19 SNOMED Code(s): 160266636 Code(s): U07.1 - COVID-19 Status: Acute Current Visit: Yes - Problem List Review Problem List Initiated/Reviewed/Updated: Yes - My Orders Last 24 Hours: My Active Orders 01/31/20 19:08 Code Status [Resuscitation Status] Routine 01/31/20 21:00 Insulin Detemir [Levemir] 29 unit SUBCUT BEDTIME 02/01/20 07:20 Intake and Output Strict [RC] ASDIRECTED - Plan Plan:: Assessment and Plan: 1. Acute hypoxic respiratory failure secondary to COVID19: - Per eICU recommendations will start patient on CPAP and start Precedex. Continue IV ceftriaxone and doxycycline. Will continue to monitor and have low threshold for intubation. - Patient received 2 units of convalescent plasma and completed 5-day course of Remdesivir. - Code status discussed again with patient yesterday and now wishes to be FULL CODE. - CT angio was negative for PE. CXR showed bilateral pneumonia. 2. Anxiety: - Advised patient that we have to be very cautious with anxiolytic medication or muscle relaxers as they can cause respiratory depression. Ordered Tramadol prn and Ativan prn. 3. Diabetes mellitus type 2: - Will continue long acting insulin, ADA diet, Novolog SSI and accuchecks TIDAC. 4. DVT prophylaxis: - Lovenox 40 mg subcut qd. 5. Past medical history of [place] s/p stents, HTN and HLD. - Continue home medications.
[2020-02-01] MEDS: Ondansetron 4 MG/2 ML SDV IVPUSH PRN (10:10)
[2020-02-01] MEDS: cefTRIAXone 1 GM in Premix Bag 1 BAG IV SCH (10:12)
[2020-02-01] MEDS ORDERED: Furosemide 40 MG/4 ML VIAL IVPUSH ONE (11:14)
[2020-02-01] MEDS ORDERED: Dexamethasone 10 MG/ML SDV IVPUSH ONE (11:28)
--- NOTE | 2020-02-01 11:34 | PN ---
THC Physician - Brief Progress [id number]/07/2020 11:31[facility] Sharonda Eric, [place] - [facility] - MWN ICUWERALEXA BARNHART, DION+Date of Service 02/01/2020 11 :31HPI/Events of Note eICU Progress [id number] admitted for respiratory failure attributed to COVID. His tory obtained primarily from review of EMR.Camera exam: Laying in bed on BPAP 03/02 100%, RR in the up per 20s pulling TV in the 700-800 range. He is saturating 86-87% on this. Leak ~10. Vitals monitor re viewed, otherwise hemodynamically stableeICU Impression and Recommendations:NPO status now, patient t o remain on NIPPVFurosemide 40mg IV x1 nowStop PO meds, including PO blood pressure medication. Will order labetalol 10mg q2h PRN for SBP >160mmHg, change doxycycline and dexamethasone to IVWill order d exmedetomidine for anxiety managementChange BPAP to CPAP at 10 given high TV, with repeat ABG. Contin ue FiO2 at 100%Low threshold to intubateAwake proning as toleratedWe will continue to followDVT and G I prophylaxis as appropriate.Thank you for allowing us to participate in the care of this patient.The above note transcribed with the assistance of dictation software. Please excuse any errors.Intervent ions Major-Respiratory failure - evaluation and management
[2020-02-01] MEDS ORDERED: Doxycycline 100 MG in Sodium Chloride 0.9% 100 ML IV SCH (13:00)
[2020-02-01] MEDS: Albuterol/Ipratropium 3.0-0.5 MG/3 ML Neb Soln NEB SCH ×3 (15:00→23:52)
--- NOTE | 2020-02-01 16:21 | PN ---
[facility] Physician - Brief Progress [id number]/07/2020 16:18[facility] Sharonda Eric, [place] - [facility] COVID+Date of Service 02/01/2020 16 :18HPI/Events of Note eICU update:Discussed with excellent bedside team in regards to 59-year-old gen draper currently admitted to the ICU for hypoxic respiratory failure. Patient continues to remain on CPAP currently with pressure support of 10 with maintaining sat right at 88% and PO2 of 54 on ABG. On camera patient does not seem to have significant work of breathing at this time and seems comforta ble.Plan:-Recommend increasing pressure support to 12 with considering 14 if patient is able to doris ate.-Given patient does not have significant work of breathing and seems comfortable recommend contin uing on noninvasive therapy at this time. If patient does have persistent hypoxia from this level do wn or significant work of breathing recommend intubation at that time.Interventions Major-Hypoxemia - evaluation and management, Respiratory failure - evaluation and management
[2020-02-01] MEDS ORDERED: Insulin Detemir 100 Units/ML 3 ML Pen SUBCUT SCH (21:00)
[2020-02-01] MEDS: Doxycycline 100 MG in Sodium Chloride 0.9% 100 ML IV SCH (21:21)
[2020-02-01] MEDS: Labetalol 100 MG/20 ML MDV IVPUSH PRN ×2 (21:31→23:42)
[2020-02-02] MEDS: Labetalol 100 MG/20 ML MDV IVPUSH PRN ×3 (03:12→09:05)
[2020-02-02] MEDS: Insulin Aspart 100 Units/ML 3 ML Pen SUBCUT SCH ×3 (06:40→17:51)
[2020-02-02] MEDS ORDERED: Labetalol 100 MG/20 ML MDV IVPUSH ONE (06:51)
[2020-02-02 07:07] LABS: BLOOD UREA NITROGEN,BUN 34 mg/dL (7.0-18.0); CARBON DIOXIDE,CO2 30.3 mmol/L (21.0-32.0); CHLORIDE,CL 104 mmol/L (98-107); GLUCOSE RANDOM 117 mg/dL (74-106); POTASSIUM,K 3.8 mmol/L (3.5-5.1); SODIUM,NA 142 mmol/L (136-148)
[2020-02-02] MEDS: Pantoprazole 40 MG in Sodium Chloride 0.9% 10 ML IV SCH (09:26)
[2020-02-02] MEDS: Enoxaparin 40 MG/0.4 ML Syringe SUBCUT SCH (09:26)
[2020-02-02] MEDS: cefTRIAXone 1 GM in Premix Bag 1 BAG IV SCH (09:28)
[2020-02-02] MEDS: Doxycycline 100 MG in Sodium Chloride 0.9% 100 ML IV SCH (10:11)
--- NOTE | 2020-02-02 11:48 | PCM.PN ---
<Chelsea Lujan - Last Filed: 02/02/20 11:42> - General Info Date of Service: 02/02/20 Admission Dx/Problem (Free Text): Admission Diagnosis/Problem Admission Diagnosis/Problem Shortness of breath Subjective Update: Tolerated CPAP overnight. Denies any nausea, vomiting, fever or chills. Continues to have loose stools. More calm and able to tolerate CPAP this morning while on Precedex 0.8 this morning. Blood pressure elevated and responded well to Labetalol IV push. Pt seen and examined at bedside, state he is better but thirsty. - Review of Systems General: Reports: No Symptoms HEENT: Reports: No Symptoms Pulmonary: Reports: No Symptoms Cardiovascular: Reports: No Symptoms Gastrointestinal: Reports: No Symptoms Genitourinary: Reports: No Symptoms Musculoskeletal: Reports: No Symptoms Skin: Reports: No Symptoms Neurological: Reports: No Symptoms Psychiatric: Reports: No Symptoms - Patient Data Vitals - Most Recent: Last Vital Signs Temp 96.7 F L 02/02/20 08:10 Pulse 83 02/01/20 07:43 Resp 18 02/02/20 11:03 BP 160/84 H 02/02/20 11:03 Pulse Ox 89 L 02/02/20 11:03 Weight - Most Recent: 93.6 kg I&O - Last 24 Hours: Intake & Output 02/01/20 02/02/20 02/02/20 22:59 06:59 14:59 Intake Total 780 Output Total 2050 800 Balance -1270 -800 Lab Results Last 24 Hours: Laboratory Results - last 24 hr 02/01/20 02/01/20 02/01/20 Range/Units 14:04 16:25 21:21 WBC (4.0-11.0) K/uL RBC (4.50-5.90) M/uL Hgb (13.0-17.0) g/dL Hct (38.0-50.0) % MCV (80.0-98.0) fL MCH (27.0-32.0) pg MCHC (31.0-37.0) g/dL RDW Std Deviation (28.0-62.0) fl RDW Coeff of Ji (11.0-15.0) % Plt Count (150-400) K/uL MPV (7.40-12.00) fL Neut % (Auto) (48.0-80.0) % Lymph % (Auto) (16.0-40.0) % Hyde % (Auto) (0.0-15.0) % Eos % (Auto) (0.0-7.0) % Baso % (Auto) (0.0-1.5) % Neut # (Auto) (1.4-5.7) K/uL Lymph # (Auto) (0.6-2.4) K/uL Hyde # (Auto) (0.0-0.8) K/uL Eos # (Auto) (0.0-0.7) K/uL Baso # (Auto) (0.0-0.1) K/uL Nucleated RBC % /100WBC Nucleated RBCs # K/uL ABG pH 7.485 H (7.35-7.45) ABG pCO2 44 (35-45) mmHG ABG pO2 54 L (75-100) mmHG ABG HCO3 33 H (22-26) mEq/L ABG Total CO2 29.6 ABG Base Excess 8.4 H (-2.0-2.0) Sodium (136-148) mmol/L Potassium (3.5-5.1) mmol/L Chloride (98-107) mmol/L Carbon Dioxide (21.0-32.0) mmol/L BUN (7.0-18.0) mg/dL Creatinine (0.8-1.3) mg/dL Est Cr Clr Drug Dosing mL/min Estimated GFR (MDRD) ml/min Glucose (74-106) mg/dL POC Glucose 80 148 H (60-110) mg/dL Calcium (8.5-10.1) mg/dL Magnesium (1.8-2.4) mg/dL Total Bilirubin (0.2-1.0) mg/dL AST (15-37) IU/L ALT (14-63) IU/L Alkaline Phosphatase (46-116) U/L Total Protein (6.4-8.2) g/dL Albumin (3.4-5.0) g/dL Globulin (2.6-4.0) g/dL Albumin/Globulin Ratio (0.9-1.6) 02/01/20 02/02/20 02/02/20 Range/Units 23:55 05:55 05:55 WBC 9.62 (4.0-11.0) K/uL RBC 3.66 L (4.50-5.90) M/uL Hgb 11.7 L (13.0-17.0) g/dL Hct 34.3 L (38.0-50.0) % MCV 93.7 (80.0-98.0) fL MCH 32.0 (27.0-32.0) pg MCHC 34.1 (31.0-37.0) g/dL RDW Std Deviation 41.8 (28.0-62.0) fl RDW Coeff of Ji 12 (11.0-15.0) % Plt Count 153 (150-400) K/uL MPV 10.70 (7.40-12.00) fL Neut % (Auto) 89.5 H (48.0-80.0) % Lymph % (Auto) 5.9 L (16.0-40.0) % Hyde % (Auto) 4.5 (0.0-15.0) % Eos % (Auto) 0.0 (0.0-7.0) % Baso % (Auto) 0.1 (0.0-1.5) % Neut # (Auto) 8.6 H (1.4-5.7) K/uL Lymph # (Auto) 0.6 (0.6-2.4) K/uL Hyde # (Auto) 0.4 (0.0-0.8) K/uL Eos # (Auto) 0.0 (0.0-0.7) K/uL Baso # (Auto) 0.0 (0.0-0.1) K/uL Nucleated RBC % 0.3 /100WBC Nucleated RBCs # 0 K/uL ABG pH (7.35-7.45) ABG pCO2 (35-45) mmHG ABG pO2 (75-100) mmHG ABG HCO3 (22-26) mEq/L ABG Total CO2 ABG Base Excess (-2.0-2.0) Sodium 142 (136-148) mmol/L Potassium 3.8 (3.5-5.1) mmol/L Chloride 104 (98-107) mmol/L Carbon Dioxide 30.3 (21.0-32.0) mmol/L BUN 34 H (7.0-18.0) mg/dL Creatinine 1.1 (0.8-1.3) mg/dL Est Cr Clr Drug Dosing 74.66 mL/min Estimated GFR (MDRD) > 60.0 ml/min Glucose 117 H (74-106) mg/dL POC Glucose 145 H (60-110) mg/dL Calcium 8.6 (8.5-10.1) mg/dL Magnesium 2.3 (1.8-2.4) mg/dL Total Bilirubin 0.9 (0.2-1.0) mg/dL AST 56 H (15-37) IU/L ALT 46 (14-63) IU/L Alkaline Phosphatase 191 H (46-116) U/L Total Protein 6.0 L (6.4-8.2) g/dL Albumin 2.0 L (3.4-5.0) g/dL Globulin 4.0 (2.6-4.0) g/dL Albumin/Globulin Ratio 0.5 L (0.9-1.6) 02/02/20 Range/Units 06:40 WBC (4.0-11.0) K/uL RBC (4.50-5.90) M/uL Hgb (13.0-17.0) g/dL Hct (38.0-50.0) % MCV (80.0-98.0) fL MCH (27.0-32.0) pg MCHC (31.0-37.0) g/dL RDW Std Deviation (28.0-62.0) fl RDW Coeff of Ji (11.0-15.0) % Plt Count (150-400) K/uL MPV (7.40-12.00) fL Neut % (Auto) (48.0-80.0) % Lymph % (Auto) (16.0-40.0) % Hyde % (Auto) (0.0-15.0) % Eos % (Auto) (0.0-7.0) % Baso % (Auto) (0.0-1.5) % Neut # (Auto) (1.4-5.7) K/uL Lymph # (Auto) (0.6-2.4) K/uL Hyde # (Auto) (0.0-0.8) K/uL Eos # (Auto) (0.0-0.7) K/uL Baso # (Auto) (0.0-0.1) K/uL Nucleated RBC % /100WBC Nucleated RBCs # K/uL ABG pH (7.35-7.45) ABG pCO2 (35-45) mmHG ABG pO2 (75-100) mmHG ABG HCO3 (22-26) mEq/L ABG Total CO2 ABG Base Excess (-2.0-2.0) Sodium (136-148) mmol/L Potassium (3.5-5.1) mmol/L Chloride (98-107) mmol/L Carbon Dioxide (21.0-32.0) mmol/L BUN (7.0-18.0) mg/dL Creatinine (0.8-1.3) mg/dL Est Cr Clr Drug Dosing mL/min Estimated GFR (MDRD) ml/min Glucose (74-106) mg/dL POC Glucose 107 (60-110) mg/dL Calcium (8.5-10.1) mg/dL Magnesium (1.8-2.4) mg/dL Total Bilirubin (0.2-1.0) mg/dL AST (15-37) IU/L ALT (14-63) IU/L Alkaline Phosphatase (46-116) U/L Total Protein (6.4-8.2) g/dL Albumin (3.4-5.0) g/dL Globulin (2.6-4.0) g/dL Albumin/Globulin Ratio (0.9-1.6) Waldo Results Last 24 Hours: Microbiology 01/27/20 13:59 Aerobic Blood Culture - Final Blood - Venous - Lab Draw NO GROWTH AFTER 5 DAYS Anaerobic Blood Culture - Final 01/27/20 13:48 Aerobic Blood Culture - Final Blood - Venous NO GROWTH AFTER 5 DAYS Anaerobic Blood Culture - Final NO GROWTH AFTER 5 DAYS Med Orders - Current: Current Medications Albuterol/Ipratropium (Duoneb 3.0-0.5 Mg/3 Ml) 3 ml NEB Q6HRRT [facility] Last Admin: 02/01/20 23:52 Dose: 3 ml Documented by: Dextrose/Water (Dextrose 50% In Water) 50 ml IV ASDIRECTED PRN PRN Reason: Hypoglycemia Enoxaparin Sodium (Lovenox) 40 mg SUBCUT Q24H [facility] Last Admin: 02/02/20 09:26 Dose: 40 mg Documented by: Glucagon (Glucagen) 1 mg IM ASDIRECTED PRN PRN Reason: Hypoglycemia Pantoprazole Sodium 40 mg/ (Sodium Chloride) 10 mls @ 300 mls/hr IV DAILY [facility] Last Admin: 02/02/20 09:26 Dose: 300 mls/hr Documented by: Ceftriaxone Sodium/Dextrose 1 (gm/ Premix) 50 mls @ 100 mls/hr IV Q24H [facility] Last Admin: 02/02/20 09:28 Dose: 100 mls/hr Documented by: Dexmedetomidine/Sodium (Chloride 400 mcg/ Premix) 100 mls @ 4.763 mls/hr IV CONTINUOUS [facility]; Protocol Last Infusion: 02/02/20 10:52 Dose: 1 mcg/kg/hr, 23.814 mls/hr Documented by: Doxycycline Hyclate 100 mg/ (Sodium Chloride) 100 mls @ 100 mls/hr IV Q12H [facility] Last Admin: 02/02/20 10:11 Dose: 100 mls/hr Documented by: Insulin Aspart (Novolog) 0 unit SUBCUT TIDAC [facility]; Protocol Last Admin: 02/02/20 06:40 Dose: Not Given Documented by: Insulin Detemir (Levemir) 26 unit SUBCUT BEDTIME [facility] Last Admin: 02/01/20 21:36 Dose: 26 units Documented by: Labetalol HCl (Normodyne) 10 mg IVPUSH Q2H PRN; Protocol PRN Reason: SBP >160mmHg Last Admin: 02/02/20 09:05 Dose: 10 mg Documented by: Non-Formulary Medication (Evolocumab [Repatha Sureclick]) 140 mg SQ .EVERY 2 WEEKS [facility] Ticagrelor 90 Mg 1 each PO BID [facility] Last Admin: 02/02/20 08:57 Dose: Not Given Documented by: Sodium Chloride (Saline Flush) 10 ml FLUSH ASDIRECTED PRN PRN Reason: Keep Vein Open Last Admin: 01/27/20 15:52 Dose: 10 ml Documented by: Sodium Chloride (Saline Flush) 2.5 ml FLUSH ASDIRECTED PRN PRN Reason: Keep Vein Open Last Admin: 01/27/20 15:52 Dose: 2.5 ml Documented by: Sodium Chloride ([place] Nasal [place]) 0 ml CORNELIO Q6H PRN PRN Reason: Congestion Last Admin: 01/30/20 17:46 Dose: 1 spray Documented by: Discontinued Medications Acetaminophen (Tylenol Extra Strength) 1,000 mg PO ONETIME ONE Stop: 01/27/20 12:39 Last Admin: 01/27/20 13:12 Dose: 1,000 mg Documented by: Acetaminophen (Tylenol) 650 mg PO Q4H PRN PRN Reason: Pain (Mild 1-3)/fever Last Admin: 01/30/20 08:21 Dose: 650 mg Documented by: Albuterol/Ipratropium (Combivent Respimat) 0 gm INH Q6H PRN PRN Reason: Dyspnea Last Admin: 01/29/20 01:47 Dose: 1 puff Documented by: Albuterol/Ipratropium (Combivent Respimat) 0 gm INH Q6H [facility] Last Admin: 02/01/20 13:04 Dose: Not Given Documented by: Benzonatate (Tessalon Perles) 100 mg PO Q6H PRN PRN Reason: Cough Last Admin: 02/01/20 07:04 Dose: 100 mg Documented by: Carvedilol (Coreg) 25 mg PO BIDMEALS [facility] Last Admin: 02/01/20 07:43 Dose: 25 mg Documented by: Dexamethasone (Dexamethasone) 10 mg IV ONETIME ONE Stop: 01/27/20 12:39 Last Admin: 01/27/20 13:13 Dose: 10 mg Documented by: Dexamethasone (Dexamethasone) 6 mg PO DAILY [facility] Last Admin: 02/01/20 08:52 Dose: 6 mg Documented by: Dexamethasone (Decadron) 6 mg IVPUSH DAILY ONE Stop: 02/01/20 11:29 Last Admin: 02/01/20 12:39 Dose: Not Given Documented by: Dextrose/Water (Dextrose 50% In Water) 50 ml IVPUSH ONETIME ONE Stop: 01/31/20 07:14 Last Admin: 01/31/20 07:34 Dose: 50 ml Documented by: Doxazosin Mesylate (Cardura) 4 mg PO DAILY [facility] Last Admin: 02/01/20 08:54 Dose: 4 mg Documented by: Doxycycline Hyclate (Vibramycin) 100 mg PO Q12HR [facility] Last Admin: 02/01/20 08:51 Dose: 100 mg Documented by: Furosemide (Lasix) 40 mg IVPUSH NOW ONE Stop: 02/01/20 11:15 Last Admin: 02/01/20 12:13 Dose: 40 mg Documented by: Haloperidol (Haldol) 2.5 mg PO ONETIME ONE Stop: 01/30/20 05:19 Last Admin: 01/30/20 05:32 Dose: 2.5 mg Documented by: Heparin Sodium (Porcine) (Heparin Sodium) 5,000 units SUBCUT Q8H [facility] Last Admin: 01/28/20 02:50 Dose: 5,000 units Documented by: Sodium Chloride (Normal Saline) 1,000 mls @ 999 mls/hr IV .Bolus ONE Stop: 01/27/20 13:38 Last Admin: 01/27/20 13:13 Dose: 999 mls/hr Documented by: Remdesivir 200 mg/ Sodium (Chloride) 250 mls @ 250 mls/hr IV ONETIME ONE Stop: 01/27/20 17:47 Last Admin: 01/27/20 18:47 Dose: 250 mls/hr Documented by: Remdesivir 100 mg/ Sodium (Chloride) 100 mls @ 100 mls/hr IV Q24H [facility] Stop: 01/31/20 19:44 Last Admin: 01/31/20 18:33 Dose: 100 mls/hr Documented by: Magnesium Sulfate (Magnesium Sulfate In Water Premix) 2 gm in 50 mls @ 50 mls/hr IV ONETIME ONE Stop: 01/27/20 19:59 Last Admin: 01/27/20 19:36 Dose: 50 mls/hr Documented by: Levofloxacin/Dextrose 750 mg/ (Premix) 150 mls @ 100 mls/hr IV Q24H [facility] Last Admin: 01/27/20 20:21 Dose: 100 mls/hr Documented by: Sodium Chloride (Normal Saline) 500 mls @ 999 mls/hr IV .BOLUS [facility] Last Admin: 01/28/20 10:55 Dose: 999 mls/hr Documented by: Insulin Detemir (Levemir) 30 unit SUBCUT BEDTIME [facility] Last Admin: 01/27/20 20:21 Dose: 30 units Documented by: Insulin Detemir (Levemir) 32 unit SUBCUT BEDTIME [facility] Last Admin: 01/30/20 22:07 Dose: 32 units Documented by: Insulin Detemir (Levemir) 29 unit SUBCUT BEDTIME [facility] Last Admin: 01/31/20 20:57 Dose: 29 units Documented by: Iopamidol (Isovue Multipack-370 (76%)) 100 ml IVPUSH ONETIME ONE Stop: 01/27/20 16:54 Last Admin: 01/27/20 16:54 Dose: 100 ml Documented by: Isosorbide Dinitrate (Isordil) 20 mg PO BID [facility] Last Admin: 02/01/20 08:52 Dose: 20 mg Documented by: Ketorolac Tromethamine (Toradol) 15 mg IVPUSH ONETIME ONE Stop: 01/27/20 12:39 Last Admin: 01/27/20 13:12 Dose: 15 mg Documented by: Labetalol HCl (Normodyne) 20 mg IVPUSH ONETIME ONE; Protocol Stop: 02/02/20 06:52 Last Admin: 02/02/20 07:03 Dose: 20 mg Documented by: Lorazepam (Ativan) 0.5 mg PO ONETIME ONE Stop: 01/30/20 12:06 Last Admin: 01/30/20 12:26 Dose: 0.5 mg Documented by: Lorazepam (Ativan) 0.5 mg PO Q8H PRN PRN Reason: Anxiety Last Admin: 02/01/20 04:10 Dose: 0.5 mg Documented by: Losartan Potassium (Cozaar) 100 mg PO DAILY [facility] Last Admin: 02/01/20 08:51 Dose: 100 mg Documented by: Magnesium Sulfate (Magnesium Sulfate In Water Premix) 2 gm IV ONETIME ONE Stop: 01/27/20 18:45 Melatonin (Melatonin) 3 mg PO BEDTIME PRN PRN Reason: Insomnia Last Admin: 01/31/20 22:54 Dose: 3 mg Documented by: Non-Formulary Medication (Ticagrelor) 90 mg PO BID [facility] Last Admin: 01/27/20 21:40 Dose: Not Given Documented by: Non-Formulary Medication (Tizanidine) 2 mg PO Q6H PRN PRN Reason: muscle spasms Ondansetron HCl (Zofran) 4 mg IVPUSH ONETIME ONE Stop: 01/27/20 14:10 Last Admin: 01/27/20 15:52 Dose: 4 mg Documented by: Ondansetron HCl (Zofran) 4 mg IVPUSH Q4H PRN PRN Reason: Nausea Last Admin: 02/01/20 10:10 Dose: 4 mg Documented by: Ticagrelor 90 Mg 1 each PO BID [facility] Last Admin: 01/28/20 12:16 Dose: Not Given Documented by: Potassium Chloride (Potassium Chloride) 40 meq PO ONETIME ONE Stop: 01/27/20 14:10 Last Admin: 01/27/20 15:52 Dose: 40 meq Documented by: Potassium Chloride (Klor-Con M20) 40 meq PO ONETIME ONE Stop: 01/31/20 07:08 Last Admin: 01/31/20 08:00 Dose: 40 meq Documented by: Ranolazine (Ranexa) 1,000 mg PO Q12H [facility] Last Admin: 02/01/20 07:05 Dose: 1,000 mg Documented by: Sertraline HCl (Zoloft) 50 mg PO DAILY [facility] Last Admin: 02/01/20 08:53 Dose: 50 mg Documented by: Tizanidine HCl (Zanaflex) 2 mg PO Q6H PRN PRN Reason: muscle spasms Tizanidine HCl (Zanaflex) 4 mg PO Q8H PRN PRN Reason: muscle spasms Last Admin: 01/28/20 11:29 Dose: 4 mg Documented by: Tramadol HCl (Ultram) 50 mg PO BEDTIME PRN PRN Reason: Pain Last Admin: 01/29/20 22:26 Dose: 50 mg Documented by: Tramadol HCl (Ultram) 50 mg PO ONETIME ONE Stop: 01/30/20 04:02 Last Admin: 01/30/20 04:23 Dose: 50 mg Documented by: Tramadol HCl (Ultram) 100 mg PO ONETIME ONE Stop: 01/31/20 06:21 Last Admin: 01/31/20 06:31 Dose: 100 mg Documented by: Tramadol HCl (Ultram) 100 mg PO TID PRN PRN Reason: Pain Tramadol HCl (Ultram) 100 mg PO Q8H PRN PRN Reason: Pain Last Admin: 02/01/20 07:03 Dose: 100 mg Documented by: Wound Care/Dressing Products (Duoderm Cgf) Confirm Administered Dose 1 each .ROUTE .STK-MED ONE Stop: 01/31/20 20:39 Last Admin: 01/31/20 21:00 Dose: 1 each Documented by: - Exam Quality Assessment: Supplemental Oxygen, DVT Prophylaxis General: Alert, Oriented, Cooperative, No Acute Distress HEENT: Pupils Equal, Mucous Membr. Moist/[place] Neck: Supple, Trachea Midline, No JVD Lungs: Clear to Auscultation, Normal Respiratory Effort, Crackles (throught longs bilaterally ). No: Rales, Rhonchi, Rub, Stridor, Wheezing Cardiovascular: Regular Rate, Regular Rhythm, No Murmurs GI/Abdominal Exam: Normal Bowel Sounds, Soft, Non-Tender Extremities: Normal Inspection, Normal Range of Motion, No Pedal Edema, Normal Capillary Refill Peripheral Pulses: 2+: Radial (L), Radial (R), Dorsalis Pedis (L), Dorsalis Pedis (R) Skin: Warm, Dry Neurological: No New Focal Deficit Psy/Mental Status: Alert, Normal Affect, Normal Mood Sepsis Event Note - Evaluation Sepsis Screening Result: No Definite Risk - Focused Exam Vital Signs: Vital Signs Temp Resp BP Pulse Ox 02/02/20 11:03 18 160/84 H 89 L 02/02/20 10:09 26 H 162/63 H 87 L 02/02/20 09:40 13 185/96 H 89 L 02/02/20 09:30 20 183/95 H 89 L 02/02/20 09:00 16 180/100 H 89 L 02/02/20 08:10 96.7 F L 14 180/98 H 92 L 02/02/20 08:00 19 168/92 H 91 L 02/02/20 07:20 18 164/83 H 90 L 02/02/20 07:09 19 172/91 H 91 L 02/02/20 06:00 23 H 184/95 H 91 L 02/02/20 05:00 15 173/94 H 92 L 02/02/20 04:00 97.0 F 21 H 161/88 H 89 L 02/02/20 03:00 17 161/89 H 92 L 02/02/20 02:00 19 153/82 H 90 L 02/02/20 01:00 21 H 159/87 H 91 L 02/02/20 00:00 97.2 F 20 158/86 H 91 L - Problem List & Annotations (1) Acute hypoxemic respiratory failure due to COVID-19 SNOMED Code(s): 574406249 Code(s): U07.1 - COVID-19; J96.01 - ACUTE RESPIRATORY FAILURE WITH HYPOXIA Status: Acute (2) HTN (hypertension) SNOMED Code(s): 81915677 Code(s): I10 - ESSENTIAL (PRIMARY) HYPERTENSION Status: Acute (3) Anxiety SNOMED Code(s): 87186474 Code(s): F41.9 - ANXIETY DISORDER, UNSPECIFIED Status: Acute (4) Loose stools SNOMED Code(s): 692029228 Code(s): R19.5 - OTHER FECAL ABNORMALITIES Status: Acute (5) Elevated BUN SNOMED Code(s): 932465112 Code(s): R79.9 - ABNORMAL FINDING OF BLOOD CHEMISTRY, UNSPECIFIED Status: Acute - Problem List Review Problem List Initiated/Reviewed/Updated: Yes - My Orders Last 24 Hours: My Active Orders 02/02/20 11:40 MAGNESIUM [CHEM] Routine PHOSPHORUS [CHEM] Routine 02/03/20 05:11 CBC WITH AUTO DIFF [HEME] AM CMP [COMPREHENSIVE METABOLIC PN,CMP] [CHEM] AM MAGNESIUM [CHEM] AM PHOSPHORUS [CHEM] AM 02/04/20 05:11 CBC WITH AUTO DIFF [HEME] AM CMP [COMPREHENSIVE METABOLIC PN,CMP] [CHEM] AM MAGNESIUM [CHEM] AM PHOSPHORUS [CHEM] AM 02/05/20 05:11 CBC WITH AUTO DIFF [HEME] AM CMP [COMPREHENSIVE METABOLIC PN,CMP] [CHEM] AM MAGNESIUM [CHEM] AM PHOSPHORUS [CHEM] AM 02/06/20 05:11 CBC WITH AUTO DIFF [HEME] AM CMP [COMPREHENSIVE METABOLIC PN,CMP] [CHEM] AM MAGNESIUM [CHEM] AM PHOSPHORUS [CHEM] AM - Plan Plan:: Assessment and Plan: 1. Acute hypoxic respiratory failure secondary to COVID19: - Per eICU recommendations will start patient on CPAP and start Precedex. Continue IV ceftriaxone and doxycycline. Will continue to monitor and have low threshold for intubation. - Patient received 2 units of convalescent plasma and completed 5-day course of Remdesivir. - Code status recently revised: FULL CODE. - CT angio was negative for PE. CXR showed bilateral pneumonia. 2. Anxiety: - Advised patient that we have to be very cautious with anxiolytic medication or muscle relaxers as they can cause respiratory depression. Currently, per EICU using Precedex 0.8 -0.10 this morning. Pt able to tolerate CPAP better. Will continue to monitor closely. 3. Diabetes mellitus type 2: - Well controlled; will continue long acting insulin, ADA diet, Novolog SSI and accuchecks TIDAC. 4. HTN: BP was 184/95, given IV labetalol, improved this morning, will continue to monitor and try to maintain normotension. 5. Loose stools: resolved, stool was tested, c.diff neg, continue to monitor. 6. DVT prophylaxis: - Lovenox 40 mg subcut qd. 7. Past medical history of RI s/p stents, HTN and HLD. - Continue home medications. <Shawna Bridges - Last Filed: 02/05/20 11:37> - General Info Subjective Update: I have seen and evaluated the patient and agree with the residents note unless specified in my note - Patient Data Vitals - Most Recent: Last Vital Signs Temp 37.1 C 02/02/20 17:30 Pulse 79 02/02/20 16:15 Resp 14 02/02/20 17:30 BP 199/105 H 02/02/20 17:57 Pulse Ox 92 L 02/02/20 17:57 Med Orders - Current: Current Medications Discontinued Medications Acetaminophen (Tylenol Extra Strength) 1,000 mg PO ONETIME ONE Stop: 01/27/20 12:39 Last Admin: 01/27/20 13:12 Dose: 1,000 mg Documented by: Acetaminophen (Tylenol) 650 mg PO Q4H PRN PRN Reason: Pain (Mild 1-3)/fever Last Admin: 01/30/20 08:21 Dose: 650 mg Documented by: Albuterol/Ipratropium (Combivent Respimat) 0 gm INH Q6H PRN PRN Reason: Dyspnea Last Admin: 01/29/20 01:47 Dose: 1 puff Documented by: Albuterol/Ipratropium (Combivent Respimat) 0 gm INH Q6H [facility] Last Admin: 02/01/20 13:04 Dose: Not Given Documented by: Albuterol/Ipratropium (Duoneb 3.0-0.5 Mg/3 Ml) 3 ml NEB Q6HRRT [facility] Last Admin: 02/02/20 13:10 Dose: Not Given Documented by: Albuterol/Ipratropium (Combivent Respimat) 0 gm INH Q6HRRT [facility] Last Admin: 02/02/20 13:22 Dose: 1 puff Documented by: Benzonatate (Tessalon Perles) 100 mg PO Q6H PRN PRN Reason: Cough Last Admin: 02/01/20 07:04 Dose: 100 mg Documented by: Carvedilol (Coreg) 25 mg PO BIDMEALS [facility] Last Admin: 02/01/20 07:43 Dose: 25 mg Documented by: Dexamethasone (Dexamethasone) 10 mg IV ONETIME ONE Stop: 01/27/20 12:39 Last Admin: 01/27/20 13:13 Dose: 10 mg Documented by: Dexamethasone (Dexamethasone) 6 mg PO DAILY [facility] Last Admin: 02/01/20 08:52 Dose: 6 mg Documented by: Dexamethasone (Decadron) 6 mg IVPUSH DAILY ONE Stop: 02/01/20 11:29 Last Admin: 02/01/20 12:39 Dose: Not Given Documented by: Dextrose/Water (Dextrose 50% In Water) 50 ml IV ASDIRECTED PRN PRN Reason: Hypoglycemia Last Admin: 02/02/20 17:10 Dose: 50 ml Documented by: Dextrose/Water (Dextrose 50% In Water) 50 ml IVPUSH ONETIME ONE Stop: 01/31/20 07:14 Last Admin: 01/31/20 07:34 Dose: 50 ml Documented by: Doxazosin Mesylate (Cardura) 4 mg PO DAILY [facility] Last Admin: 02/01/20 08:54 Dose: 4 mg Documented by: Doxycycline Hyclate (Vibramycin) 100 mg PO Q12HR [facility] Last Admin: 02/01/20 08:51 Dose: 100 mg Documented by: Enoxaparin Sodium (Lovenox) 40 mg SUBCUT Q24H [facility] Last Admin: 02/02/20 09:26 Dose: 40 mg Documented by: Furosemide (Lasix) 40 mg IVPUSH NOW ONE Stop: 02/01/20 11:15 Last Admin: 02/01/20 12:13 Dose: 40 mg Documented by: Furosemide (Lasix) 20 mg IVPUSH ONETIME ONE Stop: 02/02/20 13:30 Last Admin: 02/02/20 13:52 Dose: 20 mg Documented by: Glucagon (Glucagen) 1 mg IM ASDIRECTED PRN PRN Reason: Hypoglycemia Haloperidol (Haldol) 2.5 mg PO ONETIME ONE Stop: 01/30/20 05:19 Last Admin: 01/30/20 05:32 Dose: 2.5 mg Documented by: Heparin Sodium (Porcine) (Heparin Sodium) 5,000 units SUBCUT Q8H [facility] Last Admin: 01/28/20 02:50 Dose: 5,000 units Documented by: Sodium Chloride (Normal Saline) 1,000 mls @ 999 mls/hr IV .Bolus ONE Stop: 01/27/20 13:38 Last Admin: 01/27/20 13:13 Dose: 999 mls/hr Documented by: Remdesivir 200 mg/ Sodium (Chloride) 250 mls @ 250 mls/hr IV ONETIME ONE Stop: 01/27/20 17:47 Last Admin: 01/27/20 18:47 Dose: 250 mls/hr Documented by: Remdesivir 100 mg/ Sodium (Chloride) 100 mls @ 100 mls/hr IV Q24H [facility] Stop: 01/31/20 19:44 Last Admin: 01/31/20 18:33 Dose: 100 mls/hr Documented by: Pantoprazole Sodium 40 mg/ (Sodium Chloride) 10 mls @ 300 mls/hr IV DAILY [facility] Last Admin: 02/02/20 09:26 Dose: 300 mls/hr Documented by: Magnesium Sulfate (Magnesium Sulfate In Water Premix) 2 gm in 50 mls @ 50 mls/hr IV ONETIME ONE Stop: 01/27/20 19:59 Last Admin: 01/27/20 19:36 Dose: 50 mls/hr Documented by: Levofloxacin/Dextrose 750 mg/ (Premix) 150 mls @ 100 mls/hr IV Q24H [facility] Last Admin: 01/27/20 20:21 Dose: 100 mls/hr Documented by: Ceftriaxone Sodium/Dextrose 1 (gm/ Premix) 50 mls @ 100 mls/hr IV Q24H [facility] Last Admin: 02/02/20 09:28 Dose: 100 mls/hr Documented by: Sodium Chloride (Normal Saline) 500 mls @ 999 mls/hr IV .BOLUS [facility] Last Admin: 01/28/20 10:55 Dose: 999 mls/hr Documented by: Dexmedetomidine/Sodium (Chloride 400 mcg/ Premix) 100 mls @ 4.763 mls/hr IV CONTINUOUS [facility]; Protocol Last Infusion: 02/02/20 16:32 Dose: 1 mcg/kg/hr, 23.814 mls/hr Documented by: Doxycycline Hyclate 100 mg/ (Sodium Chloride) 100 mls @ 100 mls/hr IV Q12H [facility] Last Admin: 02/02/20 10:11 Dose: 100 mls/hr Documented by: Norepinephrine Bitartrate (Norepinephr-0.9% Nacl 4 Mg/250) Confirm Administered Dose 4 mg in 250 mls @ as directed IV .STK-MED ONE Stop: 02/02/20 17:08 Propofol (Diprivan 100 Ml) 100 mls @ 2.808 mls/hr IV TITRATE [facility]; Protocol Insulin Aspart (Novolog) 0 unit SUBCUT TIDAC [facility]; Protocol Last Admin: 02/02/20 17:51 Dose: Not Given Documented by: Insulin Detemir (Levemir) 30 unit SUBCUT BEDTIME [facility] Last Admin: 01/27/20 20:21 Dose: 30 units Documented by: Insulin Detemir (Levemir) 32 unit SUBCUT BEDTIME [facility] Last Admin: 01/30/20 22:07 Dose: 32 units Documented by: Insulin Detemir (Levemir) 29 unit SUBCUT BEDTIME [facility] [facility] Last Admin: 01/31/20 20:57 Dose: 29 units Documented by: Insulin Detemir (Levemir) 26 unit SUBCUT BEDTIME [facility] Last Admin: 02/01/20 21:36 Dose: 26 units Documented by: Insulin Detemir (Levemir) 15 unit SUBCUT BEDTIME [facility] Iopamidol (Isovue Multipack-370 (76%)) 100 ml IVPUSH ONETIME ONE Stop: 01/27/20 16:54 Last Admin: 01/27/20 16:54 Dose: 100 ml Documented by: Isosorbide Dinitrate (Isordil) 20 mg PO BID [facility] Last Admin: 02/01/20 08:52 Dose: 20 mg Documented by: Ketorolac Tromethamine (Toradol) 15 mg IVPUSH ONETIME ONE Stop: 01/27/20 12:39 Last Admin: 01/27/20 13:12 Dose: 15 mg Documented by: Labetalol HCl (Normodyne) 10 mg IVPUSH Q2H PRN; Protocol PRN Reason: SBP >160mmHg Last Admin: 02/02/20 09:05 Dose: 10 mg Documented by: Labetalol HCl (Normodyne) 20 mg IVPUSH ONETIME ONE; Protocol Stop: 02/02/20 06:52 Last Admin: 02/02/20 07:03 Dose: 20 mg Documented by: Lidocaine HCl (Xylocaine-Mpf 1%) Confirm Administered Dose 5 ml .ROUTE .STK-MED ONE Stop: 02/02/20 17:33 Lorazepam (Ativan) 0.5 mg PO ONETIME ONE Stop: 01/30/20 12:06 Last Admin: 01/30/20 12:26 Dose: 0.5 mg Documented by: Lorazepam (Ativan) 0.5 mg PO Q8H PRN PRN Reason: Anxiety Last Admin: 02/01/20 04:10 Dose: 0.5 mg Documented by: Losartan Potassium (Cozaar) 100 mg PO DAILY [facility] Last Admin: 02/01/20 08:51 Dose: 100 mg Documented by: Magnesium Sulfate (Magnesium Sulfate In Water Premix) 2 gm IV ONETIME ONE Stop: 01/27/20 18:45 Melatonin (Melatonin) 3 mg PO BEDTIME PRN PRN Reason: Insomnia Last Admin: 01/31/20 22:54 Dose: 3 mg Documented by: Non-Formulary Medication (Ticagrelor) 90 mg PO BID [facility] Last Admin: 01/27/20 21:40 Dose: Not Given Documented by: Non-Formulary Medication (Tizanidine) 2 mg PO Q6H PRN PRN Reason: muscle spasms Non-Formulary Medication (Evolocumab [Repatha Sureojhnick]) 140 mg SQ .EVERY 2 WEEKS [facility] Ondansetron HCl (Zofran) 4 mg IVPUSH ONETIME ONE Stop: 01/27/20 14:10 Last Admin: 01/27/20 15:52 Dose: 4 mg Documented by: Ondansetron HCl (Zofran) 4 mg IVPUSH Q4H PRN PRN Reason: Nausea Last Admin: 02/01/20 10:10 Dose: 4 mg Documented by: Ticagrelor 90 Mg 1 each PO BID [facility] Last Admin: 01/28/20 12:16 Dose: Not Given Documented by: Ticagrelor 90 Mg 1 each PO BID [facility] Last Admin: 02/02/20 08:57 Dose: Not Given Documented by: Potassium Chloride (Potassium Chloride) 40 meq PO ONETIME ONE Stop: 01/27/20 14:10 Last Admin: 01/27/20 15:52 Dose: 40 meq Documented by: Potassium Chloride (Klor-Con M20) 40 meq PO ONETIME ONE Stop: 01/31/20 07:08 Last Admin: 01/31/20 08:00 Dose: 40 meq Documented by: Propofol (Diprivan 20 Ml) Confirm Administered Dose 400 mg .ROUTE .STK-MED ONE Stop: 02/02/20 16:52 Ranolazine (Ranexa) 1,000 mg PO Q12H [facility] Last Admin: 02/01/20 07:05 Dose: 1,000 mg Documented by: Rocuronium [place] (Rocuronium [place]seh) Confirm Administered Dose 150 mg .ROUTE .STK-MED ONE Stop: 02/02/20 16:52 Sertraline HCl (Zoloft) 50 mg PO DAILY [facility] Last Admin: 02/01/20 08:53 Dose: 50 mg Documented by: Sodium Chloride (Saline Flush) 10 ml FLUSH ASDIRECTED PRN PRN Reason: Keep Vein Open Last Admin: 01/27/20 15:52 Dose: 10 ml Documented by: Sodium Chloride (Saline Flush) 2.5 ml FLUSH ASDIRECTED PRN PRN Reason: Keep Vein Open Last Admin: 01/27/20 15:52 Dose: 2.5 ml Documented by: Sodium Chloride ([place] Nasal [place]) 0 ml CORNELIO Q6H PRN PRN Reason: Congestion Last Admin: 01/30/20 17:46 Dose: 1 spray Documented by: Tizanidine HCl (Zanaflex) 2 mg PO Q6H PRN PRN Reason: muscle spasms Tizanidine HCl (Zanaflex) 4 mg PO Q8H PRN PRN Reason: muscle spasms Last Admin: 01/28/20 11:29 Dose: 4 mg Documented by: Tramadol HCl (Ultram) 50 mg PO BEDTIME PRN PRN Reason: Pain Last Admin: 01/29/20 22:26 Dose: 50 mg Documented by: Tramadol HCl (Ultram) 50 mg PO ONETIME ONE Stop: 01/30/20 04:02 Last Admin: 01/30/20 04:23 Dose: 50 mg Documented by: Tramadol HCl (Ultram) 100 mg PO ONETIME ONE Stop: 01/31/20 06:21 Last Admin: 01/31/20 06:31 Dose: 100 mg Documented by: Tramadol HCl (Ultram) 100 mg PO TID PRN PRN Reason: Pain Tramadol HCl (Ultram) 100 mg PO Q8H PRN PRN Reason: Pain Last Admin: 02/01/20 07:03 Dose: 100 mg Documented by: Wound Care/Dressing Products (Duoderm Cgf) Confirm Administered Dose 1 each .ROUTE .STK-MED ONE Stop: 01/31/20 20:39 Last Admin: 01/31/20 21:00 Dose: 1 each Documented by:
--- NOTE | 2020-02-02 12:12 | PN ---
THC Physician - Brief Progress [id number]/08/2020 12:10[facility] ChildrenSharonda hamm, [place] - [facility] ([facility]) - MWN ICUWERALEXA BARNHART, COVID+Date of Service 02/02/2020 12 :10HPI/Events of Note eICU Progress [id number] admitted for respiratory failure attributed to COVID. His tory obtained primarily from review of EMR and discussion with bedside RNCamera exam: Laying in bed. Vitals monitor reviewed.eICU Impression and Recommendations:Suggested increase of CPAP to 14, with re peat ABGPer discussion with bedside RN primary team to order diuresis, agreeDue to episodes of hypogl ycemia given NPO status will drop insulin to half of prior dose, changed to 15 units nightlySuggested soft max of dexmedetomidine of 1.5, as long as patient remains hemodynamically stableLow threshold t o intubate should respiratory status worsenContinue antibiotics and COVID specific therapiesDVT and G I prophylaxis as appropriate.Thank you for allowing us to participate in the care of this patient.The above note transcribed with the assistance of dictation software. Please excuse any errors.Intervent ions Major-Respiratory failure - evaluation and management
[2020-02-02] MEDS: 50% Dextrose in Water 50 ML Syringe IV PRN ×2 (12:19→17:10)
[2020-02-02] MEDS ORDERED: Albuterol/Ipratropium 4 GM Inhalation Spray INH SCH (13:08)
[2020-02-02] MEDS: Albuterol/Ipratropium 3.0-0.5 MG/3 ML Neb Soln NEB SCH (13:10)
[2020-02-02] MEDS ORDERED: Furosemide 20 MG/2 ML VIAL IVPUSH ONE (13:29)
--- NOTE | 2020-02-02 16:49 | PCM.DCSUM1 ---
<Chelsea Lujan - Last Filed: 02/03/20 16:41> Discharge Summary - Hospital Course Brief History: 59-year-old male presents complaining of SOB for the past 3-4 days. He tested positive for COVID-19 approximately 3 days ago. He has a PMH of DM type II, [place] s/p stents, HTN and HLD. Patient reports that he has had worsening shortness of breath, chest tightness and fevers. He also reports having nausea, vomiting, productive cough and diarrhea. In the ER, CBC unremarkable, potassium level 3.0, creatinine 1.6, d-dimer 1.28, troponin negative, CXR showed bilateral pneumonia and CT angio was negative for PE but showed b/l ground glass opacities. EKG was unremarkable. Patient given 1 L IV NS bolus, dexamethasone 10 mg, KCl 40 mEq x 1, Iv toradol, tylenol and zofran. Patient admitted for further evaluation and treatment. Diagnosis: Stroke: No - Discharge Data Discharge Date: 02/02/20 Discharge Disposition: DC/Tfer to Acute Hospital 02 Condition: Stable - Referral to Home Health Primary Care Physician: PCP None - Discharge Diagnosis/Problem(s) (1) Acute hypoxemic respiratory failure due to COVID-19 SNOMED Code(s): 177974052 ICD Code: U07.1 - COVID-19; J96.01 - ACUTE RESPIRATORY FAILURE WITH HYPOXIA Status: Acute (2) HTN (hypertension) SNOMED Code(s): 29533487 ICD Code: I10 - ESSENTIAL (PRIMARY) HYPERTENSION Status: Acute (3) Anxiety SNOMED Code(s): 33745223 ICD Code: F41.9 - ANXIETY DISORDER, UNSPECIFIED Status: Acute (4) Loose stools SNOMED Code(s): 153947330 ICD Code: R19.5 - OTHER FECAL ABNORMALITIES Status: Acute (5) Elevated BUN SNOMED Code(s): 733359581 ICD Code: R79.9 - ABNORMAL FINDING OF BLOOD CHEMISTRY, UNSPECIFIED Status: Acute - Patient Summary/Data Hospital Course: Pt was admitted with Hypoxia for COVID 19. 1. Acute hypoxic respiratory failure secondary to COVID19: - Per eICU recommendations will start patient on CPAP and start Precedex. Continue IV ceftriaxone and doxycycline. Will continue to monitor and have low threshold for intubation. - Patient received 2 units of convalescent plasma and completed 5-day course of Remdesivir. - Code status recently revised: FULL CODE. - CT angio was negative for PE. CXR showed bilateral pneumonia. 2. Anxiety: - Advised patient that we have to be very cautious with anxiolytic medication or muscle relaxers as they can cause respiratory depression. Currently, per EICU started Precedex 1.0 this morning. Pt able to tolerate CPAP better. 3. Diabetes mellitus type 2: - Well controlled; will continue long acting insulin, ADA diet, Novolog SSI and accuchecks TIDAC. 4. HTN: BP was 184/95, given IV labetalol, improved this morning, will continue to monitor and try to maintain normotension. 5. Loose stools: resolved, stool was tested, c.diff neg, continue to monitor. 6. DVT prophylaxis: - Lovenox 40 mg subcut qd. 7. Past medical history of [place] s/p stents, HTN and HLD. - Continue home medications. - Patient Instructions Diet: NPO - Discharge Plan *PRESCRIPTION DRUG MONITORING PROGRAM REVIEWED*: Not Applicable *COPY OF PRESCRIPTION DRUG MONITORING REPORT IN PATIENT PREETI: Not Applicable Home Medications: Home Meds Multivitamin [Multi-Day Vitamins] 1 tab PO DAILY 12/25/14 [History] Ticagrelor [Brilinta] 90 mg PO BID 12/25/14 [History] traMADol [Ultram] 50 mg PO BEDTIME PRN 12/25/14 [History] Doxazosin [Cardura] 4 mg PO DAILY 11/01/17 [History] Insulin Aspart [Novolog Flexpen] 6 unit SQ TIDMEALS 11/01/17 [History] Omeprazole 20 mg PO DAILY 11/01/17 [History] carvediloL [Carvedilol] 25 mg PO BIDMEALS 11/01/17 [History] Losartan [Cozaar] 100 mg PO DAILY 12/24/17 [History] Insulin Degludec [Tresiba] 30 - 36 unit SQ BEDTIME 10/19/18 [History] Nitroglycerin 0.4 mg SL .EVERY 5 MINUTES PRN MDD 3 tablets 10/19/18 [History] Insulin Aspart [NovoLOG] 6 unit SUBCUT TIDAC pen 10/20/18 [Rx] Ondansetron [Zofran ODT] 4 mg PO Q6H PRN #18 tab.dis 01/24/20 [Rx] DULoxetine [Cymbalta] 30 mg PO DAILY 01/27/20 [History] Evolocumab [Repatha Sureclick] 140 mg SQ .EVERY 2 WEEKS 01/27/20 [History] Isosorbide Dinitrate 20 mg PO BID 01/27/20 [History] Pregabalin [Lyrica] 50 mg PO BEDTIME 01/27/20 [History] Ranolazine [Ranexa] 1,000 mg PO Q12H 01/27/20 [History] Sertraline HCl 50 mg PO DAILY 01/27/20 [History] tiZANidine [Zanaflex] 2 mg PO Q6H PRN 01/27/20 [History] Albuterol/Ipratropium [Combivent Respimat] 0 gm INH Q6HRRT inhaler 02/02/20 [Rx] Doxycycline [Vibramycin] 100 mg IV Q12H vial 02/02/20 [Rx] Enoxaparin [Lovenox] 40 mg SUBCUT Q24H syringe 02/02/20 [Rx] Insulin Aspart [NovoLOG] 0 unit SUBCUT TIDAC pen 02/02/20 [Rx] Insulin Detemir [Levemir] 15 unit SUBCUT BEDTIME pen 02/02/20 [Rx] Labetalol [Normodyne] 10 mg IVPUSH Q2H PRN mdv 02/02/20 [Rx] Pantoprazole [ProTONIX IV] 40 mg IV DAILY vial 02/02/20 [Rx] cefTRIAXone [Rocephin in Dextrose,Iso-Osm 1 GM/50 ML] 1 gm IV Q24H bag 02/02/20 [Rx] dexmedeTOMIDine in 0.9 % NaCL [Precedex] 400 mcg IV CONTINUOUS bottle 02/02/20 [Rx] Oxygen Therapy Mode: Mechanical Ventilation Forms: ED Department Discharge Referrals: PCP,None [Primary Care Provider] - - Discharge Summary/Plan Comment DC Time >30 min.: Yes (Transfer to [facility]) - Patient Data Vitals - Most Recent: Last Vital Signs Temp 96.7 F L 02/02/20 08:10 Pulse 83 02/01/20 07:43 Resp 26 H 02/02/20 14:07 BP 162/91 H 02/02/20 14:07 Pulse Ox 89 L 02/02/20 14:07 Weight - Most Recent: 93.6 kg I&O - Last 24 hours: Intake & Output 02/02/20 02/02/20 02/02/20 06:59 14:59 22:59 Output Total 800 Balance -800 Lab Results - Last 24 hrs: Laboratory Results - last 24 hr 02/01/20 02/01/20 02/02/20 Range/Units 21:21 23:55 05:55 WBC 9.62 (4.0-11.0) K/uL RBC 3.66 L (4.50-5.90) M/uL Hgb 11.7 L (13.0-17.0) g/dL Hct 34.3 L (38.0-50.0) % MCV 93.7 (80.0-98.0) fL MCH 32.0 (27.0-32.0) pg MCHC 34.1 (31.0-37.0) g/dL RDW Std Deviation 41.8 (28.0-62.0) fl RDW Coeff of Ji 12 (11.0-15.0) % Plt Count 153 (150-400) K/uL MPV 10.70 (7.40-12.00) fL Neut % (Auto) 89.5 H (48.0-80.0) % Lymph % (Auto) 5.9 L (16.0-40.0) % [place] % (Auto) 4.5 (0.0-15.0) % Eos % (Auto) 0.0 (0.0-7.0) % Baso % (Auto) 0.1 (0.0-1.5) % Neut # (Auto) 8.6 H (1.4-5.7) K/uL Lymph # (Auto) 0.6 (0.6-2.4) K/uL [place] # (Auto) 0.4 (0.0-0.8) K/uL Eos # (Auto) 0.0 (0.0-0.7) K/uL Baso # (Auto) 0.0 (0.0-0.1) K/uL Nucleated RBC % 0.3 /100WBC Nucleated RBCs # 0 K/uL ABG pH (7.35-7.45) ABG pCO2 (35-45) mmHG ABG pO2 (75-100) mmHG ABG HCO3 (22-26) mEq/L ABG Total CO2 ABG Base Excess (-2.0-2.0) Sodium (136-148) mmol/L Potassium (3.5-5.1) mmol/L Chloride (98-107) mmol/L Carbon Dioxide (21.0-32.0) mmol/L BUN (7.0-18.0) mg/dL Creatinine (0.8-1.3) mg/dL Est Cr Clr Drug Dosing mL/min Estimated GFR (MDRD) ml/min Glucose (74-106) mg/dL POC Glucose 148 H 145 H (60-110) mg/dL Calcium (8.5-10.1) mg/dL Phosphorus (2.6-4.7) mg/dL Magnesium (1.8-2.4) mg/dL Total Bilirubin (0.2-1.0) mg/dL AST (15-37) IU/L ALT (14-63) IU/L Alkaline Phosphatase (46-116) U/L Total Protein (6.4-8.2) g/dL Albumin (3.4-5.0) g/dL Globulin (2.6-4.0) g/dL Albumin/Globulin Ratio (0.9-1.6) 02/02/20 02/02/20 02/02/20 Range/Units 05:55 05:55 06:40 WBC (4.0-11.0) K/uL RBC (4.50-5.90) M/uL Hgb (13.0-17.0) g/dL Hct (38.0-50.0) % MCV (80.0-98.0) fL MCH (27.0-32.0) pg MCHC (31.0-37.0) g/dL RDW Std Deviation (28.0-62.0) fl RDW Coeff of Ji (11.0-15.0) % Plt Count (150-400) K/uL MPV (7.40-12.00) fL Neut % (Auto) (48.0-80.0) % Lymph % (Auto) (16.0-40.0) % [place] % (Auto) (0.0-15.0) % Eos % (Auto) (0.0-7.0) % Baso % (Auto) (0.0-1.5) % Neut # (Auto) (1.4-5.7) K/uL Lymph # (Auto) (0.6-2.4) K/uL [place] # (Auto) (0.0-0.8) K/uL Eos # (Auto) (0.0-0.7) K/uL Baso # (Auto) (0.0-0.1) K/uL Nucleated RBC % /100WBC Nucleated RBCs # K/uL ABG pH (7.35-7.45) ABG pCO2 (35-45) mmHG ABG pO2 (75-100) mmHG ABG HCO3 (22-26) mEq/L ABG Total CO2 ABG Base Excess (-2.0-2.0) Sodium 142 (136-148) mmol/L Potassium 3.8 (3.5-5.1) mmol/L Chloride 104 (98-107) mmol/L Carbon Dioxide 30.3 (21.0-32.0) mmol/L BUN 34 H (7.0-18.0) mg/dL Creatinine 1.1 (0.8-1.3) mg/dL Est Cr Clr Drug Dosing 74.66 mL/min Estimated GFR (MDRD) > 60.0 ml/min Glucose 117 H (74-106) mg/dL POC Glucose 107 (60-110) mg/dL Calcium 8.6 (8.5-10.1) mg/dL Phosphorus 4.9 H (2.6-4.7) mg/dL Magnesium 2.3 (1.8-2.4) mg/dL Total Bilirubin 0.9 (0.2-1.0) mg/dL AST 56 H (15-37) IU/L ALT 46 (14-63) IU/L Alkaline Phosphatase 191 H (46-116) U/L Total Protein 6.0 L (6.4-8.2) g/dL Albumin 2.0 L (3.4-5.0) g/dL Globulin 4.0 (2.6-4.0) g/dL Albumin/Globulin Ratio 0.5 L (0.9-1.6) 11/08/20 11/08/20 11/08/20 Range/Units 12:00 13:20 13:45 WBC (4.0-11.0) K/uL RBC (4.50-5.90) M/uL Hgb (13.0-17.0) g/dL Hct (38.0-50.0) % MCV (80.0-98.0) fL MCH (27.0-32.0) pg MCHC (31.0-37.0) g/dL RDW Std Deviation (28.0-62.0) fl RDW Coeff of Ji (11.0-15.0) % Plt Count (150-400) K/uL MPV (7.40-12.00) fL Neut % (Auto) (48.0-80.0) % Lymph % (Auto) (16.0-40.0) % [place] % (Auto) (0.0-15.0) % Eos % (Auto) (0.0-7.0) % Baso % (Auto) (0.0-1.5) % Neut # (Auto) (1.4-5.7) K/uL Lymph # (Auto) (0.6-2.4) K/uL [place] # (Auto) (0.0-0.8) K/uL Eos # (Auto) (0.0-0.7) K/uL Baso # (Auto) (0.0-0.1) K/uL Nucleated RBC % /100WBC Nucleated RBCs # K/uL ABG pH 7.483 H (7.35-7.45) ABG pCO2 43 (35-45) mmHG ABG pO2 53 L (75-100) mmHG ABG HCO3 32 H (22-26) mEq/L ABG Total CO2 29.3 ABG Base Excess 8.0 H (-2.0-2.0) Sodium (136-148) mmol/L Potassium (3.5-5.1) mmol/L Chloride (98-107) mmol/L Carbon Dioxide (21.0-32.0) mmol/L BUN (7.0-18.0) mg/dL Creatinine (0.8-1.3) mg/dL Est Cr Clr Drug Dosing mL/min Estimated GFR (MDRD) ml/min Glucose (74-106) mg/dL POC Glucose 56 L 116 H (60-110) mg/dL Calcium (8.5-10.1) mg/dL Phosphorus (2.6-4.7) mg/dL Magnesium (1.8-2.4) mg/dL Total Bilirubin (0.2-1.0) mg/dL AST (15-37) IU/L ALT (14-63) IU/L Alkaline Phosphatase (46-116) U/L Total Protein (6.4-8.2) g/dL Albumin (3.4-5.0) g/dL Globulin (2.6-4.0) g/dL Albumin/Globulin Ratio (0.9-1.6) SARY Results - Last 24 hrs: Microbiology 01/27/20 13:59 Aerobic Blood Culture - Final Blood - Venous - Lab Draw NO GROWTH AFTER 5 DAYS Anaerobic Blood Culture - Final 01/27/20 13:48 Aerobic Blood Culture - Final Blood - Venous NO GROWTH AFTER 5 DAYS Anaerobic Blood Culture - Final NO GROWTH AFTER 5 DAYS Med Orders - Current: Current Medications Albuterol/Ipratropium (Combivent Respimat) 0 gm INH Q6HRRT [facility] Last Admin: 02/02/20 13:22 Dose: 1 puff Documented by: Dextrose/Water (Dextrose 50% In Water) 50 ml IV ASDIRECTED PRN PRN Reason: Hypoglycemia Last Admin: 02/02/20 12:19 Dose: 50 ml Documented by: Enoxaparin Sodium (Lovenox) 40 mg SUBCUT Q24H [facility] Last Admin: 02/02/20 09:26 Dose: 40 mg Documented by: Glucagon (Glucagen) 1 mg IM ASDIRECTED PRN PRN Reason: Hypoglycemia Pantoprazole Sodium 40 mg/ (Sodium Chloride) 10 mls @ 300 mls/hr IV DAILY [facility] Last Admin: 02/02/20 09:26 Dose: 300 mls/hr Documented by: Ceftriaxone Sodium/Dextrose 1 (gm/ Premix) 50 mls @ 100 mls/hr IV Q24H NILA Last Admin: 02/02/20 09:28 Dose: 100 mls/hr Documented by: Dexmedetomidine/Sodium (Chloride 400 mcg/ Premix) 100 mls @ 4.763 mls/hr IV CONTINUOUS NILA; Protocol Last Infusion: 02/02/20 16:32 Dose: 1 mcg/kg/hr, 23.814 mls/hr Documented by: Doxycycline Hyclate 100 mg/ (Sodium Chloride) 100 mls @ 100 mls/hr IV Q12H [facility] Last Admin: 02/02/20 10:11 Dose: 100 mls/hr Documented by: Insulin Aspart (Novolog) 0 unit SUBCUT TIDAC [facility]; Protocol Last Admin: 02/02/20 12:14 Dose: Not Given Documented by: Insulin Detemir (Levemir) 15 unit SUBCUT BEDTIME [facility] Labetalol HCl (Normodyne) 10 mg IVPUSH Q2H PRN; Protocol PRN Reason: SBP >160mmHg Last Admin: 02/02/20 09:05 Dose: 10 mg Documented by: Non-Formulary Medication (Evolocumab [Repatha Surejohnick]) 140 mg SQ .EVERY 2 WEEKS [facility] Ticagrelor 90 Mg 1 each PO BID [facility] Last Admin: 02/02/20 08:57 Dose: Not Given Documented by: Sodium Chloride (Saline Flush) 10 ml FLUSH ASDIRECTED PRN PRN Reason: Keep Vein Open Last Admin: 01/27/20 15:52 Dose: 10 ml Documented by: Sodium Chloride (Saline Flush) 2.5 ml FLUSH ASDIRECTED PRN PRN Reason: Keep Vein Open Last Admin: 01/27/20 15:52 Dose: 2.5 ml Documented by: Sodium Chloride ([place] Nasal [place]) 0 ml CORNELIO Q6H PRN PRN Reason: Congestion Last Admin: 01/30/20 17:46 Dose: 1 spray Documented by: Discontinued Medications Acetaminophen (Tylenol Extra Strength) 1,000 mg PO ONETIME ONE Stop: 01/27/20 12:39 Last Admin: 01/27/20 13:12 Dose: 1,000 mg Documented by: Acetaminophen (Tylenol) 650 mg PO Q4H PRN PRN Reason: Pain (Mild 1-3)/fever Last Admin: 01/30/20 08:21 Dose: 650 mg Documented by: Albuterol/Ipratropium (Combivent Respimat) 0 gm INH Q6H PRN PRN Reason: Dyspnea Last Admin: 01/29/20 01:47 Dose: 1 puff Documented by: Albuterol/Ipratropium (Combivent Respimat) 0 gm INH Q6H [facility] Last Admin: 02/01/20 13:04 Dose: Not Given Documented by: Albuterol/Ipratropium (Duoneb 3.0-0.5 Mg/3 Ml) 3 ml NEB Q6HRRT [facility] Last Admin: 02/02/20 13:10 Dose: Not Given Documented by: Benzonatate (Tessalon Perles) 100 mg PO Q6H PRN PRN Reason: Cough Last Admin: 02/01/20 07:04 Dose: 100 mg Documented by: Carvedilol (Coreg) 25 mg PO BIDMEALS [facility] Last Admin: 02/01/20 07:43 Dose: 25 mg Documented by: Dexamethasone (Dexamethasone) 10 mg IV ONETIME ONE Stop: 01/27/20 12:39 Last Admin: 01/27/20 13:13 Dose: 10 mg Documented by: Dexamethasone (Dexamethasone) 6 mg PO DAILY [facility] Last Admin: 02/01/20 08:52 Dose: 6 mg Documented by: Dexamethasone (Decadron) 6 mg IVPUSH DAILY ONE Stop: 02/01/20 11:29 Last Admin: 02/01/20 12:39 Dose: Not Given Documented by: Dextrose/Water (Dextrose 50% In Water) 50 ml IVPUSH ONETIME ONE Stop: 01/31/20 07:14 Last Admin: 01/31/20 07:34 Dose: 50 ml Documented by: Doxazosin Mesylate (Cardura) 4 mg PO DAILY [facility] Last Admin: 02/01/20 08:54 Dose: 4 mg Documented by: Doxycycline Hyclate (Vibramycin) 100 mg PO Q12HR [facility] Last Admin: 02/01/20 08:51 Dose: 100 mg Documented by: Furosemide (Lasix) 40 mg IVPUSH NOW ONE Stop: 02/01/20 11:15 Last Admin: 02/01/20 12:13 Dose: 40 mg Documented by: Furosemide (Lasix) 20 mg IVPUSH ONETIME ONE Stop: 02/02/20 13:30 Last Admin: 02/02/20 13:52 Dose: 20 mg Documented by: Haloperidol (Haldol) 2.5 mg PO ONETIME ONE Stop: 01/30/20 05:19 Last Admin: 01/30/20 05:32 Dose: 2.5 mg Documented by: Heparin Sodium (Porcine) (Heparin Sodium) 5,000 units SUBCUT Q8H [facility] Last Admin: 01/28/20 02:50 Dose: 5,000 units Documented by: Sodium Chloride (Normal Saline) 1,000 mls @ 999 mls/hr IV .Bolus ONE Stop: 01/27/20 13:38 Last Admin: 01/27/20 13:13 Dose: 999 mls/hr Documented by: Remdesivir 200 mg/ Sodium (Chloride) 250 mls @ 250 mls/hr IV ONETIME ONE Stop: 01/27/20 17:47 Last Admin: 01/27/20 18:47 Dose: 250 mls/hr Documented by: Remdesivir 100 mg/ Sodium (Chloride) 100 mls @ 100 mls/hr IV Q24H [facility] Stop: 01/31/20 19:44 Last Admin: 01/31/20 18:33 Dose: 100 mls/hr Documented by: Magnesium Sulfate (Magnesium Sulfate In Water Premix) 2 gm in 50 mls @ 50 mls/hr IV ONETIME ONE Stop: 01/27/20 19:59 Last Admin: 01/27/20 19:36 Dose: 50 mls/hr Documented by: Levofloxacin/Dextrose 750 mg/ (Premix) 150 mls @ 100 mls/hr IV Q24H [facility] Last Admin: 01/27/20 20:21 Dose: 100 mls/hr Documented by: Sodium Chloride (Normal Saline) 500 mls @ 999 mls/hr IV .BOLUS [facility] Last Admin: 01/28/20 10:55 Dose: 999 mls/hr Documented by: Insulin Detemir (Levemir) 30 unit SUBCUT BEDTIME [facility] Last Admin: 01/27/20 20:21 Dose: 30 units Documented by: Insulin Detemir (Levemir) 32 unit SUBCUT BEDTIME [facility] Last Admin: 01/30/20 22:07 Dose: 32 units Documented by: Insulin Detemir (Levemir) 29 unit SUBCUT BEDTIME [facility] Last Admin: 01/31/20 20:57 Dose: 29 units Documented by: Insulin Detemir (Levemir) 26 unit SUBCUT BEDTIME [facility] Last Admin: 02/01/20 21:36 Dose: 26 units Documented by: Iopamidol (Isovue Multipack-370 (76%)) 100 ml IVPUSH ONETIME ONE Stop: 01/27/20 16:54 Last Admin: 01/27/20 16:54 Dose: 100 ml Documented by: Isosorbide Dinitrate (Isordil) 20 mg PO BID [facility] Last Admin: 02/01/20 08:52 Dose: 20 mg Documented by: Ketorolac Tromethamine (Toradol) 15 mg IVPUSH ONETIME ONE Stop: 01/27/20 12:39 Last Admin: 01/27/20 13:12 Dose: 15 mg Documented by: Labetalol HCl (Normodyne) 20 mg IVPUSH ONETIME ONE; Protocol Stop: 02/02/20 06:52 Last Admin: 02/02/20 07:03 Dose: 20 mg Documented by: Lorazepam (Ativan) 0.5 mg PO ONETIME ONE Stop: 01/30/20 12:06 Last Admin: 01/30/20 12:26 Dose: 0.5 mg Documented by: Lorazepam (Ativan) 0.5 mg PO Q8H PRN PRN Reason: Anxiety Last Admin: 02/01/20 04:10 Dose: 0.5 mg Documented by: Losartan Potassium (Cozaar) 100 mg PO DAILY [facility] Last Admin: 02/01/20 08:51 Dose: 100 mg Documented by: Magnesium Sulfate (Magnesium Sulfate In Water Premix) 2 gm IV ONETIME ONE Stop: 01/27/20 18:45 Melatonin (Melatonin) 3 mg PO BEDTIME PRN PRN Reason: Insomnia Last Admin: 01/31/20 22:54 Dose: 3 mg Documented by: Non-Formulary Medication (Ticagrelor) 90 mg PO BID [facility] Last Admin: 01/27/20 21:40 Dose: Not Given Documented by: Non-Formulary Medication (Tizanidine) 2 mg PO Q6H PRN PRN Reason: muscle spasms Ondansetron HCl (Zofran) 4 mg IVPUSH ONETIME ONE Stop: 01/27/20 14:10 Last Admin: 01/27/20 15:52 Dose: 4 mg Documented by: Ondansetron HCl (Zofran) 4 mg IVPUSH Q4H PRN PRN Reason: Nausea Last Admin: 02/01/20 10:10 Dose: 4 mg Documented by: Ticagrelor 90 Mg 1 each PO BID [facility] Last Admin: 01/28/20 12:16 Dose: Not Given Documented by: Potassium Chloride (Potassium Chloride) 40 meq PO ONETIME ONE Stop: 01/27/20 14:10 Last Admin: 01/27/20 15:52 Dose: 40 meq Documented by: Potassium Chloride (Klor-Con M20) 40 meq PO ONETIME ONE Stop: 01/31/20 07:08 Last Admin: 01/31/20 08:00 Dose: 40 meq Documented by: Ranolazine (Ranexa) 1,000 mg PO Q12H [facility] Last Admin: 02/01/20 07:05 Dose: 1,000 mg Documented by: Sertraline HCl (Zoloft) 50 mg PO DAILY [facility] Last Admin: 02/01/20 08:53 Dose: 50 mg Documented by: Tizanidine HCl (Zanaflex) 2 mg PO Q6H PRN PRN Reason: muscle spasms Tizanidine HCl (Zanaflex) 4 mg PO Q8H PRN PRN Reason: muscle spasms Last Admin: 01/28/20 11:29 Dose: 4 mg Documented by: Tramadol HCl (Ultram) 50 mg PO BEDTIME PRN PRN Reason: Pain Last Admin: 01/29/20 22:26 Dose: 50 mg Documented by: Tramadol HCl (Ultram) 50 mg PO ONETIME ONE Stop: 01/30/20 04:02 Last Admin: 01/30/20 04:23 Dose: 50 mg Documented by: Tramadol HCl (Ultram) 100 mg PO ONETIME ONE Stop: 01/31/20 06:21 Last Admin: 01/31/20 06:31 Dose: 100 mg Documented by: Tramadol HCl (Ultram) 100 mg PO TID PRN PRN Reason: Pain Tramadol HCl (Ultram) 100 mg PO Q8H PRN PRN Reason: Pain Last Admin: 02/01/20 07:03 Dose: 100 mg Documented by: Wound Care/Dressing Products (Duoderm Cgf) Confirm Administered Dose 1 each .ROUTE .STK-MED ONE Stop: 01/31/20 20:39 Last Admin: 01/31/20 21:00 Dose: 1 each Documented by: <Shawna Bridges - Last Filed: 02/11/20 17:46> Discharge Summary - Hospital Course Brief History: I have seen and evaluated the patient and agree with the residents note unless specified in my note - Referral to Home Health Primary Care Physician: PCP None - Patient Data Vitals - Most Recent: Last Vital Signs Temp 37.1 C 02/02/20 17:30 Pulse 79 02/02/20 16:15 Resp 14 02/02/20 17:30 BP 199/105 H 02/02/20 17:57 Pulse Ox 92 L 02/02/20 17:57 Med Orders - Current: Current Medications Discontinued Medications Acetaminophen (Tylenol Extra Strength) 1,000 mg PO ONETIME ONE Stop: 01/27/20 12:39 Last Admin: 01/27/20 13:12 Dose: 1,000 mg Documented by: Acetaminophen (Tylenol) 650 mg PO Q4H PRN PRN Reason: Pain (Mild 1-3)/fever Last Admin: 01/30/20 08:21 Dose: 650 mg Documented by: Albuterol/Ipratropium (Combivent Respimat) 0 gm INH Q6H PRN PRN Reason: Dyspnea Last Admin: 01/29/20 01:47 Dose: 1 puff Documented by: Albuterol/Ipratropium (Combivent Respimat) 0 gm INH Q6H [facility] Last Admin: 02/01/20 13:04 Dose: Not Given Documented by: Albuterol/Ipratropium (Duoneb 3.0-0.5 Mg/3 Ml) 3 ml NEB Q6HRRT [facility] Last Admin: 02/02/20 13:10 Dose: Not Given Documented by: Albuterol/Ipratropium (Combivent Respimat) 0 gm INH Q6HRRT [facility] Last Admin: 02/02/20 13:22 Dose: 1 puff Documented by: Benzonatate (Tessalon Perles) 100 mg PO Q6H PRN PRN Reason: Cough Last Admin: 02/01/20 07:04 Dose: 100 mg Documented by: Carvedilol (Coreg) 25 mg PO BIDMEALS [facility] Last Admin: 02/01/20 07:43 Dose: 25 mg Documented by: Dexamethasone (Dexamethasone) 10 mg IV ONETIME ONE Stop: 01/27/20 12:39 Last Admin: 01/27/20 13:13 Dose: 10 mg Documented by: Dexamethasone (Dexamethasone) 6 mg PO DAILY [facility] Last Admin: 02/01/20 08:52 Dose: 6 mg Documented by: Dexamethasone (Decadron) 6 mg IVPUSH DAILY ONE Stop: 02/01/20 11:29 Last Admin: 02/01/20 12:39 Dose: Not Given Documented by: Dextrose/Water (Dextrose 50% In Water) 50 ml IV ASDIRECTED PRN PRN Reason: Hypoglycemia Last Admin: 02/02/20 17:10 Dose: 50 ml Documented by: Dextrose/Water (Dextrose 50% In Water) 50 ml IVPUSH ONETIME ONE Stop: 01/31/20 07:14 Last Admin: 01/31/20 07:34 Dose: 50 ml Documented by: Doxazosin Mesylate (Cardura) 4 mg PO DAILY [facility] Last Admin: 02/01/20 08:54 Dose: 4 mg Documented by: Doxycycline Hyclate (Vibramycin) 100 mg PO Q12HR [facility] Last Admin: 02/01/20 08:51 Dose: 100 mg Documented by: Enoxaparin Sodium (Lovenox) 40 mg SUBCUT Q24H [facility] Last Admin: 02/02/20 09:26 Dose: 40 mg Documented by: Furosemide (Lasix) 40 mg IVPUSH NOW ONE Stop: 02/01/20 11:15 Last Admin: 02/01/20 12:13 Dose: 40 mg Documented by: Furosemide (Lasix) 20 mg IVPUSH ONETIME ONE Stop: 02/02/20 13:30 Last Admin: 02/02/20 13:52 Dose: 20 mg Documented by: Glucagon (Glucagen) 1 mg IM ASDIRECTED PRN PRN Reason: Hypoglycemia Haloperidol (Haldol) 2.5 mg PO ONETIME ONE Stop: 01/30/20 05:19 Last Admin: 01/30/20 05:32 Dose: 2.5 mg Documented by: Heparin Sodium (Porcine) (Heparin Sodium) 5,000 units SUBCUT Q8H [facility] Last Admin: 01/28/20 02:50 Dose: 5,000 units Documented by: Sodium Chloride (Normal Saline) 1,000 mls @ 999 mls/hr IV .Bolus ONE Stop: 01/27/20 13:38 Last Admin: 01/27/20 13:13 Dose: 999 mls/hr Documented by: Remdesivir 200 mg/ Sodium (Chloride) 250 mls @ 250 mls/hr IV ONETIME ONE Stop: 01/27/20 17:47 Last Admin: 01/27/20 18:47 Dose: 250 mls/hr Documented by: Remdesivir 100 mg/ Sodium (Chloride) 100 mls @ 100 mls/hr IV Q24H [facility] Stop: 01/31/20 19:44 Last Admin: 01/31/20 18:33 Dose: 100 mls/hr Documented by: Pantoprazole Sodium 40 mg/ (Sodium Chloride) 10 mls @ 300 mls/hr IV DAILY [facility] Last Admin: 02/02/20 09:26 Dose: 300 mls/hr Documented by: Magnesium Sulfate (Magnesium Sulfate In Water Premix) 2 gm in 50 mls @ 50 mls/hr IV ONETIME ONE Stop: 01/27/20 19:59 Last Admin: 01/27/20 19:36 Dose: 50 mls/hr Documented by: Levofloxacin/Dextrose 750 mg/ (Premix) 150 mls @ 100 mls/hr IV Q24H [facility] Last Admin: 01/27/20 20:21 Dose: 100 mls/hr Documented by: Ceftriaxone Sodium/Dextrose 1 (gm/ Premix) 50 mls @ 100 mls/hr IV Q24H [facility] Last Admin: 02/02/20 09:28 Dose: 100 mls/hr Documented by: Sodium Chloride (Normal Saline) 500 mls @ 999 mls/hr IV .BOLUS [facility] Last Admin: 01/28/20 10:55 Dose: 999 mls/hr Documented by: Dexmedetomidine/Sodium (Chloride 400 mcg/ Premix) 100 mls @ 4.763 mls/hr IV CONTINUOUS [facility]ILA; Protocol Last Infusion: 02/02/20 16:32 Dose: 1 mcg/kg/hr, 23.814 mls/hr Documented by: Doxycycline Hyclate 100 mg/ (Sodium Chloride) 100 mls @ 100 mls/hr IV Q12H [facility] Last Admin: 02/02/20 10:11 Dose: 100 mls/hr Documented by: Norepinephrine Bitartrate (Norepinephr-0.9% Nacl 4 Mg/250) Confirm Administered Dose 4 mg in 250 mls @ as directed IV .STK-MED ONE Stop: 02/02/20 17:08 Propofol (Diprivan 100 Ml) 100 mls @ 2.808 mls/hr IV TITRATE [facility]IL[facility]; Protocol Insulin Aspart (Novolog) 0 unit SUBCUT TIDAC NIL[facility]; Protocol Last Admin: 02/02/20 17:51 Dose: Not Given Documented by: Insulin Detemir (Levemir) 30 unit SUBCUT BEDTIME [facility] Last Admin: 01/27/20 20:21 Dose: 30 units Documented by: Insulin Detemir (Levemir) 32 unit SUBCUT BEDTIME [facility] Last Admin: 01/30/20 22:07 Dose: 32 units Documented by: Insulin Detemir (Levemir) 29 unit SUBCUT BEDTIME [facility] Last Admin: 01/31/20 20:57 Dose: 29 units Documented by: Insulin Detemir (Levemir) 26 unit SUBCUT BEDTIME [facility] Last Admin: 02/01/20 21:36 Dose: 26 units Documented by: Insulin Detemir (Levemir) 15 unit SUBCUT BEDTIME [facility] Iopamidol (Isovue Multipack-370 (76%)) 100 ml IVPUSH ONETIME ONE Stop: 01/27/20 16:54 Last Admin: 01/27/20 16:54 Dose: 100 ml Documented by: Isosorbide Dinitrate (Isordil) 20 mg PO BID [facility] Last Admin: 02/01/20 08:52 Dose: 20 mg Documented by: Ketorolac Tromethamine (Toradol) 15 mg IVPUSH ONETIME ONE Stop: 01/27/20 12:39 Last Admin: 01/27/20 13:12 Dose: 15 mg Documented by: Labetalol HCl (Normodyne) 10 mg IVPUSH Q2H PRN; Protocol PRN Reason: SBP >160mmHg Last Admin: 02/02/20 09:05 Dose: 10 mg Documented by: Labetalol HCl (Normodyne) 20 mg IVPUSH ONETIME ONE; Protocol Stop: 02/02/20 06:52 Last Admin: 02/02/20 07:03 Dose: 20 mg Documented by: Lidocaine HCl (Xylocaine-Mpf 1%) Confirm Administered Dose 5 ml .ROUTE .STK-MED ONE Stop: 02/02/20 17:33 Lorazepam (Ativan) 0.5 mg PO ONETIME ONE Stop: 01/30/20 12:06 Last Admin: 01/30/20 12:26 Dose: 0.5 mg Documented by: Lorazepam (Ativan) 0.5 mg PO Q8H PRN PRN Reason: Anxiety Last Admin: 02/01/20 04:10 Dose: 0.5 mg Documented by: Losartan Potassium (Cozaar) 100 mg PO DAILY [facility] Last Admin: 02/01/20 08:51 Dose: 100 mg Documented by: Magnesium Sulfate (Magnesium Sulfate In Water Premix) 2 gm IV ONETIME ONE Stop: 01/27/20 18:45 Melatonin (Melatonin) 3 mg PO BEDTIME PRN PRN Reason: Insomnia Last Admin: 01/31/20 22:54 Dose: 3 mg Documented by: Non-Formulary Medication (Ticagrelor) 90 mg PO BID [facility] Last Admin: 01/27/20 21:40 Dose: Not Given Documented by: Non-Formulary Medication (Tizanidine) 2 mg PO Q6H PRN PRN Reason: muscle spasms Non-Formulary Medication (Evolocumab [Repatha Sureclick]) 140 mg SQ .EVERY 2 WEEKS [facility] Ondansetron HCl (Zofran) 4 mg IVPUSH ONETIME ONE Stop: 01/27/20 14:10 Last Admin: 01/27/20 15:52 Dose: 4 mg Documented by: Ondansetron HCl (Zofran) 4 mg IVPUSH Q4H PRN PRN Reason: Nausea Last Admin: 02/01/20 10:10 Dose: 4 mg Documented by: Ticagrelor 90 Mg 1 each PO BID [facility] Last Admin: 01/28/20 12:16 Dose: Not Given Documented by: Ticagrelor 90 Mg 1 each PO BID [facility] Last Admin: 02/02/20 08:57 Dose: Not Given Documented by: Potassium Chloride (Potassium Chloride) 40 meq PO ONETIME ONE Stop: 01/27/20 14:10 Last Admin: 01/27/20 15:52 Dose: 40 meq Documented by: Potassium Chloride (Klor-Con M20) 40 meq PO ONETIME ONE Stop: 01/31/20 07:08 Last Admin: 01/31/20 08:00 Dose: 40 meq Documented by: Propofol (Diprivan 20 Ml) Confirm Administered Dose 400 mg .ROUTE .STK-MED ONE Stop: 02/02/20 16:52 Ranolazine (Ranexa) 1,000 mg PO Q12H [facility] Last Admin: 02/01/20 07:05 Dose: 1,000 mg Documented by: Rocuronium [place] (Rocuronium [place]) Confirm Administered Dose 150 mg .ROUTE .STK-MED ONE Stop: 02/02/20 16:52 Sertraline HCl (Zoloft) 50 mg PO DAILY [facility] Last Admin: 02/01/20 08:53 Dose: 50 mg Documented by: Sodium Chloride (Saline Flush) 10 ml FLUSH ASDIRECTED PRN PRN Reason: Keep Vein Open Last Admin: 01/27/20 15:52 Dose: 10 ml Documented by: Sodium Chloride (Saline Flush) 2.5 ml FLUSH ASDIRECTED PRN PRN Reason: Keep Vein Open Last Admin: 01/27/20 15:52 Dose: 2.5 ml Documented by: Sodium Chloride ([place] Nasal [place]) 0 ml CORNELIO Q6H PRN PRN Reason: Congestion Last Admin: 01/30/20 17:46 Dose: 1 spray Documented by: Tizanidine HCl (Zanaflex) 2 mg PO Q6H PRN PRN Reason: muscle spasms Tizanidine HCl (Zanaflex) 4 mg PO Q8H PRN PRN Reason: muscle spasms Last Admin: 01/28/20 11:29 Dose: 4 mg Documented by: Tramadol HCl (Ultram) 50 mg PO BEDTIME PRN PRN Reason: Pain Last Admin: 01/29/20 22:26 Dose: 50 mg Documented by: Tramadol HCl (Ultram) 50 mg PO ONETIME ONE Stop: 01/30/20 04:02 Last Admin: 01/30/20 04:23 Dose: 50 mg Documented by: Tramadol HCl (Ultram) 100 mg PO ONETIME ONE Stop: 01/31/20 06:21 Last Admin: 01/31/20 06:31 Dose: 100 mg Documented by: Tramadol HCl (Ultram) 100 mg PO TID PRN PRN Reason: Pain Tramadol HCl (Ultram) 100 mg PO Q8H PRN PRN Reason: Pain Last Admin: 02/01/20 07:03 Dose: 100 mg Documented by: Wound Care/Dressing Products ([facility]therm Cgf) Confirm Administered Dose 1 each .ROUTE .STK-MED ONE Stop: 01/31/20 20:39 Last Admin: 01/31/20 21:00 Dose: 1 each Documented by:
[2020-02-02] MEDS ORDERED: Propofol 200 MG/20 ML SDV ONE (16:51)
[2020-02-02] MEDS ORDERED: Rocuronium Bromide 50 MG/5 ML Syringe ONE (16:51)
--- NOTE | 2020-02-02 17:56 | PCM.SN.2 ---
- Free Text/Narrative Note: Requested to Intubate COVID patient in respiratory distress. SaO2 ~ 80% on CPAP. Discussed. ET under DV. BS=BS. Secured at 23 cm. CXR confirmed good ET placement. SaO2 slowly rising. VSS. Totals Propofol 400mg Rocuronium 150mg Tolerated well. 16:50-17:25
[2020-02-02] MEDS ORDERED: propofoL 100 ML IV SCH (18:00)
[2020-02-02 18:30] VITALS: PULSE 79
[2020-02-02 18:38] VITALS: BP 199/105
--- NOTE | 2020-02-02 18:48 | CR ---
HISTORY: Post intubation. TECHNIQUE: One view of the chest. COMPARISON: 01/27/2020. FINDINGS: Endotracheal tube terminates approximately 6 cm above the tucker. Worsening of extensive bilateral lung infiltrates. No pneumothorax. No moderate or large pleural effusion. Cardiac size within normal limits. Degenerative changes of the spine. IMPRESSION: 1. Endotracheal tube terminates 6 cm above the tucker. 2. Worsening of extensive bilateral lung infiltrates. Dictated by Bala Yoo MD @ 02/02/2020 6:46:35 PM Dictated by: Bala Yoo MD @ 02/02/2020 18:46:42 (Electronically Signed)
[2020-02-02] MEDS ORDERED: Insulin Detemir 100 Units/ML 3 ML Pen SUBCUT SCH (21:00)
== END 2020-02-02 18:15 | DRG 137 ==
LOC: MW.ED 12:22 → MW.ICU 18:00
PROVIDERS: ADMIT Internal Medicine; ATTEND Internal Medicine
PROC: XW033E5 Introduction of Remdesivir Anti-infective into Peripheral Vein, Percutaneous Approach, New Technology Group 5 (ICD-10-PCS; principal; 2020-01-27)
PROC: XW13325 Transfusion of Convalescent Plasma (Nonautologous) into Peripheral Vein, Percutaneous Approach, New Technology Group 5 (ICD-10-PCS; 2020-01-27)
PROC: 5A1935Z Respiratory Ventilation, Less than 24 Consecutive Hours (ICD-10-PCS; 2020-01-27)
PROC: 0BH17EZ Insertion of Endotracheal Airway into Trachea, Via Natural or Artificial Opening (ICD-10-PCS; 2020-01-27)
PROC: 5A09557 Assistance with Respiratory Ventilation, Greater than 96 Consecutive Hours, Continuous Positive Airway Pressure (ICD-10-PCS; 2020-01-27)
DX: U07.1 COVID-19 (principal); E11.9 Type 2 diabetes mellitus without complications; I10 Essential (primary) hypertension; E78.5 Hyperlipidemia, unspecified; J96.01 Acute respiratory failure with hypoxia; F41.9 Anxiety disorder, unspecified; R19.5 Other fecal abnormalities; J12.9 Viral pneumonia, unspecified; N39.0 Urinary tract infection, site not specified; E78.00 Pure hypercholesterolemia, unspecified; I25.10 Atherosclerotic heart disease of native coronary artery without angina pectoris; I25.118 Atherosclerotic heart disease of native coronary artery with other forms of angina pectoris; E83.42 Hypomagnesemia; E87.6 Hypokalemia; E16.2 Hypoglycemia, unspecified; K21.9 Gastro-esophageal reflux disease without esophagitis; Z87.39 Personal history of other diseases of the musculoskeletal system and connective tissue; Z99.81 Dependence on supplemental oxygen; Z79.01 Long term (current) use of anticoagulants; Z95.5 Presence of coronary angioplasty implant and graft; Z86.69 Personal history of other diseases of the nervous system and sense organs; Z79.82 Long term (current) use of aspirin; Z86.79 Personal history of other diseases of the circulatory system; Z86.59 Personal history of other mental and behavioral disorders
CPT/HCPCS: 31500; 36415; 36430; 36600; 51702; 71045; 71045-26; 71275; 71275-26; 80053; 82803; 82962; 83605; 83735; 83880; 84100; 84484; 85025; 85379; 85610; 85730; 86140; 86156; 86850; 86900; 86901; 87040; 87324; 93005; 93010; 94002; 94640; 94660; 96374; 96375; 99222; 99231; 99239; 99284; 99285-25; A9270-GY; C9113; J0696; J1100; J1644; J1650; J1815-GY; J1885; J1940; J1956; J2001; J2405; J2704; J3475; J3490; J7030; J7040; J7050; J7620-GY; J8540; P9017; Q9967

== ENCOUNTER 2020-06-01 15:01 | Emergency (ER) | payer BC ==
[2020-06-01] MEDS ORDERED: Sodium Chloride 0.9% 10 ML Syringe FLUSH PRN (15:12)
[2020-06-01] MEDS ORDERED: Sodium Chloride 0.9% 2.5 ML Syringe FLUSH PRN (15:12)
--- NOTE | 2020-06-01 15:33 | PCM.EKG ---
#1 Interpretation EKG Interpretation Comments: Heart rate = 86 bpm, normal sinus rhythm, LVH, normal QRS interval, no STEMI. EKG and rhythm strip interpreted by me at [id number]
--- NOTE | 2020-06-01 15:47 | CR ---
Indication: Chest pain Comparison: Single view chest February 02, 2020 Technique: Single AP view chest Findings: There is hyperinflation and chronic interstitial changes with parenchymal scarring seen in the peripheral lung bases. There is overall significantly improved aeration of the bilateral hemithoraces from removed comparison exam. There is likely residual left basilar pleural fluid versus pleural thickening. There is no pneumothorax. Stable cardiac silhouette. The bony thorax is grossly intact. Impression: Overall significantly improved aeration of the bilateral hemithoraces with residual left basilar pleural effusion versus pleural thickening. Moderate fibrotic changes are seen. Dictated by Alexy Walton MD @ Jun 01 2020 3:43PM Signed by Dr. Alexy Walton @ Jun 01 2020 3:44PM
[2020-06-01] MEDS ORDERED: Morphine 2 MG/ML SYRINGE IVPUSH ONE (15:57)
--- NOTE | 2020-06-01 16:07 | EDM.PDOC ---
ED HPI GENERAL MEDICAL PROBLEM - General Chief Complaint: Chest Pain Stated Complaint: CHEST PAIN Time Seen by Provider: 06/01/20 15:04 Source of Information: Reports: Patient History Limitations: Reports: No Limitations - History of Present Illness INITIAL COMMENTS - FREE TEXT/NARRATIVE: HISTORY AND PHYSICAL: History of present illness: Patient is a 59-year-old male presenting to the ED with chest pain since 0500 today that he states radiates to his back and shoulder blade and constant. Patient presents with his at the bedside. Patient also complains of intermittent nausea accompanied by vomiting. Patient states that he has vomited 4 times today, last 30 minutes prior to presentation. Patient states his nausea is made worse with lying down. Patient also complains of some intermittent epigastric abdominal pain. Patient has a history of CAD, cardiac stent placement x8, and COVID-19 infection resulting in hospital admission. Patient states that he was admitted to the [facility] in [place] at the beginning of January for complicated COVID-19 infection. Patient states at that time he had been on a ventilator for quite a long time so had a tracheostomy placed. Patient states in the process of getting the tracheostomy placed, he had "coded" multiple times due to complications with placement / cutting an artery. Patient denies fever, chills, shortness of breath, or cough. Denies headache, neck stiff ness, change in vision, syncope, or near syncope. Denies diarrhea, constipation, or dysuria. Has not noted any blood in urine or stool. Patient has been eating and drinking appropriately. Review of systems: As per history of present illness and below otherwise all systems reviewed and negative. Past medical history: As per history of present illness and as reviewed below otherwise noncontributory. Surgical history: As per history of present illness and as reviewed below otherwise noncontributory. Social history: See social history for further information Family history: As per history of present illness and as reviewed below otherwise noncontributory. Physical exam: General: Patient is alert, oriented, and in no acute distress. Patient lying on exam table holding chest. Hypertensive at 180/100, otherwise, vitals stable and reviewed by me. Chronically ill appearing. HEENT: Atraumatic, normocephalic, pupils equal and reactive bilaterally, negative for conjunctival pallor or scleral icterus, mucous membranes moist, TMs normal bilaterally, throat clear, neck supple, nontender, trachea midline. No drooling or trismus noted. No meningeal signs. No hot potato voice noted. Lungs: Clear to auscultation, breath sounds equal bilaterally, chest nontender. Heart: S1S2, regular rate and rhythm without overt murmur Abdomen: Soft, nondistended, nontender. Negative for masses or hepatosplenomegaly. Negative for costovertebral tenderness. Pelvis: Stable nontender. Genitourinary: Deferred. Rectal: Deferred. Skin: Intact, warm, dry. No lesions or rashes noted. Extremities: Atraumatic, negative for cords or calf pain. Neurovascular unremarkable. Neuro: Awake, alert, oriented. Cranial nerves II through XII unremarkable. Cerebellum unremarkable. Motor and sensory unremarkable throughout. Exam nonfocal. Notes: Dr. Hills verbally involved in patient care. See his documentation for specific EKG interpretation. On arrival to the ED, patient is hypertensive 180s over 100s and does appear uncomfortable holding his chest. He states he would not like to take aspirin at this time as he is allergic. Patient states that he did take Nitro prior to coming without improvement of symptoms. Due to patients description of chest pain and hypertension, concerned of aortic dissection or ACS. Will get cardiac evaluation, routine labwork, bedside 1VCXR, and aorta protocol chest/abd/pelvis CT with contrast. After therapeutics given, patient is chest pain free and appears more comfortable. Remains vitally stable. Repeat EKG shows no acute changes / no STEMI Aspirin allergy addressed with patient. Patient states that he gets hives when he takes aspirin but agreed to the plan to premedicate with 50 mg of Benadryl prior to taking aspirin. After chest/abd/pelvic aorta CT w contrast r/o aortic pathology with positive troponin, heparin bolus/gtt initiated for NSTEMI protocol. I did call and speak to the ER physician at [facility], Dr. Ramon, and thoroughly discussed patient's case. Accepting of transfer. EMS arranged and arrival in 30 minutes. Patient remains comfortable and vitally stable throughout stay in ED. Diagnostics: CBC, CMP, UA, troponin, CTA chest and abdomen/pelvis, EKG x3, CXR Therapeutics: Morphine, Zofran, normal saline, aspirin, Benadryl, Heparin bolus/gtt Impression: NSTEMI Plan: Transfer to [facility] to Dr. Ramon via EMS Definitive disposition and diagnosis as appropriate pending reevaluation and review of above. Chest Pain Score (Numeric/FACES): 7 - Related Data Allergies Allergy/AdvReac Type Severity Reaction Status Date / Time aspirin Allergy Hives Verified 06/01/20 15:14 ibuprofen Allergy Hives Verified 06/01/20 15:14 pioglitazone HCl [From Actos] Allergy Hives Verified 06/01/20 15:14 prasugrel HCl [From Effient] Allergy Rash Verified 06/01/20 15:14 Uvzviqc-Zzj-Uzj Reductase Allergy Body Aches Verified 06/01/20 15:14 Inhibitor Home Meds: Home Meds Multivitamin [Multi-Day Vitamins] 1 tab PO DAILY 12/25/14 [History] Ticagrelor [Brilinta] 90 mg PO BID 12/25/14 [History] traMADol [Ultram] 50 mg PO BEDTIME PRN 12/25/14 [History] Doxazosin [Cardura] 4 mg PO DAILY 11/01/17 [History] Insulin Aspart [Novolog Flexpen] 6 unit SQ TIDMEALS 11/01/17 [History] Omeprazole 20 mg PO DAILY 11/01/17 [History] carvediloL [Carvedilol] 25 mg PO BIDMEALS 11/01/17 [History] Losartan [Cozaar] 100 mg PO DAILY 12/24/17 [History] Insulin Degludec [Tresiba] 30 - 36 unit SQ BEDTIME 10/19/18 [History] Nitroglycerin 0.4 mg SL .EVERY 5 MINUTES PRN MDD 3 tablets 10/19/18 [History] Insulin Aspart [NovoLOG] 6 unit SUBCUT TIDAC pen 10/20/18 [Rx] Ondansetron [Zofran ODT] 4 mg PO Q6H PRN #18 tab.dis 01/24/20 [Rx] DULoxetine [Cymbalta] 30 mg PO DAILY 01/27/20 [History] Evolocumab [Repatha Sureclick] 140 mg SQ .EVERY 2 WEEKS 01/27/20 [History] Isosorbide Dinitrate 20 mg PO BID 01/27/20 [History] Pregabalin [Lyrica] 50 mg PO BEDTIME 01/27/20 [History] Ranolazine [Ranexa] 1,000 mg PO Q12H 01/27/20 [History] Sertraline HCl 50 mg PO DAILY 01/27/20 [History] tiZANidine [Zanaflex] 2 mg PO Q6H PRN 01/27/20 [History] Albuterol/Ipratropium [Combivent Respimat] 0 gm INH Q6HRRT inhaler 02/02/20 [Rx] Doxycycline [Vibramycin] 100 mg IV Q12H vial 02/02/20 [Rx] Enoxaparin [Lovenox] 40 mg SUBCUT Q24H syringe 02/02/20 [Rx] Insulin Aspart [NovoLOG] 0 unit SUBCUT TIDAC pen 02/02/20 [Rx] Insulin Detemir [Levemir] 15 unit SUBCUT BEDTIME pen 02/02/20 [Rx] Labetalol [Normodyne] 10 mg IVPUSH Q2H PRN mdv 02/02/20 [Rx] Pantoprazole [ProTONIX IV] 40 mg IV DAILY vial 02/02/20 [Rx] cefTRIAXone [Rocephin in Dextrose,Iso-Osm 1 GM/50 ML] 1 gm IV Q24H bag 02/02/20 [Rx] dexmedeTOMIDine in 0.9 % NaCL [Precedex] 400 mcg IV CONTINUOUS bottle 02/02/20 [Rx] Past Medical History - Past Health History Medical/Surgical History: Denies Medical/Surgical History HEENT History: Reports: Otitis Media, Other (See Below) Other HEENT History: Constant ringing in ears, affects my hearing, macular edema Cardiovascular History: Reports: Angina, High Cholesterol, Hypertension, ND, SOB on Exertion, Stents, Syncope, Other (See Below) Other Cardiovascular History: Diastolic dysfunction Respiratory History: Reports: None Gastrointestinal History: Reports: GERD Other Gastrointestinal History: Abdominal pain post meals, Water dark, smelling stools Genitourinary History: Reports: None Musculoskeletal History: Reports: Back Pain, Chronic, Neck Pain, Chronic Other Musculoskeletal History: Upper back pain history Neurological History: Reports: Neuropathy, Peripheral Other Neuro History: 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 Psychiatric History: Reports: Anxiety, Depression Other Psychiatric History: "Not sure I would know if I were depressed 'how would I know?" Endocrine/Metabolic History: Reports: Diabetes, Type I Hematologic History: Reports: None Other Hematologic History: Chronic anti-coagulant therapy Immunologic History: Reports: None Oncologic (Cancer) History: Reports: None Dermatologic History: Reports: None - Infectious Disease History Infectious Disease History: Reports: None - Past Surgical History Head Surgeries/Procedures: Reports: None Cardiovascular Surgical History: Reports: Coronary Artery Stent Other Cardiovascular Surgeries/Procedures: angiogram, triple stents last February 2016 GI Surgical History: Reports: None Endocrine Surgical History: Reports: None Neurological Surgical History: Reports: None Other Neurological Surgeries/Procedures: Cervical Spine surgery with plate,screws and cage Musculoskeletal Surgical History: Reports: Other (See Below) Other Musculoskeletal Surgeries/Procedures:: plate in neck Social & Family History - Family History Family Medical History: No Pertinent Family History Cardiac: Reports: Angina, ND Other Cardiac Family History: states both parents young from cardiac disease, also extensive cardiac HX with uncles, cousins, nephews - Tobacco Use Tobacco Use Status *Q: Never Tobacco User - Caffeine Use Caffeine Use: Reports: None Caffeine Use Comment: diet soda - Recreational Drug Use Recreational Drug Use: No - Living Situation & Occupation Living situation: Reports: , with Family Occupation: Employed ED ROS GENERAL - Review of Systems Review Of Systems: Comprehensive ROS is negative, except as noted in HPI. ED EXAM, GENERAL - Physical Exam Exam: See Below (see dictation) Course - Vital Signs Last Recorded V/S: Last Vital Signs Temp 97.3 F 06/01/20 15:14 Pulse 78 06/01/20 18:33 Resp 20 06/01/20 18:33 BP 187/114 H 06/01/20 19:59 Pulse Ox 100 06/01/20 18:33 - Orders/Labs/Meds Orders: Active Orders 24 hr Category Date Time Status Saline Lock Insert [OM.PC] Stat Oth 06/01/20 15:12 Ordered Labs: Laboratory Tests 06/01/20 06/01/20 06/01/20 Range/Units 15:37 15:37 15:37 WBC 5.73 (4.0-11.0) K/uL RBC 3.79 L (4.50-5.90) M/uL Hgb 11.7 L (13.0-17.0) g/dL Hct 34.3 L (38.0-50.0) % MCV 90.5 (80.0-98.0) fL MCH 30.9 (27.0-32.0) pg MCHC 34.1 (31.0-37.0) g/dL RDW Std Deviation 43.0 (28.0-62.0) fl RDW Coeff of Ji 13 (11.0-15.0) % Plt Count 218 (150-400) K/uL MPV 9.50 (7.40-12.00) fL Neut % (Auto) 73.9 (48.0-80.0) % Lymph % (Auto) 17.1 (16.0-40.0) % [place] % (Auto) 7.0 (0.0-15.0) % Eos % (Auto) 1.7 (0.0-7.0) % Baso % (Auto) 0.3 (0.0-1.5) % Neut # (Auto) 4.2 (1.4-5.7) K/uL Lymph # (Auto) 1.0 (0.6-2.4) K/uL [place] # (Auto) 0.4 (0.0-0.8) K/uL Eos # (Auto) 0.1 (0.0-0.7) K/uL Baso # (Auto) 0.0 (0.0-0.1) K/uL Nucleated RBC % 0.0 /100WBC Nucleated RBCs # 0 K/uL INR 0.97 APTT 22.0 (18.6-31.3) SEC Sodium 135 L (136-148) mmol/L Potassium 3.9 (3.5-5.1) mmol/L Chloride 97 L (98-107) mmol/L Carbon Dioxide 28.5 (21.0-32.0) mmol/L BUN 20 H (7.0-18.0) mg/dL Creatinine 1.4 H (0.8-1.3) mg/dL Est Cr Clr Drug Dosing 58.66 mL/min Estimated GFR (MDRD) 51.9 ml/min Glucose 319 H (74-106) mg/dL Calcium 9.0 (8.5-10.1) mg/dL Total Bilirubin 0.2 (0.2-1.0) mg/dL AST 18 (15-37) IU/L ALT 26 (14-63) IU/L Alkaline Phosphatase 100 (46-116) U/L Troponin I 0.148 H* (0.000-0.056) ng/mL Total Protein 6.9 (6.4-8.2) g/dL Albumin 2.9 L (3.4-5.0) g/dL Globulin 4.0 (2.6-4.0) g/dL Albumin/Globulin Ratio 0.7 L (0.9-1.6) Urine Color Urine Appearance Urine pH (5.0-8.0) Ur Specific [place] (1.001-1.035) Urine Protein (NEGATIVE) mg/dL Urine Glucose (UA) (NEGATIVE) mg/dL Urine Ketones (NEGATIVE) mg/dL Urine Occult Blood (NEGATIVE) Urine Nitrite (NEGATIVE) Urine Bilirubin (NEGATIVE) Urine Urobilinogen (<2.0) EU/dL Ur Leukocyte Esterase (NEGATIVE) Urine RBC (0-2/HPF) Urine WBC (0-5/HPF) Ur Epithelial Cells (NONE-FEW) Urine Bacteria (NEGATIVE) 06/01/20 Range/Units 15:45 WBC (4.0-11.0) K/uL RBC (4.50-5.90) M/uL Hgb (13.0-17.0) g/dL Hct (38.0-50.0) % MCV (80.0-98.0) fL MCH (27.0-32.0) pg MCHC (31.0-37.0) g/dL RDW Std Deviation (28.0-62.0) fl RDW Coeff of Ji (11.0-15.0) % Plt Count (150-400) K/uL MPV (7.40-12.00) fL Neut % (Auto) (48.0-80.0) % Lymph % (Auto) (16.0-40.0) % [place] % (Auto) (0.0-15.0) % Eos % (Auto) (0.0-7.0) % Baso % (Auto) (0.0-1.5) % Neut # (Auto) (1.4-5.7) K/uL Lymph # (Auto) (0.6-2.4) K/uL [place] # (Auto) (0.0-0.8) K/uL Eos # (Auto) (0.0-0.7) K/uL Baso # (Auto) (0.0-0.1) K/uL Nucleated RBC % /100WBC Nucleated RBCs # K/uL INR APTT (18.6-31.3) SEC Sodium (136-148) mmol/L Potassium (3.5-5.1) mmol/L Chloride (98-107) mmol/L Carbon Dioxide (21.0-32.0) mmol/L BUN (7.0-18.0) mg/dL Creatinine (0.8-1.3) mg/dL Est Cr Clr Drug Dosing mL/min Estimated GFR (MDRD) ml/min Glucose (74-106) mg/dL Calcium (8.5-10.1) mg/dL Total Bilirubin (0.2-1.0) mg/dL AST (15-37) IU/L ALT (14-63) IU/L Alkaline Phosphatase (46-116) U/L Troponin I (0.000-0.056) ng/mL Total Protein (6.4-8.2) g/dL Albumin (3.4-5.0) g/dL Globulin (2.6-4.0) g/dL Albumin/Globulin Ratio (0.9-1.6) Urine Color STRAW Urine Appearance CLEAR Urine pH 7.0 (5.0-8.0) Ur Specific [place] 1.010 (1.001-1.035) Urine Protein 30 H (NEGATIVE) mg/dL Urine Glucose (UA) >=1000 (NEGATIVE) mg/dL Urine Ketones NEGATIVE (NEGATIVE) mg/dL Urine Occult Blood SMALL H (NEGATIVE) Urine Nitrite NEGATIVE (NEGATIVE) Urine Bilirubin NEGATIVE (NEGATIVE) Urine Urobilinogen 0.2 (<2.0) EU/dL Ur Leukocyte Esterase NEGATIVE (NEGATIVE) Urine RBC 0-3 (0-2/HPF) Urine WBC 0-1 (0-5/HPF) Ur Epithelial Cells OCCASIONAL (NONE-FEW) Urine Bacteria RARE (NEGATIVE) Meds: Medications Discontinued Medications Generic Name Dose Route Start Last Admin Trade Name Freq PRN Reason Stop Dose Admin Aspirin 324 mg 06/01/20 16:17 06/01/20 16:26 Aspirin PO 06/01/20 16:18 324 mg ONETIME ONE Administration Al Hydroxide/Mg Hydroxide 15 0 ml 06/01/20 19:51 06/01/20 19:58 ml/ Lidocaine HCl 5 ml PO 06/01/20 19:52 20 each ONETIME ONE Administration Diphenhydramine HCl 50 mg 06/01/20 16:17 06/01/20 16:26 Benadryl IVPUSH 06/01/20 16:18 50 mg ONETIME ONE Administration Heparin Sodium (Porcine) 4,000 units 06/01/20 18:37 06/01/20 19:06 Heparin Sodium IVPUSH 06/01/20 18:38 4,000 units .BOLUS ONE Administration Protocol Sodium Chloride 1,000 mls @ 999 mls/hr 06/01/20 16:21 06/01/20 16:25 Normal Saline IV 06/01/20 17:21 999 mls/hr STAT ONE Administration Heparin Sodium/Sodium Chloride 500 mls @ 17.962 mls/hr 06/01/20 19:00 06/01/20 19:06 Heparin 25,000 Units In 1/2 Ns 500 Ml IV 12 units/kg/hr TITRATE NILA 17.962 mls/hr Administration Protocol 12 UNITS/KG/HR Iopamidol 100 ml 06/01/20 17:17 06/01/20 18:58 Isovue Multipack-370 (76%) IVPUSH 06/01/20 17:18 100 ml ONETIME STA Administration Morphine Sulfate 2 mg 06/01/20 15:57 06/01/20 16:11 Morphine IVPUSH 06/01/20 15:58 2 mg ONETIME ONE Administration Nitroglycerin 0.4 mg 06/01/20 19:57 06/01/20 19:59 Nitrostat SL 0.4 mg Q5M PRN Administration Chest Pain Nitroglycerin Confirm 06/01/20 19:57 06/01/20 20:00 Nitrostat Administered 06/01/20 19:58 Not Given Dose 0.4 mg .ROUTE .STK-MED ONE Ondansetron HCl 4 mg 06/01/20 16:16 06/01/20 16:22 Zofran IVPUSH 06/01/20 16:17 4 mg ONETIME ONE Administration Ondansetron HCl 4 mg 06/01/20 16:16 06/01/20 16:30 Zofran IVPUSH 06/01/20 16:17 Not Given ONETIME ONE Sodium Chloride 10 ml 06/01/20 15:12 06/01/20 16:12 Saline Flush FLUSH 10 ml ASDIRECTED PRN Administration Keep Vein Open Sodium Chloride 2.5 ml 06/01/20 15:12 06/01/20 16:12 Saline Flush FLUSH 2.5 ml ASDIRECTED PRN Administration Keep Vein Open Departure - Departure Time of Disposition: 19:01 Disposition: DC/Tfer to Acute Hospital 02 Condition: Poor Clinical Impression: NSTEMI (non-ST elevated myocardial infarction) - Discharge Information Referrals: PCP,None [Ordering Only Provider] - Forms: ED Department Discharge Sepsis Event Note (ED) - Evaluation Sepsis Screening Result: No Definite Risk - Focused Exam Vital Signs: Vital Signs Temp Pulse Resp BP BP Pulse Ox 06/01/20 19:59 187/114 H 06/01/20 18:33 78 20 179/102 H 100 06/01/20 17:35 76 18 175/98 H 100 06/01/20 16:35 83 18 188/115 H 100 06/01/20 15:14 97.3 F 99 18 216/129 H 99 - My Orders Last 24 Hours: My Active Orders 06/01/20 15:12 Saline Lock Insert [OM.PC] Stat - Assessment/Plan Last 24 Hours: My Active Orders 06/01/20 15:12 Saline Lock Insert [OM.PC] Stat
[2020-06-01 16:13] LABS: CARBON DIOXIDE,CO2 28.5 mmol/L (21.0-32.0); POTASSIUM,K 3.9 mmol/L (3.5-5.1)
[2020-06-01] MEDS ORDERED: Ondansetron 4 MG/2 ML SDV IVPUSH ONE ×2 (16:16)
[2020-06-01] MEDS ORDERED: diphenhydrAMINE 50 MG/ML SDV IVPUSH ONE (16:17)
[2020-06-01] MEDS ORDERED: Aspirin 81 MG Tab.Chew PO ONE (16:17)
[2020-06-01] MEDS ORDERED: Sodium Chloride 0.9% 1,000 ML IV ONE (16:21)
--- NOTE | 2020-06-01 16:35 | PCM.EKG ---
#2 Interpretation EKG Date: 06/01/20 EKG Interpretation Comments: Heart rate = 85 bpm, normal sinus rhythm, normal QRS interval, LVH, no STEMI. EKG and rhythm strip interpreted by me at 1613
[2020-06-01] MEDS ORDERED: Iopamidol 755 MG/ML 500 ML Multipack Bottle IVPUSH STA (17:17)
--- NOTE | 2020-06-01 18:15 | PCM.EKG ---
#3 Interpretation EKG Interpretation Comments: Heart rate = 76 bpm, normal sinus rhythm, normal QRS interval, no STEMI. EKG and rhythm strip interpreted by me at 1807
[2020-06-01 18:34] VITALS: PULSE 78
--- NOTE | 2020-06-01 18:34 | CT ---
HISTORY: Chest pain. Concern for dissection. TECHNIQUE: CT chest without contrast followed by CT angiogram of the chest, abdomen, and pelvis with IV contrast. 100 mL Isovue-370 IV. COMPARISON: CT chest 01/27/2020. Prior imaging of the abdomen and pelvis not available for comparison at the time of dictation. FINDINGS: Vasculature: Motion artifact at the aortic root and ascending aorta. No acute intramural hematoma. No aortic dissection. Thoracic aorta is normal caliber. Aortic atherosclerosis. Conventional three vessel arch. Abdominal aorta is normal caliber. Celiac artery, SMA, renal arteries, and RIZWAN are patent. Moderate aortic atherosclerosis. --- Chest: Lungs: Central airways are patent. Small right pleural effusion. Scatter reticulation and bandlike areas of volume loss and architectural distortion throughout both lungs greater towards the subpleural regions. Few scattered small areas of consolidation in both lungs associated with areas of architectural distortion. Scattered small nodules in the left upper lobe. No pneumothorax. Mediastinum: Coronary artery calcifications. No pericardial effusion. Lymph nodes: Lymphadenopathy has mostly resolved. Few prominent and mildly enlarged mediastinal and hilar lymph nodes. For example a right hilar lymph node measures 11 mm short axis (series 501, image 272), previously 20 mm. --- Abdomen: Liver, pancreas, spleen, and adrenal glands are unremarkable. Kidneys enhance symmetrically. No renal mass. No hydronephrosis. Gallbladder is absent. Percutaneous gastrostomy tube. No dilated bowel. No free fluid. No lymphadenopathy. Pelvis: Prostate is enlarged. No lymphadenopathy. Somewhat patchy osteopenia in the pelvis with areas of prominent trabeculation, possibly postradiation change or Paget disease. Musculoskeletal: Lower cervical spine fusion. Healing nondisplaced fracture of the sternum. Degenerative changes of the spine. Sclerotic lesions in L2 and L3 vertebral bodies may be bone islands. IMPRESSION: 1. No acute aortic pathology. Aortic atherosclerosis. 2. Scattered reticulation, volume loss, and architectural distortion throughout both lungs may be resolving post infectious/inflammatory changes or scarring. Small areas of consolidation in both lungs may be from acute or prior infection or inflammatory process. 3. Small right pleural effusion. 4. Improved thoracic lymphadenopathy. 5. No acute abnormality in the abdomen or pelvis. Please note that all CT scans at this facility use dose modulation, iterative reconstruction, and/or weight-based dosing when appropriate to reduce radiation dose to as low as reasonably achievable. Dictated by Norm Coppola MD @ Jun 01 2020 6:11PM Signed by Dr. Norm Coppola @ Jun 01 2020 6:33PM
[2020-06-01] MEDS ORDERED: Heparin Sodium 5,000 Units/ML Vial IVPUSH ONE (18:37)
[2020-06-01] MEDS ORDERED: Heparin Sodium/0.45% NaCl 500 ML IV SCH (19:00)
[2020-06-01] MEDS ORDERED: Alum Hydrox/Mag Hydrox/Simeth 15 ML, Lidocaine 2% 5 ML PO ONE ×2 (19:51)
[2020-06-01] MEDS ORDERED: Nitroglycerin 0.4 MG Tab.SL SL PRN (19:57)
[2020-06-01] MEDS ORDERED: Nitroglycerin 0.4 MG Tab.SL ONE (19:57)
[2020-06-01 20:00] VITALS: BP 187/114
== END 2020-06-01 20:10 ==
LOC: MW.ED 15:01
DX: I21.4 Non-ST elevation (NSTEMI) myocardial infarction (principal); I10 Essential (primary) hypertension; K21.9 Gastro-esophageal reflux disease without esophagitis; E10.42 Type 1 diabetes mellitus with diabetic polyneuropathy; Z79.899 Other long term (current) drug therapy; Z88.6 Allergy status to analgesic agent; Z88.8 Allergy status to other drugs, medicaments and biological substances
CPT/HCPCS: 36415; 71045; 71275; 74174; 80053; 81001; 84484; 85025; 85610; 85730; 93005; 96365; 96375; 99285; A9270; J1200; J1644; J2270; J2405; J7030; Q9967; 93010; 99284

== ENCOUNTER 2020-10-06 15:49 | Emergency (ER) | payer BC, MEDICARE ==
--- NOTE | 2020-10-06 17:02 | EDM.PDOC ---
ED HPI GENERAL MEDICAL PROBLEM - General Chief Complaint: Cardiovascular Problem Stated Complaint: HIGH B/P Time Seen by Provider: 10/06/20 15:56 shoulder blades Pain Score (Numeric/FACES): 5 - Related Data Allergies Allergy/AdvReac Type Severity Reaction Status Date / Time aspirin Allergy Hives Verified 10/06/20 16:50 ibuprofen Allergy Hives Verified 10/06/20 16:50 pioglitazone HCl [From Actos] Allergy Hives Verified 10/06/20 16:50 prasugrel HCl [From Effient] Allergy Rash Verified 10/06/20 16:50 Njdlpyj-Xxl-Rad Reductase Allergy Body Aches Verified 10/06/20 16:50 Inhibitor Home Meds: Home Meds Ticagrelor [Brilinta] 90 mg PO BID 12/25/14 [History] traMADol [Ultram] 50 mg PO BID PRN 12/25/14 [History] Doxazosin [Cardura] 4 mg PO BEDTIME 11/01/17 [History] Insulin Aspart [Novolog Flexpen] 6 unit SQ TIDMEALS 11/01/17 [History] Omeprazole 20 mg PO DAILY 11/01/17 [History] carvediloL [Carvedilol] 25 mg PO BIDMEALS 11/01/17 [History] Losartan [Cozaar] 100 mg PO DAILY 12/24/17 [History] Nitroglycerin 0.4 mg SL .EVERY 5 MINUTES PRN MDD 3 tablets 10/19/18 [History] Insulin Aspart [NovoLOG] 6 unit SUBCUT TIDAC pen 10/20/18 [Rx] DULoxetine [Cymbalta] 30 mg PO DAILY 01/27/20 [History] Evolocumab [Repatha Sureclick] 140 mg SQ .EVERY 2 WEEKS 01/27/20 [History] Insulin Aspart [NovoLOG] 0 unit SUBCUT TIDAC pen 02/02/20 [Rx] Past Medical History - Past Health History Medical/Surgical History: Denies Medical/Surgical History HEENT History: Reports: Otitis Media, Other (See Below) Other HEENT History: Constant ringing in ears, affects my hearing, macular edema Cardiovascular History: Reports: Angina, High Cholesterol, Hypertension, [place], SOB on Exertion, Stents, Syncope, Other (See Below) Other Cardiovascular History: Diastolic dysfunction Respiratory History: Reports: None Gastrointestinal History: Reports: GERD Other Gastrointestinal History: Abdominal pain post meals, Water dark, smelling stools Genitourinary History: Reports: None Musculoskeletal History: Reports: Back Pain, Chronic, Neck Pain, Chronic Other Musculoskeletal History: Upper back pain history Neurological History: Reports: Neuropathy, Peripheral Other Neuro History: 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 Psychiatric History: Reports: Anxiety, Depression Other Psychiatric History: "Not sure I would know if I were depressed 'how would I know?" Endocrine/Metabolic History: Reports: Diabetes, Type I Hematologic History: Reports: None Other Hematologic History: Chronic anti-coagulant therapy Immunologic History: Reports: None Oncologic (Cancer) History: Reports: None Dermatologic History: Reports: None - Infectious Disease History Infectious Disease History: Reports: Hepatitis A, Novel Coronavirus - Past Surgical History Head Surgeries/Procedures: Reports: None HEENT Surgical History: Reports: None Cardiovascular Surgical History: Reports: Coronary Artery Stent Other Cardiovascular Surgeries/Procedures: angiogram, triple stents last February 2016 Respiratory Surgical History: Reports: None GI Surgical History: Reports: None Male Surgical History: Reports: None Endocrine Surgical History: Reports: None Neurological Surgical History: Reports: None Other Neurological Surgeries/Procedures: Cervical Spine surgery with plate,screws and cage Musculoskeletal Surgical History: Reports: Other (See Below) Other Musculoskeletal Surgeries/Procedures:: plate in neck Oncologic Surgical History: Reports: None Dermatological Surgical History: Reports: None Social & Family History - Family History Family Medical History: No Pertinent Family History Cardiac: Reports: Angina, [place] Other Cardiac Family History: states both parents young from cardiac disease, also extensive cardiac HX with uncles, cousins, nephews - Tobacco Use Tobacco Use Status *Q: Never Tobacco User Second Hand Smoke Exposure: No - Caffeine Use Caffeine Use: Reports: None Caffeine Use Comment: diet soda - Recreational Drug Use Recreational Drug Use: No - Living Situation & Occupation Living situation: Reports: , with Family Occupation: Employed Course - Vital Signs Last Recorded V/S: Last Vital Signs Temp 36.3 C 10/06/20 16:50 Pulse 79 10/06/20 16:50 Resp 17 10/06/20 16:50 BP 204/113 H 10/06/20 16:50 Pulse Ox 95 10/06/20 16:50 Departure - Departure Referrals: Dru Kirkland MD [Primary Care Provider] - Sepsis Event Note (ED) - Evaluation Sepsis Screening Result: No Definite Risk - Focused Exam Vital Signs: Vital Signs Temp Pulse Resp BP Pulse Ox 10/06/20 16:50 36.3 C 79 17 204/113 H 95
--- NOTE | 2020-10-06 17:03 | PCM.SN.2 ---
- Free Text/Narrative Note: EKG sinus rhythm heart rate 79 MO 163 [place] V QT duration 482 voltage consistent with LVH borderline prolonged QT compared to 06/01/2020 and there is no acute change impression no injury
[2020-10-06] MEDS ORDERED: Sodium Chloride 0.9% 10 ML Syringe FLUSH PRN (17:21)
[2020-10-06] MEDS ORDERED: Sodium Chloride 0.9% 2.5 ML Syringe FLUSH PRN (17:21)
[2020-10-06 17:49] LABS: BLOOD UREA NITROGEN,BUN 26 mg/dL (7.0-18.0); CARBON DIOXIDE,CO2 25.9 mmol/L (21.0-32.0); CHLORIDE,CL 102 mmol/L (98-107); GLUCOSE RANDOM 225 mg/dL (74-106); POTASSIUM,K 4.1 mmol/L (3.5-5.1); SODIUM,NA 138 mmol/L (136-148)
[2020-10-06] MEDS: Metoprolol Tartrate 5 MG/5 ML SDV IVPUSH SCH ×3 (17:55→18:41)
--- NOTE | 2020-10-06 18:21 | CR ---
For Patients: As a result of the Century Cures Act, medical imaging exams and procedure reports are released immediately into your electronic medical record. You may view this report before your referring provider. If you have questions, please contact your health care provider. INDICATION: Hypertension TECHNIQUE: Chest radiograph 1 view COMPARISON: 06/01/2020 FINDINGS: Moderate degradation of image quality noted due to body habitus. Mediastinum: The mediastinum is normal in appearance. The heart silhouette is normal in size and morphology. Lung: New mild bibasilar subsegmental atelectasis and small bilateral pleural effusions are noted. Subpleural interstitial opacities are present in both lungs without interval change and may be due to subpleural fibrosis. No pneumothorax is identified. Bone and Soft tissue: Unremarkable for age. IMPRESSION: 1. New mild bibasilar subsegmental atelectasis and small bilateral pleural effusions are noted. Dictated by Alonzo Canchola MD @ 10/06/2020 6:18:47 PM Dictated by: Alonzo Canchola MD @ 10/06/2020 18:18:51 (Electronically Signed)
[2020-10-06] MEDS ORDERED: cloNIDine 0.1 MG Tab PO ONE (18:50)
[2020-10-06] MEDS ORDERED: Iopamidol 755 MG/ML 500 ML Multipack Bottle IVPUSH STA (19:40)
[2020-10-06 20:01] VITALS: BP 172/92; PULSE 73
--- NOTE | 2020-10-06 20:06 | EDM.PDOC ---
ED [facility] GENERAL MEDICAL PROBLEM - General Chief Complaint: Cardiovascular Problem Stated Complaint: HIGH B/P Time Seen by Provider: 10/06/20 15:56 Source of Information: Reports: Patient History Limitations: Reports: No Limitations - History of Present Illness INITIAL COMMENTS - FREE TEXT/NARRATIVE: HISTORY AND PHYSICAL: History of present illness: Patient is a 60-year-old male who presents to the ED today with concern of high blood pressure readings and feeling like he cannot take a deep breath in due to the elevated blood pressure readings. Patient states that he does not have chest pain but does have a "odd "sensation in his chest. Typically, patient states his blood pressure readings range from 160s to 170s over 90s per baseline. Patient states over the past several days, he has been running 200s to 220s over 100s. Patient states that he has been taking his blood pressure medication as prescribed to him at home without improvement of his blood pressure. Patient states that he also has been trying to take a dose or 2 of nitro to see if this will lower his blood pressure but has not changed anything. Patient states he took an extra dose of his losartan 1 day and was able to get it down to 170s and states that he had improvement of the feeling like he cannot take a deep breath for a few hours. However, he states his blood pressure went back up to 200s do 20s and he began having the same sensation again. Patient states he did have an NSTEMI approximately 4 to 5 months ago and states that he is concerned about his blood pressure being this high with the feeling like he cannot take a deep breath in. Patient denies any other symptoms or concerns. Patient does have an extensive medical history including hypertension, hyperlipidemia, coronary artery disease status post stent with recent NSTEMI a few months ago, complicated Covid infection from February 2022March this year that required intubation for an extended period of time, diabetes. Patient denies fever, chills, chest pain, shortness of breath, or cough. Denies headache, neck stiff ness, change in vision, syncope, or near syncope. Denies nausea, vomiting, abdominal pain, diarrhea, constipation, or dysuria. Has not noted any blood in urine or stool. Patient has been eating and drinking appropriately. Review of systems: As per history of present illness and below otherwise all systems reviewed and negative. Past medical history: As per history of present illness and as reviewed below otherwise noncontributory. Surgical history: As per history of present illness and as reviewed below otherwise noncontributory. Social history: See social history for further information Family history: As per history of present illness and as reviewed below otherwise noncontribut ory. Physical exam: General: Patient is alert, oriented, and in no acute distress. Patient sitting comfortably on exam table. Patient is hypertensive 216/115 otherwise vitally stable and reviewed by me. HEENT: Atraumatic, normocephalic, pupils equal and reactive bilaterally, negative for conjunctival pallor or scleral icterus, mucous membranes moist, TMs normal bilaterally, throat clear, neck supple, nontender, trachea midline. No drooling or trismus noted. No meningeal signs. No hot potato voice noted. Lungs: Clear to auscultation, breath sounds equal bilaterally, chest nontender. Heart: S1S2, regular rate and rhythm without overt murmur Abdomen: Soft, nondistended, nontender. Negative for masses or hepatosplenomegaly. Negative for costovertebral tenderness. Pelvis: Stable nontender. Genitourinary: Deferred. Rectal: Deferred. Skin: Intact, warm, dry. No lesions or rashes noted. Extremities: Atraumatic, negative for cords or calf pain. Neurovascular unremarkable. Neuro: Awake, alert, oriented. Cranial nerves II through XII unremarkable. Cerebellum unremarkable. Motor and sensory unremarkable throughout. Exam nonfocal. Notes: Dr. Pereira verbally involved in patient care. Patient is a 60-year-old male, with a recent history of NSTEMI status post stent placement, who presents emergency room today secondary to hypertension and feeling like he cannot take a deep breath and and "odd "sensation in his chest x3 days. Patient states that he has correlated his symptoms to his elevated blood pressure. Upon arrival to the ED, patient is noted to be hypertensive 216/115, otherwise is vitally stable. Will obtain cardiac work-up to assess for possible end organ damage as well as provide Lopressor 5 mg IV every 5 minutes until his systolic blood pressure 180 or less in the event of possible hypertensive emergency given his vague description of "cannot take a deep breath" and "odd" sensation in his chest and due to patient's recent NSTEMI. See Dr. Pereira dictation for specific EKG interpretation. No STEMI CBC shows mild anemia with a red blood cell count of 3.69, hemoglobin of 12.1, and hematocrit of 33.5. This is improved from past lab work. D-dimer is mildly elevated at 0.9. Chemistry noted to have an elevation of creatinine at 1.7 which is increased from prior which was 1.3. BUN of 26. Glucose elevated at 225. Troponin negative. Urine shows 100 protein. 100 glucose. Trace ketones. 0-2 red blood cells, 0-1 white blood cells. Chest x-ray shows new mild bibasilar subsegmental atelectasis and small bilateral pleural effusions. Following 3 doses of Lopressor, patient's blood pressure 203/106 and states that he has improving sensation of his chest/breathing. Will provide 1 dose of clonidine 0.2 mg and reassess patient. Upon reevaluation of patient, he has resolution of his chest symptoms and breathing symptoms and blood pressure is now 172/92. Patient is requesting to leave the ED without ANG CT report and does not want to stay to repeat troponin. Admission for observation was offered to patient but he declines at this time. All risks versus benefits discussed with patient and expresses understanding. Strict return precautions thoroughly discussed with patient. 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 Voices understanding and is agreeable to plan of care. Denies any further questions or concerns at this time. Ang CT chest was read after patient had left the emergency room and shows no pulmonary embolism. Nodule opacities in the left upper and right upper lobes. They have been present since June 01, 2020. The largest of these measuring 1.3 cm in diameter. Consider PET CT or percutaneous biopsy for further evaluation. Moderate sized bilateral pleural effusions. Coronary artery disease. I did call and speak to Philip personally on the phone as he wanted to leave the emergency room before ANG CT chest was interpreted. I discussed all findings of ang CT chest today with patient and the importance to call his primary care provider in the morning to establish close follow-up and further diagnostic evaluation of lung nodules and pleural effusions. Patient expresses understanding and agreeable to plan of care. Denies any further questions at this time. Diagnostics: EKG, CBC, CMP, UA, chest x-ray, troponin, D-dimer, ang CT chest (patient declines staying for repeat troponin) Therapeutics: Lopressor, clonidine Prescription: None Impression: Hypertension, symptomatic, without end organ dysfunction Abnormal renal function testing, unspecified Lung nodules Bilateral pleural effusions Plan: 1. Continue to take your at home blood pressure medication as prescribed to you as discussed. 2. Follow-up with your primary care provider as discussed. Return to the ED as needed and as discussed. Definitive disposition and diagnosis as appropriate pending reevaluation and review of above. shoulder blades Pain Score (Numeric/FACES): 5 - Related Data Allergies Allergy/AdvReac Type Severity Reaction Status Date / Time aspirin Allergy Hives Verified 10/06/20 16:50 ibuprofen Allergy Hives Verified 10/06/20 16:50 pioglitazone HCl [From Actos] Allergy Hives Verified 10/06/20 16:50 prasugrel HCl [From Effient] Allergy Rash Verified 10/06/20 16:50 Uffyqzk-Ghn-Bsh Reductase Allergy Body Aches Verified 10/06/20 16:50 Inhibitor Home Meds: Home Meds Ticagrelor [Brilinta] 90 mg PO BID 12/25/14 [History] traMADol [Ultram] 50 mg PO BID PRN 12/25/14 [History] Doxazosin [Cardura] 4 mg PO BEDTIME 11/01/17 [History] Insulin Aspart [Novolog Flexpen] 6 unit SQ TIDMEALS 11/01/17 [History] Omeprazole 20 mg PO DAILY 11/01/17 [History] carvediloL [Carvedilol] 25 mg PO BIDMEALS 11/01/17 [History] Losartan [Cozaar] 100 mg PO DAILY 12/24/17 [History] Nitroglycerin 0.4 mg SL .EVERY 5 MINUTES PRN MDD 3 tablets 10/19/18 [History] Insulin Aspart [NovoLOG] 6 unit SUBCUT TIDAC pen 10/20/18 [Rx] DULoxetine [Cymbalta] 30 mg PO DAILY 01/27/20 [History] Evolocumab [Repatha Sureclick] 140 mg SQ .EVERY 2 WEEKS 01/27/20 [History] Insulin Aspart [NovoLOG] 0 unit SUBCUT TIDAC pen 02/02/20 [Rx] Past Medical History - Past Health History Medical/Surgical History: Denies Medical/Surgical History HEENT History: Reports: Otitis Media, Other (See Below) Other HEENT History: Constant ringing in ears, affects my hearing, macular edema Cardiovascular History: Reports: Angina, High Cholesterol, Hypertension, CT, SOB on Exertion, Stents, Syncope, Other (See Below) Other Cardiovascular History: Diastolic dysfunction Respiratory History: Reports: None Gastrointestinal History: Reports: GERD Other Gastrointestinal History: Abdominal pain post meals, Water dark, smelling stools Genitourinary History: Reports: None Musculoskeletal History: Reports: Back Pain, Chronic, Neck Pain, Chronic Other Musculoskeletal History: Upper back pain history Neurological History: Reports: Neuropathy, Peripheral Other Neuro History: 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 Psychiatric History: Reports: Anxiety, Depression Other Psychiatric History: "Not sure I would know if I were depressed 'how would I know?" Endocrine/Metabolic History: Reports: Diabetes, Type I Hematologic History: Reports: None Other Hematologic History: Chronic anti-coagulant therapy Immunologic History: Reports: None Oncologic (Cancer) History: Reports: None Dermatologic History: Reports: None - Infectious Disease History Infectious Disease History: Reports: Hepatitis A, Novel Coronavirus - Past Surgical History Head Surgeries/Procedures: Reports: None HEENT Surgical History: Reports: None Cardiovascular Surgical History: Reports: Coronary Artery Stent Other Cardiovascular Surgeries/Procedures: angiogram, triple stents last February 2016 Respiratory Surgical History: Reports: None GI Surgical History: Reports: None Male Surgical History: Reports: None Endocrine Surgical History: Reports: None Neurological Surgical History: Reports: None Other Neurological Surgeries/Procedures: Cervical Spine surgery with plate,screws and cage Musculoskeletal Surgical History: Reports: Other (See Below) Other Musculoskeletal Surgeries/Procedures:: plate in neck Oncologic Surgical History: Reports: None Dermatological Surgical History: Reports: None Social & Family History - Family History Family Medical History: No Pertinent Family History Cardiac: Reports: Angina, CT Other Cardiac Family History: states both parents young from cardiac disease, also extensive cardiac HX with uncles, cousins, nephews - Tobacco Use Tobacco Use Status *Q: Never Tobacco User Second Hand Smoke Exposure: No - Caffeine Use Caffeine Use: Reports: None Caffeine Use Comment: diet soda - Recreational Drug Use Recreational Drug Use: No - Living Situation & Occupation Living situation: Reports: , with Family Occupation: Employed ED ROS GENERAL - Review of Systems Review Of Systems: Comprehensive ROS is negative, except as noted in HPI. ED EXAM, GENERAL - Physical Exam Exam: See Below (see dictation) Course - Vital Signs Last Recorded V/S: Last Vital Signs Temp 98.2 F 10/06/20 18:43 Pulse 73 10/06/20 20:00 Resp 17 10/06/20 20:00 BP 172/92 H 10/06/20 20:00 Pulse Ox 97 10/06/20 20:00 - Orders/Labs/Meds Orders: Active Orders 24 hr Category Date Time Status Saline Lock Insert [OM.PC] Stat Oth 10/06/20 17:21 Ordered Labs: Laboratory Tests 10/06/20 10/06/20 10/06/20 Range/Units 17:00 17:00 17:00 WBC 6.23 (4.0-11.0) K/uL RBC 3.69 L (4.50-5.90) M/uL Hgb 12.1 L (13.0-17.0) g/dL Hct 33.5 L (38.0-50.0) % MCV 90.8 (80.0-98.0) fL MCH 32.8 H (27.0-32.0) pg MCHC 36.1 (31.0-37.0) g/dL RDW Std Deviation 43.1 (28.0-62.0) fl RDW Coeff of Ji 13 (11.0-15.0) % Plt Count 202 (150-400) K/uL MPV 10.10 (7.40-12.00) fL Neut % (Auto) 75.2 (48.0-80.0) % Lymph % (Auto) 14.4 L (16.0-40.0) % [place] % (Auto) 7.7 (0.0-15.0) % Eos % (Auto) 2.2 (0.0-7.0) % Baso % (Auto) 0.5 (0.0-1.5) % Neut # (Auto) 4.7 (1.4-5.7) K/uL Lymph # (Auto) 0.9 (0.6-2.4) K/uL [place] # (Auto) 0.5 (0.0-0.8) K/uL Eos # (Auto) 0.1 (0.0-0.7) K/uL Baso # (Auto) 0.0 (0.0-0.1) K/uL Nucleated RBC % 0.0 /100WBC Nucleated RBCs # 0 K/uL D-Dimer, Quantitative 0.90 H (0.0-0.50) mg/L FEU Sodium 138 (136-148) mmol/L Potassium 4.1 (3.5-5.1) mmol/L Chloride 102 (98-107) mmol/L Carbon Dioxide 25.9 (21.0-32.0) mmol/L BUN 26 H (7.0-18.0) mg/dL Creatinine 1.7 H (0.8-1.3) mg/dL Est Cr Clr Drug Dosing 47.71 mL/min Estimated GFR (MDRD) 41.3 ml/min Glucose 225 H (74-106) mg/dL Calcium 8.9 (8.5-10.1) mg/dL Total Bilirubin 0.7 (0.2-1.0) mg/dL AST 18 (15-37) IU/L ALT 16 (14-63) IU/L Alkaline Phosphatase 85 (46-116) U/L Troponin I < 0.050 (0.000-0.056) ng/mL Total Protein 7.1 (6.4-8.2) g/dL Albumin 3.3 L (3.4-5.0) g/dL Globulin 3.8 (2.6-4.0) g/dL Albumin/Globulin Ratio 0.9 (0.9-1.6) Urine Color Urine Appearance Urine pH (5.0-8.0) Ur Specific [place] (1.001-1.035) Urine Protein (NEGATIVE) mg/dL Urine Glucose (UA) (NEGATIVE) mg/dL Urine Ketones (NEGATIVE) mg/dL Urine Occult Blood (NEGATIVE) Urine Nitrite (NEGATIVE) Urine Bilirubin (NEGATIVE) Urine Urobilinogen (<2.0) EU/dL Ur Leukocyte Esterase (NEGATIVE) Urine RBC (0-2/HPF) Urine WBC (0-5/HPF) Ur Epithelial Cells (NONE-FEW) Urine Bacteria (NEGATIVE) Urine Mucus (NONE-MOD) 10/06/20 Range/Units 17:59 WBC (4.0-11.0) K/uL RBC (4.50-5.90) M/uL Hgb (13.0-17.0) g/dL Hct (38.0-50.0) % MCV (80.0-98.0) fL MCH (27.0-32.0) pg MCHC (31.0-37.0) g/dL RDW Std Deviation (28.0-62.0) fl RDW Coeff of Ji (11.0-15.0) % Plt Count (150-400) K/uL MPV (7.40-12.00) fL Neut % (Auto) (48.0-80.0) % Lymph % (Auto) (16.0-40.0) % [place] % (Auto) (0.0-15.0) % Eos % (Auto) (0.0-7.0) % Baso % (Auto) (0.0-1.5) % Neut # (Auto) (1.4-5.7) K/uL Lymph # (Auto) (0.6-2.4) K/uL [place] # (Auto) (0.0-0.8) K/uL Eos # (Auto) (0.0-0.7) K/uL Baso # (Auto) (0.0-0.1) K/uL Nucleated RBC % /100WBC Nucleated RBCs # K/uL D-Dimer, Quantitative (0.0-0.50) mg/L FEU Sodium (136-148) mmol/L Potassium (3.5-5.1) mmol/L Chloride (98-107) mmol/L Carbon Dioxide (21.0-32.0) mmol/L BUN (7.0-18.0) mg/dL Creatinine (0.8-1.3) mg/dL Est Cr Clr Drug Dosing mL/min Estimated GFR (MDRD) ml/min Glucose (74-106) mg/dL Calcium (8.5-10.1) mg/dL Total Bilirubin (0.2-1.0) mg/dL AST (15-37) IU/L ALT (14-63) IU/L Alkaline Phosphatase (46-116) U/L Troponin I (0.000-0.056) ng/mL Total Protein (6.4-8.2) g/dL Albumin (3.4-5.0) g/dL Globulin (2.6-4.0) g/dL Albumin/Globulin Ratio (0.9-1.6) Urine Color YELLOW Urine Appearance CLEAR Urine pH 5.0 (5.0-8.0) Ur Specific [place] >= 1.030 (1.001-1.035) Urine Protein 100 H (NEGATIVE) mg/dL Urine Glucose (UA) 100 H (NEGATIVE) mg/dL Urine Ketones TRACE H (NEGATIVE) mg/dL Urine Occult Blood MODERATE H (NEGATIVE) Urine Nitrite NEGATIVE (NEGATIVE) Urine Bilirubin NEGATIVE (NEGATIVE) Urine Urobilinogen 0.2 (<2.0) EU/dL Ur Leukocyte Esterase NEGATIVE (NEGATIVE) Urine RBC 0-2 (0-2/HPF) Urine WBC 0-1 (0-5/HPF) Ur Epithelial Cells RARE (NONE-FEW) Urine Bacteria FEW (NEGATIVE) Urine Mucus LIGHT (NONE-MOD) Meds: Medications Discontinued Medications Generic Name Dose Route Start Last Admin Trade Name Freq PRN Reason Stop Dose Admin Clonidine HCl 0.2 mg 10/06/20 18:50 10/06/20 19:00 Clonidine 0.1 Mg Tab PO 10/06/20 18:51 0.2 mg ONETIME ONE Administration Iopamidol 50 ml 10/06/20 19:40 10/06/20 19:41 Iopamidol 755 Mg/Ml 500 Ml Multipack Bottle IVPUSH 10/06/20 19:41 50 ml ONETIME STA Administration Metoprolol Tartrate 5 mg 10/06/20 18:00 10/06/20 18:41 Metoprolol Tartrate 5 Mg/5 Ml Sdv IVPUSH 10/06/20 18:11 5 mg Q5M NILA Administration Sodium Chloride 10 ml 10/06/20 17:21 10/06/20 17:55 Sodium Chloride 0.9% 10 Ml Syringe FLUSH 10 ml ASDIRECTED PRN Administration Keep Vein Open Sodium Chloride 2.5 ml 10/06/20 17:21 10/06/20 17:55 Sodium Chloride 0.9% 2.5 Ml Syringe FLUSH 2.5 ml ASDIRECTED PRN Administration Keep Vein Open Departure - Departure Time of Disposition: 20:05 Disposition: Home, Self-Care 01 Clinical Impression: Pleural effusion, Lung nodules, Abnormal renal function test Hypertension Qualifiers: Hypertension type: unspecified Qualified Code(s): I10 - Essential (primary) hypertension - Discharge Information Instructions: Managing Your Hypertension Referrals: Dru Kirkland MD [Primary Care Provider] - Forms: ED Department Discharge Additional Instructions: The following information is given to patients seen in the emergency department who are being discharged to home. This information is to outline your options for follow-up care. We provide all patients seen in our emergency department with a follow-up referral. The need for follow-up, as well as the timing and circumstances, are variable depending upon the specifics of your emergency department visit. If you don't have a primary care physician on staff, we will provide you with a referral. We always advise you to contact your personal physician following an emergency department visit to inform them of the circumstance of the visit and for follow-up with them and/or the need for any referrals to a consulting specialist. The emergency department will also refer you to a specialist when appropriate. This referral assures that you have the opportunity for follow-up care with a specialist. All of these measure are taken in an effort to provide you with optimal care, which includes your follow-up. Under all circumstances we always encourage you to contact your private physician who remains a resource for coordinating your care. When calling for follow-up care, please make the office aware that this follow-up is from your recent emergency room visit. If for any reason you are refused follow-up, please contact the [facility] Emergency Department at and asked to speak to the emergency department charge nurse. [facility] [address] [place] [id number] [place] [address] 1. Continue to take your at home blood pressure medication as prescribed to you as discussed. 2. Follow-up with your primary care provider as discussed. Return to the ED as needed and as discussed. Sepsis Event Note (ED) - Evaluation Sepsis Screening Result: No Definite Risk - Focused Exam Vital Signs: Vital Signs Temp Pulse Pulse Resp BP BP Pulse Ox 10/06/20 20:00 73 17 172/92 H 97 10/06/20 19:02 68 18 199/106 H 98 10/06/20 19:00 199/106 H 10/06/20 18:43 98.2 F 69 18 203/106 H 97 10/06/20 18:41 68 203/108 H 10/06/20 18:31 102 H 18 200/103 H 98 10/06/20 18:29 71 200/103 H 10/06/20 17:55 80 216/115 H 10/06/20 17:50 78 18 216/115 H 97 10/06/20 17:19 73 18 205/106 H 96 10/06/20 16:50 97.4 F 79 17 204/113 H 95 - My Orders Last 24 Hours: My Active Orders 10/06/20 17:21 Saline Lock Insert [OM.PC] Stat - Assessment/Plan Last 24 Hours: My Active Orders 10/06/20 17:21 Saline Lock Insert [OM.PC] Stat
--- NOTE | 2020-10-06 21:35 | CT ---
INDICATION: Shortness of breath, hypertension, elevated D-dimer, history of COVID TECHNIQUE: CT chest pulmonary PE protocol acquired with 50 cc Isovue 370 IV contrast. COMPARISON: Chest CT June 01, 2020 FINDINGS: Cardiovascular structures: Normal vascular enhancement of the pulmonary arteries, no sign of pulmonary embolism. Heart size is normal. Coronary artery calcifications. No sign of aneurysm in the thoracic aorta. Mediastinum and meghan: No mass or adenopathy. Lungs: There are few scattered nodular opacities lungs for example in the left upper lobe on image 43 series 402 and image 56 series 402 and also in the right upper lobe image 53 series 402. These appear stable compared to the prior study. Pleura and pericardium: Moderate-sized bilateral pleural effusions. Chest wall and axilla: No mass or adenopathy. Upper abdomen: Unremarkable. Bones: No significant findings. IMPRESSION: No pulmonary embolism. Nodular opacities in the left upper and right upper lobes. These have been present since June 01, 2020. The largest of these measures 1.3 cm in diameter. Consider PET-CT or percutaneous biopsy for further evaluation. Moderate-sized bilateral pleural effusions. Coronary artery disease. Findings discussed with Dr. Vargas at 9:30 p.m. on October 06, 2020. Please note that all CT scans at this facility use dose modulation, iterative reconstruction, and/or weight-based dosing when appropriate to reduce radiation dose to as low as reasonably achievable. Dictated by Marielos Dunham MD @ 10/06/2020 9:33:[address] Marielos Dunham @ Oct 06 2020 9:33PM
== END 2020-10-06 20:19 | disposition home or self-care (01) ==
LOC: MW.ED 15:49
DX: I10 Essential (primary) hypertension (principal); R91.1 Solitary pulmonary nodule; J90 Pleural effusion, not elsewhere classified; R94.4 Abnormal results of kidney function studies; K21.9 Gastro-esophageal reflux disease without esophagitis; E10.42 Type 1 diabetes mellitus with diabetic polyneuropathy; I25.2 Old myocardial infarction; Z95.5 Presence of coronary angioplasty implant and graft; Z88.6 Allergy status to analgesic agent; Z88.8 Allergy status to other drugs, medicaments and biological substances; Z79.899 Other long term (current) drug therapy
CPT/HCPCS: 36415; 71045; 71275; 80053; 81001; 84484; 85025; 85379; 93005; 96374; 96376; 99285; A9270; J3490; Q9967

== ENCOUNTER 2020-10-19 12:46 | Inpatient (IN) | payer BC, MEDICARE ==
[2020-10-19] MEDS ORDERED: Sodium Chloride 0.9% 2.5 ML Syringe FLUSH PRN ×2 (12:58→15:13)
[2020-10-19] MEDS ORDERED: Sodium Chloride 0.9% 10 ML Syringe FLUSH PRN (12:58)
--- NOTE | 2020-10-19 13:04 | EDM.PDOC ---
ED HPI GENERAL MEDICAL PROBLEM - General Chief Complaint: Respiratory Problem Stated Complaint: Trouble breathing Time Seen by Provider: 10/19/20 12:51 - History of Present Illness INITIAL COMMENTS - FREE TEXT/NARRATIVE: 60-year-old male with a history of multiple medical problems including diabetes and NSTEMI. Patient had a severe case of COVID-19 in February 2020. He was intubated for a significant period of time. Since that time he has had some consistent difficulty breathing. However it has been gradually and progressively worse over the last month. It worsens with exertion and worsens with laying back. For a while he was trying to lay on his left side and that seemed to help some but that no longer helps. He had an appointment with his primary care doctor to discuss this today. However, it has become so severe that he presented to the ED instead. There is no chest pain and no syncope or near syncope. Ever since the coronavirus patient has had trouble with nausea and vomiting. It was daily until his primary care doctor prescribed scopolamine patches. And it is now only occasional. No lower extremity pain or swelling Lungs Pain Score (Numeric/FACES): 7 - Related Data Allergies Allergy/AdvReac Type Severity Reaction Status Date / Time aspirin Allergy Hives Verified 10/19/20 12:59 ibuprofen Allergy Hives Verified 10/19/20 12:59 pioglitazone HCl [From Actos] Allergy Hives Verified 10/19/20 12:59 prasugrel HCl [From Effient] Allergy Rash Verified 10/19/20 12:59 [id number]-[id number]-[id number] Reductase Allergy Body Aches Verified 10/19/20 12:59 Inhibitor Home Meds: Home Meds Ticagrelor [Brilinta] 90 mg PO BID 12/25/14 [History] traMADol [Ultram] 50 mg PO BID PRN 12/25/14 [History] Doxazosin [Cardura] 4 mg PO DAILY 11/01/17 [History] Insulin Aspart [Novolog Flexpen] 6 unit SQ TIDMEALS 11/01/17 [History] Omeprazole 20 mg PO DAILY 11/01/17 [History] carvediloL [Carvedilol] 25 mg PO BIDMEALS 11/01/17 [History] Losartan [Cozaar] 100 mg PO DAILY 12/24/17 [History] Nitroglycerin 0.4 mg SL .EVERY 5 MINUTES PRN MDD 3 tablets 10/19/18 [History] DULoxetine [Cymbalta] 30 mg PO DAILY 01/27/20 [History] Scopolamine 1 patch PO ASDIRECTED 10/19/20 [History] Past Medical History - Past Health History Medical/Surgical History: Denies Medical/Surgical History HEENT History: Reports: Otitis Media, Other (See Below) Other HEENT History: Constant ringing in ears, affects my hearing, macular edema Cardiovascular History: Reports: Angina, High Cholesterol, Hypertension, NM, SOB on Exertion, Stents, Syncope, Other (See Below) Other Cardiovascular History: Diastolic dysfunction Respiratory History: Reports: None Gastrointestinal History: Reports: GERD Other Gastrointestinal History: Abdominal pain post meals, Water dark, smelling stools Genitourinary History: Reports: None Musculoskeletal History: Reports: Back Pain, Chronic, Neck Pain, Chronic Other Musculoskeletal History: Upper back pain history Neurological History: Reports: Neuropathy, Peripheral Other Neuro History: 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 Psychiatric History: Reports: Anxiety, Depression Other Psychiatric History: "Not sure I would know if I were depressed 'how would I know?" Endocrine/Metabolic History: Reports: Diabetes, Type I Hematologic History: Reports: None Other Hematologic History: Chronic anti-coagulant therapy Immunologic History: Reports: None Oncologic (Cancer) History: Reports: None Dermatologic History: Reports: None - Infectious Disease History Infectious Disease History: Reports: Hepatitis A, Novel Coronavirus - Past Surgical History Head Surgeries/Procedures: Reports: None HEENT Surgical History: Reports: None Cardiovascular Surgical History: Reports: Coronary Artery Stent Other Cardiovascular Surgeries/Procedures: angiogram, triple stents last 2015 Respiratory Surgical History: Reports: None GI Surgical History: Reports: None Male Surgical History: Reports: None Endocrine Surgical History: Reports: None Neurological Surgical History: Reports: None Other Neurological Surgeries/Procedures: Cervical Spine surgery with plate,screws and cage Musculoskeletal Surgical History: Reports: Other (See Below) Other Musculoskeletal Surgeries/Procedures:: plate in neck Oncologic Surgical History: Reports: None Dermatological Surgical History: Reports: None Social & Family History - Family History Family Medical History: No Pertinent Family History Cardiac: Reports: Angina, NM Other Cardiac Family History: states both parents young from cardiac disease, also extensive cardiac HX with uncles, cousins, nephews - Caffeine Use Caffeine Use: Reports: None Caffeine Use Comment: diet soda - Living Situation & Occupation Living situation: Reports: , with Family Occupation: Employed ED ROS GENERAL - Review of Systems Review Of Systems: See Below Free Text/Narrative/Comment: General: No fever. Neck: No neck stiffness. Respiratory: Per HPI Cardiac: No chest pain. Gastrointestinal: Per HPI. Musculoskeletal: No myalgias/arthralgias. Neurologic: No headache. ED EXAM, GENERAL - Physical Exam Exam: See Below Free Text/Narrative:: General Appearance: No acute distress, appears comfortable HEENT: Normocephalic/atraumatic, sclera anicteric, mucous membranes moist Neck: Normal range of motion Chest and Lungs: Diminished breath sounds at the bilateral bases right significantly more than left some crackles and dullness of the right base Cardiovascular: Regular rate and rhythm, no murmur Abdomen: Soft, non-tender Musculoskeletal: Trace pitting edema to the bilateral ankles Neurologic: Awake, alert, no obvious deficits, moving all extremities Psychiatric: Appropriate, cooperative #1 Interpretation EKG Date: 10/19/20 Time: 13:02 EKG Interpretation Comments: Sinus rhythm with a rate of [address] depressions in the lateral leads are stable from prior no ST elevations no findings that suggest acute ischemia intervals are unremarkable Course - Vital Signs Last Recorded V/S: Last Vital Signs Temp 97.1 F 10/19/20 13:35 Pulse 81 10/19/20 13:35 Resp 18 10/19/20 13:35 BP 198/115 H 10/19/20 13:35 Pulse Ox 93 L 10/19/20 13:35 - Orders/Labs/Meds Orders: Active Orders 24 hr Category Date Time Status EKG Documentation Completion [RC] STAT Care 10/19/20 13:05 Active Chest 2V [CR] Stat Exams 10/19/20 12:58 Taken CORONAVIRUS COVID-19 JENN [MOLEC] Stat Lab 10/19/20 14:02 Ordered Sodium Chloride 0.9% [Saline Flush] Med 10/19/20 12:58 Active 10 ml FLUSH ASDIRECTED PRN Sodium Chloride 0.9% [Saline Flush] Med 10/19/20 12:58 Active 2.5 ml FLUSH ASDIRECTED PRN Saline Lock Insert [OM.PC] Stat Oth 10/19/20 12:58 Ordered Medication Orders Sodium Chloride (Sodium Chloride 0.9% 10 Ml Syringe) 10 ml FLUSH ASDIRECTED PRN PRN Reason: Keep Vein Open Last Admin: 10/19/20 13:14 Dose: 10 ml Documented by: SHAYY Sodium Chloride (Sodium Chloride 0.9% 2.5 Ml Syringe) 2.5 ml FLUSH ASDIRECTED PRN PRN Reason: Keep Vein Open Last Admin: 10/19/20 13:14 Dose: 2.5 ml Documented by: SHAYY Labs: Laboratory Tests 10/19/20 10/19/20 10/19/20 Range/Units 12:58 12:58 12:58 WBC 5.78 (4.0-11.0) K/uL RBC 3.43 L (4.50-5.90) M/uL Hgb 11.2 L (13.0-17.0) g/dL Hct 31.2 L (38.0-50.0) % MCV 91.0 (80.0-98.0) fL MCH 32.7 H (27.0-32.0) pg MCHC 35.9 (31.0-37.0) g/dL RDW Std Deviation 43.0 (28.0-62.0) fl RDW Coeff of Ji 13 (11.0-15.0) % Plt Count 175 (150-400) K/uL MPV 9.70 (7.40-12.00) fL Neut % (Auto) 74.7 (48.0-80.0) % Lymph % (Auto) 13.1 L (16.0-40.0) % [place] % (Auto) 9.9 (0.0-15.0) % Eos % (Auto) 2.1 (0.0-7.0) % Baso % (Auto) 0.2 (0.0-1.5) % Neut # (Auto) 4.3 (1.4-5.7) K/uL Lymph # (Auto) 0.8 (0.6-2.4) K/uL [place] # (Auto) 0.6 (0.0-0.8) K/uL Eos # (Auto) 0.1 (0.0-0.7) K/uL Baso # (Auto) 0.0 (0.0-0.1) K/uL Nucleated RBC % 0.0 /100WBC Nucleated RBCs # 0 K/uL Sodium 138 (136-148) mmol/L Potassium 4.0 (3.5-5.1) mmol/L Chloride 103 (98-107) mmol/L Carbon Dioxide 26.5 (21.0-32.0) mmol/L BUN 25 H (7.0-18.0) mg/dL Creatinine 1.6 H (0.8-1.3) mg/dL Est Cr Clr Drug Dosing 50.40 mL/min Estimated GFR (MDRD) 44.3 ml/min Glucose 269 H (74-106) mg/dL Calcium 8.6 (8.5-10.1) mg/dL Total Bilirubin 0.6 (0.2-1.0) mg/dL AST 13 L (15-37) IU/L ALT 15 (14-63) IU/L Alkaline Phosphatase 77 (46-116) U/L Troponin I < 0.050 (0.000-0.056) ng/mL B-Natriuretic Peptide 1018 H (<100) PG/ML Total Protein 6.9 (6.4-8.2) g/dL Albumin 3.5 (3.4-5.0) g/dL Globulin 3.4 (2.6-4.0) g/dL Albumin/Globulin Ratio 1.0 (0.9-1.6) Meds: Medications Generic Name Dose Route Start Last Admin Trade Name Freq PRN Reason Stop Dose Admin Sodium Chloride 10 ml 10/19/20 12:58 10/19/20 13:14 Sodium Chloride 0.9% 10 Ml Syringe FLUSH 10 ml ASDIRECTED PRN Administration Keep Vein Open Sodium Chloride 2.5 ml 10/19/20 12:58 10/19/20 13:14 Sodium Chloride 0.9% 2.5 Ml Syringe FLUSH 2.5 ml ASDIRECTED PRN Administration Keep Vein Open Discontinued Medications Generic Name Dose Route Start Last Admin Trade Name Freq PRN Reason Stop Dose Admin Furosemide 40 mg 10/19/20 13:54 10/19/20 14:01 Furosemide 40 Mg/4 Ml Vial IVPUSH 10/19/20 13:55 40 mg NOW ONE Administration Departure - Departure Time of Disposition: 14:07 Disposition: Refer to Observation Condition: Good Clinical Impression: CHF (congestive heart failure) - Discharge Information *PRESCRIPTION DRUG MONITORING PROGRAM REVIEWED*: Not Applicable *COPY OF PRESCRIPTION DRUG MONITORING REPORT IN PATIENT PREETI: Not Applicable Referrals: Dru Kirkland MD [Primary Care Provider] - Forms: ED Department Discharge Sepsis Event Note (ED) - Evaluation Sepsis Screening Result: No Definite Risk - Focused Exam Vital Signs: Vital Signs Temp Pulse Resp BP Pulse Ox 10/19/20 13:35 97.1 F 81 18 198/115 H 93 L 10/19/20 12:57 97.7 F 84 28 H 194/122 H 94 L - My Orders Last 24 Hours: My Active Orders 10/19/20 12:58 Chest 2V [CR] Stat Sodium Chloride 0.9% [Saline Flush] 10 ml FLUSH ASDIRECTED PRN Sodium Chloride 0.9% [Saline Flush] 2.5 ml FLUSH ASDIRECTED PRN Saline Lock Insert [OM.PC] Stat 10/19/20 13:05 EKG Documentation Completion [RC] STAT 10/19/20 14:02 CORONAVIRUS COVID-19 JENN [MOLEC] Stat - Assessment/Plan Last 24 Hours: My Active Orders 10/19/20 12:58 Chest 2V [CR] Stat Sodium Chloride 0.9% [Saline Flush] 10 ml FLUSH ASDIRECTED PRN Sodium Chloride 0.9% [Saline Flush] 2.5 ml FLUSH ASDIRECTED PRN Saline Lock Insert [OM.PC] Stat 10/19/20 13:05 EKG Documentation Completion [RC] STAT 10/19/20 14:02 CORONAVIRUS COVID-19 JENN [MOLEC] Stat Assessment:: 60-year-old male presenting with gradually worsening shortness of breath over the last month in the setting of severe COVID-19 infection 7 months ago. Recurrent pneumonia is a consideration but no cough or fever. CHF is a consideration and EKG is without acute ischemia troponin BNP and chest x-ray pending. PE considered but given exam findings this is felt less likely. If chest x-ray is unremarkable then could consider CT pulmonary angiography at that time. Patient is not tachycardic and not hypoxic. ACS considered I think it is less likely his EKG is without acute finding. That said as mentioned troponin is pending. There is no significant wheezing I do not suspect bronchitis. His lung sounds are clear at the apices and midlung ruiz. 1405: Patient's chest x-ray shows some pulmonary edema with bilateral pleural effusions. Labs show a normal troponin stable renal function and unremarkable chemistry and stable blood counts but a BNP of 1050. I do think this is the cause of his symptoms. Patient will be given 40 mg of IV Lasix here. Patient discussed in full with Dr. Bridges and will admit to telemetry under observation for diuresis and further optimization. His work of breathing is normal his vital signs when sitting up are good. When laying back slightly his sat drops only to the low 90s. For all these reasons I think he is stable for admission here to telemetry.
[2020-10-19 13:29] LABS: BLOOD UREA NITROGEN,BUN 25 mg/dL (7.0-18.0); CARBON DIOXIDE,CO2 26.5 mmol/L (21.0-32.0); CHLORIDE,CL 103 mmol/L (98-107); GLUCOSE RANDOM 269 mg/dL (74-106); SODIUM,NA 138 mmol/L (136-148)
[2020-10-19] MEDS ORDERED: Furosemide 40 MG/4 ML VIAL IVPUSH ONE ×2 (13:54→19:00)
--- NOTE | 2020-10-19 14:19 | CR ---
Indication: Shortness of breath history of cavazos virus, worsening shortness of breath Comparison: Single view chest October 06, 2020 Technique: PA and Lateral views chest Findings: There are persistent bibasilar pleural effusions with adjacent compressive atelectasis versus infiltrates with likely increased interstitial markings commensurate with pulmonary edema. The cardiac silhouette is mildly prominent. The bony thorax is grossly intact. Impression: Persistent bibasilar pleural effusions with adjacent compressive atelectasis versus pulmonary edema. Dictated by Alexy Walton MD @ 10/19/2020 2:18:[address] Alexy Walton @ Oct 19 2020 2:18PM
[2020-10-19] MEDS ORDERED: Docusate Sodium 100 MG Cap PO PRN (15:13)
[2020-10-19] MEDS ORDERED: Acetaminophen 325 MG Tab PO PRN (15:13)
[2020-10-19] MEDS ORDERED: Ondansetron 4 MG/2 ML SDV IVPUSH PRN (15:13)
[2020-10-19] MEDS ORDERED: 50% Dextrose in Water 50 ML Syringe IVPUSH PRN ×2 (15:20→20:13)
[2020-10-19] MEDS ORDERED: Glucagon,Human Recombinant 1 MG Vial IM PRN ×2 (15:20→20:13)
[2020-10-19] MEDS ORDERED: Scopolamine 1.5 MG Transdermal Patch TRDERM SCH (15:30)
--- NOTE | 2020-10-19 15:32 | PCM.HP.2 ---
H&P History of Present Illness - General Date of Service: 10/19/20 Admit Problem/Dx: Admission Diagnosis/Problem Admission Diagnosis/Problem CHF, Congestive heart failure Source of Information: Patient History Limitations: Reports: No Limitations - History of Present Illness Initial Comments - Free Text/Narative: This 60-year-old male with past medical history of CAD with recent stenting to right coronary artery in May 2020, severe Covid with prolonged intubation with multiple complications including severed neck artery after tracheostomy placement and resuscitation for significant bleeding within his chest, hypertension, type 1 diabetes, hypertension presented to the ER with worsening shortness of breath. He reports that over the last month or so his shortness of breath is worsened significantly to the point that he can barely speak ambulate or lay back without significant shortness of breath. He reports that he was sleeping the other night on his back and woke up feeling he was drowning and oxygen saturations were approximately 80%. He reports that since discharge from [facility] in March he has been on intermittent oxygen. He reports that he has been having some intermittent chest pain that comes and goes more so with activity. Reports that at times it does radiate to his neck and down his shoulder. He denies any recent syncopal episodes. Denies any abdominal pain but has been dealing with bouts of nausea that his PCP has started him on scopolamine which has helped significantly. He denies any fevers chills sore throat. Denies any productive cough he reports that they have noticed an increase in weight since the last month. Approximately 12 pounds. His dry weight is around 170 pounds and he is currently 182 pounds. He does report per ipheral edema his lower extremities and feet tend to be swollen and have not gone down recently. He also reports elevated blood pressures upwards of 180s to 200s systolically. Reporting this is not normal for him and has worried him significantly over the past 2 to 3 weeks. He denies any tobacco use, no recreational drug use and rare social alcohol use. He reports that he has been vaccinated with 1 dose of the Pfizer vaccine and is due for the next one soon. In the ER no leukocytosis noted hemoglobin 11.2 platelets 175,000. Sodium 138 potassium 4.0 BUN and creatinine elevated slightly at 25 and 1.6. Glucose elevated at 269. Bilirubin normal AST ALT within normal limits. Troponin ne gative BNP 1018. EKG sinus rhythm with minimal ST depression lateral leads. No findings of acute ischemia. Chest x-ray obtained which shows persistent bibasilar pleural effusions with adjacent compressive atelectasis versus pulmonary edema. Patient was treated with 1 IV dose of Lasix 40 mg. He will be admitted for suspected acute CHF exacerbation. Patient reports he has not seen a tugger operator since his cardiac cath in May [address] Dietz. Drug-eluting stent was placed to right coronary artery the posterior descending artery and the posterior lateral branch. Patient reports he has been compliant with Brilinta. He is allergic to aspirin and statins so he is not on these medications. Reports that his blood sugars have been very sensitive recently and is very sensitive to NovoLog and a slight increase has been causing severe lows. He does have continuous glucose monitor in place. He has tried a pump in the past but does not do well with this. Lungs Pain Score (Numeric/FACES): 7 - Related Data Allergies/Adverse Reactions: Allergies Allergy/AdvReac Type Severity Reaction Status Date / Time aspirin Allergy Hives Verified 10/19/20 12:59 ibuprofen Allergy Hives Verified 10/19/20 12:59 pioglitazone HCl [From Actos] Allergy Hives Verified 10/19/20 12:59 prasugrel HCl [From Effient] Allergy Rash Verified 10/19/20 12:59 Oxxgaho-[id number]-Tbf Reductase Allergy Body Aches Verified 10/19/20 12:59 Inhibitor Home Medications: Home Meds Ticagrelor [Brilinta] 90 mg PO BID 12/25/14 [History] traMADol [Ultram] 50 mg PO BID PRN 12/25/14 [History] Doxazosin [Cardura] 4 mg PO DAILY 11/01/17 [History] Insulin Aspart [Novolog Flexpen] 6 unit SQ TIDMEALS 11/01/17 [History] Omeprazole 20 mg PO DAILY 11/01/17 [History] carvediloL [Carvedilol] 25 mg PO BIDMEALS 11/01/17 [History] Losartan [Cozaar] 100 mg PO DAILY 12/24/17 [History] Nitroglycerin 0.4 mg SL .EVERY 5 MINUTES PRN MDD 3 tablets 10/19/18 [History] DULoxetine [Cymbalta] 30 mg PO DAILY 01/27/20 [History] Scopolamine 1 patch PO ASDIRECTED 10/19/20 [History] Past Medical History - Past Health History Medical/Surgical History: Denies Medical/Surgical History HEENT History: Reports: Otitis Media, Other (See Below) Other HEENT History: Constant ringing in ears, affects my hearing, macular edema Cardiovascular History: Reports: Angina, High Cholesterol, Hypertension, [place], SOB on Exertion, Stents, Syncope, Other (See Below) Other Cardiovascular History: Diastolic dysfunction Respiratory History: Reports: None Gastrointestinal History: Reports: GERD Other Gastrointestinal History: Abdominal pain post meals, Water dark, smelling stools Genitourinary History: Reports: None Musculoskeletal History: Reports: Back Pain, Chronic, Neck Pain, Chronic Other Musculoskeletal History: Upper back pain history Neurological History: Reports: Neuropathy, Peripheral Other Neuro History: 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 Psychiatric History: Reports: Anxiety, Depression Other Psychiatric History: "Not sure I would know if I were depressed 'how would I know?" Endocrine/Metabolic History: Reports: Diabetes, Type I Hematologic History: Reports: None Other Hematologic History: Chronic anti-coagulant therapy Immunologic History: Reports: None Oncologic (Cancer) History: Reports: None Dermatologic History: Reports: None - Infectious Disease History Infectious Disease History: Reports: Chicken Pox, Hepatitis A, Novel Coronavirus - Past Surgical History Head Surgeries/Procedures: Reports: None HEENT Surgical History: Reports: None Cardiovascular Surgical History: Reports: Coronary Artery Stent Other Cardiovascular Surgeries/Procedures: angiogram, triple stents last Dece er 2016 Respiratory Surgical History: Reports: None GI Surgical History: Reports: None Male Surgical History: Reports: None Endocrine Surgical History: Reports: None Neurological Surgical History: Reports: None Other Neurological Surgeries/Procedures: Cervical Spine surgery with plate,screws and cage Musculoskeletal Surgical History: Reports: Other (See Below) Other Musculoskeletal Surgeries/Procedures:: plate in neck Oncologic Surgical History: Reports: None Dermatological Surgical History: Reports: None Social & Family History - Family History Family Medical History: No Pertinent Family History Cardiac: Reports: Angina, [place] Other Cardiac Family History: states both parents young from cardiac disease, also extensive cardiac HX with uncles, cousins, nephews - Tobacco Use Tobacco Use Status *Q: Unknown Ever Used Tobacco - Caffeine Use Caffeine Use: Reports: None Caffeine Use Comment: diet soda - Recreational Drug Use Recreational Drug Use: No - Living Situation & Occupation Living situation: Reports: , with Family Occupation: Employed H&P Review of Systems - Review of Systems: Review Of Systems: See Below General: Reports: No Symptoms. Denies: Fever, Chills, Malaise HEENT: Reports: No Symptoms. Denies: Headaches, Sinus Congestion Pulmonary: Reports: Shortness of Breath, Cough. Denies: Pleuritic Chest Pain, Sputum, Hemoptysis Cardiovascular: Reports: Chest Pain (intermittent,), Dyspnea on Exertion, Orthopnea, Edema. Denies: Palpitations Gastrointestinal: Reports: Black Stool (has been present for a long time), Nausea. Denies: Abdominal Pain, Bloody Stool Genitourinary: Reports: No Symptoms. Denies: Dysuria, Frequency, Burning Musculoskeletal: Reports: No Symptoms Skin: Reports: No Symptoms Psychiatric: Reports: No Symptoms Neurological: Reports: No Symptoms Hematologic/Lymphatic: Reports: No Symptoms Immunologic: Reports: No Symptoms Exam - Exam Exam: See Below - Vital Signs Vital Signs: Last Vital Signs Temp 97.1 F 10/19/20 13:35 Pulse 80 10/19/20 13:54 Resp 20 10/19/20 13:54 BP 200/110 H 10/19/20 13:54 Pulse Ox 93 L 10/19/20 13:54 Weight: 72.575 kg - Exam Quality Assessment: DVT Prophylaxis General: Alert, Oriented, Cooperative HEENT: Conjunctiva Clear, Mucosa Moist & [place], Pupils Equal Lungs: Crackles (bibasilar). No: Normal Respiratory Effort (dyspnea on speech and exertion) Cardiovascular: Regular Rate, Regular Rhythm GI/Abdominal Exam: Normal Bowel Sounds, Soft, Non-Tender Back Exam: Normal Inspection, Full Range of Motion Extremities: Normal Inspection, Normal Range of Motion, Non-Tender, Pedal Edema (+1 non pitting bilateral) Skin: Warm, Dry Neuro Extensive - Mental Status: Alert, Oriented x3 Neuro Extensive - Motor, Sensory, Reflexes: CN II-XII Intact, Normal Gait Psychiatric: Alert, Normal Affect, Normal Mood - Patient Data Lab Results Last 24 hrs: Laboratory Results - last 24 hr 10/19/20 10/19/20 10/19/20 Range/Units 12:58 12:58 12:58 WBC 5.78 (4.0-11.0) K/uL RBC 3.43 L (4.50-5.90) M/uL Hgb 11.2 L (13.0-17.0) g/dL Hct 31.2 L (38.0-50.0) % MCV 91.0 (80.0-98.0) fL MCH 32.7 H (27.0-32.0) pg MCHC 35.9 (31.0-37.0) g/dL RDW Std Deviation 43.0 (28.0-62.0) fl RDW Coeff of Ji 13 (11.0-15.0) % Plt Count 175 (150-400) K/uL MPV 9.70 (7.40-12.00) fL Neut % (Auto) 74.7 (48.0-80.0) % Lymph % (Auto) 13.1 L (16.0-40.0) % [place] % (Auto) 9.9 (0.0-15.0) % Eos % (Auto) 2.1 (0.0-7.0) % Baso % (Auto) 0.2 (0.0-1.5) % Neut # (Auto) 4.3 (1.4-5.7) K/uL Lymph # (Auto) 0.8 (0.6-2.4) K/uL [place] # (Auto) 0.6 (0.0-0.8) K/uL Eos # (Auto) 0.1 (0.0-0.7) K/uL Baso # (Auto) 0.0 (0.0-0.1) K/uL Nucleated RBC % 0.0 /100WBC Nucleated RBCs # 0 K/uL Sodium 138 (136-148) mmol/L Potassium 4.0 (3.5-5.1) mmol/L Chloride 103 (98-107) mmol/L Carbon Dioxide 26.5 (21.0-32.0) mmol/L BUN 25 H (7.0-18.0) mg/dL Creatinine 1.6 H (0.8-1.3) mg/dL Est Cr Clr Drug Dosing 50.40 mL/min Estimated GFR (MDRD) 44.3 ml/min Glucose 269 H (74-106) mg/dL Calcium 8.6 (8.5-10.1) mg/dL Total Bilirubin 0.6 (0.2-1.0) mg/dL AST 13 L (15-37) IU/L ALT 15 (14-63) IU/L Alkaline Phosphatase 77 (46-116) U/L Troponin I < 0.050 (0.000-0.056) ng/mL B-Natriuretic Peptide 1018 H (<100) PG/ML Total Protein 6.9 (6.4-8.2) g/dL Albumin 3.5 (3.4-5.0) g/dL Globulin 3.4 (2.6-4.0) g/dL Albumin/Globulin Ratio 1.0 (0.9-1.6) Result Diagrams: 10/19/20 12:58 10/19/20 12:58 Sepsis Event Note - Evaluation Sepsis Screening Result: No Definite Risk - Focused Exam Vital Signs: Vital Signs Temp Pulse Resp BP Pulse Ox 10/19/20 13:54 80 20 200/110 H 93 L 10/19/20 13:35 97.1 F 81 18 198/115 H 93 L 10/19/20 12:57 97.7 F 84 28 H 194/122 H 94 L - Problem List (1) CHF (congestive heart failure) SNOMED Code(s): 93352451 ICD Code: I50.9 - HEART FAILURE, UNSPECIFIED Status: Acute Current Visit: Yes Qualifiers: Heart failure type: unspecified Heart failure chronicity: acute Qualified Code(s): I50.9 - Heart failure, unspecified (2) Stented coronary artery Status: Chronic Current Visit: Yes (3) DM type 1 (diabetes mellitus, type 1) SNOMED Code(s): 56608691 ICD Code: E10.9 - TYPE 1 DIABETES MELLITUS WITHOUT COMPLICATIONS Status: Chronic Current Visit: Yes Qualifiers: Diabetes mellitus complication status: with hyperglycemia Qualified Code(s): E10.65 - Type 1 diabetes mellitus with hyperglycemia (4) Anxiety SNOMED Code(s): 23469436 ICD Code: F41.9 - ANXIETY DISORDER, UNSPECIFIED Status: Chronic Current Visit: No (5) HTN (hypertension) SNOMED Code(s): 85516830 ICD Code: I10 - ESSENTIAL (PRIMARY) HYPERTENSION Status: Chronic Current Visit: No Qualifiers: Hypertension type: unspecified Qualified Code(s): I10 - Essential (primary) hypertension (6) Coronary artery disease SNOMED Code(s): 50733723 ICD Code: I25.10 - ATHSCL HEART DISEASE OF [place] CORONARY ARTERY W/O ANG PCTRS Status: Chronic Priority: High Current Visit: No Qualifiers: Coronary Disease-Associated Artery/Lesion type: unspecified vessel or lesion type [place] vs. transplanted heart: [place] heart Associated angina: with other forms of angina Qualified Code(s): I25.118 - Atherosclerotic heart disease of [place] coronary artery with other forms of angina pectoris (7) Hx of tracheostomy SNOMED Code(s): 678021097 ICD Code: Z98.890 - OTHER SPECIFIED POSTPROCEDURAL STATES Status: Chronic Current Visit: Yes Problem List Initiated/Reviewed/Updated: Yes Orders Last 24hrs: Active Orders 24 hr Category Date Time Status Patient Status [ADT] Routine ADT 10/19/20 14:08 Active Blood Glucose Check, Bedside [RC] TIDMEALS Care 10/19/20 15:13 Ordered Height and Weight [RC] DAILY Care 10/19/20 15:13 Ordered Oxygen Therapy [RC] PRN Care 10/19/20 15:13 Ordered Telemetry Monitoring [Cardiac Monitoring] [RC] . Care 10/19/20 15:13 Ordered DIRECTED Up With Assistance [RC] ASDIRECTED Care 10/19/20 15:13 Ordered VTE/DVT Education [RC] PER UNIT ROUTINE Care 10/19/20 15:13 Ordered Vital Signs [RC] Q4H Care 10/19/20 15:13 Ordered 2 Gram Sodium Diet [DIET] Diet 10/19/20 Dinner Ordered Echo Comp wo Cont [US] Urgent Exams 10/19/20 15:12 Ordered BASIC METABOLIC PANEL,BMP [CHEM] AM Lab 10/20/20 05:11 Ordered BASIC METABOLIC PANEL,BMP [CHEM] AM Lab 10/21/20 05:11 Ordered BASIC METABOLIC PANEL,BMP [CHEM] AM Lab 10/22/20 05:11 Ordered CBC WITH AUTO DIFF [HEME] AM Lab 10/20/20 05:11 Ordered CBC WITH AUTO DIFF [HEME] AM Lab 10/21/20 05:11 Ordered CBC WITH AUTO DIFF [HEME] AM Lab 10/22/20 05:11 Ordered CORONAVIRUS COVID-19 JENN [MOLEC] Stat Lab 10/19/20 14:10 Received MAGNESIUM [CHEM] AM Lab 10/20/20 05:11 Ordered MAGNESIUM [CHEM] AM Lab 10/21/20 05:11 Ordered MAGNESIUM [CHEM] AM Lab 10/22/20 05:11 Ordered Acetaminophen [TylenoL] Med 10/19/20 15:13 Ordered 650 mg PO Q4H PRN DULoxetine [Cymbalta] Med 10/20/20 09:00 Ordered 30 mg PO DAILY Dextrose 50% in Water Med 10/19/20 15:20 Ordered 50 ml IVPUSH ASDIRECTED PRN Docusate Sodium [Colace] Med 10/19/20 15:13 Ordered 100 mg PO BID PRN Doxazosin [Cardura] Med 10/20/20 09:00 Ordered 4 mg PO DAILY Furosemide [Lasix] Med 10/20/20 08:00 Ordered 40 mg IVPUSH BIDDIURETIC Furosemide [Lasix] Med 10/19/20 19:00 Once 40 mg IVPUSH NOW ONE Glucagon,Human Recombinant [GlucaGen] Med 10/19/20 15:20 Ordered 1 mg IM ASDIRECTED PRN Insulin Aspart [NovoLOG] Med 10/19/20 17:30 Ordered 6 unit SUBCUT TIDMEALS Losartan Med 10/20/20 09:00 Ordered 100 mg PO DAILY Omeprazole Med 10/20/20 09:00 Ordered 20 mg PO DAILY Ondansetron [Zofran] Med 10/19/20 15:13 Ordered 4 mg IVPUSH Q4H PRN Scopolamine [Transderm-Scop] Med 10/19/20 15:30 Ordered 1 patch TRDERM Q72H Sodium Chloride 0.9% [Saline Flush] Med 10/19/20 15:13 Ordered 2.5 ml FLUSH ASDIRECTED PRN Ticagrelor Med 10/19/20 21:00 Ordered 90 mg PO BID carvediloL [Coreg] Med 10/19/20 17:00 Ordered 25 mg PO BIDMEALS traMADol [Ultram] Med 10/19/20 15:20 Ordered 50 mg PO BID PRN Obtain Home Medication List [OM.PC] Routine Oth 10/19/20 15:25 Ordered Saline Lock Insert [OM.PC] Routine Oth 10/19/20 15:13 Ordered Resuscitation Status Routine Resus Stat 10/19/20 15:13 Ordered Medication Orders Acetaminophen (Acetaminophen 325 Mg Tab) 650 mg PO Q4H PRN PRN Reason: Pain (Mild 1-3)/fever Carvedilol (Carvedilol 25 Mg Tab) 25 mg PO BIDMEALS NILA Dextrose/Water (50% Dextrose In Water 50 Ml Syringe) 50 ml IVPUSH ASDIRECTED PRN PRN Reason: Hypoglycemia Docusate Sodium (Docusate Sodium 100 Mg Cap) 100 mg PO BID PRN PRN Reason: Constipation Doxazosin Mesylate (Doxazosin 4 Mg Tab) 4 mg PO DAILY NILA Duloxetine HCl (Duloxetine 30 Mg Cap) 30 mg PO DAILY NILA Furosemide (Furosemide 40 Mg/4 Ml Vial) 40 mg IVPUSH BIDDIURETIC NILA Furosemide (Furosemide 40 Mg/4 Ml Vial) 40 mg IVPUSH NOW ONE Stop: 10/19/20 19:01 Glucagon (Glucagon,Human Recombinant 1 Mg Vial) 1 mg IM ASDIRECTED PRN PRN Reason: Hypoglycemia Insulin Aspart (Insulin Aspart 100 Units/Ml 3 Ml Pen) 6 unit SUBCUT TIDMEALS NILA Non-Formulary Medication (Losartan) 100 mg PO DAILY NILA Non-Formulary Medication (Ticagrelor) 90 mg PO BID NILA Omeprazole (Omeprazole 20 Mg Cap.Cr) 20 mg PO DAILY NILA Ondansetron HCl (Ondansetron 4 Mg/2 Ml Sdv) 4 mg IVPUSH Q4H PRN PRN Reason: Nausea Scopolamine (Scopolamine 1.5 Mg Transdermal Patch) mg TRDERM Q72H NILA Sodium Chloride (Sodium Chloride 0.9% 2.5 Ml Syringe) 2.5 ml FLUSH ASDIRECTED PRN PRN Reason: Keep Vein Open Tramadol HCl (Tramadol 50 Mg Tab) 50 mg PO BID PRN PRN Reason: Pain Assessment/Plan Comment:: This 60-year-old male admitted with suspected acute decompensated CHF 1. Acute decompensated CHF -Was recently stented for NSTEMI to the right coronary artery in May 2020 -Has not seen cardiology since stenting no repeat echo. Echo prior to stenting reveals normal left ventricular ejection fraction of 60%. Normal left ventricular chamber size no regional wall abnormalities normal right ventricular size and systolic function no hemodynamically significant valvular disease. -We will treat with Lasix 40 mg IV twice daily -Obtain new echo -Strict I's and O's, 2 L fluid restriction, low-sodium diet, Daily weights -Arrange outpatient follow-up with , cardiology - Monitor on telemetry 2. Hypertension/CAD -Continue Brilinta, carvedilol, and losartan - PRN labetolol for hypertension. - Monitor black stools, reports they have been present for a long time. Hgb remains stable. Monitor closely. 3. Diabetes type 1 -Continue NovoLog with meals 6 units -Continue Tresiba -ADA diet -Blood sugar checks 3 times daily AC, patient does have continuous glucose monitor in place. VTE prophylaxis: SCDs and ambulation GI prophylaxis: Omeprazole CODE STATUS: Full code Dispo: 2 days
[2020-10-19] MEDS ORDERED: Labetalol 100 MG/20 ML MDV IVPUSH PRN (15:52)
[2020-10-19] MEDS: Carvedilol 25 MG Tab PO SCH (16:53)
[2020-10-19] MEDS: Insulin Aspart 100 Units/ML 3 ML Pen SUBCUT SCH (16:54)
[2020-10-19] MEDS ORDERED: Labetalol 100 MG/20 ML MDV IVPUSH ONE (18:11)
[2020-10-19] MEDS ORDERED: niCARdipine/Normal Saline 20 MG/200 ML BAG IV SCH (19:30)
[2020-10-19] MEDS ORDERED: LORazepam 2 MG/ML SDV IVPUSH ONE (20:06)
--- NOTE | 2020-10-19 20:22 | PCM.SN.2 ---
- Free Text/Narrative Note: Patients BP continued to rise despite multiple boluses of IV labetalol. No chest pain, SOB, or tearing back pain or headache. Given patient has pulmonary edema/CHF exacerbation and uncontrolled BP, will start patient on Nicardipine gtt and transfer to ICU for that.
[2020-10-19] MEDS: TICAGRELOR 90 MG PO SCH (21:25)
--- NOTE | 2020-10-19 22:24 | PN ---
THC Physician - Brief Progress [id number]/26/2021 22:20[facility] Sharonda Eric, NEFTALI - BLAIRE (DELORES) - [facility]ALEXA COOPERDate of Service 10/19/2020 22:20HPI/E vents of Note Case discussed with RN. 60 year old M admitted with CHF. Treated with diuresis and fe dorcas bettter. Had been noted to be hypertensive and transferred to ICU for further treatment and ob servation.212/120- subsequently treated with cardene drip.Recs include: hemodynamic monitoring, wean cardene as tolerated, diuresis as tolerated, consider cardio eval and echo when available, supplement al O2 PRN, GI and DVT prophylaxis, monitor temps and WBCs, terend Cr and I+Os, replace lytes as neede d, glycemic monitoring, neuro checks, pain control.Interventions Minor-Communication with other healt hcare providers and/or family
[2020-10-20 05:38] LABS: CARBON DIOXIDE,CO2 28.9 mmol/L (21.0-32.0); POTASSIUM,K 3.8 mmol/L (3.5-5.1)
--- NOTE | 2020-10-20 06:21 | PN ---
THC Physician - Brief Progress [id number]/27/2021 06:19[facility] Velazquez william SharondaNEFTALI - BLAIRE (DELORES) - ALEXA MOOREDate of Service 10/20/2020 06:19HPI/E vents of Note Discussed with RN: pt hyperglycemic on current SSI.Plan: transition to higher dose SSI , follow glu.Interventions Minor-Communication with other healthcare providers and/or familyElectroni leonardo Signed by: KORY LANE () on 10/20/2020 06:21
--- NOTE | 2020-10-20 07:51 | PCM.PN ---
- General Info Date of Service: 10/20/20 Admission Dx/Problem (Free Text): Admission Diagnosis/Problem Admission Diagnosis/Problem CHF, Congestive heart failure Subjective Update: Feeling improved today, no chest pain. Dyspnea much better, slept better overnight. Swelling to lower extremities better. No headache, N/V or back pain Functional Status: Reports: Pain Controlled, Tolerating Diet, Ambulating, Urinating - Review of Systems General: Reports: No Symptoms. Denies: Weakness, Fatigue HEENT: Reports: No Symptoms. Denies: Headaches, Sore Throat, Visual Changes Pulmonary: Reports: Shortness of Breath (improved, slightly remains) Cardiovascular: Reports: Dyspnea on Exertion (minimal), Orthopnea (minimal ). Denies: Chest Pain, Palpitations, Edema Gastrointestinal: Reports: No Symptoms. Denies: Abdominal Pain, Nausea, Vomiting Genitourinary: Reports: No Symptoms. Denies: Dysuria, Frequency, Burning Musculoskeletal: Reports: No Symptoms Skin: Reports: No Symptoms Neurological: Reports: No Symptoms Psychiatric: Reports: No Symptoms - Patient Data Vitals - Most Recent: Last Vital Signs Temp 97.4 F 10/20/20 05:00 Pulse 75 10/19/20 18:10 Resp 15 10/20/20 07:00 BP 178/99 H 10/20/20 07:00 Pulse Ox 97 10/20/20 07:00 Weight - Most Recent: 80.785 kg I&O - Last 24 Hours: Intake & Output 10/19/20 10/20/20 10/20/20 22:59 06:59 14:59 Intake Total 300 698 Output Total 1600 3375 Balance -1300 -2677 Lab Results Last 24 Hours: Laboratory Results - last 24 hr 10/19/20 10/19/20 10/19/20 Range/Units 12:58 12:58 12:58 WBC 5.78 (4.0-11.0) K/uL RBC 3.43 L (4.50-5.90) M/uL Hgb 11.2 L (13.0-17.0) g/dL Hct 31.2 L (38.0-50.0) % MCV 91.0 (80.0-98.0) fL MCH 32.7 H (27.0-32.0) pg MCHC 35.9 (31.0-37.0) g/dL RDW Std Deviation 43.0 (28.0-62.0) fl RDW Coeff of Ji 13 (11.0-15.0) % Plt Count 175 (150-400) K/uL MPV 9.70 (7.40-12.00) fL Neut % (Auto) 74.7 (48.0-80.0) % Lymph % (Auto) 13.1 L (16.0-40.0) % Bullock % (Auto) 9.9 (0.0-15.0) % Eos % (Auto) 2.1 (0.0-7.0) % Baso % (Auto) 0.2 (0.0-1.5) % Neut # (Auto) 4.3 (1.4-5.7) K/uL Lymph # (Auto) 0.8 (0.6-2.4) K/uL [place] # (Auto) 0.6 (0.0-0.8) K/uL Eos # (Auto) 0.1 (0.0-0.7) K/uL Baso # (Auto) 0.0 (0.0-0.1) K/uL Nucleated RBC % 0.0 /100WBC Nucleated RBCs # 0 K/uL Sodium 138 (136-148) mmol/L Potassium 4.0 (3.5-5.1) mmol/L Chloride 103 (98-107) mmol/L Carbon Dioxide 26.5 (21.0-32.0) mmol/L BUN 25 H (7.0-18.0) mg/dL Creatinine 1.6 H (0.8-1.3) mg/dL Est Cr Clr Drug Dosing 50.40 mL/min Estimated GFR (MDRD) 44.3 ml/min Glucose 269 H (74-106) mg/dL POC Glucose (70-99) mg/dL Calcium 8.6 (8.5-10.1) mg/dL Magnesium (1.8-2.4) mg/dL Total Bilirubin 0.6 (0.2-1.0) mg/dL AST 13 L (15-37) IU/L ALT 15 (14-63) IU/L Alkaline Phosphatase 77 (46-116) U/L Troponin I < 0.050 (0.000-0.056) ng/mL B-Natriuretic Peptide 1018 H (<100) PG/ML Total Protein 6.9 (6.4-8.2) g/dL Albumin 3.5 (3.4-5.0) g/dL Globulin 3.4 (2.6-4.0) g/dL Albumin/Globulin Ratio 1.0 (0.9-1.6) SARS-CoV-2 RNA (JENN) (NEGATIVE) 10/19/20 10/19/20 10/19/20 Range/Units 14:10 16:00 16:59 WBC (4.0-11.0) K/uL RBC (4.50-5.90) M/uL Hgb (13.0-17.0) g/dL Hct (38.0-50.0) % MCV (80.0-98.0) fL MCH (27.0-32.0) pg MCHC (31.0-37.0) g/dL RDW Std Deviation (28.0-62.0) fl RDW Coeff of Ji (11.0-15.0) % Plt Count (150-400) K/uL MPV (7.40-12.00) fL Neut % (Auto) (48.0-80.0) % Lymph % (Auto) (16.0-40.0) % [place] % (Auto) (0.0-15.0) % Eos % (Auto) (0.0-7.0) % Baso % (Auto) (0.0-1.5) % Neut # (Auto) (1.4-5.7) K/uL Lymph # (Auto) (0.6-2.4) K/uL [place] # (Auto) (0.0-0.8) K/uL Eos # (Auto) (0.0-0.7) K/uL Baso # (Auto) (0.0-0.1) K/uL Nucleated RBC % /100WBC Nucleated RBCs # K/uL Sodium (136-148) mmol/L Potassium (3.5-5.1) mmol/L Chloride (98-107) mmol/L Carbon Dioxide (21.0-32.0) mmol/L BUN (7.0-18.0) mg/dL Creatinine (0.8-1.3) mg/dL Est Cr Clr Drug Dosing mL/min Estimated GFR (MDRD) ml/min Glucose (74-106) mg/dL POC Glucose 359 H (70-99) mg/dL Calcium (8.5-10.1) mg/dL Magnesium (1.8-2.4) mg/dL Total Bilirubin (0.2-1.0) mg/dL AST (15-37) IU/L ALT (14-63) IU/L Alkaline Phosphatase (46-116) U/L Troponin I < 0.050 (0.000-0.056) ng/mL B-Natriuretic Peptide (<100) PG/ML Total Protein (6.4-8.2) g/dL Albumin (3.4-5.0) g/dL Globulin (2.6-4.0) g/dL Albumin/Globulin Ratio (0.9-1.6) SARS-CoV-2 RNA (JENN) NEGATIVE (NEGATIVE) 10/19/20 10/20/20 10/20/20 Range/Units 18:53 04:40 04:40 WBC 5.01 (4.0-11.0) K/uL RBC 3.48 L (4.50-5.90) M/uL Hgb 11.1 L (13.0-17.0) g/dL Hct 31.5 L (38.0-50.0) % MCV 90.5 (80.0-98.0) fL MCH 31.9 (27.0-32.0) pg MCHC 35.2 (31.0-37.0) g/dL RDW Std Deviation 41.8 (28.0-62.0) fl RDW Coeff of Ji 13 (11.0-15.0) % Plt Count 169 (150-400) K/uL MPV 9.90 (7.40-12.00) fL Neut % (Auto) 70.2 (48.0-80.0) % Lymph % (Auto) 14.2 L (16.0-40.0) % Bullock % (Auto) 12.6 (0.0-15.0) % Eos % (Auto) 2.4 (0.0-7.0) % Baso % (Auto) 0.6 (0.0-1.5) % Neut # (Auto) 3.5 (1.4-5.7) K/uL Lymph # (Auto) 0.7 (0.6-2.4) K/uL [place] # (Auto) 0.6 (0.0-0.8) K/uL Eos # (Auto) 0.1 (0.0-0.7) K/uL Baso # (Auto) 0.0 (0.0-0.1) K/uL Nucleated RBC % 0.0 /100WBC Nucleated RBCs # 0 K/uL Sodium 135 L (136-148) mmol/L Potassium 3.8 (3.5-5.1) mmol/L Chloride 98 (98-107) mmol/L Carbon Dioxide 28.9 (21.0-32.0) mmol/L BUN 27 H (7.0-18.0) mg/dL Creatinine 1.8 H (0.8-1.3) mg/dL Est Cr Clr Drug Dosing 45.06 mL/min Estimated GFR (MDRD) 38.7 ml/min Glucose 446 H (74-106) mg/dL POC Glucose (70-99) mg/dL Calcium 8.7 (8.5-10.1) mg/dL Magnesium 1.6 L (1.8-2.4) mg/dL Total Bilirubin (0.2-1.0) mg/dL AST (15-37) IU/L ALT (14-63) IU/L Alkaline Phosphatase (46-116) U/L Troponin I < 0.050 (0.000-0.056) ng/mL B-Natriuretic Peptide (<100) PG/ML Total Protein (6.4-8.2) g/dL Albumin (3.4-5.0) g/dL Globulin (2.6-4.0) g/dL Albumin/Globulin Ratio (0.9-1.6) SARS-CoV-2 RNA (JENN) (NEGATIVE) Med Orders - Current: Current Medications Acetaminophen (Acetaminophen 325 Mg Tab) 650 mg PO Q4H PRN PRN Reason: Pain (Mild 1-3)/fever Carvedilol (Carvedilol 25 Mg Tab) 25 mg PO BIDMEALS [facility] Last Admin: 10/19/20 16:53 Dose: 25 mg Documented by: Dextrose/Water (50% Dextrose In Water 50 Ml Syringe) 50 ml IVPUSH ASDIRECTED PRN PRN Reason: Hypoglycemia Docusate Sodium (Docusate Sodium 100 Mg Cap) 100 mg PO BID PRN PRN Reason: Constipation Doxazosin Mesylate (Doxazosin 4 Mg Tab) 4 mg PO DAILY NILA Duloxetine HCl (Duloxetine 30 Mg Cap) 30 mg PO DAILY NILA Furosemide (Furosemide 40 Mg/4 Ml Vial) 40 mg IVPUSH BIDDIURETIC NILA Glucagon (Glucagon,Human Recombinant 1 Mg Vial) 1 mg IM ASDIRECTED PRN PRN Reason: Hypoglycemia Nicardipine HCl (Cardene In Ns 20 Mg/200 Ml) 20 mg in 200 mls @ 50 mls/hr IV TITRATE NILA; Protocol Last Titration: 10/19/20 23:34 Dose: 0 mg/hr, 0 mls/hr Documented by: Insulin Aspart (Insulin Aspart 100 Units/Ml 3 Ml Pen) 6 unit SUBCUT TIDMEALS [facility] Last Admin: 10/19/20 16:54 Dose: 6 units Documented by: Insulin Aspart (Insulin Aspart 100 Units/Ml 3 Ml Pen) 0 unit SUBCUT TIDAC [facility]; Protocol Losartan Potassium (Losartan 50 Mg Tab) 100 mg PO DAILY NILA Omeprazole (Omeprazole 20 Mg Cap.Cr) 20 mg PO ACBREAKFAST NILA Ondansetron HCl (Ondansetron 4 Mg/2 Ml Sdv) 4 mg IVPUSH Q4H PRN PRN Reason: Nausea Ticagrelor 90 Mg (TabletPt Own Med) 1 each PO BID [facility] Last Admin: 10/19/20 21:25 Dose: 1 each Documented by: Scopolamine (Scopolamine 1.5 Mg Transdermal Patch) 1.5 mg TRDERM Q72H [facility] Sodium Chloride (Sodium Chloride 0.9% 2.5 Ml Syringe) 2.5 ml FLUSH ASDIRECTED PRN PRN Reason: Keep Vein Open Tramadol HCl (Tramadol 50 Mg Tab) 50 mg PO BID PRN PRN Reason: Pain Discontinued Medications Dextrose/Water (50% Dextrose In Water 50 Ml Syringe) 50 ml IVPUSH ASDIRECTED PRN PRN Reason: Hypoglycemia Furosemide (Furosemide 40 Mg/4 Ml Vial) 40 mg IVPUSH NOW ONE Stop: 10/19/20 13:55 Last Admin: 10/19/20 14:01 Dose: 40 mg Documented by: Furosemide (Furosemide 40 Mg/4 Ml Vial) 40 mg IVPUSH NOW ONE Stop: 10/19/20 19:01 Last Admin: 10/19/20 19:35 Dose: 40 mg Documented by: Glucagon (Glucagon,Human Recombinant 1 Mg Vial) 1 mg IM ASDIRECTED PRN PRN Reason: Hypoglycemia Labetalol HCl (Labetalol 100 Mg/20 Ml Mdv) 20 mg IVPUSH Q4H PRN PRN Reason: SBP >180 Last Admin: 10/19/20 16:53 Dose: 20 mg Documented by: Labetalol HCl (Labetalol 100 Mg/20 Ml Mdv) 20 mg IVPUSH ONETIME ONE; Protocol Stop: 10/19/20 18:12 Last Admin: 10/19/20 18:15 Dose: 20 mg Documented by: Lorazepam (Lorazepam 2 Mg/Ml Sdv) 1 mg IVPUSH ONETIME ONE Stop: 10/19/20 20:07 Last Admin: 10/19/20 21:26 Dose: 1 mg Documented by: Ticagrelor 90 Mg (Tablet) 1 each PO BID [facility] Last Admin: 10/19/20 21:27 Dose: Not Given Documented by: Scopolamine (Scopolamine 1.5 Mg Transdermal Patch) 1.5 mg TRDERM Q72H [facility] Last Admin: 10/19/20 19:13 Dose: Not Given Documented by: Sodium Chloride (Sodium Chloride 0.9% 10 Ml Syringe) 10 ml FLUSH ASDIRECTED PRN PRN Reason: Keep Vein Open Last Admin: 10/19/20 13:14 Dose: 10 ml Documented by: Sodium Chloride (Sodium Chloride 0.9% 2.5 Ml Syringe) 2.5 ml FLUSH ASDIRECTED PRN PRN Reason: Keep Vein Open Last Admin: 10/19/20 13:14 Dose: 2.5 ml Documented by: - Exam Quality Assessment: DVT Prophylaxis. No: Supplemental Oxygen General: Alert, Oriented, Cooperative, No Acute Distress Lungs: No: Normal Respiratory Effort (minimal dyspnea with speech) Cardiovascular: Regular Rate, Regular Rhythm GI/Abdominal Exam: Normal Bowel Sounds, Soft, Non-Tender Extremities: Normal Inspection, Normal Range of Motion, Non-Tender, No Pedal Edema Neurological: No New Focal Deficit Psy/Mental Status: Alert, Normal Affect, Normal Mood - Patient Data Lab Results Last 24 hrs: Laboratory Results - last 24 hr 07/10/19/20 10/19/20 Range/Units 12:58 12:58 12:58 WBC 5.78 (4.0-11.0) K/uL RBC 3.43 L (4.50-5.90) M/uL Hgb 11.2 L (13.0-17.0) g/dL Hct 31.2 L (38.0-50.0) % MCV 91.0 (80.0-98.0) fL MCH 32.7 H (27.0-32.0) pg MCHC 35.9 (31.0-37.0) g/dL RDW Std Deviation 43.0 (28.0-62.0) fl RDW Coeff of Ji 13 (11.0-15.0) % Plt Count 175 (150-400) K/uL MPV 9.70 (7.40-12.00) fL Neut % (Auto) 74.7 (48.0-80.0) % Lymph % (Auto) 13.1 L (16.0-40.0) % Bullock % (Auto) 9.9 (0.0-15.0) % Eos % (Auto) 2.1 (0.0-7.0) % Baso % (Auto) 0.2 (0.0-1.5) % Neut # (Auto) 4.3 (1.4-5.7) K/uL Lymph # (Auto) 0.8 (0.6-2.4) K/uL Bullock # (Auto) 0.6 (0.0-0.8) K/uL Eos # (Auto) 0.1 (0.0-0.7) K/uL Baso # (Auto) 0.0 (0.0-0.1) K/uL Nucleated RBC % 0.0 /100WBC Nucleated RBCs # 0 K/uL Sodium 138 (136-148) mmol/L Potassium 4.0 (3.5-5.1) mmol/L Chloride 103 (98-107) mmol/L Carbon Dioxide 26.5 (21.0-32.0) mmol/L BUN 25 H (7.0-18.0) mg/dL Creatinine 1.6 H (0.8-1.3) mg/dL Est Cr Clr Drug Dosing 50.40 mL/min Estimated GFR (MDRD) 44.3 ml/min Glucose 269 H (74-106) mg/dL POC Glucose (70-99) mg/dL Calcium 8.6 (8.5-10.1) mg/dL Magnesium (1.8-2.4) mg/dL Total Bilirubin 0.6 (0.2-1.0) mg/dL AST 13 L (15-37) IU/L ALT 15 (14-63) IU/L Alkaline Phosphatase 77 (46-116) U/L Troponin I < 0.050 (0.000-0.056) ng/mL B-Natriuretic Peptide 1018 H (<100) PG/ML Total Protein 6.9 (6.4-8.2) g/dL Albumin 3.5 (3.4-5.0) g/dL Globulin 3.4 (2.6-4.0) g/dL Albumin/Globulin Ratio 1.0 (0.9-1.6) SARS-CoV-2 RNA (JENN) (NEGATIVE) 10/19/20 10/19/20 10/19/20 Range/Units 14:10 16:00 16:59 WBC (4.0-11.0) K/uL RBC (4.50-5.90) M/uL Hgb (13.0-17.0) g/dL Hct (38.0-50.0) % MCV (80.0-98.0) fL MCH (27.0-32.0) pg MCHC (31.0-37.0) g/dL RDW Std Deviation (28.0-62.0) fl RDW Coeff of Ji (11.0-15.0) % Plt Count (150-400) K/uL MPV (7.40-12.00) fL Neut % (Auto) (48.0-80.0) % Lymph % (Auto) (16.0-40.0) % Bullock % (Auto) (0.0-15.0) % Eos % (Auto) (0.0-7.0) % Baso % (Auto) (0.0-1.5) % Neut # (Auto) (1.4-5.7) K/uL Lymph # (Auto) (0.6-2.4) K/uL Bullock # (Auto) (0.0-0.8) K/uL Eos # (Auto) (0.0-0.7) K/uL Baso # (Auto) (0.0-0.1) K/uL Nucleated RBC % /100WBC Nucleated RBCs # K/uL Sodium (136-148) mmol/L Potassium (3.5-5.1) mmol/L Chloride (98-107) mmol/L Carbon Dioxide (21.0-32.0) mmol/L BUN (7.0-18.0) mg/dL Creatinine (0.8-1.3) mg/dL Est Cr Clr Drug Dosing mL/min Estimated GFR (MDRD) ml/min Glucose (74-106) mg/dL POC Glucose 359 H (70-99) mg/dL Calcium (8.5-10.1) mg/dL Magnesium (1.8-2.4) mg/dL Total Bilirubin (0.2-1.0) mg/dL AST (15-37) IU/L ALT (14-63) IU/L Alkaline Phosphatase (46-116) U/L Troponin I < 0.050 (0.000-0.056) ng/mL B-Natriuretic Peptide (<100) PG/ML Total Protein (6.4-8.2) g/dL Albumin (3.4-5.0) g/dL Globulin (2.6-4.0) g/dL Albumin/Globulin Ratio (0.9-1.6) SARS-CoV-2 RNA (JENN) NEGATIVE (NEGATIVE) 10/19/20 10/20/20 10/20/20 Range/Units 18:53 04:40 04:40 WBC 5.01 (4.0-11.0) K/uL RBC 3.48 L (4.50-5.90) M/uL Hgb 11.1 L (13.0-17.0) g/dL Hct 31.5 L (38.0-50.0) % MCV 90.5 (80.0-98.0) fL MCH 31.9 (27.0-32.0) pg MCHC 35.2 (31.0-37.0) g/dL RDW Std Deviation 41.8 (28.0-62.0) fl RDW Coeff of Ji 13 (11.0-15.0) % Plt Count 169 (150-400) K/uL MPV 9.90 (7.40-12.00) fL Neut % (Auto) 70.2 (48.0-80.0) % Lymph % (Auto) 14.2 L (16.0-40.0) % Bullock % (Auto) 12.6 (0.0-15.0) % Eos % (Auto) 2.4 (0.0-7.0) % Baso % (Auto) 0.6 (0.0-1.5) % Neut # (Auto) 3.5 (1.4-5.7) K/uL Lymph # (Auto) 0.7 (0.6-2.4) K/uL Bullock # (Auto) 0.6 (0.0-0.8) K/uL Eos # (Auto) 0.1 (0.0-0.7) K/uL Baso # (Auto) 0.0 (0.0-0.1) K/uL Nucleated RBC % 0.0 /100WBC Nucleated RBCs # 0 K/uL Sodium 135 L (136-148) mmol/L Potassium 3.8 (3.5-5.1) mmol/L Chloride 98 (98-107) mmol/L Carbon Dioxide 28.9 (21.0-32.0) mmol/L BUN 27 H (7.0-18.0) mg/dL Creatinine 1.8 H (0.8-1.3) mg/dL Est Cr Clr Drug Dosing 45.06 mL/min Estimated GFR (MDRD) 38.7 ml/min Glucose 446 H (74-106) mg/dL POC Glucose (70-99) mg/dL Calcium 8.7 (8.5-10.1) mg/dL Magnesium 1.6 L (1.8-2.4) mg/dL Total Bilirubin (0.2-1.0) mg/dL AST (15-37) IU/L ALT (14-63) IU/L Alkaline Phosphatase (46-116) U/L Troponin I < 0.050 (0.000-0.056) ng/mL B-Natriuretic Peptide (<100) PG/ML Total Protein (6.4-8.2) g/dL Albumin (3.4-5.0) g/dL Globulin (2.6-4.0) g/dL Albumin/Globulin Ratio (0.9-1.6) SARS-CoV-2 RNA (JENN) (NEGATIVE) Result Diagrams: 10/20/20 04:40 10/20/20 04:40 Sepsis Event Note - Evaluation Sepsis Screening Result: No Definite Risk - Focused Exam Vital Signs: Vital Signs Temp Resp BP Pulse Ox 10/20/20 07:00 15 178/99 H 97 10/20/20 06:00 15 181/98 H 93 L 10/20/20 05:00 97.4 F 14 185/107 H 96 10/20/20 04:00 16 152/83 H 94 L 10/20/20 03:00 16 172/95 H 98 10/20/20 02:00 17 174/99 H 94 L 10/20/20 01:00 14 161/90 H 95 10/20/20 00:00 97.7 F 15 162/93 H 96 10/19/20 23:00 17 175/92 H 96 10/19/20 22:00 19 183/101 H 97 10/19/20 21:00 97.5 F 11 L 160/85 H 98 10/19/20 20:00 16 193/71 H 95 - Problem List & Annotations (1) CHF (congestive heart failure) SNOMED Code(s): 82556637 Code(s): I50.9 - HEART FAILURE, UNSPECIFIED Status: Acute Current Visit: Yes Qualifiers: Heart failure type: unspecified Heart failure chronicity: acute Qualified Code(s): I50.9 - Heart failure, unspecified (2) Stented coronary artery Status: Chronic Current Visit: Yes (3) DM type 1 (diabetes mellitus, type 1) SNOMED Code(s): 92736349 Code(s): E10.9 - TYPE 1 DIABETES MELLITUS WITHOUT COMPLICATIONS Status: Chronic Current Visit: Yes Qualifiers: Diabetes mellitus complication status: with hyperglycemia Qualified Code(s): E10.65 - Type 1 diabetes mellitus with hyperglycemia (4) Anxiety SNOMED Code(s): 41875078 Code(s): F41.9 - ANXIETY DISORDER, UNSPECIFIED Status: Chronic Current Visit: No (5) HTN (hypertension) SNOMED Code(s): 59489717 Code(s): I10 - ESSENTIAL (PRIMARY) HYPERTENSION Status: Chronic Current Visit: No Qualifiers: Hypertension type: unspecified Qualified Code(s): I10 - Essential (primary) hypertension (6) Coronary artery disease SNOMED Code(s): 04309866 Code(s): I25.10 - ATHSCL HEART DISEASE OF [place] CORONARY ARTERY W/O ANG PCTRS Status: Chronic Priority: High Current Visit: No Qualifiers: Coronary Disease-Associated Artery/Lesion type: unspecified vessel or lesion type [place] vs. transplanted heart: [place] heart Associated angina: with other forms of angina Qualified Code(s): I25.118 - Atherosclerotic heart disease of [place] coronary artery with other forms of angina pectoris (7) Hx of tracheostomy SNOMED Code(s): 699215947 Code(s): Z98.890 - OTHER SPECIFIED POSTPROCEDURAL STATES Status: Chronic Current Visit: Yes - Problem List Review Problem List Initiated/Reviewed/Updated: Yes - My Orders Last 24 Hours: My Active Orders 10/19/20 15:13 Blood Glucose Check, Bedside [RC] TIDMEALS Height and Weight [RC] DAILY Oxygen Therapy [RC] PRN Telemetry Monitoring [Cardiac Monitoring] [RC] Q8H Up With Assistance [RC] ASDIRECTED VTE/DVT Education [RC] PER UNIT ROUTINE Vital Signs [RC] Q1H Acetaminophen [TylenoL] 650 mg PO Q4H PRN Docusate Sodium [Colace] 100 mg PO BID PRN Ondansetron [Zofran] 4 mg IVPUSH Q4H PRN Sodium Chloride 0.9% [Saline Flush] 2.5 ml FLUSH ASDIRECTED PRN Saline Lock Insert [OM.PC] Routine Resuscitation Status Routine 10/19/20 15:20 traMADol [Ultram] 50 mg PO BID PRN 10/19/20 15:25 Obtain Home Medication List [OM.PC] Routine 10/19/20 Dinner 2 Gram Sodium Diet [DIET] 10/19/20 17:00 carvediloL [Coreg] 25 mg PO BIDMEALS 10/19/20 17:30 Insulin Aspart [NovoLOG] 6 unit SUBCUT TIDMEALS 10/19/20 21:30 Patient's Own Medication [Ptom] 1 each PO BID 10/20/20 07:30 Omeprazole 20 mg PO ACBREAKFAST 10/20/20 08:00 Furosemide [Lasix] 40 mg IVPUSH BIDDIURETIC Scopolamine [Transderm-Scop] 1.5 mg TRDERM Q72H 10/20/20 09:00 DULoxetine [Cymbalta] 30 mg PO DAILY Doxazosin [Cardura] 4 mg PO DAILY Losartan [Cozaar] 100 mg PO DAILY 10/20/20 15:12 Echo Comp wo Cont [US] Urgent 10/21/20 05:11 BASIC METABOLIC PANEL,BMP [CHEM] AM CBC WITH AUTO DIFF [HEME] AM MAGNESIUM [CHEM] AM 10/22/20 05:11 BASIC METABOLIC PANEL,BMP [CHEM] AM CBC WITH AUTO DIFF [HEME] AM MAGNESIUM [CHEM] AM - Plan Plan:: This 60-year-old male admitted with suspected acute decompensated CHF 1. Acute decompensated CHF -Was recently stented for NSTEMI to the right coronary artery in May 2020, could also be related to hypertensive urgency -Has not seen cardiology since stenting no repeat echo. Echo prior to stenting reveals normal left ventricular ejection fraction of 60%. Normal left ventricular chamber size no regional wall abnormalities normal right ventricular size and systolic function no hemodynamically significant valvular disease. -We will treat with Lasix 40 mg IV twice daily -echo pending. -Strict I's and O's, 2 L fluid restriction, low-sodium diet, Daily weights -Arrange outpatient follow-up with , cardiology - Monitor on telemetry - troponins negative. 2. Hypertensive urgency - Started on Nicardipine gtt overnight, currently off. - Reviewing cardiology medications it appears lead java [email or web address] developer recommended continuing AMlodipine 5 mg BID, but patient reports he is unsure why he isn't taking that now. No notes found discussing discontinuation. -Continue Brilinta, carvedilol, and losartan - Styart AMlodipine 5 mg BID, which he previously was on. - PRN labetolol for hypertension. - Asymptomatic currently - Will reach out to Dr Marcial today, patient lead java [email or web address] developer in town. 3. Diabetes type 1 - Uncontrolled today, increase mealtime insulin -Continue NovoLog with meals 6 units -Continue Tresiba 20 units now and daily -ADA diet -Blood sugar checks 3 times daily AC, patient does have continuous glucose monitor in place. VTE prophylaxis: heparin GI prophylaxis: Omeprazole CODE STATUS: Full code Dispo: Inpatient as he will likely need greater than 2 midnights stay
[2020-10-20] MEDS ORDERED: Scopolamine 1.5 MG Transdermal Patch TRDERM SCH (08:00)
[2020-10-20] MEDS: Omeprazole 20 MG Cap.CR PO SCH (08:01)
[2020-10-20] MEDS: Carvedilol 25 MG Tab PO SCH ×2 (08:01→22:04)
[2020-10-20] MEDS: Furosemide 40 MG/4 ML VIAL IVPUSH SCH ×2 (08:07→14:15)
[2020-10-20] MEDS: Losartan 50 MG Tab PO SCH (08:37)
[2020-10-20] MEDS: Doxazosin 4 MG Tab PO SCH (08:40)
[2020-10-20] MEDS: DULoxetine 30 MG Cap PO SCH (08:40)
[2020-10-20] MEDS: TICAGRELOR 90 MG PO SCH ×2 (09:09→20:43)
[2020-10-20] MEDS: Insulin Aspart 100 Units/ML 3 ML Pen SUBCUT SCH ×6 (09:12→18:19)
[2020-10-20] MEDS ORDERED: Insulin Degludec [Tresiba] 100 UNIT/ML Vial SUBCUT SCH ×3 (09:45→21:00)
[2020-10-20] MEDS ORDERED: amLODIPine 5 MG Tab PO SCH (10:00)
[2020-10-20] MEDS: Heparin Sodium 5,000 Units/ML Vial SUBCUT SCH ×2 (10:13→22:05)
[2020-10-20] MEDS ORDERED: Magnesium Sulfate/Water 2 GM in Premix Bag 1 BAG IV ONE (10:14)
--- NOTE | 2020-10-20 10:45 | PN ---
[facility] Physician - Brief Progress [id number] 10:22[facility] Sharonda Eric, [place] - MWN (DELORES) - [facility]N [facility] COOPEREdwardDate of Service 10/20/2020 10:22HPI/E vents of Note 60 yo M admitted for acute CHF, transferred to ICU when his BP was very elevated (>200 mmHg SBP) despite multiple IV boluses of Labetalol by hospitalist overnight. Cardene gtt was initiate d and pt was brought to ICU. On my exam this AM, it appears that Cardene gtt has been weaned off at p resent and pt's BP is still elevated with SBP ~180s mmHg on bedside manager monitoring. Pt is breathin g comfortably on RA at present after receiving multiple doses of IV Lasix since admission. 2D echo is done, interpretation is pending. Pt has CAD with stent to RCA in May 2020. He c/o worsening dyspne a, MART, and orthopnea over the past month or so and he has never felt this before.VS: 78, 158/88, 14, 96% (RA)Gen: Pleasant, comfortable, NADHeart: NSR with normal HR seen on telemetryLungs: Breathing c omfortably on RANeuro: A&O to conversation with loved one on cell phone during exam, moves all 4 limb s spontaneouslyASSESSMENT:Acute CHF - Unknown if systolic, diastolic, or combined. BNP >1000 with pul monary vasc congestion and pulm edema on chest x-ray.CAD without unstable angina pectorisHypertensive emergencyAKIHypomagnesemiaDM type IPLAN:Diuresis with IV Lasix 40 BID per bedside MDStrict I/O, jose aleajndro y [id number] echo done, interpretation pendingWould recommend ASA and statin, given reported history o f CAD with stent to RCA, but will defer to bedside MD. Pt is on Coreg. No Plavix or Brilinta currentl y on MAY.Cardene gtt started overnight, appears to have been weaned off as pumps at bedside are all o ff at present. Continue current PO antihypertensive regimen and intensify as able, since BP remains e levated.Avoid nephrotoxic agents. Would recommend holding Losartan. Ok to continue to Lasix IV for no w, but may need to adjust dose/frequency if renal fxn worsens.Monitor BUN, Cr, UOPLyte replacement an d monitoring per ICU protocolBlood sugars are elevated with 6U Aspart TIDAC and ISS high dose. Would recommend adding long-acting insulin QHS.Interventions Major-Hypertension - evaluation and management Intermediate-Hyperglycemia - evaluation and treatment, Hypervolemia - evaluation and managementElectr onically Signed by: Cintia Salazar) on 10/20/2020 10:44
[2020-10-20] MEDS: Insulin Degludec [Tresiba] 100 UNIT/ML Vial SUBCUT SCH (16:01)
[2020-10-20] MEDS ORDERED: Carvedilol 25 MG Tab ONE (21:22)
[2020-10-20] MEDS: traMADol 50 MG Tab PO PRN (21:37)
[2020-10-21 06:45] LABS: POTASSIUM,K 3.4 mmol/L (3.5-5.1)
--- NOTE | 2020-10-21 07:58 | PCM.PN ---
- General Info Date of Service: 10/21/20 Admission Dx/Problem (Free Text): Admission Diagnosis/Problem Admission Diagnosis/Problem CHF, Congestive heart failure Subjective Update: Feeling much improved today. Denies any shortness of breath or chest pain. Denies any dizziness lightheadedness. Eager to go home today. Reports blood pressure is improved and near baseline. Functional Status: Reports: Pain Controlled, Tolerating Diet, Ambulating, Urinating - Review of Systems General: Reports: No Symptoms. Denies: Weakness, Fatigue, Malaise HEENT: Reports: No Symptoms. Denies: Headaches, Sore Throat Pulmonary: Reports: No Symptoms. Denies: Shortness of Breath Cardiovascular: Reports: No Symptoms. Denies: Chest Pain, Palpitations, Edema Gastrointestinal: Reports: No Symptoms. Denies: Abdominal Pain, Nausea, Vomiting Genitourinary: Reports: No Symptoms. Denies: Dysuria, Frequency, Burning Musculoskeletal: Reports: No Symptoms Skin: Reports: No Symptoms Neurological: Reports: No Symptoms Psychiatric: Reports: No Symptoms - Patient Data Vitals - Most Recent: Last Vital Signs Temp 97.4 F 10/21/20 04:00 Pulse 78 10/20/20 22:04 Resp 10 L 10/21/20 07:00 BP 170/91 H 10/21/20 07:00 Pulse Ox 96 10/21/20 06:00 Weight - Most Recent: 80.785 kg I&O - Last 24 Hours: Intake & Output 10/20/20 10/21/20 10/21/20 22:59 06:59 14:59 Intake Total 900 650 Output Total 2100 1075 Balance -1200 -425 Lab Results Last 24 Hours: Laboratory Results - last 24 hr 10/20/20 10/20/20 10/20/20 Range/Units 09:03 12:46 18:16 WBC (4.0-11.0) K/uL RBC (4.50-5.90) M/uL Hgb (13.0-17.0) g/dL Hct (38.0-50.0) % MCV (80.0-98.0) fL MCH (27.0-32.0) pg MCHC (31.0-37.0) g/dL RDW Std Deviation (28.0-62.0) fl RDW Coeff of Ji (11.0-15.0) % Plt Count (150-400) K/uL MPV (7.40-12.00) fL Neut % (Auto) (48.0-80.0) % Lymph % (Auto) (16.0-40.0) % [place] % (Auto) (0.0-15.0) % Eos % (Auto) (0.0-7.0) % Baso % (Auto) (0.0-1.5) % Neut # (Auto) (1.4-5.7) K/uL Lymph # (Auto) (0.6-2.4) K/uL [place] # (Auto) (0.0-0.8) K/uL Eos # (Auto) (0.0-0.7) K/uL Baso # (Auto) (0.0-0.1) K/uL Nucleated RBC % /100WBC Nucleated RBCs # K/uL Sodium (136-148) mmol/L Potassium (3.5-5.1) mmol/L Chloride (98-107) mmol/L Carbon Dioxide (21.0-32.0) mmol/L BUN (7.0-18.0) mg/dL Creatinine (0.8-1.3) mg/dL Est Cr Clr Drug Dosing mL/min Estimated GFR (MDRD) ml/min Glucose (74-106) mg/dL POC Glucose 443 H* 321 H 199 H (70-99) mg/dL Calcium (8.5-10.1) mg/dL Magnesium (1.8-2.4) mg/dL 10/21/20 10/21/20 Range/Units 05:27 05:27 WBC 5.32 (4.0-11.0) K/uL RBC 3.36 L (4.50-5.90) M/uL Hgb 10.9 L (13.0-17.0) g/dL Hct 30.0 L (38.0-50.0) % MCV 89.3 (80.0-98.0) fL MCH 32.4 H (27.0-32.0) pg MCHC 36.3 (31.0-37.0) g/dL RDW Std Deviation 40.6 (28.0-62.0) fl RDW Coeff of Ji 13 (11.0-15.0) % Plt Count 191 (150-400) K/uL MPV 9.90 (7.40-12.00) fL Neut % (Auto) 64.7 (48.0-80.0) % Lymph % (Auto) 21.8 (16.0-40.0) % [place] % (Auto) 10.3 (0.0-15.0) % Eos % (Auto) 3.0 (0.0-7.0) % Baso % (Auto) 0.2 (0.0-1.5) % Neut # (Auto) 3.4 (1.4-5.7) K/uL Lymph # (Auto) 1.2 (0.6-2.4) K/uL [place] # (Auto) 0.6 (0.0-0.8) K/uL Eos # (Auto) 0.2 (0.0-0.7) K/uL Baso # (Auto) 0.0 (0.0-0.1) K/uL Nucleated RBC % 0.0 /100WBC Nucleated RBCs # 0 K/uL Sodium 135 L (136-148) mmol/L Potassium 3.4 L (3.5-5.1) mmol/L Chloride 98 (98-107) mmol/L Carbon Dioxide 30.0 (21.0-32.0) mmol/L BUN 39 H (7.0-18.0) mg/dL Creatinine 2.1 H (0.8-1.3) mg/dL Est Cr Clr Drug Dosing 38.62 mL/min Estimated GFR (MDRD) 32.4 ml/min Glucose 276 H (74-106) mg/dL POC Glucose (70-99) mg/dL Calcium 8.9 (8.5-10.1) mg/dL Magnesium 2.1 (1.8-2.4) mg/dL Med Orders - Current: Current Medications Acetaminophen (Acetaminophen 325 Mg Tab) 650 mg PO Q4H PRN PRN Reason: Pain (Mild 1-3)/fever Carvedilol (Carvedilol 25 Mg Tab) 25 mg PO BIDMEALS [facility] Last Admin: 10/20/20 22:04 Dose: 25 mg Documented by: Dextrose/Water (50% Dextrose In Water 50 Ml Syringe) 50 ml IVPUSH ASDIRECTED PRN PRN Reason: Hypoglycemia Docusate Sodium (Docusate Sodium 100 Mg Cap) 100 mg PO BID PRN PRN Reason: Constipation Doxazosin Mesylate (Doxazosin 4 Mg Tab) 4 mg PO DAILY [facility] Last Admin: 10/20/20 08:40 Dose: 4 mg Documented by: Duloxetine HCl (Duloxetine 30 Mg Cap) 30 mg PO DAILY [facility] Last Admin: 10/20/20 08:40 Dose: 30 mg Documented by: Glucagon (Glucagon,Human Recombinant 1 Mg Vial) 1 mg IM ASDIRECTED PRN PRN Reason: Hypoglycemia Heparin Sodium (Porcine) (Heparin Sodium 5,000 Units/Ml Vial) 5,000 units SUBCUT Q12H [facility] Last Admin: 10/20/20 22:05 Dose: 5,000 units Documented by: Nicardipine HCl (Cardene In Ns 20 Mg/200 Ml) 20 mg in 200 mls @ 50 mls/hr IV TITRATE [facility]; Protocol Last Titration: 10/19/20 23:34 Dose: 0 mg/hr, 0 mls/hr Documented by: Insulin Aspart (Insulin Aspart 100 Units/Ml 3 Ml Pen) 6 unit SUBCUT TIDMEALS [facility] Last Admin: 10/20/20 18:19 Dose: 6 units Documented by: Insulin Aspart (Insulin Aspart 100 Units/Ml 3 Ml Pen) 0 unit SUBCUT TIDAC [facility]; Protocol Last Admin: 10/20/20 18:18 Dose: 3 unit Documented by: Losartan Potassium (Losartan 50 Mg Tab) 100 mg PO DAILY [facility] Last Admin: 10/20/20 08:37 Dose: 100 mg Documented by: Omeprazole (Omeprazole 20 Mg Cap.Cr) 20 mg PO ACBREAKFAST [facility] Last Admin: 10/20/20 08:01 Dose: 20 mg Documented by: Ondansetron HCl (Ondansetron 4 Mg/2 Ml Sdv) 4 mg IVPUSH Q4H PRN PRN Reason: Nausea Ticagrelor 90 Mg (TabletPt Own Med) 1 each PO BID [facility] Last Admin: 10/20/20 20:43 Dose: 1 each Documented by: Insulin Degludec [ Tresiba] 100 Unit/Ml Vial 1 each SUBCUT Q24H [facility] Last Admin: 10/20/20 16:01 Dose: 1 each Documented by: Scopolamine (Scopolamine 1.5 Mg Transdermal Patch) 1.5 mg TRDERM Q72H [facility] Last Admin: 10/20/20 08:51 Dose: 1.5 mg Documented by: Sodium Chloride (Sodium Chloride 0.9% 2.5 Ml Syringe) 2.5 ml FLUSH ASDIRECTED PRN PRN Reason: Keep Vein Open Tramadol HCl (Tramadol 50 Mg Tab) 50 mg PO BID PRN PRN Reason: Pain Last Admin: 10/20/20 21:37 Dose: 50 mg Documented by: Discontinued Medications Amlodipine Besylate (Amlodipine 5 Mg Tab) 5 mg PO BID [facility] Last Admin: 10/20/20 10:13 Dose: 5 mg Documented by: Carvedilol (Carvedilol 25 Mg Tab) Confirm Administered Dose 25 mg .ROUTE .STK- MED ONE Stop: 10/20/20 21:23 Last Admin: 10/20/20 22:06 Dose: Not Given Documented by: Dextrose/Water (50% Dextrose In Water 50 Ml Syringe) 50 ml IVPUSH ASDIRECTED PRN PRN Reason: Hypoglycemia Furosemide (Furosemide 40 Mg/4 Ml Vial) 40 mg IVPUSH NOW ONE Stop: 10/19/20 13:55 Last Admin: 10/19/20 14:01 Dose: 40 mg Documented by: Furosemide (Furosemide 40 Mg/4 Ml Vial) 40 mg IVPUSH BIDDIURETIC [facility] Last Admin: 10/20/20 14:15 Dose: Not Given Documented by: Furosemide (Furosemide 40 Mg/4 Ml Vial) 40 mg IVPUSH NOW ONE Stop: 10/19/20 19:01 Last Admin: 10/19/20 19:35 Dose: 40 mg Documented by: Glucagon (Glucagon,Human Recombinant 1 Mg Vial) 1 mg IM ASDIRECTED PRN PRN Reason: Hypoglycemia Magnesium Sulfate 2 gm/ Premix 50 mls @ 25 mls/hr IV ONETIME ONE Stop: 10/20/20 12:13 Last Admin: 10/20/20 10:40 Dose: 25 mls/hr Documented by: Labetalol HCl (Labetalol 100 Mg/20 Ml Mdv) 20 mg IVPUSH Q4H PRN PRN Reason: SBP >180 Last Admin: 10/19/20 16:53 Dose: 20 mg Documented by: Labetalol HCl (Labetalol 100 Mg/20 Ml Mdv) 20 mg IVPUSH ONETIME ONE; Protocol Stop: 10/19/20 18:12 Last Admin: 10/19/20 18:15 Dose: 20 mg Documented by: Lorazepam (Lorazepam 2 Mg/Ml Sdv) 1 mg IVPUSH ONETIME ONE Stop: 10/19/20 20:07 Last Admin: 10/19/20 21:26 Dose: 1 mg Documented by: Ticagrelor 90 Mg (Tablet) 1 each PO BID [facility] Last Admin: 10/19/20 21:27 Dose: Not Given Documented by: Insulin Degludec [ Tresiba] 100 Unit/Ml Vial 12 each SUBCUT BEDTIME NILA Insulin Degludec [ Tresiba] 100 Unit/Ml Vial 20 each SUBCUT BEDTIME NILA Insulin Degludec [ Tresiba] 100 Unit/Ml Vial 20 each SUBCUT DAILY [facility] Last Admin: 10/20/20 14:29 Dose: Not Given Documented by: Scopolamine (Scopolamine 1.5 Mg Transdermal Patch) 1.5 mg TRDERM Q72H [facility] Last Admin: 10/19/20 19:13 Dose: Not Given Documented by: Sodium Chloride (Sodium Chloride 0.9% 10 Ml Syringe) 10 ml FLUSH ASDIRECTED PRN PRN Reason: Keep Vein Open Last Admin: 10/19/20 13:14 Dose: 10 ml Documented by: Sodium Chloride (Sodium Chloride 0.9% 2.5 Ml Syringe) 2.5 ml FLUSH ASDIRECTED PRN PRN Reason: Keep Vein Open Last Admin: 10/19/20 13:14 Dose: 2.5 ml Documented by: - Exam Quality Assessment: DVT Prophylaxis. No: Supplemental Oxygen General: Alert, Oriented, Cooperative, No Acute Distress Lungs: Clear to Auscultation, Normal Respiratory Effort Cardiovascular: Regular Rate, Regular Rhythm GI/Abdominal Exam: Normal Bowel Sounds, Soft, Non-Tender Extremities: Normal Inspection, Normal Range of Motion, Non-Tender, No Pedal Edema Neurological: No New Focal Deficit Psy/Mental Status: Alert, Normal Affect, Normal Mood - Patient Data Lab Results Last 24 hrs: Laboratory Results - last 24 hr 10/20/20 10/20/20 10/20/20 Range/Units 09:03 12:46 18:16 WBC (4.0-11.0) K/uL RBC (4.50-5.90) M/uL Hgb (13.0-17.0) g/dL Hct (38.0-50.0) % MCV (80.0-98.0) fL MCH (27.0-32.0) pg MCHC (31.0-37.0) g/dL RDW Std Deviation (28.0-62.0) fl RDW Coeff of Ji (11.0-15.0) % Plt Count (150-400) K/uL MPV (7.40-12.00) fL Neut % (Auto) (48.0-80.0) % Lymph % (Auto) (16.0-40.0) % Randolph % (Auto) (0.0-15.0) % Eos % (Auto) (0.0-7.0) % Baso % (Auto) (0.0-1.5) % Neut # (Auto) (1.4-5.7) K/uL Lymph # (Auto) (0.6-2.4) K/uL [place] # (Auto) (0.0-0.8) K/uL Eos # (Auto) (0.0-0.7) K/uL Baso # (Auto) (0.0-0.1) K/uL Nucleated RBC % /100WBC Nucleated RBCs # K/uL Sodium (136-148) mmol/L Potassium (3.5-5.1) mmol/L Chloride (98-107) mmol/L Carbon Dioxide (21.0-32.0) mmol/L BUN (7.0-18.0) mg/dL Creatinine (0.8-1.3) mg/dL Est Cr Clr Drug Dosing mL/min Estimated GFR (MDRD) ml/min Glucose (74-106) mg/dL POC Glucose 443 H* 321 H 199 H (70-99) mg/dL Calcium (8.5-10.1) mg/dL Magnesium (1.8-2.4) mg/dL 10/21/20 10/21/20 Range/Units 05:27 05:27 WBC 5.32 (4.0-11.0) K/uL RBC 3.36 L (4.50-5.90) M/uL Hgb 10.9 L (13.0-17.0) g/dL Hct 30.0 L (38.0-50.0) % MCV 89.3 (80.0-98.0) fL MCH 32.4 H (27.0-32.0) pg MCHC 36.3 (31.0-37.0) g/dL RDW Std Deviation 40.6 (28.0-62.0) fl RDW Coeff of Ji 13 (11.0-15.0) % Plt Count 191 (150-400) K/uL MPV 9.90 (7.40-12.00) fL Neut % (Auto) 64.7 (48.0-80.0) % Lymph % (Auto) 21.8 (16.0-40.0) % Randolph % (Auto) 10.3 (0.0-15.0) % Eos % (Auto) 3.0 (0.0-7.0) % Baso % (Auto) 0.2 (0.0-1.5) % Neut # (Auto) 3.4 (1.4-5.7) K/uL Lymph # (Auto) 1.2 (0.6-2.4) K/uL Randolph # (Auto) 0.6 (0.0-0.8) K/uL Eos # (Auto) 0.2 (0.0-0.7) K/uL Baso # (Auto) 0.0 (0.0-0.1) K/uL Nucleated RBC % 0.0 /100WBC Nucleated RBCs # 0 K/uL Sodium 135 L (136-148) mmol/L Potassium 3.4 L (3.5-5.1) mmol/L Chloride 98 (98-107) mmol/L Carbon Dioxide 30.0 (21.0-32.0) mmol/L BUN 39 H (7.0-18.0) mg/dL Creatinine 2.1 H (0.8-1.3) mg/dL Est Cr Clr Drug Dosing 38.62 mL/min Estimated GFR (MDRD) 32.4 ml/min Glucose 276 H (74-106) mg/dL POC Glucose (70-99) mg/dL Calcium 8.9 (8.5-10.1) mg/dL Magnesium 2.1 (1.8-2.4) mg/dL Result Diagrams: 10/21/20 05:27 10/21/20 05:27 Sepsis Event Note - Evaluation Sepsis Screening Result: No Definite Risk - Focused Exam Vital Signs: Vital Signs Temp Pulse Resp BP BP Pulse Ox 10/21/20 07:00 10 L 170/91 H 10/21/20 06:00 11 L 171/97 H 96 10/21/20 05:00 14 155/87 H 95 10/21/20 04:00 97.4 F 15 177/103 H 92 L 10/21/20 03:00 11 L 158/81 H 95 10/21/20 02:00 15 149/83 H 95 10/21/20 01:00 13 153/88 H 91 L 10/21/20 00:00 97.5 F 10 L 157/90 H 94 L 10/20/20 23:00 12 166/83 H 95 10/20/20 22:04 78 131/86 10/20/20 22:00 19 131/86 96 10/20/20 21:00 12 162/85 H 96 10/20/20 20:00 97.7 F 16 139/82 93 L - Problem List & Annotations (1) CHF (congestive heart failure) SNOMED Code(s): 15357835 Code(s): I50.9 - HEART FAILURE, UNSPECIFIED Status: Acute Current Visit: Yes Qualifiers: Heart failure type: unspecified Heart failure chronicity: acute Qualified Code(s): I50.9 - Heart failure, unspecified (2) Stented coronary artery Status: Chronic Current Visit: Yes (3) DM type 1 (diabetes mellitus, type 1) SNOMED Code(s): 78317265 Code(s): E10.9 - TYPE 1 DIABETES MELLITUS WITHOUT COMPLICATIONS Status: Chronic Current Visit: Yes Qualifiers: Diabetes mellitus complication status: with hyperglycemia Qualified Code(s): E10.65 - Type 1 diabetes mellitus with hyperglycemia (4) Anxiety SNOMED Code(s): 44855762 Code(s): F41.9 - ANXIETY DISORDER, UNSPECIFIED Status: Chronic Current Visit: No (5) HTN (hypertension) SNOMED Code(s): 77447754 Code(s): I10 - ESSENTIAL (PRIMARY) HYPERTENSION Status: Chronic Current Visit: No Qualifiers: Hypertension type: unspecified Qualified Code(s): I10 - Essential (primary) hypertension (6) Coronary artery disease SNOMED Code(s): 24610233 Code(s): I25.10 - ATHSCL HEART DISEASE OF [place] CORONARY ARTERY W/O ANG PCTRS Status: Chronic Priority: High Current Visit: No Qualifiers: Coronary Disease-Associated Artery/Lesion type: unspecified vessel or lesion type [place] vs. transplanted heart: [place] heart Associated angina: with other forms of angina Qualified Code(s): I25.118 - Atherosclerotic heart disease of [place] coronary artery with other forms of angina pectoris (7) Hx of tracheostomy SNOMED Code(s): 344843191 Code(s): Z98.890 - OTHER SPECIFIED POSTPROCEDURAL STATES Status: Chronic Current Visit: Yes - Problem List Review Problem List Initiated/Reviewed/Updated: Yes - My Orders Last 24 Hours: My Active Orders 10/20/20 07:30 Omeprazole 20 mg PO ACBREAKFAST 10/20/20 08:00 Scopolamine [Transderm-Scop] 1.5 mg TRDERM Q72H 10/20/20 09:00 DULoxetine [Cymbalta] 30 mg PO DAILY Doxazosin [Cardura] 4 mg PO DAILY Losartan [Cozaar] 100 mg PO DAILY 10/20/20 10:00 Heparin Sodium 5,000 units SUBCUT Q12H 10/20/20 15:12 Echo Comp wo Cont [US] Urgent 10/20/20 16:00 Patient's Own Medication [Ptom] 1 each SUBCUT Q24H 10/22/20 05:11 BASIC METABOLIC PANEL,BMP [CHEM] AM CBC WITH AUTO DIFF [HEME] AM MAGNESIUM [CHEM] AM - Plan Plan:: This 60-year-old male admitted with suspected acute decompensated CHF 1. Acute decompensated CHF -Was recently stented for NSTEMI to the right coronary artery in May 2020, could also be related to hypertensive urgency -Bump in Cr/Bun. Hold Lasix this am. - Diuresed 1700 yesterday -echo left ventricular ejection fraction 55%. Possible hypokinesis of basal inferior segment. Impaired relaxation (grade 1) pattern of LV diastolic filling. Normal right ventricular systolic function aortic valve structurally normal and tricuspid no evidence of mitral valve regurgitation. Left pleural effusion was noted. -Strict I's and O's, 2 L fluid restriction, low-sodium diet, Daily weights -Arrange outpatient follow-up with , cardiology - Monitor on telemetry - troponins negative. 2. Hypertensive urgency/CAD - HTN urgency resolved. - BP dropped significantly with Amlodipine 5 mg yesterday. arrived in the evening reports this was stopped as he felt dizziness with this medication. -Continue Brilinta, carvedilol, and hold losartan due to bump in creatinine - Allergy to Statin and ASA. on Repatha injection for HLD. 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 3. Diabetes type 1 - Improving -Continue NovoLog with meals 6 units -Continue Tresiba 20 units daily -ADA diet -Blood sugar checks 3 times daily AC, patient does have continuous glucose monitor in place. VTE prophylaxis: heparin GI prophylaxis: Omeprazole CODE STATUS: Full code Dispo: 1-2 days, will transition to [facility] care today
[2020-10-21] MEDS ORDERED: Potassium Chloride 20 MEQ Tab.ER PO ONE (07:59)
[2020-10-21] MEDS: Omeprazole 20 MG Cap.CR PO SCH (08:24)
[2020-10-21] MEDS: Insulin Aspart 100 Units/ML 3 ML Pen SUBCUT SCH ×6 (08:25→17:33)
[2020-10-21] MEDS: Carvedilol 25 MG Tab PO SCH ×2 (08:34→17:02)
[2020-10-21] MEDS: Losartan 50 MG Tab PO SCH (08:45)
[2020-10-21] MEDS: DULoxetine 30 MG Cap PO SCH (08:53)
[2020-10-21] MEDS: TICAGRELOR 90 MG PO SCH ×2 (08:53→22:22)
[2020-10-21] MEDS: Doxazosin 4 MG Tab PO SCH (08:53)
[2020-10-21] MEDS: Heparin Sodium 5,000 Units/ML Vial SUBCUT SCH ×2 (09:51→22:23)
[2020-10-21] MEDS: Insulin Degludec [Tresiba] 100 UNIT/ML Vial SUBCUT SCH (15:44)
[2020-10-21] MEDS: traMADol 50 MG Tab PO PRN (22:22)
[2020-10-22] MEDS ORDERED: Hydrochlorothiazide 25 MG Tab PO ONE (01:28)
[2020-10-22] MEDS: Omeprazole 20 MG Cap.CR PO SCH (06:47)
[2020-10-22 07:22] LABS: CARBON DIOXIDE,CO2 32.2 mmol/L (21.0-32.0); POTASSIUM,K 3.9 mmol/L (3.5-5.1)
[2020-10-22] MEDS: Insulin Aspart 100 Units/ML 3 ML Pen SUBCUT SCH ×4 (08:04→12:05)
[2020-10-22] MEDS: DULoxetine 30 MG Cap PO SCH (08:11)
[2020-10-22] MEDS: Carvedilol 25 MG Tab PO SCH (08:12)
[2020-10-22] MEDS: Doxazosin 4 MG Tab PO SCH (08:13)
[2020-10-22] MEDS: TICAGRELOR 90 MG PO SCH (08:13)
[2020-10-22] MEDS: Losartan 50 MG Tab PO SCH (08:13)
[2020-10-22] MEDS: Heparin Sodium 5,000 Units/ML Vial SUBCUT SCH (10:00)
--- NOTE | 2020-10-22 10:31 | PCM.DCSUM1 ---
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 He reports that over the last month or so his shortness of breath is worsened significantly to the point that he can barely speak ambulate or lay back without significant shortness of breath. He reports that he was sleeping the other night on his back and woke up feeling he was drowning and oxygen saturations were approximately 80%. He reports that since discharge from [facility] in March he has been on intermittent oxygen. He reports that he has been having some intermittent chest pain that comes and goes more so with activity. Reports that at times it does radiate to his neck and down his shoulder. He denies any recent syncopal episodes. Denies any abdominal pain but has been dealing with bouts of nausea that his PCP has started him on scopolamine which has helped significantly. He denies any fevers chills sore throat. Denies any productive cough he reports that they have noticed an increase in weight since the last month. Approximately 12 pounds. His dry weight is around 170 pounds and he is currently 182 pounds. He does report peripheral edema his lower extremities and feet tend to be swollen and have not gone down recently. He also reports elevated blood pressures upwards of 180s to 200s systolically. Reporting this is not normal for him and has worried him significantly over the past 2 to 3 weeks. He denies any tobacco use, no recreational drug use and rare social alcohol use. He reports that he has been vaccinated with 1 dose of the Pfizer vaccine and is due for the next one soon. In the ER no leukocytosis noted hemoglobin 11.2 platelets 175,000. Sodium 138 potassium 4.0 BUN and creatinine elevated slightly at 25 and 1.6. Glucose elevated at 269. Bilirubin normal AST ALT within normal limits. Troponin negative BNP 1018. EKG sinus rhythm with minimal ST depression lateral leads. No findings of acute ischemia. Chest x-ray obtained which shows persistent bibasilar pleural effusions with adjacent compressive atelectasis versus pulmonary edema. Patient was treated with 1 IV dose of Lasix 40 mg. He will be admitted for suspected acute CHF exacerbation. Patient reports he has not seen a micro lab analyst since his cardiac cath in May [address] Dietz. Drug-eluting stent was placed to right coronary artery the posterior descending artery and the posterior lateral branch. Patient reports he has been compliant with Brilinta. He is allergic to aspirin and statins so he is not on these medications. Reports that his blood sugars have been very sensitive recently and is very sensitive to NovoLog and a slight increase has been causing severe lows. He does have continuous glucose monitor in place. He has tried a pump in the past but does not do well with this. - Discharge Data Discharge Date: 10/22/20 Discharge Disposition: Home, Self-Care 01 Condition: Good - Referral to Home Health Primary Care Physician: Dru Kirkland MD - Discharge Diagnosis/Problem(s) (1) CHF (congestive heart failure) SNOMED Code(s): 23077201 ICD Code: I50.9 - HEART FAILURE, UNSPECIFIED Status: Acute Current Visit: Yes Qualifiers: Heart failure type: unspecified Heart failure chronicity: acute Qualified Code(s): I50.9 - Heart failure, unspecified (2) Stented coronary artery Status: Chronic Current Visit: Yes (3) DM type 1 (diabetes mellitus, type 1) SNOMED Code(s): 71305601 ICD Code: E10.9 - TYPE 1 DIABETES MELLITUS WITHOUT COMPLICATIONS Status: Chronic Current Visit: Yes Qualifiers: Diabetes mellitus complication status: with hyperglycemia Qualified Code(s): E10.65 - Type 1 diabetes mellitus with hyperglycemia (4) Anxiety SNOMED Code(s): 94796696 ICD Code: F41.9 - ANXIETY DISORDER, UNSPECIFIED Status: Chronic Current Visit: No (5) HTN (hypertension) SNOMED Code(s): 97445375 ICD Code: I10 - ESSENTIAL (PRIMARY) HYPERTENSION Status: Chronic Current Visit: No Qualifiers: Hypertension type: unspecified Qualified Code(s): I10 - Essential (primary) hypertension (6) Coronary artery disease SNOMED Code(s): 31390054 ICD Code: I25.10 - ATHSCL HEART DISEASE OF [place] CORONARY ARTERY W/O ANG PCTRS Status: Chronic Priority: High Current Visit: No Qualifiers: Coronary Disease-Associated Artery/Lesion type: unspecified vessel or lesion type [place] vs. transplanted heart: [place] heart Associated angina: with other forms of angina Qualified Code(s): I25.118 - Atherosclerotic heart disease of [place] coronary artery with other forms of angina pectoris (7) Hx of tracheostomy SNOMED Code(s): 998678098 ICD Code: Z98.890 - OTHER SPECIFIED POSTPROCEDURAL STATES Status: Chronic Current Visit: Yes - Patient Summary/Data Hospital Course: Admission diagnoses suspected CHF Hypertensive urgency Discharge diagnoses CHF,diastolic Hypertensive urgency resolved Vivek was admitted secondary to shortness of breath and new pulmonary edema noted on chest x-ray. Patient was treated with IV Lasix for pulmonary edema. He was noted to have significantly elevated blood pressure was transferred to ICU for hypertensive urgency. Patient was treated with nicardipine drip for less than 12 hours. Patient slowly weaned off and started on home medications of Coreg and losartan. There was some discrepancy regarding if patient was on amlodipine still or not patient felt that he should still be on this and was given amlodipine 5 mg in the morning. The reportedly came in and had said that the amlodipine was discontinued as he had gotten dizzy and lightheaded from this. Subsequently the patient did develop more hypotension during the day with blood pressures systolically in the 100s with some dizziness. All antihypertensives were held at that point. Later that evening blood pressures did steadily improve. Patient was kept on Coreg and losartan along with Lasix diuresis. Patient did have slight bump in BUN and creatinine the following day likely secondary to diuresis and hypotension. Patient was monitored one more day with improvement in renal function. Patient diuresed well during his stay and is feeling significantly improved. Echo obtained which shows left ventricular ejection fraction 55%. Possible hypokinesia of the basal inferior segment. Impaired relaxation grade 1 pattern of LV diastolic filling. Normal right ventricular systolic function aortic valve is structurally normal and tricuspid. Ventricular systolic pressure unable to be determined. Patient will be continued on Lasix 20 mg daily along with his home losartan as well as Coreg 25 mg twice daily. Blood pressure has been stable 150s to 170s systolically but it appears patient is quite sensitive to blood pressure medications so starting new agents along with Lasix at this time could potentially drop blood pressure too much. Will have patient follow with Dr. Garces as well as PCP for further medication management including possible addition of antihypertensive for improved control. Patient is encouraged to continue taking his home medications as previously prescribed. He was counseled on monitoring weight along with salt intake. Patient and verbally agree and understand discharge plans. Patient will be discharged home today follow-up with PCP and Dr. Garces as scheduled. He is to return to the ER or clinic sooner if concerns should arise. - Patient Instructions Diet: Heart Healthy Diet, Low Sodium, Diabetic Diet Activity: No Strenuous Activities Showering/Bathing: May Shower Notify Provider of: Fever, Increased Pain, Swelling and Redness, Drainage, Nausea and/or Vomiting Other/Special Instructions: Monitor weights daily and keep log. Bring to appointments with Dr Marcial and Dr Kirkland. If you notice weight increasing by 3-5 lbs in 2-3 days please notify providers as they may consider increasing Lasix dose for a couple days. Monitor salt intake. Monitor Blood pressure and keep log. Return to ED if concerns regarding shortness of breath, chest pain or worsening swelling. - Discharge Plan *PRESCRIPTION DRUG MONITORING PROGRAM REVIEWED*: Not Applicable *COPY OF PRESCRIPTION DRUG MONITORING REPORT IN PATIENT PREETI: Not Applicable Prescriptions/Med Rec: Furosemide [Lasix] 20 mg PO DAILY #30 tablet Home Medications: Home Meds Ticagrelor [Brilinta] 90 mg PO BID 12/25/14 [History] traMADol [Ultram] 50 mg PO ASDIRECTED PRN 12/25/14 [History] Doxazosin [Cardura] 4 mg PO DAILY 11/01/17 [History] Insulin Aspart [Novolog Flexpen] 6 unit SQ TIDMEALS 11/01/17 [History] Omeprazole 20 mg PO ACBREAKFAST 11/01/17 [History] carvediloL [Carvedilol] 25 mg PO BIDMEALS 11/01/17 [History] Losartan [Cozaar] 100 mg PO DAILY 12/24/17 [History] Nitroglycerin 0.4 mg SL .EVERY 5 MINUTES PRN MDD 3 tablets 10/19/18 [History] DULoxetine [Cymbalta] 30 mg PO DAILY 01/27/20 [History] Evolocumab [Repatha Syringe] 140 mg SQ ASDIRECTED 10/19/20 [History] Insulin Degludec [Tresiba] 10 - 15 units SQ BEDTIME 10/19/20 [History] Mupirocin Oint [Bactroban Oint] 1 applic TOP TID 10/19/20 [History] Scopolamine 1 patch TRDERM Q72H 10/19/20 [History] Furosemide [Lasix] 20 mg PO DAILY #30 tablet 10/22/20 [Rx] Oxygen Therapy Mode: Room Air Patient Handouts: Furosemide Oral Tablets, Heart Failure, Self Care, Heart Failure, Diagnosis, [id number], Living With Heart Failure Referrals: Ishaan Marcial MD [Physician] - 01/05/21 3:00 pm Dru Kirkland MD [Primary Care Provider] - 11/12/20 7:30 am () - Discharge Summary/Plan Comment DC Time >30 min.: No - Patient Data Vitals - Most Recent: Last Vital Signs Temp 96.5 F L 10/22/20 08:00 Pulse 71 10/22/20 08:12 Resp 16 10/22/20 08:00 BP 160/84 H 10/22/20 09:30 Pulse Ox 97 10/22/20 08:00 Weight - Most Recent: 78.29 kg I&O - Last 24 hours: Intake & Output 10/21/20 10/22/20 10/22/20 22:59 06:59 14:59 Intake Total 800 600 Output Total 950 400 Balance -150 200 Lab Results - Last 24 hrs: Laboratory Results - last 24 hr 10/21/20 10/21/20 10/22/20 Range/Units 14:49 17:30 05:30 WBC 4.27 (4.0-11.0) K/uL RBC 3.26 L (4.50-5.90) M/uL Hgb 10.5 L (13.0-17.0) g/dL Hct 29.4 L (38.0-50.0) % MCV 90.2 (80.0-98.0) fL MCH 32.2 H (27.0-32.0) pg MCHC 35.7 (31.0-37.0) g/dL RDW Std Deviation 40.9 (28.0-62.0) fl RDW Coeff of Ji 13 (11.0-15.0) % Plt Count 183 (150-400) K/uL MPV 9.90 (7.40-12.00) fL Neut % (Auto) 59.3 (48.0-80.0) % Lymph % (Auto) 26.0 (16.0-40.0) % [place] % (Auto) 11.7 (0.0-15.0) % Eos % (Auto) 2.8 (0.0-7.0) % Baso % (Auto) 0.2 (0.0-1.5) % Neut # (Auto) 2.5 (1.4-5.7) K/uL Lymph # (Auto) 1.1 (0.6-2.4) K/uL [place] # (Auto) 0.5 (0.0-0.8) K/uL Eos # (Auto) 0.1 (0.0-0.7) K/uL Baso # (Auto) 0.0 (0.0-0.1) K/uL Nucleated RBC % 0.0 /100WBC Nucleated RBCs # 0 K/uL Sodium (136-148) mmol/L Potassium (3.5-5.1) mmol/L Chloride (98-107) mmol/L Carbon Dioxide (21.0-32.0) mmol/L BUN (7.0-18.0) mg/dL Creatinine (0.8-1.3) mg/dL Est Cr Clr Drug Dosing mL/min Estimated GFR (MDRD) ml/min Glucose (74-106) mg/dL POC Glucose 103 H 275 H (70-99) mg/dL Calcium (8.5-10.1) mg/dL Magnesium (1.8-2.4) mg/dL 10/22/20 10/22/20 Range/Units 05:30 06:46 WBC (4.0-11.0) K/uL RBC (4.50-5.90) M/uL Hgb (13.0-17.0) g/dL Hct (38.0-50.0) % MCV (80.0-98.0) fL MCH (27.0-32.0) pg MCHC (31.0-37.0) g/dL RDW Std Deviation (28.0-62.0) fl RDW Coeff of Ji (11.0-15.0) % Plt Count (150-400) K/uL MPV (7.40-12.00) fL Neut % (Auto) (48.0-80.0) % Lymph % (Auto) (16.0-40.0) % [place] % (Auto) (0.0-15.0) % Eos % (Auto) (0.0-7.0) % Baso % (Auto) (0.0-1.5) % Neut # (Auto) (1.4-5.7) K/uL Lymph # (Auto) (0.6-2.4) K/uL [place] # (Auto) (0.0-0.8) K/uL Eos # (Auto) (0.0-0.7) K/uL Baso # (Auto) (0.0-0.1) K/uL Nucleated RBC % /100WBC Nucleated RBCs # K/uL Sodium 137 (136-148) mmol/L Potassium 3.9 (3.5-5.1) mmol/L Chloride 101 (98-107) mmol/L Carbon Dioxide 32.2 H (21.0-32.0) mmol/L BUN 37 H (7.0-18.0) mg/dL Creatinine 1.8 H (0.8-1.3) mg/dL Est Cr Clr Drug Dosing 45.06 mL/min Estimated GFR (MDRD) 38.7 ml/min Glucose 217 H (74-106) mg/dL POC Glucose 187 H (70-99) mg/dL Calcium 8.5 (8.5-10.1) mg/dL Magnesium 1.9 (1.8-2.4) mg/dL Med Orders - Current: Current Medications Acetaminophen (Acetaminophen 325 Mg Tab) 650 mg PO Q4H PRN PRN Reason: Pain (Mild 1-3)/fever Last Admin: 10/22/20 01:20 Dose: 650 mg Documented by: Carvedilol (Carvedilol 25 Mg Tab) 25 mg PO BIDMEALS [facility] Last Admin: 10/22/20 08:12 Dose: 25 mg Documented by: Dextrose/Water (50% Dextrose In Water 50 Ml Syringe) 50 ml IVPUSH ASDIRECTED PRN PRN Reason: Hypoglycemia Docusate Sodium (Docusate Sodium 100 Mg Cap) 100 mg PO BID PRN PRN Reason: Constipation Doxazosin Mesylate (Doxazosin 4 Mg Tab) 4 mg PO DAILY [facility] Last Admin: 10/22/20 08:13 Dose: 4 mg Documented by: Duloxetine HCl (Duloxetine 30 Mg Cap) 30 mg PO DAILY [facility] Last Admin: 10/22/20 08:11 Dose: 30 mg Documented by: Glucagon (Glucagon,Human Recombinant 1 Mg Vial) 1 mg IM ASDIRECTED PRN PRN Reason: Hypoglycemia Heparin Sodium (Porcine) (Heparin Sodium 5,000 Units/Ml Vial) 5,000 units SUBCUT Q12H [facility] Last Admin: 10/22/20 10:00 Dose: 5,000 units Documented by: Insulin Aspart (Insulin Aspart 100 Units/Ml 3 Ml Pen) 6 unit SUBCUT TIDMEALS [facility] Last Admin: 10/22/20 08:07 Dose: 6 units Documented by: Insulin Aspart (Insulin Aspart 100 Units/Ml 3 Ml Pen) 0 unit SUBCUT TIDAC [facility]; Protocol Last Admin: 10/22/20 08:04 Dose: 3 unit Documented by: Losartan Potassium (Losartan 50 Mg Tab) 100 mg PO DAILY [facility] Last Admin: 10/22/20 08:13 Dose: 100 mg Documented by: Omeprazole (Omeprazole 20 Mg Cap.Cr) 20 mg PO ACBREAKFAST [facility] Last Admin: 10/22/20 06:47 Dose: 20 mg Documented by: Ondansetron HCl (Ondansetron 4 Mg/2 Ml Sdv) 4 mg IVPUSH Q4H PRN PRN Reason: Nausea Ticagrelor 90 Mg (TabletPt Own Med) 1 each PO BID [facility] Last Admin: 10/22/20 08:13 Dose: 1 each Documented by: Insulin Degludec [ Tresiba] 100 Unit/Ml Vial 1 each SUBCUT Q24H [facility] Last Admin: 10/21/20 15:44 Dose: 1 each Documented by: Scopolamine (Scopolamine 1.5 Mg Transdermal Patch) 1.5 mg TRDERM Q72H [facility] Last Admin: 10/20/20 08:51 Dose: 1.5 mg Documented by: Sodium Chloride (Sodium Chloride 0.9% 2.5 Ml Syringe) 2.5 ml FLUSH ASDIRECTED PRN PRN Reason: Keep Vein Open Tramadol HCl (Tramadol 50 Mg Tab) 50 mg PO BID PRN PRN Reason: Pain Last Admin: 10/21/20 22:22 Dose: 50 mg Documented by: Discontinued Medications Amlodipine Besylate (Amlodipine 5 Mg Tab) 5 mg PO BID [facility] Last Admin: 10/20/20 10:13 Dose: 5 mg Documented by: Carvedilol (Carvedilol 25 Mg Tab) Confirm Administered Dose 25 mg .ROUTE .STK- MED ONE Stop: 10/20/20 21:23 Last Admin: 10/20/20 22:06 Dose: Not Given Documented by: Dextrose/Water (50% Dextrose In Water 50 Ml Syringe) 50 ml IVPUSH ASDIRECTED PRN PRN Reason: Hypoglycemia Furosemide (Furosemide 40 Mg/4 Ml Vial) 40 mg IVPUSH NOW ONE Stop: 10/19/20 13:55 Last Admin: 10/19/20 14:01 Dose: 40 mg Documented by: Furosemide (Furosemide 40 Mg/4 Ml Vial) 40 mg IVPUSH BIDDIURETIC [facility] Last Admin: 10/20/20 14:15 Dose: Not Given Documented by: Furosemide (Furosemide 40 Mg/4 Ml Vial) 40 mg IVPUSH NOW ONE Stop: 10/19/20 19:01 Last Admin: 10/19/20 19:35 Dose: 40 mg Documented by: Glucagon (Glucagon,Human Recombinant 1 Mg Vial) 1 mg IM ASDIRECTED PRN PRN Reason: Hypoglycemia Hydrochlorothiazide (Hydrochlorothiazide 25 Mg Tab) 12.5 mg PO ONETIME ONE Stop: 10/22/20 01:29 Last Admin: 10/22/20 01:51 Dose: 12.5 mg Documented by: Nicardipine HCl (Cardene In Ns 20 Mg/200 Ml) 20 mg in 200 mls @ 50 mls/hr IV TITRATE [facility]; Protocol Last Titration: 10/19/20 23:34 Dose: 0 mg/hr, 0 mls/hr Documented by: Magnesium Sulfate 2 gm/ Premix 50 mls @ 25 mls/hr IV ONETIME ONE Stop: 10/20/20 12:13 Last Admin: 10/20/20 10:40 Dose: 25 mls/hr Documented by: Labetalol HCl (Labetalol 100 Mg/20 Ml Mdv) 20 mg IVPUSH Q4H PRN PRN Reason: SBP >180 Last Admin: 10/19/20 16:53 Dose: 20 mg Documented by: Labetalol HCl (Labetalol 100 Mg/20 Ml Mdv) 20 mg IVPUSH ONETIME ONE; Protocol Stop: 10/19/20 18:12 Last Admin: 10/19/20 18:15 Dose: 20 mg Documented by: Lorazepam (Lorazepam 2 Mg/Ml Sdv) 1 mg IVPUSH ONETIME ONE Stop: 10/19/20 20:07 Last Admin: 10/19/20 21:26 Dose: 1 mg Documented by: Ticagrelor 90 Mg (Tablet) 1 each PO BID [facility] Last Admin: 10/19/20 21:27 Dose: Not Given Documented by: Insulin Degludec [ Tresiba] 100 Unit/Ml Vial 12 each SUBCUT BEDTIME [facility] Insulin Degludec [ Tresiba] 100 Unit/Ml Vial 20 each SUBCUT BEDTIME [facility] Insulin Degludec [ Tresiba] 100 Unit/Ml Vial 20 each SUBCUT DAILY [facility] Last Admin: 10/20/20 14:29 Dose: Not Given Documented by: Potassium Chloride (Potassium Chloride 20 Meq Tab.Er) 40 meq PO ONETIME ONE Stop: 10/21/20 08:00 Last Admin: 10/21/20 08:34 Dose: 40 meq Documented by: Scopolamine (Scopolamine 1.5 Mg Transdermal Patch) 1.5 mg TRDERM Q72H [facility] Last Admin: 10/19/20 19:13 Dose: Not Given Documented by: Sodium Chloride (Sodium Chloride 0.9% 10 Ml Syringe) 10 ml FLUSH ASDIRECTED PRN PRN Reason: Keep Vein Open Last Admin: 10/19/20 13:14 Dose: 10 ml Documented by: Sodium Chloride (Sodium Chloride 0.9% 2.5 Ml Syringe) 2.5 ml FLUSH ASDIRECTED PRN PRN Reason: Keep Vein Open Last Admin: 10/19/20 13:14 Dose: 2.5 ml Documented by:
[2020-10-22 12:11] VITALS: BP 178/102; PULSE 70
--- NOTE | 2020-10-23 15:02 | ECHO ---
The echocardiogram report can be seen in this patient's EMR (Electronic Medical Record) in the Reports section. The report has also been scanned into PACS. DONTA
== END 2020-10-22 12:45 | disposition home or self-care (01) | DRG 194 ==
LOC: MW.ED 12:46 → MW.MS 14:08 → OBSVTOIN 19:57 → MW.ICU 19:58 → MW.MS 10-21 21:00
PROVIDERS: ADMIT Student in an Organized Health Care Education/Training Program; ATTEND Student in an Organized Health Care Education/Training Program
DX: I11.0 Hypertensive heart disease with heart failure (principal); I50.33 Acute on chronic diastolic (congestive) heart failure; F41.9 Anxiety disorder, unspecified; I25.118 Atherosclerotic heart disease of native coronary artery with other forms of angina pectoris; I16.0 Hypertensive urgency; K21.9 Gastro-esophageal reflux disease without esophagitis; M54.2 Cervicalgia; G89.29 Other chronic pain; E10.42 Type 1 diabetes mellitus with diabetic polyneuropathy; Z20.822 Contact with and (suspected) exposure to COVID-19; Z79.01 Long term (current) use of anticoagulants; M54.6 Pain in thoracic spine; F32.9 Major depressive disorder, single episode, unspecified; N17.9 Acute kidney failure, unspecified; E83.42 Hypomagnesemia; Z98.890 Other specified postprocedural states; I25.2 Old myocardial infarction; Z86.16 Personal history of COVID-19; Z88.6 Allergy status to analgesic agent; Z88.8 Allergy status to other drugs, medicaments and biological substances; Z79.4 Long term (current) use of insulin; Z79.899 Other long term (current) drug therapy; E78.00 Pure hypercholesterolemia, unspecified
CPT/HCPCS: 36415; 71046; 71046-26; 80048; 80053; 82947; 83735; 83880; 84484; 85025; 93306; 96374; 96375; 96376; 99285-25; A9270-GY; J1644; J1815-GY; J1940; J2060; J3475; J3490; U0002

== ENCOUNTER 2020-12-30 07:40 | Emergency (ER) | payer BC, MEDICARE ==
[2020-12-30 07:52] VITALS: BP 108/71; PULSE 70
[2020-12-30] MEDS ORDERED: Aspirin 81 MG Tab.Chew ONE (07:59)
[2020-12-30] MEDS ORDERED: Heparin Sodium/0.45% NaCl 500 ML ONE (08:00)
[2020-12-30] MEDS ORDERED: Heparin Sodium 5,000 Units/ML Vial ONE (08:00)
[2020-12-30] MEDS ORDERED: Aspirin 81 MG Tab.Chew PO ONE (08:03)
[2020-12-30] MEDS ORDERED: Heparin Sodium 5,000 Units/ML Vial IVPUSH ONE (08:04)
--- NOTE | 2020-12-30 08:06 | EDM.PDOC ---
ED HPI GENERAL MEDICAL PROBLEM - General Chief Complaint: Syncope Stated Complaint: FROM THE CLINIC Time Seen by Provider: 12/30/20 07:59 Source of Information: Reports: Patient, Provider (shelley singh) History Limitations: Reports: No Limitations - History of Present Illness INITIAL COMMENTS - FREE TEXT/NARRATIVE: 60-year-old male with history of VA x3 with 11 stents, CHF, hypertension and diabetes presents with chest pain and syncope. He was walking into his PCP's office this morning on was hypotensive 88/[address] Singh. His noted that he felt dizzy and passed out for several seconds. He also notes chest pain in the midsternum this morning, nonradiating, associated with sweats and nausea and generalized malaise. He also notes a cough but denies fever, chills, vomiting, shortness of breath. He currently takes Brilinta. ROS: A 10-point review of systems, other than pertinent positives and negatives as stated per HPI, is otherwise negative Past medical history: No additional pertinent history Past Surgical history: No additional pertinent history Social history: No additional pertinent history Family history: No additional pertinent history PHYSICAL EXAM General: AOx4, GCS = 15, No distress HEENT: dry mucous membrane Neck: supple, no meningismus, no Kernig or Brudzinski Cardiac: S1S2 RRR Respiratory: CTAB, no crackles or rales, no wheezing Abdomen: Soft, nontender, no rebound or guarding, nondistended, no pulsatile mass. Back: nontender Musculoskeletal: NVI distally, no deformity Neuro: No focal deficits, CN 2 - 12 WNL. Abdomen Pain Score (Numeric/FACES): 3 - Related Data Allergies Allergy/AdvReac Type Severity Reaction Status Date / Time aspirin Allergy Hives Verified 12/30/20 07:45 ibuprofen Allergy Hives Verified 12/30/20 07:45 pioglitazone HCl [From Actos] Allergy Hives Verified 12/30/20 07:45 prasugrel HCl [From Effient] Allergy Rash Verified 12/30/20 07:45 Vpbbved-Lbq-Jby Reductase Allergy Body Aches Verified 12/30/20 07:45 Inhibitor Home Meds: Home Meds Ticagrelor [Brilinta] 90 mg PO BID 12/25/14 [History] traMADol [Ultram] 50 mg PO ASDIRECTED PRN 12/25/14 [History] Doxazosin [Cardura] 4 mg PO DAILY 11/01/17 [History] Insulin Aspart [Novolog Flexpen] 6 unit SQ TIDMEALS 11/01/17 [History] Omeprazole 20 mg PO ACBREAKFAST 11/01/17 [History] carvediloL [Carvedilol] 25 mg PO BIDMEALS 11/01/17 [History] Losartan [Cozaar] 100 mg PO DAILY 12/24/17 [History] Nitroglycerin 0.4 mg SL .EVERY 5 MINUTES PRN MDD 3 tablets 10/19/18 [History] DULoxetine [Cymbalta] 30 mg PO DAILY 01/27/20 [History] Evolocumab [Repatha Syringe] 140 mg SQ ASDIRECTED 10/19/20 [History] Insulin Degludec [Tresiba] 10 - 15 units SQ BEDTIME 10/19/20 [History] Mupirocin Oint [Bactroban Oint] 1 applic TOP TID 10/19/20 [History] Scopolamine 1 patch TRDERM Q72H 10/19/20 [History] Furosemide [Lasix] 20 mg PO DAILY #30 tablet 10/22/20 [Rx] Past Medical History - Past Health History Medical/Surgical History: Denies Medical/Surgical History HEENT History: Reports: Otitis Media, Other (See Below) Other HEENT History: Constant ringing in ears, affects my hearing, macular edema Cardiovascular History: Reports: Angina, High Cholesterol, Hypertension, VA, SOB on Exertion, Stents, Syncope, Other (See Below) Other Cardiovascular History: Diastolic dysfunction Respiratory History: Reports: None, Other (See Below) Other Respiratory History: Pulmonary Edema Gastrointestinal History: Reports: GERD Other Gastrointestinal History: Abdominal pain post meals, Water dark, smelling stools Genitourinary History: Reports: None Musculoskeletal History: Reports: Back Pain, Chronic, Neck Pain, Chronic Other Musculoskeletal History: Upper back pain history Neurological History: Reports: Neuropathy, Peripheral Other Neuro History: 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 Psychiatric History: Reports: Anxiety, Depression Other Psychiatric History: "Not sure I would know if I were depressed 'how would I know?" Endocrine/Metabolic History: Reports: Diabetes, Type I Hematologic History: Reports: None Other Hematologic History: Chronic anti-coagulant therapy Immunologic History: Reports: None Oncologic (Cancer) History: Reports: None Dermatologic History: Reports: None - Infectious Disease History Infectious Disease History: Reports: Chicken Pox, Hepatitis A, Novel Coronavirus - Past Surgical History Head Surgeries/Procedures: Reports: None HEENT Surgical History: Reports: Laser Surgery Cardiovascular Surgical History: Reports: Coronary Artery Stent Other Cardiovascular Surgeries/Procedures: angiogram, triple stents last February 2016 Respiratory Surgical History: Reports: Tracheostomy, Other (See Below) GI Surgical History: Reports: None Male Surgical History: Reports: None Endocrine Surgical History: Reports: Other (See Below) Other Endocrine Surgeries/Procedures: Artery repaired in thyroid in February 2020 Neurological Surgical History: Reports: None Other Neurological Surgeries/Procedures: Cervical Spine surgery with plate,screws and cage Musculoskeletal Surgical History: Reports: Other (See Below) Other Musculoskeletal Surgeries/Procedures:: plate in neck Oncologic Surgical History: Reports: None Dermatological Surgical History: Reports: None Social & Family History - Family History Family Medical History: No Pertinent Family History HEENT: Reports: None Cardiac: Reports: Angina, VA Other Cardiac Family History: states both parents young from cardiac d isease, also extensive cardiac HX with uncles, cousins, nephews : Reports: None Dermatologic: Reports: None - Tobacco Use Tobacco Use Status *Q: Never Tobacco User Second Hand Smoke Exposure: No - Caffeine Use Caffeine Use: Reports: Coffee, Soda Caffeine Use Comment: diet soda - Alcohol Use Days Per Week of Alcohol Use: 2 Number of Drinks Per Day: 2 Total Drinks Per Week: 4 - Recreational Drug Use Recreational Drug Use: No - Living Situation & Occupation Living situation: Reports: , with Family Occupation: Employed ED ROS GENERAL - Review of Systems Review Of Systems: See Below ED EXAM, GENERAL - Physical Exam Exam: See Below (see dictation) #1 Interpretation EKG Interpretation Comments: Heart rate = 71 bpm, normal sinus rhythm, normal QRS interval, STEMI in V1-V3 (new compared to prior EKG), EKG and rhythm strip interpreted by me at 0755 Course - Vital Signs Last Recorded V/S: Last Vital Signs Temp 96.9 F 12/30/20 07:47 Pulse 70 12/30/20 07:47 Resp 16 12/30/20 07:47 BP 108/71 12/30/20 07:47 Pulse Ox 98 12/30/20 07:47 - Orders/Labs/Meds Orders: Active Orders 24 hr Category Date Time Status Cardiac Monitoring [RC] . DIRECTED Care 12/30/20 07:58 Ordered EKG 12 Lead [EKG Documentation Completion] [RC] STAT Care 12/30/20 07:57 Ordered Chest 1V Frontal [CR] Stat Exams 12/30/20 07:57 Ordered B-TYPE NATRIURETIC PEPTIDE,BNP [CHEM] Stat Lab 12/30/20 07:58 Ordered CBC WITH AUTO DIFF [HEME] Stat Lab 12/30/20 07:57 Ordered COMPREHENSIVE METABOLIC PN,CMP [CHEM] Stat Lab 12/30/20 07:57 Ordered CORONAVIRUS COVID-19 JENN [MOLEC] Stat Lab 12/30/20 07:57 Ordered INR,PT,PROTHROMBIN TIME [COAG] Stat Lab 12/30/20 07:57 Ordered TROPONIN I [CHEM] Stat Lab 12/30/20 07:57 Ordered Pulse Oximetry Continuous Monitoring [OM.PC] CONTINUOUS Oth 12/30/20 08:00 Ordered - Re-Assessments/Exams Free Text/Narrative Re-Assessment/Exam: 12/30/20 08:06 Patient will require transfer to outside facility for the need of higher level of care not available at this facility, and the need for instructional consultant services unavailable at this facility. Any emergency conditions have been stabilized to the ability of the ED prior to the transfer. Case was discussed and accepted by Dr. Dietz, he reviewed the EKG, he is familiar with the patient as he performed a prior cath. He states his ejection fraction =60%. He does not recommend thrombolytics at this time but recommends aspirin and heparin, which the patient will receive here. Case discussed with ER physician at [facility], accepting physician Dr. Amparo De Leon. Departure - Departure Time of Disposition: 08:14 Disposition: DC/Tfer to Acute Hospital 02 Condition: Serious Clinical Impression: Syncope, Atypical chest pain, Hypotension, STEMI (ST elevation myocardial infarction) - Discharge Information *PRESCRIPTION DRUG MONITORING PROGRAM REVIEWED*: Not Applicable *COPY OF PRESCRIPTION DRUG MONITORING REPORT IN PATIENT PREETI: Not Applicable Forms: ED Department Discharge Critical Care Note - Critical Care Note Comments: CRITCAL CARE: The high probability of sudden, clinically significant deterioration in the patient's condition required the highest level of my preparedness to intervene urgently. The services I provided to this patient were to treat and/or prevent clinically significant deterioration. Services included the following: chart data review, reviewing nursing notes and/or old charts, documentation time, instructional consultant collaboration regarding findings and treatment options, medication orders and management, direct patient care, vital sign assessments and ordering, interpreting and reviewing diagnostic studies/lab tests. Aggregate critical care time includes only time during which I was engaged in work directly related to the patient's care, as described above, whether at the bedside or elsewhere in the Emergency Department. It did not include time spent performing other reported procedures or the services of residents, students, nurses or physician assistants. Frequent interventions and/or frequent repeat evaluations were required as well as counseling and coordination of care regarding prognosis, treatments, and discussions with patient, staff and consultants. Critical Care (excluding other procedures): 40 minutes Sepsis Event Note (ED) - Evaluation Sepsis Screening Result: No Definite Risk - Focused Exam Vital Signs: Vital Signs Temp Pulse Resp BP Pulse Ox 12/30/20 07:47 96.9 F 70 16 108/71 98 - My Orders Last 24 Hours: My Active Orders 12/30/20 07:57 EKG 12 Lead [EKG Documentation Completion] [RC] STAT Chest 1V Frontal [CR] Stat CBC WITH AUTO DIFF [HEME] Stat COMPREHENSIVE METABOLIC PN,CMP [CHEM] Stat CORONAVIRUS COVID-19 JENN [MOLEC] Stat INR,PT,PROTHROMBIN TIME [COAG] Stat TROPONIN I [CHEM] Stat 12/30/20 07:58 Cardiac Monitoring [RC] . DIRECTED B-TYPE NATRIURETIC PEPTIDE,BNP [CHEM] Stat 12/30/20 08:00 Pulse Oximetry Continuous Monitoring [OM.PC] CONTINUOUS - Assessment/Plan Last 24 Hours: My Active Orders 12/30/20 07:57 EKG 12 Lead [EKG Documentation Completion] [RC] STAT Chest 1V Frontal [CR] Stat CBC WITH AUTO DIFF [HEME] Stat COMPREHENSIVE METABOLIC PN,CMP [CHEM] Stat CORONAVIRUS COVID-19 JENN [MOLEC] Stat INR,PT,PROTHROMBIN TIME [COAG] Stat TROPONIN I [CHEM] Stat 12/30/20 07:58 Cardiac Monitoring [RC] . DIRECTED B-TYPE NATRIURETIC PEPTIDE,BNP [CHEM] Stat 12/30/20 08:00 Pulse Oximetry Continuous Monitoring [OM.PC] CONTINUOUS
[2020-12-30] MEDS ORDERED: Sodium Chloride 0.9% 1,000 ML IV ONE (08:09)
[2020-12-30] MEDS ORDERED: Heparin Sodium/0.45% NaCl 500 ML IV SCH (08:15)
[2020-12-30 08:38] LABS: BLOOD UREA NITROGEN,BUN 31 mg/dL (7.0-18.0); CARBON DIOXIDE,CO2 27.2 mmol/L (21.0-32.0); CHLORIDE,CL 97 mmol/L (98-107); GLUCOSE RANDOM 243 mg/dL (74-106); POTASSIUM,K 3.8 mmol/L (3.5-5.1); SODIUM,NA 136 mmol/L (136-148)
--- NOTE | 2020-12-30 09:03 | CR ---
INDICATION: Chest pain. COMPARISON: 10/19/2020. TECHNIQUE: Single portable AP view of the chest. FINDINGS: The lungs are adequately inflated. No focal consolidation, pneumothorax or effusion. Probable mild patchy bibasilar scarring or atelectasis. Cardiomediastinal silhouette is unremarkable for an AP view. Surgical changes of the lower C-spine. No acute osseous findings. IMPRESSION: 1. No acute airspace disease. 2. Probable patchy scarring/atelectasis in the lower lungs. Dictated by Renato Barton MD @ 12/30/2020 9:02:27 AM Dictated by: Renato Barton MD @ 12/30/2020 09:02:35 (Electronically Signed)
== END 2020-12-30 08:50 ==
LOC: MW.ED 07:40
DX: I21.3 ST elevation (STEMI) myocardial infarction of unspecified site (principal); R55 Syncope and collapse; I95.9 Hypotension, unspecified; I11.0 Hypertensive heart disease with heart failure; I50.9 Heart failure, unspecified; K21.9 Gastro-esophageal reflux disease without esophagitis; E10.42 Type 1 diabetes mellitus with diabetic polyneuropathy; Z88.6 Allergy status to analgesic agent; Z88.8 Allergy status to other drugs, medicaments and biological substances; Z79.899 Other long term (current) drug therapy
CPT/HCPCS: 36415; 71045; 80053; 82947; 83880; 84484; 85025; 85610; 85730; 87635; 93005; 96365; 96376; 99285; A9270; J1644; J7030; U0002

== ENCOUNTER 2021-09-29 20:36 | Emergency (ER) | payer MEDICARE, BC | END 2021-09-29 21:39 | disposition left against medical advice (07) | LOC: MW.ED 20:36 | DX: Z53.21 Procedure and treatment not carried out due to patient leaving prior to being seen by health care provider (principal) ==

== ENCOUNTER 2021-12-20 08:11 | Observation (INO) | payer BC, MEDICARE ==
[2021-12-20] MEDS ORDERED: Sodium Chloride 0.9% 10 ML Syringe FLUSH PRN (08:24)
[2021-12-20] MEDS ORDERED: Sodium Chloride 0.9% 1,000 ML IV ONE ×3 (08:24→12:29)
[2021-12-20] MEDS ORDERED: Sodium Chloride 0.9% 2.5 ML Syringe FLUSH PRN (08:24)
[2021-12-20] MEDS ORDERED: Ondansetron 4 MG/2 ML SDV IVPUSH ONE (08:55)
[2021-12-20 09:04] LABS: CARBON DIOXIDE,CO2 27.2 mmol/L (21.0-32.0); POTASSIUM,K 4.3 mmol/L (3.5-5.1)
[2021-12-20] MEDS ORDERED: Ondansetron 4 MG/2 ML SDV IVPUSH PRN (12:52)
[2021-12-20] MEDS ORDERED: Acetaminophen 325 MG Tab PO PRN (12:52)
[2021-12-20] MEDS ORDERED: Albuterol/Ipratropium 3.0-0.5 MG/3 ML Neb Soln NEB PRN (12:52)
[2021-12-20] MEDS ORDERED: traMADol 50 MG Tab PO ONE (12:53)
[2021-12-20] MEDS ORDERED: Glucagon,Human Recombinant 1 MG Vial IM PRN ×2 (13:04→15:53)
[2021-12-20] MEDS ORDERED: 50% Dextrose in Water 50 ML Syringe IVPUSH PRN ×2 (13:04→15:53)
[2021-12-20] MEDS: amLODIPine 5 MG Tab PO SCH (13:20)
[2021-12-20] MEDS ORDERED: Labetalol 100 MG/20 ML MDV IVPUSH PRN (15:32)
[2021-12-20] MEDS ORDERED: Nitroglycerin 0.4 MG Tab.SL SL PRN (15:52)
[2021-12-20] MEDS: Carvedilol 25 MG Tab PO SCH ×2 (16:06→17:02)
[2021-12-20] MEDS: Losartan 50 MG Tab PO SCH (16:08)
[2021-12-20] MEDS ORDERED: Insulin Regular, Human 100 Units/ML 10 ML Vial IVPUSH ONE (16:51)
[2021-12-20] MEDS ORDERED: Insulin Regular, Human 100 Units/ML 10 ML Vial SUBCUT ONE (16:52)
[2021-12-20] MEDS: Insulin Aspart 100 Units/ML 3 ML Pen SUBCUT SCH ×2 (17:44)
[2021-12-20] MEDS ORDERED: Pregabalin 25 MG Cap PO SCH (18:00)
[2021-12-20 18:08] LABS: CARBON DIOXIDE,CO2 23.1 mmol/L (21.0-32.0); POTASSIUM,K 4.1 mmol/L (3.5-5.1)
[2021-12-20 18:42] LABS: HEMOGLOBIN A1C 9.8 %
[2021-12-20] MEDS: Insulin Glargine,Hum.Rec.Anlog 100 UNIT/ML 3 ML Pen SUBCUT SCH ×2 (19:39→21:05)
[2021-12-20] MEDS: Ticagrelor 90 MG Tab PO SCH (20:36)
[2021-12-20] MEDS: Pantoprazole 40 MG in Sodium Chloride 0.9% 10 ML IVPUSH SCH (20:36)
[2021-12-20] MEDS ORDERED: Non-Formulary Medication 1 Each (Insulin Degludec [Tresiba] 100 UNIT/ML Vial) SQ SCH (21:00)
[2021-12-20] MEDS ORDERED: Insulin Aspart 100 Units/ML 3 ML Pen SUBCUT ONE (22:24)
[2021-12-21 06:37] LABS: CARBON DIOXIDE,CO2 25.6 mmol/L (21.0-32.0); POTASSIUM,K 4.2 mmol/L (3.5-5.1)
[2021-12-21] MEDS: Carvedilol 25 MG Tab PO SCH (07:49)
[2021-12-21] MEDS: Insulin Aspart 100 Units/ML 3 ML Pen SUBCUT SCH ×4 (07:50→11:39)
[2021-12-21] MEDS: Losartan 50 MG Tab PO SCH (08:12)
[2021-12-21] MEDS: amLODIPine 5 MG Tab PO SCH (08:12)
[2021-12-21] MEDS: Pantoprazole 40 MG in Sodium Chloride 0.9% 10 ML IVPUSH SCH (08:37)
[2021-12-21] MEDS: Ticagrelor 90 MG Tab PO SCH (09:06)
[2021-12-21 11:58] VITALS: BP 176/95; PULSE 71
[2021-12-22] MEDS ORDERED: Pantoprazole 40 MG in Sodium Chloride 0.9% 10 ML IVPUSH SCH (09:00)
== END 2021-12-21 12:50 | disposition home or self-care (01) ==
LOC: MW.ED 08:11 → MW.MS 12:30
PROVIDERS: ADMIT Internal Medicine; ATTEND Internal Medicine
DX: R55 Syncope and collapse (principal); I12.9 Hypertensive chronic kidney disease with stage 1 through stage 4 chronic kidney disease, or unspecified chronic kidney disease; N18.9 Chronic kidney disease, unspecified; E10.22 Type 1 diabetes mellitus with diabetic chronic kidney disease; E10.42 Type 1 diabetes mellitus with diabetic polyneuropathy; E10.65 Type 1 diabetes mellitus with hyperglycemia; N17.9 Acute kidney failure, unspecified; E86.0 Dehydration; R11.2 Nausea with vomiting, unspecified; R19.7 Diarrhea, unspecified; E78.00 Pure hypercholesterolemia, unspecified; K21.9 Gastro-esophageal reflux disease without esophagitis; I25.10 Atherosclerotic heart disease of native coronary artery without angina pectoris; F41.9 Anxiety disorder, unspecified; F32.A Depression, unspecified; R94.31 Abnormal electrocardiogram [ECG] [EKG]; Z79.4 Long term (current) use of insulin; Z79.899 Other long term (current) drug therapy; Z88.6 Allergy status to analgesic agent; Z88.8 Allergy status to other drugs, medicaments and biological substances; Z91.048 Other nonmedicinal substance allergy status; Z98.890 Other specified postprocedural states; Z86.16 Personal history of COVID-19; Z20.822 Contact with and (suspected) exposure to COVID-19; Z95.5 Presence of coronary angioplasty implant and graft
CPT/HCPCS: 36415; 70450; 71045; 80048; 80053; 81001; 82009; 82947; 83036; 83735; 83880; 84100; 84484; 85025; 87635; 93005; 96361; 96374; 99285; A9270; C9113; J1815; J2405; J3490; J7030; 93010; 99284; U0002

== ENCOUNTER 2022-02-02 14:58 | Emergency (ER) | payer MEDICARE, BC ==
[2022-02-02] MEDS ORDERED: Sodium Chloride 0.9% 10 ML Syringe FLUSH PRN (15:22)
[2022-02-02] MEDS ORDERED: Sodium Chloride 0.9% 2.5 ML Syringe FLUSH PRN (15:22)
[2022-02-02] MEDS ORDERED: Ondansetron 4 MG/2 ML SDV IVPUSH ONE (16:18)
[2022-02-02 16:25] LABS: CARBON DIOXIDE,CO2 27.6 mmol/L (21.0-32.0); POTASSIUM,K 4.3 mmol/L (3.5-5.1)
[2022-02-02 17:03] LABS: CORONAVIRUS COVID-19 NAA NEGATIVE (NEGATIVE); INFLUENZA A NAA NEGATIVE (NEGATIVE); INFLUENZA B NAA NEGATIVE (NEGATIVE)
[2022-02-02 17:40] VITALS: BP 148/78; PULSE 64
== END 2022-02-02 17:40 | disposition home or self-care (01) ==
LOC: MW.ED 14:58
DX: R10.9 Unspecified abdominal pain (principal); R55 Syncope and collapse; N28.9 Disorder of kidney and ureter, unspecified; D64.9 Anemia, unspecified; I25.2 Old myocardial infarction; I10 Essential (primary) hypertension; E10.9 Type 1 diabetes mellitus without complications; E78.00 Pure hypercholesterolemia, unspecified; Z86.16 Personal history of COVID-19; Z20.822 Contact with and (suspected) exposure to COVID-19; Z88.8 Allergy status to other drugs, medicaments and biological substances; Z79.899 Other long term (current) drug therapy
CPT/HCPCS: 0240U; 36415; 70450; 71045; 74176; 80053; 83735; 84484; 85025; 93005; 96374; 99285; J2405; J3490

== ENCOUNTER 2022-03-11 17:04 | Emergency (ER) | payer MEDICARE, BC ==
[2022-03-11 18:17] LABS: CORONAVIRUS COVID-19 NAA NEGATIVE (NEGATIVE); INFLUENZA A NAA NEGATIVE (NEGATIVE); INFLUENZA B NAA NEGATIVE (NEGATIVE)
[2022-03-11] MEDS ORDERED: Diltiazem 25 MG/5 ML SDV IVPUSH ONE (18:20)
[2022-03-11 18:37] LABS: CARBON DIOXIDE,CO2 29.4 mmol/L (21.0-32.0); POTASSIUM,K 3.4 mmol/L (3.5-5.1)
[2022-03-11 18:41] VITALS: BP 145/78; PULSE 79
== END 2022-03-11 20:35 | disposition home or self-care (01) ==
LOC: MW.ED 17:04
DX: R00.0 Tachycardia, unspecified (principal); E78.00 Pure hypercholesterolemia, unspecified; K21.9 Gastro-esophageal reflux disease without esophagitis; I25.2 Old myocardial infarction; I12.9 Hypertensive chronic kidney disease with stage 1 through stage 4 chronic kidney disease, or unspecified chronic kidney disease; E10.22 Type 1 diabetes mellitus with diabetic chronic kidney disease; N18.9 Chronic kidney disease, unspecified; Z88.8 Allergy status to other drugs, medicaments and biological substances; Z79.02 Long term (current) use of antithrombotics/antiplatelets; Z79.899 Other long term (current) drug therapy; Z20.822 Contact with and (suspected) exposure to COVID-19
CPT/HCPCS: 0240U; 36415; 71045; 80053; 83880; 84484; 85025; 85610; 93005; 96374; 99284; J3490

== ENCOUNTER 2022-05-02 16:34 | Emergency (ER) | payer MEDICARE, OTHER ==
[2022-05-02] MEDS ORDERED: Diltiazem 25 MG/5 ML SDV IVPUSH ONE (17:14)
[2022-05-02 18:12] LABS: CARBON DIOXIDE,CO2 24.4 mmol/L (21.0-32.0); POTASSIUM,K 3.9 mmol/L (3.5-5.1)
[2022-05-02 18:29] VITALS: BP 131/84
[2022-05-02 18:31] VITALS: PULSE 77
== END 2022-05-02 18:30 | disposition home or self-care (01) ==
LOC: MW.ED 16:34
DX: I47.1 Supraventricular tachycardia (principal); I48.91 Unspecified atrial fibrillation; E78.00 Pure hypercholesterolemia, unspecified; E10.42 Type 1 diabetes mellitus with diabetic polyneuropathy; E10.22 Type 1 diabetes mellitus with diabetic chronic kidney disease; I12.9 Hypertensive chronic kidney disease with stage 1 through stage 4 chronic kidney disease, or unspecified chronic kidney disease; N18.9 Chronic kidney disease, unspecified; I25.2 Old myocardial infarction; K21.9 Gastro-esophageal reflux disease without esophagitis; Z88.8 Allergy status to other drugs, medicaments and biological substances; Z79.02 Long term (current) use of antithrombotics/antiplatelets; Z79.899 Other long term (current) drug therapy
CPT/HCPCS: 36415; 80048; 84484; 85025; 93005; 96374; 99285; J3490; 93010; 99284

== ENCOUNTER 2022-08-22 17:19 | Emergency (ER) | payer OTHER ==
[2022-08-22] MEDS ORDERED: Sodium Chloride 0.9% 2.5 ML Syringe FLUSH PRN (17:39)
[2022-08-22] MEDS ORDERED: Sodium Chloride 0.9% 10 ML Syringe FLUSH PRN (17:39)
[2022-08-22 18:10] LABS: BASOPHILS ABSOLUTE AUTO 0.1 K/uL (0.0-0.1); BASOPHILS PERCENT AUTO 0.9 % (0.0-1.5); EOSINOPHILS ABSOLUTE AUTO 0.2 K/uL (0.0-0.7); EOSINOPHILS PERCENT AUTO 2.5 % (0.0-7.0); HEMATOCRIT 30.6 % (38.0-50.0); HEMOGLOBIN 10.8 g/dL (13.0-17.0); LYMPHOCYTES ABSOLUTE AUTO 0.8 K/uL (0.6-2.4); LYMPHOCYTES PERCENT AUTO 12.2 % (16.0-40.0); MEAN CORPUSCULAR HEMOGLOBIN 33.3 pg (27.0-32.0); MEAN CORPUSCULAR HGB CONC 35.3 g/dL (31.0-37.0); MEAN CORPUSCULAR VOLUME 94.4 fL (80.0-98.0); MONOCYTES ABSOLUTE AUTO 0.6 K/uL (0.0-0.8); MONOCYTES PERCENT AUTO 9.5 % (0.0-15.0); NEUTROPHILS ABSOLUTE AUTO 4.7 K/uL (1.4-5.7); NEUTROPHILS PERCENT AUTO 74.9 % (48.0-80.0); PLATELET COUNT,PLT 176 K/uL (150-400); RED BLOOD CELL COUNT 3.24 M/uL (4.50-5.90); WHITE BLOOD CELL COUNT,WBC 6.33 K/uL (4.0-11.0)
[2022-08-22] MEDS ORDERED: Furosemide 40 MG/4 ML VIAL IVPUSH ONE (18:40)
[2022-08-22 18:45] LABS: A/G RATIO 0.8 (0.9-1.6); ALBUMIN 3.2 g/dL (3.4-5.0); BILIRUBIN TOTAL 0.7 mg/dL (0.2-1.0); CALCIUM 8.8 mg/dL (8.5-10.1); CARBON DIOXIDE,CO2 27.1 mmol/L (21.0-32.0); CREATININE 2.8 mg/dL (0.8-1.3); EST CRCL DRUG DOSING (CG) 30.02 mL/min; POTASSIUM,K 4.1 mmol/L (3.5-5.1); PROTEIN TOTAL,TP 7.3 g/dL (6.4-8.2)
[2022-08-22] MEDS ORDERED: Nitroglycerin 2% Oint 1 GM UD Packet TOP ONE (18:54)
[2022-08-22] MEDS ORDERED: Insulin Regular, Human 100 Units/ML 10 ML Vial IVPUSH ONE (19:10)
[2022-08-22 19:14] VITALS: PULSE 77
[2022-08-22 20:52] VITALS: BP 197/105
== END 2022-08-22 20:54 | disposition home or self-care (01) ==
LOC: MW.ED 17:19
DX: I13.0 Hypertensive heart and chronic kidney disease with heart failure and stage 1 through stage 4 chronic kidney disease, or unspecified chronic kidney disease (principal); E10.22 Type 1 diabetes mellitus with diabetic chronic kidney disease; N18.9 Chronic kidney disease, unspecified; I50.9 Heart failure, unspecified; I25.2 Old myocardial infarction; K21.9 Gastro-esophageal reflux disease without esophagitis; E10.42 Type 1 diabetes mellitus with diabetic polyneuropathy; Z86.16 Personal history of COVID-19; Z88.8 Allergy status to other drugs, medicaments and biological substances; Z79.899 Other long term (current) drug therapy
CPT/HCPCS: 36415; 71045; 80053; 82947; 83690; 83880; 84484; 85025; 93005; 96374; 99285; A9270; J1940; J3490; J1815-GY

== ENCOUNTER 2022-12-01 16:51 | Observation (INO) | payer MEDICARE ==
[2022-12-01] MEDS ORDERED: Sodium Chloride 0.9% 10 ML Syringe FLUSH PRN ×2 (16:59→22:36)
[2022-12-01] MEDS ORDERED: Sodium Chloride 0.9% 2.5 ML Syringe FLUSH PRN ×2 (16:59→22:36)
[2022-12-01] MEDS ORDERED: 50% Dextrose in Water 50 ML Syringe IVPUSH STA (17:01)
[2022-12-01 17:19] LABS: BASOPHILS ABSOLUTE AUTO 0.1 K/uL (0.0-0.1); BASOPHILS PERCENT AUTO 0.4 % (0.0-1.5); EOSINOPHILS ABSOLUTE AUTO 0.2 K/uL (0.0-0.7); HEMATOCRIT 36.6 % (38.0-50.0); HEMOGLOBIN 13.1 g/dL (13.0-17.0); LYMPHOCYTES ABSOLUTE AUTO 0.9 K/uL (0.6-2.4); LYMPHOCYTES PERCENT AUTO 7.6 % (16.0-40.0); MEAN CORPUSCULAR HEMOGLOBIN 32.4 pg (27.0-32.0); MEAN CORPUSCULAR HGB CONC 35.8 g/dL (31.0-37.0); MEAN CORPUSCULAR VOLUME 90.6 fL (80.0-98.0); MONOCYTES PERCENT AUTO 7.9 % (0.0-15.0); NEUTROPHILS PERCENT AUTO 82.1 % (48.0-80.0); NRBC ABSOLUTE 0 K/uL; PLATELET COUNT,PLT 217 K/uL (150-400); RED BLOOD CELL COUNT 4.04 M/uL (4.50-5.90); WHITE BLOOD CELL COUNT,WBC 12.23 K/uL (4.0-11.0)
[2022-12-01 17:27] LABS: INR < 0.93 (0.86-1.11)
[2022-12-01 17:58] LABS: ALBUMIN 3.9 g/dL (3.4-5.0); BILIRUBIN TOTAL 0.5 mg/dL (0.2-1.0); CARBON DIOXIDE,CO2 29.1 mmol/L (21.0-32.0); CREATININE 2.6 mg/dL (0.8-1.3); EST CRCL DRUG DOSING (CG) 30.42 mL/min; POTASSIUM,K 3.8 mmol/L (3.5-5.1); PROTEIN TOTAL,TP 7.8 g/dL (6.4-8.2)
[2022-12-01 18:03] LABS: MAGNESIUM 2.1 mg/dL (1.8-2.4)
[2022-12-01] MEDS ORDERED: hydrALAZINE 20 MG/ML SDV IVPUSH ONE (18:32)
[2022-12-01] MEDS ORDERED: 50% Dextrose in Water 50 ML Syringe IVPUSH ONE (18:54)
[2022-12-01 18:57] LABS: AMPHETAMINES SCREEN, URINE NEGATIVE (CUTOFF=500); BARBITURATE SCREEN,URINE NEGATIVE (CUTOFF=200); BENZODIAZEPINES SCREEN,URINE NEGATIVE (CUTOFF=150); BUPRENORPHINE SCREEN,URINE NEGATIVE (CUTOFF=10); METHADONE SCREEN, URINE NEGATIVE (CUTOFF=200); METHAMPHETAMINES SCREEN, URINE NEGATIVE (CUTOFF=500); OXYCODONE SCREEN,URINE NEGATIVE (CUT0FF=100); PCP SCREEN,URINE NEGATIVE (CUTOFF=25); PROPOXYPHENE SCREEN,URINE NEGATIVE (CUTOFF=300); THC SCREEN,URINE 20 NG/ML NEGATIVE (CUTOFF=50)
[2022-12-01 19:00] LABS: APPEARANCE,URINE CLEAR; BILIRUBIN,URINE NEGATIVE (NEGATIVE); COLOR,URINE YELLOW; GLUCOSE,URINE NEGATIVE (NEGATIVE); KETONES,URINE NEGATIVE (NEGATIVE); LEUKOCYTE ESTERASE,URINE NEGATIVE (NEGATIVE); NITRITE,URINE NEGATIVE (NEGATIVE); OCCULT BLOOD,URINE TRACE-INTACT (NEGATIVE); PROTEIN,URINE 100 mg/dL (NEGATIVE); UROBILINOGEN,URINE 0.2 EU/dL (<2.0)
[2022-12-01 19:14] LABS: EPITHELIAL CELLS,URINE NOT SEEN (NONE-FEW); WBC,URINE 0-1 (0-5/HPF)
[2022-12-01 19:15] LABS: BACTERIA,URINE NOT SEEN (NEGATIVE)
[2022-12-01] MEDS ORDERED: Acetaminophen/HYDROcodone 325-5 MG Tab PO ONE (19:28)
[2022-12-01 20:29] LABS: CORONAVIRUS COVID-19 NAA NEGATIVE (NEGATIVE); INFLUENZA A NAA NEGATIVE (NEGATIVE); INFLUENZA B NAA NEGATIVE (NEGATIVE); RESPIRATORY SYNCYTIAL VIR NAA NEGATIVE (NEGATIVE)
[2022-12-01] MEDS: Acetaminophen 325 MG Tab PO PRN (21:48)
[2022-12-01] MEDS ORDERED: Albuterol/Ipratropium 3.0-0.5 MG/3 ML Neb Soln NEB PRN (22:36)
[2022-12-01] MEDS ORDERED: Polyethylene Glycol 3350 Powder 17 GM Packet PO PRN (22:36)
[2022-12-01] MEDS ORDERED: 50% Dextrose in Water 50 ML Syringe IVPUSH PRN (22:42)
[2022-12-01] MEDS ORDERED: Glucagon,Human Recombinant 1 MG Vial IM PRN (22:42)
[2022-12-01] MEDS: Ondansetron 4 MG/2 ML SDV IVPUSH PRN (23:29)
[2022-12-02] MEDS: Insulin Aspart 100 Units/ML 3 ML Pen SUBCUT SCH ×4 (01:05→16:41)
[2022-12-02] MEDS: amLODIPine 5 MG Tab PO SCH ×2 (01:11→18:01)
[2022-12-02] MEDS ORDERED: Furosemide 40 MG/4 ML VIAL IVPUSH STA (01:59)
[2022-12-02 05:43] LABS: BASOPHILS PERCENT AUTO 0.3 % (0.0-1.5); EOSINOPHILS ABSOLUTE AUTO 0.1 K/uL (0.0-0.7); EOSINOPHILS PERCENT AUTO 0.4 % (0.0-7.0); HEMATOCRIT 30.2 % (38.0-50.0); HEMOGLOBIN 10.4 g/dL (13.0-17.0); LYMPHOCYTES ABSOLUTE AUTO 0.7 K/uL (0.6-2.4); LYMPHOCYTES PERCENT AUTO 5.7 % (16.0-40.0); MEAN CORPUSCULAR HEMOGLOBIN 31.8 pg (27.0-32.0); MEAN CORPUSCULAR HGB CONC 34.4 g/dL (31.0-37.0); MEAN CORPUSCULAR VOLUME 92.4 fL (80.0-98.0); MONOCYTES PERCENT AUTO 8.7 % (0.0-15.0); NEUTROPHILS ABSOLUTE AUTO 9.7 K/uL (1.4-5.7); NEUTROPHILS PERCENT AUTO 84.9 % (48.0-80.0); NRBC ABSOLUTE 0 K/uL; PLATELET COUNT,PLT 136 K/uL (150-400); RED BLOOD CELL COUNT 3.27 M/uL (4.50-5.90); WHITE BLOOD CELL COUNT,WBC 11.48 K/uL (4.0-11.0)
[2022-12-02 06:02] LABS: A/G RATIO 0.8 (0.9-1.6); ALBUMIN 2.8 g/dL (3.4-5.0); BILIRUBIN TOTAL 0.7 mg/dL (0.2-1.0); CALCIUM 7.8 mg/dL (8.5-10.1); CARBON DIOXIDE,CO2 29.6 mmol/L (21.0-32.0); CREATININE 2.8 mg/dL (0.8-1.3); EST CRCL DRUG DOSING (CG) 28.24 mL/min; MAGNESIUM 1.8 mg/dL (1.8-2.4); PHOSPHORUS 4.6 mg/dL (2.6-4.7); POTASSIUM,K 4.1 mmol/L (3.5-5.1); PROTEIN TOTAL,TP 6.2 g/dL (6.4-8.2)
[2022-12-02] MEDS: Acetaminophen 325 MG Tab PO PRN (07:37)
[2022-12-02] MEDS ORDERED: Sodium Chloride 0.9% 1,000 ML IV SCH (08:45)
[2022-12-02] MEDS ORDERED: Furosemide 20 MG Tab PO SCH (09:00)
[2022-12-02] MEDS ORDERED: Pregabalin 50 MG Cap PO PRN (09:00)
[2022-12-02] MEDS ORDERED: traMADol 50 MG Tab PO PRN (09:00)
[2022-12-02] MEDS: Ondansetron 4 MG/2 ML SDV IVPUSH PRN (09:10)
[2022-12-02] MEDS: Isosorbide Mononitrate 30 MG Tab.ER PO SCH (10:03)
[2022-12-02] MEDS: Furosemide 40 MG/4 ML VIAL IVPUSH SCH ×2 (10:06→20:17)
[2022-12-02] MEDS: Carvedilol 25 MG Tab PO SCH ×2 (10:17→16:37)
[2022-12-02] MEDS: Ticagrelor 90 MG Tab PO SCH ×2 (10:26→20:16)
[2022-12-02] MEDS: Cyclobenzaprine 5 MG Tab PO PRN (10:27)
[2022-12-02] MEDS ORDERED: Carvedilol 25 MG Tab PO SCH ×2 (21:00)
[2022-12-03 06:08] LABS: BASOPHILS ABSOLUTE AUTO 0.1 K/uL (0.0-0.1); BASOPHILS PERCENT AUTO 0.5 % (0.0-1.5); EOSINOPHILS ABSOLUTE AUTO 0.2 K/uL (0.0-0.7); EOSINOPHILS PERCENT AUTO 2.2 % (0.0-7.0); HEMATOCRIT 31.5 % (38.0-50.0); HEMOGLOBIN 10.7 g/dL (13.0-17.0); LYMPHOCYTES ABSOLUTE AUTO 0.6 K/uL (0.6-2.4); LYMPHOCYTES PERCENT AUTO 5.3 % (16.0-40.0); MEAN CORPUSCULAR HEMOGLOBIN 32.5 pg (27.0-32.0); MEAN CORPUSCULAR VOLUME 95.7 fL (80.0-98.0); MONOCYTES PERCENT AUTO 8.9 % (0.0-15.0); NEUTROPHILS ABSOLUTE AUTO 9.1 K/uL (1.4-5.7); NEUTROPHILS PERCENT AUTO 83.1 % (48.0-80.0); PLATELET COUNT,PLT 141 K/uL (150-400); RED BLOOD CELL COUNT 3.29 M/uL (4.50-5.90); WHITE BLOOD CELL COUNT,WBC 10.99 K/uL (4.0-11.0)
[2022-12-03 06:25] LABS: CALCIUM 8.5 mg/dL (8.5-10.1); CARBON DIOXIDE,CO2 29.3 mmol/L (21.0-32.0); CREATININE 3.4 mg/dL (0.8-1.3); EST CRCL DRUG DOSING (CG) 23.26 mL/min; POTASSIUM,K 4.1 mmol/L (3.5-5.1)
[2022-12-03] MEDS: Carvedilol 25 MG Tab PO SCH (08:36)
[2022-12-03] MEDS: Isosorbide Mononitrate 30 MG Tab.ER PO SCH (08:36)
[2022-12-03] MEDS: Furosemide 40 MG/4 ML VIAL IVPUSH SCH (08:37)
[2022-12-03] MEDS: Insulin Aspart 100 Units/ML 3 ML Pen SUBCUT SCH ×2 (08:38→12:37)
[2022-12-03] MEDS: Ticagrelor 90 MG Tab PO SCH (08:43)
[2022-12-03] MEDS: Cyclobenzaprine 5 MG Tab PO PRN (09:12)
[2022-12-03] MEDS ORDERED: Insulin Glargine,Hum.Rec.Anlog 100 UNIT/ML 3 ML Pen SUBCUT SCH (10:30)
[2022-12-03] MEDS ORDERED: Glucagon,Human Recombinant 1 MG Vial IM PRN (12:12)
[2022-12-03] MEDS ORDERED: 50% Dextrose in Water 50 ML Syringe IVPUSH PRN (12:12)
[2022-12-03] MEDS ORDERED: Insulin Aspart 100 Units/ML 3 ML Pen SUBCUT STA (12:12)
[2022-12-03 12:37] VITALS: BP 167/88; PULSE 78
== END 2022-12-03 15:00 | disposition home or self-care (01) ==
LOC: MW.ED 16:51 → MW.MS 19:21 → OBSVTOIN 12-03 13:12 → INTOOBSV 12-03 13:12
PROVIDERS: ADMIT Family Medicine; ATTEND Family Medicine
DX: E10.649 Type 1 diabetes mellitus with hypoglycemia without coma (principal); E10.22 Type 1 diabetes mellitus with diabetic chronic kidney disease; E10.65 Type 1 diabetes mellitus with hyperglycemia; M34.9 Systemic sclerosis, unspecified; R06.02 Shortness of breath; I13.0 Hypertensive heart and chronic kidney disease with heart failure and stage 1 through stage 4 chronic kidney disease, or unspecified chronic kidney disease; N18.9 Chronic kidney disease, unspecified; K21.9 Gastro-esophageal reflux disease without esophagitis; M54.9 Dorsalgia, unspecified; I25.2 Old myocardial infarction; G89.29 Other chronic pain; F41.9 Anxiety disorder, unspecified; F32.A Depression, unspecified; R53.1 Weakness; Z20.822 Contact with and (suspected) exposure to COVID-19; Z79.899 Other long term (current) drug therapy; Z79.4 Long term (current) use of insulin; Z88.8 Allergy status to other drugs, medicaments and biological substances; Z95.5 Presence of coronary angioplasty implant and graft; I25.118 Atherosclerotic heart disease of native coronary artery with other forms of angina pectoris
CPT/HCPCS: 0241U; 36415; 71045; 80048; 80053; 80305; 81001; 82947; 83690; 83735; 83880; 84100; 84484; 85025; 85379; 85610; 93005; 93306; 93970; 96374; 96375; 96376; 99285; A9270; J0360; J1815; J1940; J2405; J3490; J7030; 99284

== ENCOUNTER 2023-03-06 12:02 | Emergency (ER) | payer MEDICARE ==
[2023-03-06 12:24] LABS: BASOPHILS ABSOLUTE AUTO 0.04 K/uL (0.00-0.20); BASOPHILS PERCENT AUTO 0.4 % (0.0-1.0); EOSINOPHILS ABSOLUTE AUTO 0.28 K/uL (0.00-0.45); EOSINOPHILS PERCENT AUTO 3.1 % (0.0-6.0); HEMATOCRIT 34.1 % (42.0-52.0); HEMOGLOBIN 12.7 g/dL (14.0-18.0); IMMATURE GRAN ABSOLUTE AUTO 0.03 K/uL (0.00-0.05); IMMATURE GRAN PERCENT AUTO 0.3 % (0.0-0.4); LYMPHOCYTES ABSOLUTE AUTO 0.75 K/uL (1.00-4.80); LYMPHOCYTES PERCENT AUTO 8.3 % (24.0-44.0); MEAN CORPUSCULAR HEMOGLOBIN 32.5 pg (28.0-32.0); MEAN CORPUSCULAR HGB CONC 37.2 g/dL (32.0-36.0); MEAN CORPUSCULAR VOLUME 87.2 fL (83.0-99.0); MEAN PLATELET VOLUME 10.6 fL (9.4-12.4); MONOCYTES PERCENT AUTO 6.6 % (0.0-8.0); NEUTROPHILS ABSOLUTE AUTO 7.35 K/uL (1.80-7.70); NEUTROPHILS PERCENT AUTO 81.3 % (41.0-71.0); PLATELET COUNT,PLT 169 K/uL (150-400); RED BLOOD CELL COUNT 3.91 M/uL (4.52-5.90); WHITE BLOOD CELL COUNT,WBC 9.05 K/uL (3.9-11.3)
[2023-03-06 12:53] LABS: CALCIUM 9.1 mg/dL (8.5-10.1); CARBON DIOXIDE,CO2 28.3 mmol/L (21.0-32.0); EST CRCL DRUG DOSING (CG) 26.36 mL/min; POTASSIUM,K 4.2 mmol/L (3.5-5.1)
[2023-03-06] MEDS ORDERED: Ondansetron 4 MG Tab.DIS PO ONE (12:58)
[2023-03-06 15:11] VITALS: BP 174/82; PULSE 72
== END 2023-03-06 15:10 | disposition home or self-care (01) ==
LOC: MW.ED 12:02
DX: R53.1 Weakness (principal); I12.9 Hypertensive chronic kidney disease with stage 1 through stage 4 chronic kidney disease, or unspecified chronic kidney disease; N18.9 Chronic kidney disease, unspecified; K21.9 Gastro-esophageal reflux disease without esophagitis; E10.42 Type 1 diabetes mellitus with diabetic polyneuropathy; E10.22 Type 1 diabetes mellitus with diabetic chronic kidney disease; I25.2 Old myocardial infarction; Z95.5 Presence of coronary angioplasty implant and graft; Z86.16 Personal history of COVID-19; Z79.899 Other long term (current) drug therapy; Z79.4 Long term (current) use of insulin; Z88.8 Allergy status to other drugs, medicaments and biological substances
CPT/HCPCS: 36415; 70450; 80048; 84484; 85025; 99285; A9270; 99283

== ENCOUNTER 2023-11-05 16:51 | Emergency (ER) | payer MEDICARE ==
[2023-11-05] MEDS: Sodium Chloride 0.9% 1,000 ML IV ONE (17:15)
[2023-11-05] MEDS: Morphine 4 MG/ML Syringe IVPUSH ONE ×2 (17:15→18:51)
[2023-11-05] MEDS: Ondansetron 4 MG/2 ML SDV IVPUSH ONE ×2 (17:15→21:34)
[2023-11-05 17:20] LABS: BASE EXCESS VENOUS -15.7 (-2.0-3.0); BASOPHILS ABSOLUTE AUTO 0.02 K/uL (0.00-0.20); BASOPHILS PERCENT AUTO 0.1 % (0.0-1.0); HEMOGLOBIN 11.4 g/dL (14.0-18.0); IMMATURE GRAN ABSOLUTE AUTO 0.06 K/uL (0.00-0.05); IMMATURE GRAN PERCENT AUTO 0.4 % (0.0-0.4); LYMPHOCYTES ABSOLUTE AUTO 0.28 K/uL (1.00-4.80); MEAN CORPUSCULAR HEMOGLOBIN 32.7 pg (28.0-32.0); MEAN CORPUSCULAR HGB CONC 35.6 g/dL (32.0-36.0); MEAN CORPUSCULAR VOLUME 91.7 fL (83.0-99.0); MEAN PLATELET VOLUME 10.3 fL (9.4-12.4); MONOCYTES ABSOLUTE AUTO 0.83 K/uL (0.00-0.80); MONOCYTES PERCENT AUTO 5.9 % (0.0-8.0); NEUTROPHILS ABSOLUTE AUTO 12.93 K/uL (1.80-7.70); NEUTROPHILS PERCENT AUTO 91.6 % (41.0-71.0); PH,VENOUS 7.16 (7.31-7.41); PLATELET COUNT,PLT 189 K/uL (150-400); RED BLOOD CELL COUNT 3.49 M/uL (4.52-5.90); WHITE BLOOD CELL COUNT,WBC 14.12 K/uL (3.9-11.3)
[2023-11-05] MEDS: Aspirin 81 MG Tab.Chew PO ONE (17:23)
[2023-11-05] MEDS ORDERED: 50% Dextrose in Water 50 ML Syringe IVPUSH PRN (17:37)
[2023-11-05] MEDS ORDERED: Glucagon,Human Recombinant 1 MG Vial IM PRN (17:37)
[2023-11-05 17:54] LABS: ALANINE AMINOTRANSFERASE,ALT 14 IU/L (14-63); ALBUMIN 3.9 g/dL (3.4-5.0); ALKALINE PHOSPHATASE 99 U/L (46-116); ASPARTATE AMNIOTRANSFERASE,AST 11 IU/L (15-37); BLOOD UREA NITROGEN,BUN 85 mg/dL (7.0-18.0); CARBON DIOXIDE,CO2 12.5 mmol/L (21.0-32.0); CHLORIDE,CL 90 mmol/L (98-107); CREATININE 5.3 mg/dL (0.8-1.3); LIPASE 181 U/L (16-77); MAGNESIUM 2.2 mg/dL (1.8-2.4); POTASSIUM,K 5.7 mmol/L (3.5-5.1); PROTEIN TOTAL,TP 7.7 g/dL (6.4-8.2); SODIUM,NA 127 mmol/L (136-148)
[2023-11-05 17:57] LABS: ESTIMATED GFR 11 mL/min (>60)
[2023-11-05] MEDS: Insulin Regular, Human 100 Units/ML 10 ML Vial SUBCUT ONE (17:58)
[2023-11-05] MEDS: Lactated Ringers 1,000 ML IV ONE (17:58)
[2023-11-05 18:07] LABS: LACTIC ACID 1.6 mmol/L (0.4-2.0)
[2023-11-05 18:28] LABS: GLUCOSE RANDOM 807 mg/dL (74-106)
[2023-11-05] MEDS: Alum Hydro/Mag Hydro/Simeth XS 15 ML, Metoclopramide 5 MG, Lidocaine 2% 5 ML PO ONE (18:51)
[2023-11-05] MEDS: Insulin Regular in 0.9 % NACL 100 ML IV SCH (18:57)
[2023-11-05 21:04] VITALS: BP 157/76; PULSE 82
[2023-11-05] MEDS: Morphine 2 MG/ML SYRINGE IVPUSH ONE (21:34)
[2023-11-05] MEDS: Sodium Chloride 0.9% 10 ML Syringe FLUSH PRN (21:34)
[2023-11-05] MEDS: Sodium Chloride 0.9% 2.5 ML Syringe FLUSH PRN (21:35)
== END 2023-11-05 21:45 ==
LOC: MW.ED 16:51
DX: I13.0 Hypertensive heart and chronic kidney disease with heart failure and stage 1 through stage 4 chronic kidney disease, or unspecified chronic kidney disease (principal); I50.9 Heart failure, unspecified; N18.9 Chronic kidney disease, unspecified; R79.89 Other specified abnormal findings of blood chemistry; N17.9 Acute kidney failure, unspecified; E10.22 Type 1 diabetes mellitus with diabetic chronic kidney disease; E10.10 Type 1 diabetes mellitus with ketoacidosis without coma; I48.91 Unspecified atrial fibrillation; E78.00 Pure hypercholesterolemia, unspecified; I25.2 Old myocardial infarction; I25.10 Atherosclerotic heart disease of native coronary artery without angina pectoris; Z88.6 Allergy status to analgesic agent; Z88.8 Allergy status to other drugs, medicaments and biological substances; Z79.4 Long term (current) use of insulin; Z79.899 Other long term (current) drug therapy; Z95.5 Presence of coronary angioplasty implant and graft; Z86.16 Personal history of COVID-19
CPT/HCPCS: 36415; 71045; 80053; 82009; 82803; 82947; 83605; 83690; 83735; 83880; 84484; 85025; 93005; 96361; 96374; 96375; 96376; 99285; A9270; J1815; J2270; J2405; J3490; J7030; J7120; 93010

== ENCOUNTER 2023-12-10 23:05 | Emergency (ER) | payer MEDICARE ==
[2023-12-10] MEDS ORDERED: 50% Dextrose in Water 50 ML Syringe IVPUSH PRN (23:46)
[2023-12-10] MEDS ORDERED: Glucagon,Human Recombinant 1 MG Vial IM PRN (23:46)
[2023-12-10 23:54] LABS: BASOPHILS ABSOLUTE AUTO 0.05 K/uL (0.00-0.20); BASOPHILS PERCENT AUTO 0.7 % (0.0-1.0); EOSINOPHILS ABSOLUTE AUTO 0.08 K/uL (0.00-0.45); EOSINOPHILS PERCENT AUTO 1.1 % (0.0-6.0); HEMATOCRIT 37.4 % (42.0-52.0); HEMOGLOBIN 11.8 g/dL (14.0-18.0); IMMATURE GRAN ABSOLUTE AUTO 0.06 K/uL (0.00-0.05); IMMATURE GRAN PERCENT AUTO 0.9 % (0.0-0.4); LYMPHOCYTES ABSOLUTE AUTO 0.42 K/uL (1.00-4.80); MEAN CORPUSCULAR HEMOGLOBIN 31.6 pg (28.0-32.0); MEAN CORPUSCULAR HGB CONC 31.6 g/dL (32.0-36.0); MEAN CORPUSCULAR VOLUME 100.3 fL (83.0-99.0); MEAN PLATELET VOLUME 10.4 fL (9.4-12.4); MONOCYTES ABSOLUTE AUTO 0.33 K/uL (0.00-0.80); MONOCYTES PERCENT AUTO 4.7 % (0.0-8.0); NEUTROPHILS ABSOLUTE AUTO 6.04 K/uL (1.80-7.70); NEUTROPHILS PERCENT AUTO 86.6 % (41.0-71.0); PLATELET COUNT,PLT 296 K/uL (150-400); RED BLOOD CELL COUNT 3.73 M/uL (4.52-5.90); WHITE BLOOD CELL COUNT,WBC 6.98 K/uL (3.9-11.3)
[2023-12-10] MEDS: Insulin Regular, Human 100 Units/ML 10 ML Vial SUBCUT ONE (23:57)
[2023-12-11] LABS: INR 1.16 (0.86-1.11)
[2023-12-11] MEDS: Sodium Chloride 0.9% 10 ML Syringe FLUSH PRN (00:01)
[2023-12-11] MEDS: Sodium Chloride 0.9% 2.5 ML Syringe FLUSH PRN (00:01)
[2023-12-11 00:09] LABS: A/G RATIO 0.7 (0.9-1.6); ALBUMIN 3.2 g/dL (3.4-5.0); BILIRUBIN TOTAL 0.9 mg/dL (0.2-1.0); CARBON DIOXIDE,CO2 19.1 mmol/L (21.0-32.0); CREATININE 4.4 mg/dL (0.8-1.3); EST CRCL DRUG DOSING (CG) 17.74 mL/min; MAGNESIUM 1.8 mg/dL (1.8-2.4); PHOSPHORUS 5.6 mg/dL (2.6-4.7); POTASSIUM,K 5.5 mmol/L (3.5-5.1); PROTEIN TOTAL,TP 7.5 g/dL (6.4-8.2)
[2023-12-11 00:13] LABS: BASE EXCESS VENOUS -7.1 (-2.0-3.0); PH,VENOUS 7.3 (7.31-7.41)
[2023-12-11] MEDS: Insulin Regular in 0.9 % NACL 100 ML IV SCH (01:11)
[2023-12-11 06:35] LABS: CARBON DIOXIDE,CO2 28.1 mmol/L (21.0-32.0); CREATININE 4.3 mg/dL (0.8-1.3); EST CRCL DRUG DOSING (CG) 18.16 mL/min; POTASSIUM,K 4.3 mmol/L (3.5-5.1)
[2023-12-11 07:09] VITALS: BP 157/82; PULSE 100
== END 2023-12-11 07:09 | disposition home or self-care (01) ==
LOC: MW.ED 23:05
DX: E10.65 Type 1 diabetes mellitus with hyperglycemia (principal); I10 Essential (primary) hypertension; E78.00 Pure hypercholesterolemia, unspecified; I25.2 Old myocardial infarction; E10.40 Type 1 diabetes mellitus with diabetic neuropathy, unspecified; I48.91 Unspecified atrial fibrillation; Z88.8 Allergy status to other drugs, medicaments and biological substances; Z88.6 Allergy status to analgesic agent; Z79.4 Long term (current) use of insulin; Z79.899 Other long term (current) drug therapy; Z95.5 Presence of coronary angioplasty implant and graft
CPT/HCPCS: 36415; 71045; 80048; 80053; 82803; 82947; 83690; 83735; 83880; 84100; 84484; 85025; 85610; 99285; J1815; J3490

== ENCOUNTER 2024-01-30 23:32 | Emergency (ER) | payer MEDICARE ==
[2024-01-30] MEDS: Morphine 4 MG/ML Syringe IVPUSH ONE (23:59)
[2024-01-30] MEDS: Ondansetron 4 MG/2 ML SDV IVPUSH ONE (23:59)
[2024-01-31] MEDS: Aspirin 81 MG Tab.Chew PO ONE
[2024-01-31] MEDS: Nitroglycerin 0.4 MG Tab.SL SL PRN (00:02)
[2024-01-31 00:09] LABS: BASOPHILS ABSOLUTE AUTO 0.06 K/uL (0.00-0.20); BASOPHILS PERCENT AUTO 1.1 % (0.0-1.0); EOSINOPHILS ABSOLUTE AUTO 0.13 K/uL (0.00-0.45); EOSINOPHILS PERCENT AUTO 2.5 % (0.0-6.0); HEMATOCRIT 39.6 % (42.0-52.0); HEMOGLOBIN 12.8 g/dL (14.0-18.0); IMMATURE GRAN ABSOLUTE AUTO 0.02 K/uL (0.00-0.05); IMMATURE GRAN PERCENT AUTO 0.4 % (0.0-0.4); LYMPHOCYTES ABSOLUTE AUTO 0.52 K/uL (1.00-4.80); LYMPHOCYTES PERCENT AUTO 9.9 % (24.0-44.0); MEAN CORPUSCULAR HEMOGLOBIN 32.2 pg (28.0-32.0); MEAN CORPUSCULAR HGB CONC 32.3 g/dL (32.0-36.0); MEAN CORPUSCULAR VOLUME 99.7 fL (83.0-99.0); MEAN PLATELET VOLUME 11.5 fL (9.4-12.4); MONOCYTES ABSOLUTE AUTO 0.47 K/uL (0.00-0.80); MONOCYTES PERCENT AUTO 8.9 % (0.0-8.0); NEUTROPHILS ABSOLUTE AUTO 4.06 K/uL (1.80-7.70); NEUTROPHILS PERCENT AUTO 77.2 % (41.0-71.0); PLATELET COUNT,PLT 143 K/uL (150-400); RED BLOOD CELL COUNT 3.97 M/uL (4.52-5.90); WHITE BLOOD CELL COUNT,WBC 5.26 K/uL (3.9-11.3)
[2024-01-31] MEDS: Insulin Regular, Human 100 Units/ML 10 ML Vial IVPUSH ONE ×4 (00:23→03:45)
[2024-01-31 00:28] LABS: HEMOGLOBIN A1C 9.3 %
[2024-01-31 00:33] LABS: A/G RATIO 0.8 (0.9-1.6); ALBUMIN 3.4 g/dL (3.4-5.0); BILIRUBIN TOTAL 1.1 mg/dL (0.2-1.0); CARBON DIOXIDE,CO2 23.8 mmol/L (21.0-32.0); CREATININE 3.6 mg/dL (0.8-1.3); EST CRCL DRUG DOSING (CG) 21.69 mL/min; MAGNESIUM 1.7 mg/dL (1.8-2.4); POTASSIUM,K 5.1 mmol/L (3.5-5.1); PROTEIN TOTAL,TP 7.5 g/dL (6.4-8.2)
[2024-01-31] MEDS: Labetalol 100 MG/20 ML MDV IVPUSH ONE (00:47)
[2024-01-31] MEDS ORDERED: Glucagon,Human Recombinant 1 MG Vial IM PRN ×4 (01:12→03:30)
[2024-01-31] MEDS ORDERED: 50% Dextrose in Water 50 ML Syringe IVPUSH PRN ×4 (01:12→03:30)
[2024-01-31] MEDS: Iopamidol 755 Mg/ML 100 ML Bottle IVPUSH ONE (03:22)
[2024-01-31 04:49] LABS: A/G RATIO 0.9 (0.9-1.6); BILIRUBIN TOTAL 0.7 mg/dL (0.2-1.0); CALCIUM 8.7 mg/dL (8.5-10.1); CARBON DIOXIDE,CO2 26.2 mmol/L (21.0-32.0); CREATININE 3.8 mg/dL (0.8-1.3); EST CRCL DRUG DOSING (CG) 20.54 mL/min; POTASSIUM,K 3.9 mmol/L (3.5-5.1); PROTEIN TOTAL,TP 6.4 g/dL (6.4-8.2)
[2024-01-31 05:58] VITALS: BP 132/75; PULSE 73
[2024-01-31 06:05] LABS: INR 1.28 (0.86-1.11); PTT,PARTIAL THROMBOPLSTIN TIME 35.8 SEC (23.9-30.7)
[2024-01-31] MEDS ORDERED: Heparin Sodium/0.45% NaCl 25,000 UNITS/250 ML BAG IV SCH (07:00)
== END 2024-01-31 06:54 ==
LOC: MW.ED 23:32
DX: J90 Pleural effusion, not elsewhere classified (principal); J81.0 Acute pulmonary edema; I16.0 Hypertensive urgency; I12.0 Hypertensive chronic kidney disease with stage 5 chronic kidney disease or end stage renal disease; E10.22 Type 1 diabetes mellitus with diabetic chronic kidney disease; N18.6 End stage renal disease; N17.9 Acute kidney failure, unspecified; Z99.2 Dependence on renal dialysis; E10.65 Type 1 diabetes mellitus with hyperglycemia; I21.4 Non-ST elevation (NSTEMI) myocardial infarction; I48.91 Unspecified atrial fibrillation; I25.2 Old myocardial infarction; Z95.5 Presence of coronary angioplasty implant and graft; Z79.4 Long term (current) use of insulin; Z79.82 Long term (current) use of aspirin; Z79.899 Other long term (current) drug therapy; Z88.8 Allergy status to other drugs, medicaments and biological substances; Z88.6 Allergy status to analgesic agent
CPT/HCPCS: 36415; 71045; 71275; 80053; 82947; 83036; 83690; 83735; 83880; 84484; 85025; 85610; 85730; 93005; 96374; 96375; 99285; A9270; J1815; J1920; J2270; J2405; Q9967

== ENCOUNTER 2024-02-10 12:06 | Emergency (ER) | payer MEDICARE ==
[2024-02-10] MEDS ORDERED: Sodium Chloride 0.9% 2.5 ML Syringe FLUSH PRN (12:26)
[2024-02-10] MEDS: Sodium Chloride 0.9% 1,000 ML IV ONE ×3 (12:49→19:05)
[2024-02-10] MEDS: Ondansetron 4 MG/2 ML SDV IVPUSH ONE (12:50)
[2024-02-10] MEDS: Sodium Chloride 0.9% 10 ML Syringe FLUSH PRN (12:57)
[2024-02-10] MEDS: Morphine 4 MG/ML Syringe IVPUSH ONE (12:57)
[2024-02-10 13:58] LABS: BASE EXCESS VENOUS -17.8 (-2.0-3.0); BASOPHILS ABSOLUTE AUTO 0.01 K/uL (0.00-0.20); BASOPHILS PERCENT AUTO 0.2 % (0.0-1.0); HEMATOCRIT 27.4 % (42.0-52.0); HEMOGLOBIN 8.8 g/dL (14.0-18.0); IMMATURE GRAN ABSOLUTE AUTO 0.04 K/uL (0.00-0.05); IMMATURE GRAN PERCENT AUTO 0.9 % (0.0-0.4); LYMPHOCYTES PERCENT AUTO 4.4 % (24.0-44.0); MEAN CORPUSCULAR HEMOGLOBIN 32.4 pg (28.0-32.0); MEAN CORPUSCULAR HGB CONC 32.1 g/dL (32.0-36.0); MEAN CORPUSCULAR VOLUME 100.7 fL (83.0-99.0); MEAN PLATELET VOLUME 11.1 fL (9.4-12.4); MONOCYTES ABSOLUTE AUTO 0.23 K/uL (0.00-0.80); MONOCYTES PERCENT AUTO 5.1 % (0.0-8.0); NEUTROPHILS ABSOLUTE AUTO 4.02 K/uL (1.80-7.70); NEUTROPHILS PERCENT AUTO 89.4 % (41.0-71.0); PH,VENOUS 7.1 (7.31-7.41); PLATELET COUNT,PLT 114 K/uL (150-400); RED BLOOD CELL COUNT 2.72 M/uL (4.52-5.90)
[2024-02-10 14:27] LABS: LACTIC ACID 2.2 mmol/L (0.4-2.0)
[2024-02-10 14:29] LABS: A/G RATIO 0.9 (0.9-1.6); ALBUMIN 2.7 g/dL (3.4-5.0); BILIRUBIN TOTAL 0.7 mg/dL (0.2-1.0); CALCIUM 7.7 mg/dL (8.5-10.1); CARBON DIOXIDE,CO2 12.1 mmol/L (21.0-32.0); CREATININE 3.1 mg/dL (0.8-1.3); EST CRCL DRUG DOSING (CG) 25.18 mL/min; MAGNESIUM 1.7 mg/dL (1.8-2.4); POTASSIUM,K 5.3 mmol/L (3.5-5.1); PROTEIN TOTAL,TP 5.7 g/dL (6.4-8.2)
[2024-02-10] MEDS: Promethazine 25 MG/ML SDV IM ONE (14:43)
[2024-02-10] MEDS ORDERED: Glucagon,Human Recombinant 1 MG Vial IM PRN (14:46)
[2024-02-10] MEDS ORDERED: 50% Dextrose in Water 50 ML Syringe IVPUSH PRN (14:46)
[2024-02-10 14:55] LABS: HEMATOCRIT 37.6 % (42.0-52.0); HEMOGLOBIN 11.5 g/dL (14.0-18.0)
[2024-02-10] MEDS: Insulin Regular in 0.9 % NACL 100 ML IV SCH (15:11)
[2024-02-10] MEDS: Insulin Regular, Human 100 Units/ML 10 ML Vial IV ONE (15:12)
[2024-02-10 19:05] VITALS: BP 155/70; PULSE 77
[2024-02-10 20:05] LABS: GLUCOSE RANDOM 756 mg/dL (74-106)
== END 2024-02-10 20:26 ==
LOC: MW.ED 12:06
DX: I21.4 Non-ST elevation (NSTEMI) myocardial infarction (principal); E10.10 Type 1 diabetes mellitus with ketoacidosis without coma; I12.0 Hypertensive chronic kidney disease with stage 5 chronic kidney disease or end stage renal disease; N18.6 End stage renal disease; I48.91 Unspecified atrial fibrillation; I25.2 Old myocardial infarction; M19.90 Unspecified osteoarthritis, unspecified site; E11.22 Type 2 diabetes mellitus with diabetic chronic kidney disease; Z88.8 Allergy status to other drugs, medicaments and biological substances; Z75.8 Other problems related to medical facilities and other health care; Z79.4 Long term (current) use of insulin; Z79.01 Long term (current) use of anticoagulants; Z79.899 Other long term (current) drug therapy; Z79.82 Long term (current) use of aspirin; Z99.2 Dependence on renal dialysis
CPT/HCPCS: 36415; 71045; 80053; 82009; 82803; 82947; 83605; 83690; 83735; 84484; 85014; 85018; 85025; 86850; 86900; 86901; 87428; 93005; 96361; 96372; 96374; 96375; 99285; J1815; J2270; J2405; J2550; J3490; J7030

== ENCOUNTER 2024-06-15 16:13 | Emergency (ER) | payer MEDICARE ==
[2024-06-15 16:42] VITALS: BP 146/80; PULSE 76
== END 2024-06-15 20:00 | disposition home or self-care (01) ==
LOC: MW.ED 16:13
DX: L02.422 Furuncle of left axilla (principal); I10 Essential (primary) hypertension; E78.00 Pure hypercholesterolemia, unspecified; I48.91 Unspecified atrial fibrillation; I25.2 Old myocardial infarction; E10.42 Type 1 diabetes mellitus with diabetic polyneuropathy; Z75.8 Other problems related to medical facilities and other health care; Z88.8 Allergy status to other drugs, medicaments and biological substances; Z79.4 Long term (current) use of insulin; Z79.899 Other long term (current) drug therapy; Z79.01 Long term (current) use of anticoagulants; Z79.82 Long term (current) use of aspirin; Z95.5 Presence of coronary angioplasty implant and graft
CPT/HCPCS: 99283

== ENCOUNTER 2024-08-29 19:28 | Emergency (ER) | payer MEDICARE ==
[2024-08-29] MEDS ORDERED: Sodium Chloride 0.9% 20 ML SDV IV PRN (19:41)
[2024-08-29] MEDS ORDERED: Sodium Chloride 0.9% 10 ML Syringe FLUSH PRN (19:41)
[2024-08-29] MEDS ORDERED: Sodium Chloride 0.9% 2.5 ML Syringe FLUSH PRN (19:41)
[2024-08-29] MEDS: Nitroglycerin 2% Oint 1 GM UD Packet TOP ONE (19:50)
[2024-08-29 19:52] LABS: BASOPHILS ABSOLUTE AUTO 0.03 K/uL (0.00-0.20); BASOPHILS PERCENT AUTO 0.6 % (0.0-1.0); EOSINOPHILS ABSOLUTE AUTO 0.18 K/uL (0.00-0.45); EOSINOPHILS PERCENT AUTO 3.4 % (0.0-6.0); HEMATOCRIT 39.4 % (42.0-52.0); HEMOGLOBIN 13.8 g/dL (14.0-18.0); IMMATURE GRAN ABSOLUTE AUTO 0.01 K/uL (0.00-0.05); IMMATURE GRAN PERCENT AUTO 0.2 % (0.0-0.4); LYMPHOCYTES ABSOLUTE AUTO 0.51 K/uL (1.00-4.80); LYMPHOCYTES PERCENT AUTO 9.5 % (24.0-44.0); MEAN CORPUSCULAR HEMOGLOBIN 32.5 pg (28.0-32.0); MEAN CORPUSCULAR VOLUME 92.9 fL (83.0-99.0); MONOCYTES ABSOLUTE AUTO 0.43 K/uL (0.00-0.80); NEUTROPHILS ABSOLUTE AUTO 4.19 K/uL (1.80-7.70); NEUTROPHILS PERCENT AUTO 78.3 % (41.0-71.0); PLATELET COUNT,PLT 137 K/uL (150-400); RED BLOOD CELL COUNT 4.24 M/uL (4.52-5.90); WHITE BLOOD CELL COUNT,WBC 5.35 K/uL (3.9-11.3)
[2024-08-29 20:03] LABS: D-DIMER QUANTITATIVE 0.86 mg/L FEU (0.00-0.50); INR 1.01 (0.86-1.11)
[2024-08-29 20:29] LABS: CALCIUM 8.9 mg/dL (8.5-10.1); CARBON DIOXIDE,CO2 29.6 mmol/L (21.0-32.0); CREATININE 3.1 mg/dL (0.8-1.3); EST CRCL DRUG DOSING (CG) 24.86 mL/min; MAGNESIUM 1.7 mg/dL (1.8-2.4); POTASSIUM,K 4.5 mmol/L (3.5-5.1)
[2024-08-29] MEDS ORDERED: Glucagon,Human Recombinant 1 MG Vial IM PRN (20:39)
[2024-08-29] MEDS ORDERED: 50% Dextrose in Water 50 ML Syringe IVPUSH PRN (20:39)
[2024-08-29] MEDS: Insulin Regular, Human 100 Units/ML 10 ML Vial SUBCUT ONE (20:52)
[2024-08-29] MEDS: Iopamidol 755 MG/ML 500 ML Multipack Bottle IVPUSH ONE (21:14)
[2024-08-29 22:45] VITALS: BP 165/77; PULSE 68
== END 2024-08-29 22:38 | disposition home or self-care (01) ==
LOC: MW.ED 19:28
DX: R07.9 Chest pain, unspecified (principal); E10.65 Type 1 diabetes mellitus with hyperglycemia; E10.40 Type 1 diabetes mellitus with diabetic neuropathy, unspecified; E78.00 Pure hypercholesterolemia, unspecified; I10 Essential (primary) hypertension; I48.91 Unspecified atrial fibrillation; I25.2 Old myocardial infarction; I25.10 Atherosclerotic heart disease of native coronary artery without angina pectoris; Z95.1 Presence of aortocoronary bypass graft; Z95.5 Presence of coronary angioplasty implant and graft; Z79.4 Long term (current) use of insulin; Z79.82 Long term (current) use of aspirin; Z79.01 Long term (current) use of anticoagulants; Z88.8 Allergy status to other drugs, medicaments and biological substances
CPT/HCPCS: 36415; 71045; 71045-26; 71275; 71275-26; 80048; 82947; 83735; 83880; 84484; 85025; 85379; 85610; 93005; 93010; 99284; 99285; A9270-GY; J1815-GY; Q9967

== ENCOUNTER 2024-10-03 20:34 | Emergency (ER) | payer MEDICARE ==
[2024-10-03 21:27] LABS: BASE EXCESS VENOUS 12.1 (-2.0-3.0); BICARBONATE,VENOUS 38.0 mEq/L (22-29); PCO2 VENOUS 53.0 mmHG (41-51); PH,VENOUS 7.46 (7.32-7.43); PO2 VENOUS 20.0 mmHG (35-45)
[2024-10-03 21:28] LABS: BASOPHILS ABSOLUTE AUTO 0.03 K/uL (0.00-0.20); BASOPHILS PERCENT AUTO 0.6 % (0.0-1.0); EOSINOPHILS ABSOLUTE AUTO 0.12 K/uL (0.00-0.45); EOSINOPHILS PERCENT AUTO 2.4 % (0.0-6.0); IMMATURE GRAN ABSOLUTE AUTO 0.01 K/uL (0.00-0.05); IMMATURE GRAN PERCENT AUTO 0.2 % (0.0-0.4); LYMPHOCYTES ABSOLUTE AUTO 0.66 K/uL (1.00-4.80); LYMPHOCYTES PERCENT AUTO 13.0 % (24.0-44.0); MEAN PLATELET VOLUME 10.4 fL (9.4-12.4); MONOCYTES ABSOLUTE AUTO 0.52 K/uL (0.00-0.80); MONOCYTES PERCENT AUTO 10.2 % (0.0-8.0); NEUTROPHILS ABSOLUTE AUTO 3.75 K/uL (1.80-7.70); NEUTROPHILS PERCENT AUTO 73.6 % (41.0-71.0); NRBC ABSOLUTE 0.00 K/uL (0.00-0.02); NRBC PERCENT 0.0 /100WBC (0.0-0.2); PLATELET COUNT,PLT 154 K/uL (150-400); RED BLOOD CELL COUNT 3.27 M/uL (4.52-5.90); WHITE BLOOD CELL COUNT,WBC 5.09 K/uL (3.9-11.3)
[2024-10-03 22:02] LABS: A/G RATIO 1.1 (0.9-1.6); ALANINE AMINOTRANSFERASE,ALT 21 IU/L (14-63); ASPARTATE AMNIOTRANSFERASE,AST 15 IU/L (15-37); BILIRUBIN TOTAL 1.1 mg/dL (0.2-1.0); BLOOD UREA NITROGEN,BUN 22 mg/dL (7.0-18.0); CARBON DIOXIDE,CO2 33.8 mmol/L (21.0-32.0); CHLORIDE,CL 97 mmol/L (98-107); CREATININE 3.4 mg/dL (0.8-1.3); GLUCOSE RANDOM 261 mg/dL (74-106); POTASSIUM,K 3.9 mmol/L (3.5-5.1); PRO B-TYPE NATRIUR PEPT,BNPPRO 23795 pg/mL (0-125); PROTEIN TOTAL,TP 6.8 g/dL (6.4-8.2); SODIUM,NA 137 mmol/L (136-148)
[2024-10-03 22:05] LABS: ESTIMATED GFR 19 mL/min (>60); ETHANOL BLOOD MEDICAL < 3.0 mg/dL
[2024-10-03 22:09] LABS: GLUCOSE,URINE 500 mg/dL (NEGATIVE); OCCULT BLOOD,URINE SMALL (NEGATIVE)
[2024-10-03 22:18] LABS: AMPHETAMINES SCREEN, URINE NEGATIVE (CUTOFF=500); APPEARANCE,URINE HAZY; BUPRENORPHINE SCREEN,URINE NEGATIVE (CUTOFF=10); METHADONE SCREEN, URINE NEGATIVE (CUTOFF=200); METHAMPHETAMINES SCREEN, URINE NEGATIVE (CUTOFF=500); OXYCODONE SCREEN,URINE NEGATIVE (CUT0FF=100); PCP SCREEN,URINE NEGATIVE (CUTOFF=25); THC SCREEN,URINE 20 NG/ML PRESUMPTIVE POSITIVE (CUTOFF=50)
[2024-10-03 22:19] LABS: EPITHELIAL CELLS,URINE FEW (NONE-FEW)
[2024-10-04 01:15] VITALS: BP 165/104; PULSE 72
== END 2024-10-04 02:30 | disposition left against medical advice (07) ==
LOC: MW.ED 20:34
DX: J81.1 Chronic pulmonary edema (principal); R41.82 Altered mental status, unspecified; J90 Pleural effusion, not elsewhere classified; I12.9 Hypertensive chronic kidney disease with stage 1 through stage 4 chronic kidney disease, or unspecified chronic kidney disease; N18.9 Chronic kidney disease, unspecified; Z99.2 Dependence on renal dialysis; R09.02 Hypoxemia; E10.22 Type 1 diabetes mellitus with diabetic chronic kidney disease; F15.10 Other stimulant abuse, uncomplicated; E78.00 Pure hypercholesterolemia, unspecified; Z88.8 Allergy status to other drugs, medicaments and biological substances; Z79.4 Long term (current) use of insulin; Z79.899 Other long term (current) drug therapy
CPT/HCPCS: 36415; 70450; 71045; 80053; 80143; 80179; 80305; 80307; 81001; 82009; 82803; 82947; 83605; 83735; 83880; 84484; 85025; 87040; 93005; 99285; A9270; 93010; 99284

== ENCOUNTER 2025-01-18 14:37 | Emergency (ER) | payer MEDICARE ==
[2025-01-18 15:07] LABS: BASOPHILS ABSOLUTE AUTO 0.03 K/uL (0.00-0.20); BASOPHILS PERCENT AUTO 0.5 % (0.0-1.0); EOSINOPHILS ABSOLUTE AUTO 0.02 K/uL (0.00-0.45); EOSINOPHILS PERCENT AUTO 0.3 % (0.0-6.0); IMMATURE GRAN ABSOLUTE AUTO 0.01 K/uL (0.00-0.05); IMMATURE GRAN PERCENT AUTO 0.2 % (0.0-0.4); LYMPHOCYTES ABSOLUTE AUTO 0.24 K/uL (1.00-4.80); LYMPHOCYTES PERCENT AUTO 3.6 % (24.0-44.0); MEAN PLATELET VOLUME 10.6 fL (9.4-12.4); MONOCYTES ABSOLUTE AUTO 0.18 K/uL (0.00-0.80); MONOCYTES PERCENT AUTO 2.7 % (0.0-8.0); NEUTROPHILS ABSOLUTE AUTO 6.13 K/uL (1.80-7.70); NEUTROPHILS PERCENT AUTO 92.7 % (41.0-71.0); NRBC ABSOLUTE 0.00 K/uL (0.00-0.02); NRBC PERCENT 0.0 /100WBC (0.0-0.2); PLATELET COUNT,PLT 133 K/uL (150-400); RED BLOOD CELL COUNT 3.23 M/uL (4.52-5.90); WHITE BLOOD CELL COUNT,WBC 6.61 K/uL (3.9-11.3)
[2025-01-18] MEDS: Nitroglycerin 2% Oint 1 GM UD Packet TOP ONE (15:12)
[2025-01-18] MEDS: Ondansetron 4 MG/2 ML SDV IVPUSH ONE ×2 (15:12→17:07)
[2025-01-18 15:23] LABS: INR 1.15 (0.86-1.11); PTT,PARTIAL THROMBOPLSTIN TIME 32.9 SEC (23.9-30.7)
[2025-01-18 15:42] LABS: A/G RATIO 1.1 (0.9-1.6); ALANINE AMINOTRANSFERASE,ALT 16.0 IU/L (14-63); ASPARTATE AMNIOTRANSFERASE,AST 12.0 IU/L (15-37); BILIRUBIN TOTAL 1.5 mg/dL (0.2-1.0); BLOOD UREA NITROGEN,BUN 53.0 mg/dL (7.0-18.0); CARBON DIOXIDE,CO2 19.1 mmol/L (21.0-32.0); CHLORIDE,CL 88.0 mmol/L (98-107); CREATININE 4.8 mg/dL (0.8-1.3); EST CRCL DRUG DOSING (CG) 16.05 mL/min; POTASSIUM,K 5.8 mmol/L (3.5-5.1); PRO B-TYPE NATRIUR PEPT,BNPPRO 15500.0 pg/mL (0-125); PROTEIN TOTAL,TP 7.5 g/dL (6.4-8.2); SODIUM,NA 127.0 mmol/L (136-148)
[2025-01-18 15:48] LABS: ESTIMATED GFR 13.0 mL/min (>60)
[2025-01-18 16:02] LABS: GLUCOSE RANDOM 852.0 mg/dL (74-106)
[2025-01-18] MEDS: Iopamidol 755 Mg/ML 100 ML Bottle IVPUSH ONE (16:07)
[2025-01-18] MEDS ORDERED: 50% Dextrose in Water 50 ML Syringe IVPUSH PRN (16:18)
[2025-01-18] MEDS: Insulin Regular, Human 100 Units/ML 10 ML Vial IVPUSH ONE (16:30)
[2025-01-18 16:57] LABS: APPEARANCE,URINE CLEAR; GLUCOSE,URINE >=1000 mg/dL (NEGATIVE); OCCULT BLOOD,URINE SMALL (NEGATIVE)
[2025-01-18 17:08] LABS: EPITHELIAL CELLS,URINE RARE (NONE-FEW)
[2025-01-18 17:11] LABS: PCO2 VENOUS 38.0 mmHG (41-51); PH,VENOUS 7.2 (7.32-7.43)
[2025-01-18 17:12] LABS: BASE EXCESS VENOUS -12.4 (-2.0-3.0); BICARBONATE,VENOUS 15.0 mEq/L (22-29); PO2 VENOUS 72.0 mmHG (35-45)
[2025-01-18 17:34] VITALS: BP 108/56; PULSE 69
== END 2025-01-18 18:17 ==
LOC: MW.ED 14:37
DX: I20.0 Unstable angina (principal); I12.9 Hypertensive chronic kidney disease with stage 1 through stage 4 chronic kidney disease, or unspecified chronic kidney disease; N18.9 Chronic kidney disease, unspecified; E87.5 Hyperkalemia; E10.65 Type 1 diabetes mellitus with hyperglycemia; I48.91 Unspecified atrial fibrillation; I25.2 Old myocardial infarction; E10.40 Type 1 diabetes mellitus with diabetic neuropathy, unspecified; E10.22 Type 1 diabetes mellitus with diabetic chronic kidney disease; M19.90 Unspecified osteoarthritis, unspecified site; Z99.2 Dependence on renal dialysis; Z79.899 Other long term (current) drug therapy; Z79.4 Long term (current) use of insulin; Z79.01 Long term (current) use of anticoagulants
CPT/HCPCS: 36415; 71045; 71275; 80053; 81001; 82009; 82803; 82947; 83690; 83880; 84484; 85025; 85610; 85730; 93005; 96374; 96375; 96376; 99285; A9270; J2405; Q9967; J1171; J1815-GY